=== PATIENT | male | born 1970 | race Caucasian/White ===

== ENCOUNTER → 2018-05-24 10:05 | Outpatient (CLI) | payer MEDICARE, MEDICAID, SELFPAY ==
[2018-05-24 12:18] LABS: Absolute Lymphocyte Count 1.18 X10^3/ul (0.83-4.51); Absolute Neutrophil Count 3.2 X10^3/uL (2.0-7.7); Basophil# 0.02 X10^3/uL; Basophil% 0.4 % (0-1); Eosinophil# 0.56 X10^3/uL; Eosinophils% 10.3 % (0-5); Hematocrit 49.5 % (40-54); Lymphocyte # 1.18 X10^3/ul (4.0); Lymphocyte % 21.6 % (19-41); Mean Corp Hgb Conc 32.3 g/gl (32-36); Mean Corpuscular Hgb 29.6 pg (27.0-32.0); Mean Corpuscular Volume 91.5 fL (80-94); Mean Platelet Vol. 11.4 fl (6.2-12.0); Monocyte# 0.46 X10^3/uL; Monocyte% 8.4 % (0-10); Neutrophil # 3.23 X10^3/uL (2.7-7.7); Neutrophil % 59.1 % (47-70); Platelet Count 163 K/mm3 (150-450); RBC Distribution Width CV 13.3 % (11.6-14.6); RBC Distribution Width SD 44.1 fl (35.1-43.9); Red Blood Count 5.41 M/mm3 (4.6-6.2); White Blood Count 5.5 K/mm3 (4.4-11.0)
[2018-05-24 12:20] LABS: POSITIVE COUNT NO; POSITIVE DIFFERENTIAL NO; POSITIVE MORPHOLOGY NO
[2018-05-24 12:28] LABS: ALB/GLOB Ratio 1.3 RATIO (0.9-2.4); AST(SGOT) 19 U/L (15-37); Alanine Aminotransfer ALT/SGPT 25 U/L (16-61); Albumin, Serum 4.3 g/dL (3.2-5.0); Alkaline Phosphatase 127 U/L (45-117); Anion Gap 8 (5-15); BUN 15 mg/dL (7-18); BUN/Creat Ratio 12.9 RATIO (10-20); Calcium,Total 8.5 mg/dL (8.5-10.1); Chloride 108 mmol/L (98-107); Cholesterol 130 mg/dL (200); Creatinine, Serum 1.16 mg/dL (0.70-1.30); EST Glomerular Filtration Rate 72 mL/min (>60); Est Glom Filt Rate - Afr Amer 87 mL/min (>60); Globulin 3.3 g/dL (2.2-4.2); Glucose 97 mg/dL (74-106); High Density Lipoprotein 42 mg/dL; Potassium 4.2 mmol/L (3.5-5.1); Protein, Total 7.6 g/dL (6.4-8.2); Sodium Level 143 mmol/L (136-145); Triglycerides 46 mg/dL; Very Low Density Lipoprotein 9 mg/dL (5-40)
[2018-05-24 12:33] LABS: Microalbumin,Random Urine 14.4 mg/L (NO RANGE EST.); Microalbumin:Creatinine Ratio 9.8 mg/g CRE (<30 mg/g CRE)
== END ==
PROVIDERS: Visit Provider Family Medicine
DX: Z00.00 Encounter for general adult medical examination without abnormal findings (principal); E78.5 Hyperlipidemia, unspecified; E11.40 Type 2 diabetes mellitus with diabetic neuropathy, unspecified; R80.9 Proteinuria, unspecified
CPT/HCPCS: 36415; 80053; 80061; 82043; 82570; 85025

== ENCOUNTER → 2019-05-31 09:54 | Outpatient (CLI) | payer MEDICARE, MEDICAID, SELFPAY ==
[2019-05-31 12:22] LABS: Hemoglobin A1c 5.7 % (4.2-6.3)
[2019-05-31 12:25] LABS: ALB/GLOB Ratio 1.2 RATIO (0.9-2.4); AST(SGOT) 18 U/L (15-37); Alanine Aminotransfer ALT/SGPT 26 U/L (16-61); Albumin, Serum 4.6 g/dL (3.2-5.0); Alkaline Phosphatase 192 U/L (45-117); Anion Gap 11 (5-15); BUN 14 mg/dL (7-18); BUN/Creat Ratio 9.9 RATIO (10-20); Calcium,Total 9.4 mg/dL (8.5-10.1); Chloride 106 mmol/L (98-107); Cholesterol 150 mg/dL (200); Creatinine, Serum 1.42 mg/dL (0.70-1.30); EST Glomerular Filtration Rate 57 mL/min (>60); Est Glom Filt Rate - Afr Amer 69 mL/min (>60); Globulin 3.7 g/dL (2.2-4.2); Glucose 97 mg/dL (74-106); High Density Lipoprotein 39 mg/dL; Potassium 4.2 mmol/L (3.5-5.1); Protein, Total 8.3 g/dL (6.4-8.2); Sodium Level 143 mmol/L (136-145); Thyroid Stim Hormone (TSH) 2.35 uIU/mL (0.358-3.74); Triglycerides 110 mg/dL; Very Low Density Lipoprotein 22 mg/dL (5-40)
[2019-05-31 12:50] LABS: Absolute Neutrophil Count 3.8 X10^3/uL (2.0-7.7); Basophil# 0.01 X10^3/uL; Basophil% 0.2 % (0-1); Eosinophil# 0.42 X10^3/uL; Hematocrit 49.8 % (40-54); Hemoglobin 16.7 g/dl (13.0-16.5); Lymphocyte % 21.8 % (19-41); Mean Corp Hgb Conc 33.5 g/gl (32-36); Mean Corpuscular Hgb 30.1 pg (27.0-32.0); Mean Corpuscular Volume 89.7 fL (80-94); Mean Platelet Vol. 10.9 fl (6.2-12.0); Monocyte# 0.46 X10^3/uL; Monocyte% 7.7 % (0-10); Neutrophil # 3.76 X10^3/uL (2.7-7.7); Neutrophil % 63.1 % (47-70); Platelet Count 188 K/mm3 (150-450); RBC Distribution Width SD 42.5 fl (35.1-43.9); Red Blood Count 5.55 M/mm3 (4.6-6.2)
[2019-05-31 12:51] LABS: POSITIVE COUNT NO; POSITIVE DIFFERENTIAL NO; POSITIVE MORPHOLOGY NO
== END ==
LOC: LAB.FUTURE 11-29 13:54 → BFHLAB 12-12 14:34
PROVIDERS: Family Provider Family Medicine; PCP Family Medicine; Visit Provider Family Medicine
DX: E11.40 Type 2 diabetes mellitus with diabetic neuropathy, unspecified (principal); E01.0 Iodine-deficiency related diffuse (endemic) goiter; E78.5 Hyperlipidemia, unspecified; Z51.81 Encounter for therapeutic drug level monitoring
CPT/HCPCS: 36415; 80053; 80061; 83036; 84443; 85025

== ENCOUNTER → 2019-09-06 08:07 | Outpatient (CLI) | payer MEDICARE, MEDICAID, SELFPAY ==
[2019-09-06 12:27] LABS: ALB/GLOB Ratio 1.3 RATIO (0.9-2.4); AST(SGOT) 19 U/L (15-37); Alanine Aminotransfer ALT/SGPT 26 U/L (16-61); Albumin, Serum 4.6 g/dL (3.2-5.0); Alkaline Phosphatase 142 U/L (45-117); Anion Gap 7 (5-15); BUN 21 mg/dL (7-18); BUN/Creat Ratio 17.8 RATIO (10-20); Calcium,Total 9.1 mg/dL (8.5-10.1); Carbamazepine (Tegretol) 9.3 ug/mL (4.0-12.0); Chloride 106 mmol/L (98-107); Creatinine, Serum 1.18 mg/dL (0.70-1.30); EST Glomerular Filtration Rate 70 mL/min (>60); Est Glom Filt Rate - Afr Amer 85 mL/min (>60); GGTP 48 U/L (15-85); Globulin 3.5 g/dL (2.2-4.2); Glucose 87 mg/dL (74-106); Microalbumin,Random Urine 12.8 mg/L (NO RANGE EST.); Microalbumin:Creatinine Ratio 10.1 mg/g CRE (<30 mg/g CRE); Protein, Total 8.1 g/dL (6.4-8.2); Sodium Level 144 mmol/L (136-145)
[2019-09-07 14:08] LABS: Alkaline Phosphatase, Serum 137 IU/L (39-117); Bone Fraction 33 % (12-68); Liver Fraction 67 % (13-88)
[2019-09-08 14:35] LABS: Intestinal Fraction 0 % (0-18)
== END ==
PROVIDERS: Family Provider Family Medicine; PCP Family Medicine
DX: Z79.899 Other long term (current) drug therapy (principal); R80.9 Proteinuria, unspecified; R74.8 Abnormal levels of other serum enzymes; R79.89 Other specified abnormal findings of blood chemistry
CPT/HCPCS: 36415; 80053; 80156; 82043; 82570; 82977; 84075; 84080

== ENCOUNTER → 2020-06-07 08:45 | Outpatient (CLI) | payer MEDICARE, MEDICAID, SELFPAY ==
[2020-06-07 12:52] LABS: Absolute Lymphocyte Count 1.22 X10^3/uL (0.83-4.51); Absolute Neutrophil Count 2.5 X10^3/uL (2.0-7.7); Basophil# 0.03 X10^3/uL; Basophil% 0.6 % (0-1); Eosinophil# 0.48 X10^3/uL; Eosinophils% 10.3 % (0-5); Hematocrit 50.8 % (40-54); Hemoglobin 16.4 g/dL (13.0-16.5); Lymphocyte # 1.22 X10^3/ul (4.0); Lymphocyte % 26.3 % (19-41); Mean Corp Hgb Conc 32.3 g/dL (32-36); Mean Corpuscular Hgb 29.8 pg (27.0-32.0); Mean Corpuscular Volume 92.2 fL (80-94); Mean Platelet Vol. 10.6 fl (6.2-12.0); Monocyte# 0.36 X10^3/uL; Monocyte% 7.8 % (0-10); NRBC Flagged by Analyzer 0 % (0-5); Neutrophil # 2.54 X10^3/uL (2.7-7.7); Neutrophil % 54.8 % (47-70); Platelet Count 164 K/mm3 (150-450); RBC Distribution Width CV 12.7 % (11.6-14.6); RBC Distribution Width SD 43.4 fl (35.1-43.9); Red Blood Count 5.51 M/mm3 (4.6-6.2); White Blood Count 4.6 K/mm3 (4.4-11.0)
[2020-06-07 13:11] LABS: Hemoglobin A1c 5.6 % (3.8-5.6)
[2020-06-07 13:21] LABS: ALB/GLOB Ratio 1.3 RATIO (0.9-2.4); AST(SGOT) 17 U/L (15-37); Alanine Aminotransfer ALT/SGPT 31 U/L (16-61); Albumin, Serum 4.3 g/dL (3.2-5.0); Alkaline Phosphatase 143 U/L (45-117); Anion Gap 7 (5-15); BUN 20 mg/dL (7-18); BUN/Creat Ratio 16.8 RATIO (10-20); Calcium,Total 8.7 mg/dL (8.5-10.1); Chloride 105 mmol/L (98-107); Cholesterol 147 mg/dL (200); Creatinine, Serum 1.19 mg/dL (0.70-1.30); EST Glomerular Filtration Rate 69 mL/min (>60); Est Glom Filt Rate - Afr Amer 84 mL/min (>60); Globulin 3.4 g/dL (2.2-4.2); Glucose 105 mg/dL (74-106); High Density Lipoprotein 42 mg/dL; Protein, Total 7.7 g/dL (6.4-8.2); Sodium Level 141 mmol/L (136-145); Triglycerides 62 mg/dL; Very Low Density Lipoprotein 12 mg/dL (5-40)
== END ==
PROVIDERS: Family Provider Family Medicine; PCP Family Medicine; Visit Provider Family Medicine
DX: E78.5 Hyperlipidemia, unspecified (principal); R79.89 Other specified abnormal findings of blood chemistry; Z86.39 Personal history of other endocrine, nutritional and metabolic disease; Z51.81 Encounter for therapeutic drug level monitoring
CPT/HCPCS: 36415; 80053; 80061; 83036; 85025

== ENCOUNTER → 2021-01-01 10:34 | Outpatient (CLI) | payer MEDICARE, MEDICAID, SELFPAY ==
[2021-01-01 11:56] LABS: Anion Gap 6 (5-15); BUN 17 mg/dL (7-18); BUN/Creat Ratio 12.4 RATIO (10-20); Calcium,Total 9.3 mg/dL (8.5-10.1); Chloride 107 mmol/L (98-107); Creatinine, Serum 1.37 mg/dL (0.70-1.30); EST Glomerular Filtration Rate 59 mL/min (>60); Est Glom Filt Rate - Afr Amer 71 mL/min (>60); Glucose 79 mg/dL (74-106); PSA,Total - Annual Screen 0.44 ng/mL (0.00-4.00); Potassium 4.3 mmol/L (3.5-5.1); Sodium Level 143 mmol/L (136-145)
== END ==
PROVIDERS: PCP Family Medicine; Referring Provider Urology; Visit Provider Urology
DX: Z12.5 Encounter for screening for malignant neoplasm of prostate (principal)
CPT/HCPCS: 36415; 80048; 84153; G0103

== ENCOUNTER → 2021-02-25 11:20 | Outpatient (CLI) | payer MEDICARE, MEDICAID, SELFPAY ==
--- NOTE | 2021-02-25 11:24 | US_ITS ---
STUDY: RENAL ULTRASOUND - COMPLETE REASON FOR EXAM: Male, 50 years old. CKD STAGE 2 TECHNIQUE: Ultrasound evaluation of the kidneys was performed with real-time and static desir-scale imaging. COMPARISON: None. FINDINGS: RIGHT KIDNEY: Normal location of the right kidney, which is normal in size. The right kidney measures 10.7 cm x 6.4 cm x 5.7 cm. There is a normal cortex of the right kidney. The renal cortex measures 1.6 cm. 2 renal cysts are seen. The larger measures 2.3 cm x 2 cm x 2.1 cm. There are no right renal calculi. There is no right hydronephrosis. DISTAL RIGHT URETER: There is non-visualization of the distal right ureter. There is no demonstrated right ureterovesical junction calculus. There is a visualized right ureteral jet. LEFT KIDNEY: Normal location of the left kidney, which is normal in size. The left kidney measures 12.4 cm x 5.5 cm x 5.6 cm. There is a normal cortex of the left kidney. The renal cortex measures 1.4 cm. 2 renal cysts are seen. The larger measures 1.3 cm x 1.8 cm x 1.3 cm. I suspect nonobstructive intrarenal calculus in the upper pole calyx of the left kidney. There is no left hydronephrosis. DISTAL LEFT URETER: There is non-visualization of the distal left ureter. There is no demonstrated left ureterovesical junction calculus. There is a visualized left ureteral jet. BLADDER: The distended urinary bladder has a volume of 457 ml. There is a normal wall thickness of the distended urinary bladder. There is no demonstrated mass within the urinary bladder. There are no demonstrated bladder calculi. US/Kidney and Bladder IMPRESSION: Bilateral renal cysts. Nonobstructive calculus in the upper pole calyx of the left kidney. Electronically Signed: Josh Huerta MD at 12:24 EDT , Service support ,
== END ==
PROVIDERS: PCP Family Medicine; Referring Provider Internal Medicine Nephrology; Visit Provider Internal Medicine Nephrology
DX: E11.22 Type 2 diabetes mellitus with diabetic chronic kidney disease (principal); N18.2 Chronic kidney disease, stage 2 (mild)
CPT/HCPCS: 76770

== ENCOUNTER → 2021-03-18 08:03 | Outpatient (CLI) | payer MEDICARE, MEDICAID, SELFPAY ==
[2021-03-18 08:59] LABS: Albumin, Serum 4.2 g/dL (3.2-5.0); BUN 19 mg/dL (7-18); BUN/Creat Ratio 14.6 RATIO (10-20); Chloride 105 mmol/L (98-107); EST Glomerular Filtration Rate 62 mL/min (>60); Est Glom Filt Rate - Afr Amer 75 mL/min (>60); Glucose 158 mg/dL (74-106); Phosphorus 2.9 mg/dL (2.5-4.9); Sodium Level 138 mmol/L (136-145)
[2021-03-18 09:04] LABS: Vitamin D,25 Hydroxy 30.1 ng/mL
[2021-03-18 09:37] LABS: Carbamazepine (Tegretol) 11.5 ug/mL (4.0-12.0)
== END ==
PROVIDERS: PCP Family Medicine; Referring Provider Internal Medicine Nephrology; Visit Provider Internal Medicine Nephrology
DX: F31.70 Bipolar disorder, currently in remission, most recent episode unspecified (principal); N18.30 Chronic kidney disease, stage 3 unspecified; F19.10 Other psychoactive substance abuse, uncomplicated; Z79.899 Other long term (current) drug therapy
CPT/HCPCS: 36415; 80069; 80156; 82306

== ENCOUNTER → 2021-08-09 07:59 | Outpatient (CLI) | payer MEDICARE, SELFPAY ==
[2021-08-09 09:00] LABS: Albumin, Serum 4.2 g/dL (3.2-5.0); BUN 15 mg/dL (7-18); BUN/Creat Ratio 12.6 RATIO (10-20); Calcium,Total 8.9 mg/dL (8.5-10.1); Chloride 106 mmol/L (98-107); Creatinine, Serum 1.19 mg/dL (0.70-1.30); EST Glomerular Filtration Rate 69 mL/min (>60); Est Glom Filt Rate - Afr Amer 83 mL/min (>60); Glucose 120 mg/dL (74-106); Phosphorus 2.9 mg/dL (2.5-4.9); Potassium 4.2 mmol/L (3.5-5.1); Sodium Level 142 mmol/L (136-145)
== END ==
PROVIDERS: PCP Family Medicine; Visit Provider Internal Medicine Nephrology
DX: N18.2 Chronic kidney disease, stage 2 (mild) (principal)
CPT/HCPCS: 36415; 80069

== ENCOUNTER 2022-01-29 08:19 | Outpatient (CLI) | payer MEDICARE, MEDICAID, SELFPAY ==
[2022-01-29 09:54] LABS: PSA,Total - Annual Screen 0.41 ng/mL (0.00-4.00)
== END 2022-01-29 23:59 | disposition home or self-care (01) ==
LOC: LAB 08:24
PROVIDERS: PCP Internal Medicine; Visit Provider Registered Nurse
DX: Z12.5 Encounter for screening for malignant neoplasm of prostate (principal)
CPT/HCPCS: 84153; 36415; G0103

== ENCOUNTER 2022-03-12 06:34 | Outpatient (CLI) | payer MEDICARE, MEDICAID, SELFPAY ==
[2022-03-12 07:55] LABS: Hematocrit 49.9 % (40-54); Hemoglobin 16.4 g/dL (13.0-16.5); Mean Corp Hgb Conc 32.9 g/dL (32-36); Mean Corpuscular Hgb 29.6 pg (27.0-32.0); Mean Corpuscular Volume 90.1 fL (80-94); Mean Platelet Vol. 10.1 fl (6.2-12.0); Platelet Count 183 K/mm3 (150-450); RBC Distribution Width CV 12.7 % (11.6-14.6); Red Blood Count 5.54 M/mm3 (4.6-6.2); White Blood Count 5.9 K/mm3 (4.4-11.0)
[2022-03-12 08:10] LABS: Albumin, Serum 4.3 g/dL (3.2-5.0); BUN 19 mg/dL (7-18); Calcium,Total 9.1 mg/dL (8.5-10.1); Chloride 105 mmol/L (98-107); Creatinine, Serum 1.19 mg/dL (0.70-1.30); EST Glomerular Filtration Rate 69 mL/min (>60); Est Glom Filt Rate - Afr Amer 83 mL/min (>60); Glucose 129 mg/dL (74-106); Phosphorus 2.9 mg/dL (2.5-4.9); Potassium 4.1 mmol/L (3.5-5.1); Sodium Level 139 mmol/L (136-145)
== END 2022-03-12 23:59 | disposition home or self-care (01) ==
LOC: LAB 06:37
PROVIDERS: PCP Family Medicine; Referring Provider Internal Medicine Nephrology; Visit Provider Internal Medicine Nephrology
DX: N18.2 Chronic kidney disease, stage 2 (mild) (principal)
CPT/HCPCS: 36415; 80069; 85027

== ENCOUNTER → 2022-12-16 | Outpatient (CLI) | payer MEDICARE, MEDICAID, SELFPAY ==
[2022-12-16 11:23] LABS: Hematocrit 46.5 % (40-54); Hemoglobin 15.3 g/dL (13.0-16.5); Mean Corp Hgb Conc 32.9 g/dL (32-36); Mean Corpuscular Volume 91.2 fL (80-94); Mean Platelet Vol. 10.1 fl (6.2-12.0); Platelet Count 175 K/mm3 (150-450); RBC Distribution Width CV 12.6 % (11.6-14.6); RBC Distribution Width SD 41.9 fl (35.1-43.9); White Blood Count 5.2 K/mm3 (4.4-11.0)
[2022-12-16 12:03] LABS: Vitamin D,25 Hydroxy 40.1 ng/mL
[2022-12-16 12:04] LABS: Free T3 2.6 pg/mL (2.18-3.98); Sodium Level 142 mmol/L (136-145); T4 Free Direct 0.74 ng/dL (0.76-1.46); Thyroid Stim Hormone (TSH) 1.05 uIU/mL (0.358-3.74)
== END | disposition home or self-care (01) ==
PROVIDERS: PCP Internal Medicine; Visit Provider Registered Nurse
DX: F31.70 Bipolar disorder, currently in remission, most recent episode unspecified (principal); F19.10 Other psychoactive substance abuse, uncomplicated; E55.9 Vitamin D deficiency, unspecified; R53.83 Other fatigue; Z79.899 Other long term (current) drug therapy
CPT/HCPCS: 36415; 82306; 84295; 84439; 84443; 84481; 85027

== ENCOUNTER → 2023-02-03 | Outpatient (CLI) | payer MEDICARE, MEDICAID, SELFPAY ==
[2023-02-03 10:46] LABS: PSA,Total - Annual Screen 0.41 ng/mL (0.00-4.00)
== END | disposition home or self-care (01) ==
LOC: LAB 09:37
PROVIDERS: PCP Internal Medicine; Referring Provider Registered Nurse; Visit Provider Registered Nurse
DX: Z12.5 Encounter for screening for malignant neoplasm of prostate (principal)
CPT/HCPCS: 36415; 84153; G0103

== ENCOUNTER → 2023-03-23 | Outpatient (CLI) | payer MEDICARE, MEDICAID, SELFPAY ==
[2023-03-23 08:13] LABS: Protein, Urine (Random) 13.9 mg/dL (<11.9); Protein:Creat Ratio 129 mg/g CRE (0-200)
[2023-03-23 08:20] LABS: Albumin, Serum 4.3 g/dL (3.2-5.0); BUN 16 mg/dL (7-18); BUN/Creat Ratio 12.1 RATIO (10-20); Calcium,Total 9.1 mg/dL (8.5-10.1); Chloride 105 mmol/L (98-107); Creatinine, Serum 1.32 mg/dL (0.70-1.30); EST Glomerular Filtration Rate 61 mL/min (>60); Est Glom Filt Rate - Afr Amer 73 mL/min (>60); Glucose 153 mg/dL (74-106); Phosphorus 2.8 mg/dL (2.5-4.9); Potassium 4.1 mmol/L (3.5-5.1); Sodium Level 138 mmol/L (136-145)
== END | disposition home or self-care (01) ==
LOC: LAB 07:18
PROVIDERS: PCP Internal Medicine; Referring Provider Internal Medicine Nephrology; Visit Provider Internal Medicine Nephrology
DX: N18.2 Chronic kidney disease, stage 2 (mild) (principal)
CPT/HCPCS: 36415; 80069; 82570; 84156

== ENCOUNTER → 2024-02-16 | Outpatient (CLI) | payer MEDICARE, MEDICAID, SELFPAY ==
[2024-02-16 10:41] LABS: PSA,Total - Annual Screen 1.14 ng/mL (0.00-4.00)
== END | disposition home or self-care (01) ==
LOC: LAB 09:39
PROVIDERS: PCP Internal Medicine; Referring Provider Urology; Visit Provider Urology
DX: Z12.5 Encounter for screening for malignant neoplasm of prostate (principal)
CPT/HCPCS: 36415; 84153; G0103

== ENCOUNTER → 2024-03-28 | Outpatient (CLI) | payer MEDICARE, MEDICAID, SELFPAY ==
[2024-03-28 08:11] LABS: Protein:Creat Ratio 111 mg/g CRE (0-200)
[2024-03-28 08:19] LABS: Albumin, Serum 4.5 g/dL (3.2-5.0); BUN 18 mg/dL (7-18); BUN/Creat Ratio 13.2 RATIO (10-20); Calcium,Total 9.1 mg/dL (8.5-10.1); Chloride 106 mmol/L (98-107); Creatinine, Serum 1.36 mg/dL (0.70-1.30); EST Glomerular Filtration Rate 58 mL/min (>60); Est Glom Filt Rate - Afr Amer 71 mL/min (>60); Glucose 129 mg/dL (74-106); Phosphorus 2.9 mg/dL (2.5-4.9); Potassium 4.3 mmol/L (3.5-5.1); Sodium Level 137 mmol/L (136-145)
== END | disposition home or self-care (01) ==
LOC: LAB.FUTURE 07:05 → LAB 07:05
PROVIDERS: PCP Internal Medicine; Referring Provider Internal Medicine Nephrology; Visit Provider Internal Medicine Nephrology
DX: E11.22 Type 2 diabetes mellitus with diabetic chronic kidney disease (principal); N18.2 Chronic kidney disease, stage 2 (mild)
CPT/HCPCS: 36415; 80069; 82570; 84156

== ENCOUNTER 2024-04-05 11:19 | Emergency (ER) | payer MEDICARE, MEDICAID, SELFPAY ==
[2024-04-05 11:21] VITALS: BP 135/85; PULSE 100; RESP 16; TEMP 36.6; O2SAT 96; BMI 34.2
[2024-04-05] MEDS: Ondansetron 4 MG/2 ML Vial IV (12:13)
[2024-04-05] MEDS: 0.9% Normal Saline (1000mL) 1,000 ML 1000 ML IV (12:13)
--- NOTE | 2024-04-05 12:16 | ED.VIS.GI ---
HPI HPI - GI History of Present Illness Chief Complaint: Nausea/Vomiting/Diarrhea Narrative Narrative: 53-year-old male presenting with nausea, vomiting, diarrhea. He states it started last evening and he did not feel well. He woke up in the middle night and has had several episodes of diarrhea. No recent exotic travel or exotic food. No exposure to anybody that is ill. No recent antibiotics. Denies abdominal pain. He has not had a fever at home. He states has not been able to hold anything down since 3 this morning. Initially tried water and orange juice but these did not stay down. He states that his stool is brown and liquidy. No black or bloody stools. [facility] Medical History Depression Hyperlipidemia Home Medications amitriptyline 100 mg tablet 100 mg PO QHS 03/06/16 [History Last Taken Unknown] aripiprazole 30 mg tablet (Abilify) 30 mg PO QHS 03/06/16 [History Last Taken Unknown] atorvastatin 20 mg tablet 20 mg PO QHS 03/06/16 [History Last Taken Unknown] bupropion HCl 300 mg 24 hr tablet, extended release 300 mg PO DAILY 03/06/16 [History Last Taken Unknown] buspirone 30 mg tablet 30 mg PO QHS 03/06/16 [History Last Taken 03/12/16 04:45 30 MG] digestive enzymes combo no.7 (Superior Digestive Enzyme capsule) 1 ea PO QHS 03/06/16 [History Last Taken Unknown] finasteride 5 mg tablet 5 mg PO QHS 03/06/16 [History Last Taken Unknown] pregabalin 75 mg capsule 75 mg PO BID 03/06/16 [History Last Taken 03/12/16 04:45 75 MG] tamsulosin 0.4 mg capsule 0.5 mg PO QHS 03/06/16 [History Last Taken Unknown] ciprofloxacin HCl 500 mg tablet 500 mg PO BID ##10 03/13/16 [Rx Last Taken Unknown] hydrocodone 5 mg-acetaminophen 300 mg tablet (Vicodin) 1 tab PO Q4H PRN PRN Pain #10 tabs 03/13/16 [Rx Last Taken Unknown] ondansetron 4 mg disintegrating tablet 4 mg PO Q8H PRN PRN Nausea #20 tabs 04/05/24 [Rx Last Taken Unknown] Allergy/AdvReac Type Severity Reaction Status Date / Time No Known Allergies Allergy Verified 04/05/24 11:20 Social History Smoking Status: Never smoker ROS ROS ED Constitutional Constitutional ED: Denies chills, fever(s) or sweats Eyes Eyes: Denies blurry vision or change in vision ENT ENT ED: Denies ear pain or sore throat Cardiovascular Cardiovascular: Denies chest pain, palpitations or racing heartbeat Respiratory/Chest Respiratory/Chest: Denies cough, dyspnea or sputum Gastrointestinal Gastrointestinal: Reports diarrhea, nausea and vomiting; Denies abdominal pain or constipation Genitourinary Genitourinary ED: Denies dysuria, hematuria or urinary frequency Musculoskeletal Musculoskeletal: Denies arthralgias, myalgias or neck pain Integumentary Denies abscess, Abrasions or rash Neurologic Neurologic: Denies headache(s), paresthesias or weakness Psychiatric Psychiatric: Denies anxiety, depression, suicidal ideation or suicidal thoughts Endocrine Endocrinology: Denies polydipsia or polyuria EXAM Physical Exam Const Vital Signs: 04/05/24 11:21 04/05/24 13:16 04/05/24 14:39 Temperature 98 F 99.2 F H 98 F Temperature Source Temporal Temporal Pulse Rate 100 78 90 Respiratory Rate 16 18 16 Blood Pressure 135/85 H 138/74 H Blood Pressure Mean 101 95 Pulse Ox 96 95 100 Oxygen Delivery Method Room Air Room Air Positive well nourished General Appearance ED: NAD HEENT normocephalic and atraumatic Eyes PERRL and EOMs intact bilaterally Resp normal respiratory effort and clear to auscultation bilaterally Auscultation: Negative for rales, rhonchi or wheezes Cardio regular rate and regular rhythm GI non-tender, non-distended and no masses Neuro CN's II-XII intact bilaterally Sensorium / Orientation: alert Motor Exam: strength 5/5 throughout Psych mental status grossly normal Skin no wounds MDM MDM MDM Narrative Medical decision making narrative: 53-year-old male presenting with nausea, vomiting, diarrhea. Denies cough or shortness of breath. Denies fever. Differential includes viral etiology, gastritis, dehydration, anemia, electrolyte abnormalities. IV line was established patient was given Zofran 4 mg IV and a liter normal saline. CBC, CMP, lipase will be obtained. CBC, CMP, lipase all within normal limits. Reevaluation patient feeling better after IV fluids and Zofran. He passed a p.o. challenge and felt he could go home. I do not believe he needs any further workup or imaging. Patient given prescription for Zofran. Impression: 1. Nausea/vomiting 2. Diarrhea Lab Data Attestation: I reviewed the patient's lab results. Labs: Laboratory Results - last 24 hr 04/05/24 12:05 WBC 9.1 RBC 5.22 Hgb 15.7 Hct 46.5 MCV 89.1 MCH 30.1 MCHC 33.8 RDW Std Deviation 40.8 RDW Coeff of Essie 12.6 Plt Count 165 MPV 10.7 Immature Gran % (Auto) 0.400 Neut % (Auto) 93.4 H Lymph % (Auto) 1.9 L Butts % (Auto) 4.0 Eos % (Auto) 0.2 Baso % (Auto) 0.1 Absolute Neuts (auto) 8.5 H Absolute Lymphs (auto) 0.17 L Nucleated RBC % 0 Sodium 140 Potassium 4.1 Chloride 111 H Carbon Dioxide 24.0 Anion Gap 5 BUN 27 H Creatinine 1.18 Estim Creat Clear Calc 92.91 Est GFR (MDRD) Af Amer 83 Est GFR (MDRD) Non-Af 69 BUN/Creatinine Ratio 22.9 H Glucose 149 H Calcium 8.7 Total Bilirubin 0.70 AST 15 ALT 22 Alkaline Phosphatase 121 H Total Protein 7.4 Albumin 4.0 Globulin 3.4 Albumin/Globulin Ratio 1.2 Lipase 20 Discharge Plan Triage Chief Complaint: Nausea/Vomiting/Diarrhea ED Provider: Jude Pennington Dx/Rx/DC Orders Instructions: ED Gastroenteritis, Viral (Adult) Prescriptions: New ondansetron 4 mg tablet,disintegrating 4 mg PO Q8H PRN PRN (Reason: Nausea) Qty: 20 0RF No Action atorvastatin 20 MG tablet 20 mg PO QHS Patient Comments: high cholesterol tamsulosin 0.4 MG capsule 0.5 mg PO QHS Patient Comments: prostate buspirone 30 MG tablet 30 mg PO QHS Patient Comments: mood amitriptyline 100 MG tablet 100 mg PO QHS Patient Comments: depression finasteride 5 MG tablet 5 mg PO QHS Patient Comments: prostate aripiprazole [Abilify] 30 MG tablet 30 mg PO QHS Patient Comments: schizophrenia bupropion HCl 300 MG tablet extended release 24 hr 300 mg PO DAILY Patient Comments: depression pregabalin 75 MG capsule 75 mg PO BID Patient Comments: pain digestive enzymes combo no.7 [Superior Digestive Enzyme] 1 EACH capsule 1 ea PO QHS Patient Comments: supplement ciprofloxacin HCl 500 MG tablet 500 mg PO BID Qty: 10 0RF Patient Comments: antibiotic hydrocodone-acetaminophen [Vicodin] 1 EACH tablet 1 tab PO Q4H PRN PRN (Reason: Pain) Qty: 10 0RF Patient Comments: pain control Primary Care Provider: Thony Raza Referrals: Thony Raza MD [Primary Care Provider] - Disposition Disposition: Home, Self Care Discharge Date/Time: 04/05/24 14:44
[2024-04-05 12:38] LABS: Absolute Lymphocyte Count 0.17 X10^3/uL (0.83-4.51); Absolute Neutrophil Count 8.5 X10^3/uL (2.0-7.7); Basophil# 0.01 X10^3/uL; Basophil% 0.1 % (0-1); Eosinophil# 0.02 X10^3/uL; Eosinophils% 0.2 % (0-5); Hematocrit 46.5 % (40-54); Hemoglobin 15.7 g/dL (13.0-16.5); Lymphocyte # 0.17 X10^3/ul (0.83-4.51); Lymphocyte % 1.9 % (19-41); Mean Corp Hgb Conc 33.8 g/dL (32-36); Mean Corpuscular Hgb 30.1 pg (27.0-32.0); Mean Corpuscular Volume 89.1 fL (80-94); Mean Platelet Vol. 10.7 fl (6.2-12.0); Monocyte# 0.36 X10^3/uL; NRBC Flagged by Analyzer 0 % (0-5); Neutrophil # 8.47 X10^3/uL (2.7-7.7); Neutrophil % 93.4 % (47-70); POSITIVE DIFFERENTIAL YES; Platelet Count 165 K/mm3 (150-450); RBC Distribution Width CV 12.6 % (11.6-14.6); RBC Distribution Width SD 40.8 fl (35.1-43.9); Red Blood Count 5.22 M/mm3 (4.6-6.2); White Blood Count 9.1 K/mm3 (4.4-11.0)
[2024-04-05 12:49] LABS: ALB/GLOB Ratio 1.2 RATIO (0.9-2.4); AST(SGOT) 15 U/L (15-37); Alanine Aminotransfer ALT/SGPT 22 U/L (16-61); Alkaline Phosphatase 121 U/L (45-117); Anion Gap 5 (5-15); BUN 27 mg/dL (7-18); BUN/Creat Ratio 22.9 RATIO (10-20); Calcium,Total 8.7 mg/dL (8.5-10.1); Chloride 111 mmol/L (98-107); Creatinine, Serum 1.18 mg/dL (0.70-1.30); EST Glomerular Filtration Rate 69 mL/min (>60); Est Glom Filt Rate - Afr Amer 83 mL/min (>60); Estimated Creatinine Clearance 92.91 ml/min; Globulin 3.4 g/dL (2.2-4.2); Glucose 149 mg/dL (74-106); Lipase 20 U/L (13-75); Potassium 4.1 mmol/L (3.5-5.1); Protein, Total 7.4 g/dL (6.4-8.2); Sodium Level 140 mmol/L (136-145)
[2024-04-05 13:16] VITALS: PULSE 78; RESP 18; TEMP 37.3; O2SAT 95
[2024-04-05 14:39] VITALS: BP 138/74; PULSE 90; RESP 16; TEMP 36.6; O2SAT 100
== END 2024-04-05 14:44 | disposition home or self-care (01) ==
PROVIDERS: Emergency Provider Student in an Organized Health Care Education/Training Program; PCP Internal Medicine; Visit Provider Student in an Organized Health Care Education/Training Program
DX: R11.2 Nausea with vomiting, unspecified (principal); R19.7 Diarrhea, unspecified; E78.5 Hyperlipidemia, unspecified
CPT/HCPCS: 80053; 83690; 85025; 96361; 96374; 99283; J7030; A4216; J2405

== ENCOUNTER → 2024-07-06 | Outpatient (CLI) | payer MEDICARE, MEDICAID, SELFPAY ==
--- NOTE | 2024-07-06 12:30 | NEURO ---
NCS and/or EMG Patient Report Ordering Doctor: Soniya Lake DATE OF SERVICE: 07/06/24 Giancarlo presents for electrodiagnostic testing of the lower limbs. He has weakness, pain and numbness in the lower limbs. Electrodiagnostic Findings: Peroneal motor nerve demonstration of this latency, amplitude and conduction velocity. Left peroneal motor nerve demonstrates normal distal latency, amplitude and conduction velocity. Normal tibial motor response bilaterally. Sensory responses are within normal limits. Borderline prolonged H-reflex bilaterally. Peroneal and tibial F-waves are within normal limits. Needle EMG testing was performed the lower limbs. All muscles tested showed no evidence of denervation with normal or reaction potentials. Electrodiagnostic impression: This a normal electrodiagnostic study in the lower limbs. There is no electrodiagnostic evidence for peripheral polyneuropathy or lumbosacral radiculopathy. Due to persistent symptoms, would consider possible nerve biopsy to evaluate for small fiber neuropathy. Multi Select Codes Neurology Neurology Interp Codes: 84749-16 Musc test done w/n test comp (interp) (2) and 16680-32 Nrv cndj test 9-10 studies (interp)
== END | disposition home or self-care (01) ==
LOC: PSN 09:04
PROVIDERS: PCP Internal Medicine; Referring Provider Nurse Practitioner; Visit Provider Nurse Practitioner
DX: R20.0 Anesthesia of skin (principal); R20.2 Paresthesia of skin; M79.604 Pain in right leg; M79.605 Pain in left leg
CPT/HCPCS: 95886; 95911

== ENCOUNTER 2025-01-04 08:10 | Emergency (ER) | payer MEDICARE, MEDICAID, SELFPAY ==
[2025-01-04 08:10] VITALS: BP 159/99; PULSE 100; RESP 18; TEMP 37.1; O2SAT 98; BMI 33.7
--- NOTE | 2025-01-04 08:24 | EX.ED.DYSGE1 ---
HPI History of Present Illness Chief Complaint: General Illness Informant: patient Narrative Narrative: History fever chills cough. This morning burning in his abdomen with weakness in the knees. No urinary symptoms. No ear pain no throat pain. Denies sick contacts. Prediabetic history. No asthma or COPD. Denies wheezing. Unclear if he got the flu vaccination this year. [facility] Medical History Hyperlipidemia Depression Home Medications ?Medication ?Instructions ?Recorded ?Last Taken ?Type amitriptyline 100 mg tablet 100 mg PO QHS 03/06/16 Unknown History aripiprazole 30 mg tablet (Abilify) 30 mg PO QHS 03/06/16 Unknown History atorvastatin 20 mg tablet 20 mg PO QHS 03/06/16 Unknown History bupropion HCl 300 mg 24 hr tablet, 300 mg PO DAILY 03/06/16 Unknown History extended release buspirone 30 mg tablet 30 mg PO QHS 03/06/16 03/12/16 04:45 History 30 MG digestive enzymes combo no.7 1 ea PO QHS 03/06/16 Unknown History (Superior Digestive Enzyme capsule) finasteride 5 mg tablet 5 mg PO QHS 03/06/16 Unknown History pregabalin 75 mg capsule 75 mg PO BID 03/06/16 03/12/16 04:45 History 75 MG tamsulosin 0.4 mg capsule 0.5 mg PO QHS 03/06/16 Unknown History ciprofloxacin HCl 500 mg tablet 500 mg PO BID ##10 03/13/16 Unknown Rx hydrocodone 5 mg-acetaminophen 300 1 tab PO Q4H PRN PRN Pain #10 tabs 03/13/16 Unknown Rx mg tablet (Vicodin) ondansetron 4 mg disintegrating 4 mg PO Q8H PRN PRN Nausea #20 tabs 04/05/24 Unknown Rx tablet famotidine 20 mg tablet 20 mg PO BID #28 TABLETS 01/04/25 Unknown Rx ondansetron 4 mg disintegrating 4 mg PO Q8H PRN PRN Nausea #10 tabs 01/04/25 Unknown Rx tablet oseltamivir 75 mg capsule (Tamiflu) 75 mg PO BID 5 days #10 caps 01/04/25 Unknown Rx Allergy/AdvReac Type Severity Reaction Status Date / Time No Known Allergies Allergy Verified 01/04/25 08:12 Family History no significant family his Social History Smoking Status: Never smoker ROS ROS ED Constitutional Constitutional ED: Reports chills and fever(s); Denies sweats ENT ENT ED: Denies sore throat Cardiovascular Cardiovascular: Denies chest pain, leg edema, palpitations or racing heartbeat Respiratory/Chest Respiratory/Chest: Reports cough; Denies dyspnea or dyspnea on exertion Gastrointestinal Gastrointestinal: Denies abdominal pain, diarrhea, nausea or vomiting Genitourinary Genitourinary ED: Denies dysuria, hematuria or urinary frequency Musculoskeletal Musculoskeletal: Denies back pain, extremity pain or neck pain Integumentary Denies rash or wounds Neurologic Neurologic: Denies headache(s), paresthesias or weakness EXAM Physical Exam Const Vital Signs: 01/04/25 08:10 01/04/25 10:21 Temperature 98.7 F 98.8 F Temperature Source Oral Pulse Rate 100 80 Respiratory Rate 18 18 Blood Pressure 159/99 H 144/89 H Blood Pressure Mean 119 107 Pulse Ox 98 98 Oxygen Delivery Method Room Air Positive well nourished and well developed General Appearance ED: well developed and NAD HEENT Reports moist mucous membranes normocephalic and atraumatic Eyes General Eye ED: Yes normal appearance of both eyes Neck full ROM Chest Wall Chest: Negative for tenderness Resp normal respiratory effort and normal air movement Effort and Inspection: symmetric chest movement; Negative for respiratory distress Cardio regular rate, regular rhythm and no murmurs Peripheral Pulses: pulses 2+ throughout GI normal to inspection, nondistended, normoactive bowel sounds and non-tender Palpation: Negative for guarding or rebound tenderness present Extremity normal to inspection General Extremety ED: Negative for edema or tenderness General Extremity: Negative for edema Neuro oriented x3 and no sensory deficits noted Sensorium / Orientation: awake and alert Skin no rashes or lesions noted and no wounds MDM MDM MDM Narrative Medical decision making narrative: Interventions / MDM: Differential diagnosis: Influenza, viral syndrome Diagnosis considered but do not suspect: Pneumonia however chest x-ray negative. My EKG interpretation: N/A Imaging independently reviewed and interpreted by myself: 2 view chest x-ray: No acute process also read by radiology. External documents reviewed: N/A Test considered but not ordered:N/A ED course: Vital stable afebrile in ED. Nontoxic. Increasing cough fever chills with no urinary symptoms. Chest x-ray ordered, COVID flu and RSV. With abdominal burning will treat with Pepcid and Zofran. Nonsurgical abdomen on exam. Findings positive for flu. Symptoms within 48 hours. Discussed Tamiflu for which she would like started. Patient prescription for Zofran and Pepcid as symptoms improved on reevaluation. Continue oral fluids for hydration. Outpatient follow-up. All questions were answered. Re-evaluation: stable Disposition discussed with patient/family/significant other: Patient Case discussed with consulting clinician: N/A This note was generated with [employer] dictation software. It may contain incorrect words, spelling, and punctuation that were not noted in checking the note before signing. Radiography Diagnostic Testing: Clinical Impression(s) from Imaging Studies Chest X-Ray 01/04/25 08:35 IMPRESSION: NO ACUTE FINDINGS. Reading Location: [place] [address] Discharge Plan Triage Chief Complaint: General Illness ED Provider: Evin Hall Dx/Rx/DC Orders Clinical Impression: Influenza A, Acute viral syndrome Instructions: ED Influenza (Adult) Prescriptions: New famotidine 20 mg tablet 20 mg PO BID Qty: 28 0RF ondansetron 4 mg tablet,disintegrating 4 mg PO Q8H PRN PRN (Reason: Nausea) Qty: 10 0RF oseltamivir [Tamiflu] 75 mg capsule 75 mg PO BID 5 Days Qty: 10 0RF No Action atorvastatin 20 MG tablet 20 mg PO QHS Patient Comments: high cholesterol tamsulosin 0.4 MG capsule 0.5 mg PO QHS Patient Comments: prostate buspirone 30 MG tablet 30 mg PO QHS Patient Comments: mood amitriptyline 100 MG tablet 100 mg PO QHS Patient Comments: depression finasteride 5 MG tablet 5 mg PO QHS Patient Comments: prostate aripiprazole [Abilify] 30 MG tablet 30 mg PO QHS Patient Comments: schizophrenia bupropion HCl 300 MG tablet extended release 24 hr 300 mg PO DAILY Patient Comments: depression pregabalin 75 MG capsule 75 mg PO BID Patient Comments: pain digestive enzymes combo no.7 [Superior Digestive Enzyme] 1 EACH capsule 1 ea PO QHS Patient Comments: supplement ciprofloxacin HCl 500 MG tablet 500 mg PO BID Qty: 10 0RF Patient Comments: antibiotic hydrocodone-acetaminophen [Vicodin] 1 EACH tablet 1 tab PO Q4H PRN PRN (Reason: Pain) Qty: 10 0RF Patient Comments: pain control ondansetron 4 mg tablet,disintegrating 4 mg PO Q8H PRN PRN (Reason: Nausea) Qty: 20 0RF Primary Care Provider: Thony Raza Referrals: Thony Raza MD [Primary Care Provider] - 1 Week Activity Restrictions/Additional Instructions: Flu a positive. Neck for COVID RSV. Chest x-ray negative. Take and finish Tamiflu as prescribed. Use Zofran as needed for nausea. Pepcid for your abdominal burning sensations. Follow-up with your doctor. Print Language: Afghan Disposition Disposition: Home, Self Care Discharge Date/Time: 01/04/25 10:22
[2025-01-04] MEDS: Famotidine 20 MG Tablet PO (08:30)
[2025-01-04] MEDS: Ondansetron ODT 4 MG Tablet PO (08:30)
--- NOTE | 2025-01-04 08:35 | RAD_ITS ---
PROCEDURE: CHEST PA AND LATERAL REASON FOR EXAM: Cough, weakness and nausea. TECHNIQUE: Frontal and lateral views of the chest. COMPARISON: None. FINDINGS: The heart size is normal. The mediastinal contour is unremarkable. Elevation of the right hemidiaphragm. Degenerative changes are identified within the thoracic spine. RAD/Chest PA and Lateral IMPRESSION: NO ACUTE FINDINGS. Reading Location: [place] [address]
[2025-01-04] MEDS: Oseltamivir Phosphate 75 MG Capsule PO (10:19)
[2025-01-04 10:21] VITALS: BP 144/89; PULSE 80; RESP 18; TEMP 37.1; O2SAT 98
== END 2025-01-04 10:22 | disposition home or self-care (01) ==
PROVIDERS: Emergency Provider Emergency Medicine; PCP Internal Medicine; Visit Provider Emergency Medicine
DX: J10.1 Influenza due to other identified influenza virus with other respiratory manifestations (principal); B34.9 Viral infection, unspecified; E78.5 Hyperlipidemia, unspecified; F32.A Depression, unspecified; Z79.899 Other long term (current) drug therapy
CPT/HCPCS: 71046; 87631; 99283

== ENCOUNTER → 2025-02-16 | Outpatient (CLI) | payer MEDICARE, MEDICAID, SELFPAY ==
[2025-02-16 12:06] LABS: PSA,Total - Annual Screen 0.86 ng/mL (0.02-4.00)
== END | disposition home or self-care (01) ==
LOC: LAB 11:03
PROVIDERS: PCP Internal Medicine; Referring Provider Nurse Practitioner; Visit Provider Nurse Practitioner
DX: Z12.5 Encounter for screening for malignant neoplasm of prostate (principal)
CPT/HCPCS: 36415; 84153; G0103

== ENCOUNTER → 2025-03-23 | Outpatient (CLI) | payer MEDICARE, MEDICAID, SELFPAY ==
[2025-03-23 09:17] LABS: Microalbumin,Random Urine < 12.0 mg/L (NO RANGE EST.); Microalbumin:Creatinine Ratio UNABLE TO CALCULATE mg/g CRE
[2025-03-23 09:22] LABS: Albumin, Serum 4.4 g/dL (3.5-5.0); Anion Gap 11 (5-15); BUN 19 mg/dL (4-19); BUN/Creat Ratio 16.7 RATIO (10-20); Carbon Dioxide 25.5 mmol/L (21.0-32.0); Chloride 106 mmol/L (98-108); Creatinine, Serum 1.11 mg/dL (0.70-1.20); EST Glomerular Filtration Rate 79 (>60); Glucose 104 mg/dL (70-99); Potassium 4.2 mmol/L (3.3-5.1); Sodium Level 142 mmol/L (133-145)
== END | disposition home or self-care (01) ==
PROVIDERS: PCP Internal Medicine; Referring Provider Internal Medicine Nephrology; Visit Provider Internal Medicine Nephrology
DX: E11.22 Type 2 diabetes mellitus with diabetic chronic kidney disease (principal); N18.2 Chronic kidney disease, stage 2 (mild)
CPT/HCPCS: 36415; 80069; 82043; 82570

== ENCOUNTER → 2025-10-20 | Outpatient (CLI) | payer MEDICARE, MEDICAID, SELFPAY ==
[2025-10-20 09:35] LABS: Hematocrit 47.5 % (40-54); Hemoglobin 15.6 g/dL (13.0-16.5); Immature Granulocytes Count 0.020 X10^3/uL (0.0-0.0); Mean Corp Hgb Conc 32.8 g/dL (32-36); Mean Corpuscular Volume 87.5 fL (80-94); Mean Platelet Vol. 10.6 fl (6.2-12.0); NRBC Flagged by Analyzer 0 % (0-5); Platelet Count 201 K/mm3 (150-450); RBC Distribution Width CV 12.7 % (11.6-14.6); RBC Distribution Width SD 40.6 fl (35.1-43.9); Red Blood Count 5.43 M/mm3 (4.6-6.2); White Blood Count 6.9 K/mm3 (4.4-11.0)
[2025-10-20 10:51] LABS: AST(SGOT) 26 U/L (<=37); Alanine Aminotransfer ALT/SGPT 21 U/L (<=46); Albumin, Serum 4.5 g/dL (3.5-5.0); Alkaline Phosphatase 124 U/L (40-129); Anion Gap 12 (5-15); BUN 17 mg/dL (4-19); BUN/Creat Ratio 16.3 RATIO (10-20); Calcium,Total 9.5 mg/dL (7.6-11.0); Carbon Dioxide 25.1 mmol/L (21.0-32.0); Chloride 104 mmol/L (98-108); Cholesterol 255 mg/dL (<=200); Globulin 2.7 g/dL (2.2-4.2); Glucose 113 mg/dL (70-99); Low Density Lipoprotein Calc. 205 mg/dL; PSA,Total- Diagnostic 0.66 ng/mL (0.00-4.00); Potassium 4.0 mmol/L (3.3-5.1); Triglycerides 97 mg/dL; Very Low Density Lipoprotein 19 mg/dL (5-40); cholesterol:hdl ratio screen 7.77
[2025-10-20 12:35] LABS: Ferritin 197 ng/mL (37-417); Free T3 3.2 pg/mL (2.18-3.98); Vitamin B12 407 pg/mL (180-914); Vitamin D,25 Hydroxy 39.5 ng/mL (30-100)
[2025-10-20 12:52] LABS: Iron 133 ug/dL (65-175); Iron Binding Capacity,Total 314 ug/dL (250-450); Iron Binding Capacity,Unsat 181 ug/dL (228-428)
== END | disposition home or self-care (01) ==
LOC: LAB 08:13
PROVIDERS: PCP Physician Assistant; Referring Provider Physician Assistant; Visit Provider Physician Assistant
DX: E55.9 Vitamin D deficiency, unspecified (principal); R53.83 Other fatigue; Z79.899 Other long term (current) drug therapy; N40.1 Benign prostatic hyperplasia with lower urinary tract symptoms; K21.9 Gastro-esophageal reflux disease without esophagitis; E78.2 Mixed hyperlipidemia
CPT/HCPCS: 36415; 80053; 80061; 82306; 82607; 82728; 83036; 83540; 83550; 84153; 84439; 84443; 84481; 85025

== ENCOUNTER 2025-10-22 12:21 | Emergency (ER) | payer MEDICARE, MEDICAID, SELFPAY ==
[2025-10-22 12:24] VITALS: BP 169/108; PULSE 89; RESP 18; TEMP 36.1; O2SAT 100; BMI 32.5
--- NOTE | 2025-10-22 12:40 | EX.ED.DYSGE1 ---
HPI History of Present Illness Chief Complaint: Med Refill Narrative Narrative: 53-year-old male past medical history of hypertension and bipolar disorder presents for medication refill of his antihypertensive medications. He relates history that he was seeing some of the counseling center, and in July, had run out of his medications. He found out that particular provider had left the practice. He tried to get back in to get medications for his bipolar disorder, but was unable to. He states that he was on 10 different medications for his bipolar disorder. He states he was able to see Dr. Song with psychiatry in [place], [place]. This was Thursday of last week, approximately 5 days ago. He was placed on his bipolar medications, but she suggested that he see his primary care provider regarding antihypertensive medications. He states he usually sees Dr. Raza with the [facility], but has not seen him since July. He had run out of his antihypertensive medications at that time. He presents to the emergency department wanting medications that his psychiatrist told him that he needs for his blood pressure on a more urgent basis. [facility] Medical History Hyperlipidemia Depression Home Medications Medication Instructions Recorded Last Taken Type amitriptyline 100 mg tablet 100 mg PO QHS 03/06/16 Unknown History aripiprazole 30 mg tablet (Abilify) 30 mg PO QHS 03/06/16 Unknown History atorvastatin 20 mg tablet 20 mg PO QHS 03/06/16 Unknown History bupropion HCl 300 mg 24 hr tablet, 300 mg PO DAILY 03/06/16 Unknown History extended release buspirone 30 mg tablet 30 mg PO QHS 03/06/16 03/12/16 04:45 History 30 MG digestive enzymes combo no.7 1 ea PO QHS 03/06/16 Unknown History (Superior Digestive Enzyme capsule) finasteride 5 mg tablet 5 mg PO QHS 03/06/16 Unknown History pregabalin 75 mg capsule 75 mg PO BID 03/06/16 03/12/16 04:45 History 75 MG tamsulosin 0.4 mg capsule 0.5 mg PO QHS 03/06/16 Unknown History ciprofloxacin HCl 500 mg tablet 500 mg PO BID ##10 03/13/16 Unknown Rx hydrocodone 5 mg-acetaminophen 300 1 tab PO Q4H PRN PRN Pain #10 tabs 03/13/16 Unknown Rx mg tablet (Vicodin) ondansetron 4 mg disintegrating 4 mg PO Q8H PRN PRN Nausea #20 tabs 04/05/24 Unknown Rx tablet famotidine 20 mg tablet 20 mg PO BID #28 TABLETS 01/04/25 Unknown Rx ondansetron 4 mg disintegrating 4 mg PO Q8H PRN PRN Nausea #10 tabs 01/04/25 Unknown Rx tablet oseltamivir 75 mg capsule (Tamiflu) 75 mg PO BID 5 days #10 caps 01/04/25 Unknown Rx atorvastatin 20 mg tablet (Lipitor) 20 mg PO QHS #30 tabs 10/22/25 Unknown Rx lisinopril 10 mg tablet 10 mg PO DAILY #30 tabs 10/22/25 Unknown Rx Allergy/AdvReac Type Severity Reaction Status Date / Time No Known Allergies Allergy Verified 10/22/25 12:24 Social History housing: house Smoking Status: Never smoker ROS ROS ED ROS Narrative Review of systems is negative for chest pain, shortness of breath, headache, leg swelling, or any other symptoms. Patient states he is here for medication refills of his antihypertensive medications. He has not been taking his blood pressure on a regular basis. Has recently started his bipolar medications, as he is seeing a new psychiatrist. EXAM Physical Exam Narrative Exam Narrative: Afebrile. Vital signs noted. Nontoxic-appearing. Awake, alert, answering questions appropriately. Blood pressure is elevated at 169/108 but he is asymptomatic with this. Cardiovascular examination regular rate and rhythm. Lungs are clear to auscultation bilaterally. Abdomen is soft and nontender with positive bowel sounds. No guarding or rebound. Neurological examination is nonfocal, nonlateralizing. Psychiatric examination shows no evidence of suicidal ideation, homicidal ideation, or active hallucinations. No internal stimulation. Const Vital Signs: 10/22/25 12:24 10/22/25 13:12 10/22/25 13:12 Temperature 96.9 F L 96.9 F L Temperature Source Temporal Pulse Rate 89 89 Respiratory Rate 18 18 Respiratory Effort Normal Non-Labored Respiratory Pattern Normal Blood Pressure 169/108 H 167/99 H Blood Pressure Mean 128 121 Pulse Ox 100 100 Oxygen Delivery Method Room Air MDM MDM MDM Narrative Medical decision making narrative: I do not feel that differential diagnosis is applicable in this case. He is having asymptomatic hypertension and is here for medication refill. He states that he has a list that his psychiatrist thought he needed more urgently for his antihypertensives. This was obtained from the patient. I told him I would write him prescription refills for the next month of certain medications on the list but that it was important for him to see his primary care provider for further refills, and additionally to take his blood pressure. He will return if he becomes symptomatic with elevated blood pressure including chest pain, shortness of breath, headache, vision changes, or any new or worsening symptoms. The list that he produced did state that he took lisinopril 10 mg daily. He used to be on atorvastatin 20 mg daily as well. Disposition is discharged home in stable condition. History & Record Review Discussion w/independent historian: Patient Additional record(s) reviewed:: Prior outpatient record Discharge Plan Triage Chief Complaint: Med Refill ED Provider: Baljit Zelaya Dx/Rx/DC Orders Clinical Impression: Encounter for medication refill, Asymptomatic hypertension Instructions: Medication Refill, ED High Blood Pressure Hypertension Prescriptions: New lisinopril 10 mg tablet 10 mg PO DAILY Qty: 30 0RF atorvastatin [Lipitor] 20 mg tablet 20 mg PO QHS Qty: 30 0RF No Action atorvastatin 20 MG tablet 20 mg PO QHS Patient Comments: high cholesterol tamsulosin 0.4 MG capsule 0.5 mg PO QHS Patient Comments: prostate buspirone 30 MG tablet 30 mg PO QHS Patient Comments: mood amitriptyline 100 MG tablet 100 mg PO QHS Patient Comments: depression finasteride 5 MG tablet 5 mg PO QHS Patient Comments: prostate aripiprazole [Abilify] 30 MG tablet 30 mg PO QHS Patient Comments: schizophrenia bupropion HCl 300 MG tablet extended release 24 hr 300 mg PO DAILY Patient Comments: depression pregabalin 75 MG capsule 75 mg PO BID Patient Comments: pain digestive enzymes combo no.7 [Superior Digestive Enzyme] 1 EACH capsule 1 ea PO QHS Patient Comments: supplement ciprofloxacin HCl 500 MG tablet 500 mg PO BID Qty: 10 0RF Patient Comments: antibiotic hydrocodone-acetaminophen [Vicodin] 1 EACH tablet 1 tab PO Q4H PRN PRN (Reason: Pain) Qty: 10 0RF Patient Comments: pain control ondansetron 4 mg tablet,disintegrating 4 mg PO Q8H PRN PRN (Reason: Nausea) Qty: 20 0RF famotidine 20 mg tablet 20 mg PO BID Qty: 28 0RF ondansetron 4 mg tablet,disintegrating 4 mg PO Q8H PRN PRN (Reason: Nausea) Qty: 10 0RF oseltamivir [Tamiflu] 75 mg capsule 75 mg PO BID 5 Days Qty: 10 0RF Primary Care Provider: Gerard Sue Referrals: Thony Raza MD [[facility] - [facility]] - 1-2 Weeks Gerard Sue PA [Primary Care Provider, Medical] Activity Restrictions/Additional Instructions: Follow-up with your primary care provider regarding further medication refills for your high blood pressure and high cholesterol. Return to the emergency department with chest pain, shortness of breath, headache, new or worsening symptoms. Continue your bipolar medications as prescribed by your psychiatrist. Print Language: Ukrainian Disposition Disposition: Home, Self Care Discharge Date/Time: 10/22/25 13:13
--- OUTSIDE RECORDS SUMMARY | 2025-10-22 12:52 | XMS RPT_ITS | CCD ---
Author Organization [facility]ly [facility] Care Team Providers Care [place] Name Role Phone Jesus Del Real Primary Care Provider Unavailisabell Raza MD, Thony Hernandez Primary Care Provider [phone] Ry VITALE, Thony Hernandez Primary Care Provider Ry VITALE, Thony Hernandez Primary Care Provider Ry VITALE, Thony Hernandez Primary Care Provider [phone] Aleksandra CORPORATE SAFETY MANAGER.Soniya LAMBERT Unavailable Dr. Thony Raza MD Primary Care Provider Dr. Evin Hall DO Attending Provider [phone] Evin Hall DO Emergency Provider Antionette Benavides Attending Provider Antionette Benavides Referring Provider [phone] THONY RAZA Primary Care Unavailable THONY RAZA Attending Unavailable THONY RAZA Primary Care Unavailable EMA COOPER Attending Unavailable THONY RAZA Primary Care Unavailable EMA COOPER Attending Unavailable THONY RAZA Primary Care Unavailable EMA COOPER Attending Unavailable THONY RAZA Primary Care Unavailable SONIYA ORTA Referring Unavailable CHRIS CHOW Attending Unavailable SONIYA ORTA Attending Unavailable THONY RAZA Primary Care Unavailable SONIYA ORTA Attending Unavailable RY, THONY Hernandez Primary Care Unavailable LEANA LEAL Attending Unavailable THONY RAZA Primary Care Unavailable SONIYA ORTA Attending Unavailable THONY RAZA H Primary Care Unavailable RY, MELISA Primary Care Unavailable RITU HOLM Attending Unavailable SONIYA ORTA Referring Unavailable RY, MELISA Primary Care Unavailable RY, MELISA Primary Care Unavailable BRANDON GILL Attending Unavailable Raza, Thony Primary Care Unavailable Ider, Antionette Attending Unavailable Ider, Antionette Referring Unavailable Kerry Campbell Attending Unavailable Kerry Campbell Referring Unavailable Raza, Thony Primary Care Unavailable Evin Hall Attending Unavailable Raza, Thony Primary Care Unavailable Christina White Attending Unavailable Raza, Thony Primary Care Unavailable Medications Current Medications Medication Drug Class(es) Dates Sig (Normalized) Sig (Original) acetaminophen 300 mg / HYDROcodone bitartrate 5 mg oral tablet (8 sources) Opioid Agonist Start: 03-13-2016 Hydrocodone-Acetam inophen (Vicodin 5-300 Mg Tablet) 1 EACH tablet Active 1 {tbl} PO EVERY 4 HOURS NEEDED as needed for Pain March 13, 2016 12:00am amantadine hydrochloride 100 mg oral capsule (20 sources) Influenza A M2 Protein Inhibitor Start: 11-05-2021 amantadine HCl (SYMMETREL) 100 mg capsule 200 mg twice daily. 11/05/2021 Active Comment on above: 200 mg twice daily. amitriptyline hydrochloride 50 mg oral tablet (20 sources) Tricyclic Antidepressant Start: 11-05-2021 End: 08-04-2025 take 1 tablet by mouth once daily at bedtime amitriptyline (ELAVIL) 50 mg tablet Take 1 tablet by mouth daily at bedtime. 08/04/2025 Active Start: 03-06-2016 take 1 tablet by christopher th at bedtime Amitriptyline 100 MG tablet Active 100 mg PO AT BEDTIME March 06, 2016 12:00am Comment on above: 50 mg once daily. ARIPiprazole 10 mg oral tablet (20 sources) Atypical Antipsychotic Start: 08-04-20 take 1 tablet by mouth once daily at bedtime ARIPiprazole (ABILIFY) 10 mg tablet Take 1 tablet by mouth daily at bedtime. 08/04/2025 Active Start: 04-12-2024 End: 08-04-2025 take 1 tablet by mouth once ARIPiprazole (ABILIFY) 15 mg tablet Take 1 tablet by mouth once daily. [facility] 04/12/2024 08/04/2025 Discontinued (Dosage adjustment) Start: 11-05-2021 End: 04-12-2024 ARIPiprazole (ABILIFY) 20 mg tablet 20 mg once daily. 0 11/05/2021 04/12/2024 Discontinued Start: 03-06-2016 take 1 tablet by christopher th at bedtime Aripiprazole (Abilify) 30 MG tablet Active 30 mg PO AT BEDTIME March 06, 2016 12:00am Start: 07-23-2013 take 1 tablet by christopher th once daily ARIPiprazole (ABILIFY) 10 mg tablet Take 1 tablet by mouth once daily. 0 07/23/2013 Active Comment on above: Take 1 tablet by christopher th once daily. 20 mg once daily. atorvastatin 20 mg oral tablet (20 sources) HMG-CoA Reductase Inhibitor Start: 6 End: 3 take 1 tablet by mouth at bedtime Atorvastatin 20 MG tablet Active 20 mg PO AT BEDTIME March 06, 2016 12:00am Start: 06-15-2013 take 1 tablet by christopher th once daily atorvastatin (LIPITOR) 10 mg tablet Take 10 mg by mouth once daily. 0 06/15/2013 Active Comment on above: Take 10 mg by mouth once daily. Take 1 tablet by christopher th daily at bedtime. bethanechol chloride 25 mg oral tablet (20 sources) Cholinergic Muscarinic Agonist Start: 2 take 1 tablet by mouth three times daily bethanechol (URECHOLINE) 25 mg tablet Take 1 tablet by mouth three times daily. 01/16/2022 Active Comment on above: Take 1 tablet by christopher th three times daily. 24 hr buPROPion hydrochloride 300 mg extended release oral tablet (9 sources) Aminoketone Start: 6 take 1 tablet by mouth once daily Bupropion Hcl 300 MG tablet extended release 24 hr Active 300 mg PO DAILY March 06, 2016 12:00am Start: 07-23-2013 take 1 tablet by christopher th twice daily buPROPion SR (WELLBUTRIN SR) 150 mg 12 hr tablet Take 1 tablet by mouth twice daily. 0 07/23/2013 Active Comment on above: Take 1 tablet by christopher th twice daily. carBAMazepine 200 mg oral tablet (20 sources) Mood Stabilizer Start: 08-04-2025 carBAMazepine (TEGRETOL) 200 mg tablet 1 tablet every morning AND 2 tablets daily at bedtime. 08/04/2025 Active Start: 11-05-2021 End: 08-04-2025 carBAMazepine (TEGRETOL) 200 mg tablet 200 mg twice daily. 11/05/2021 08/04/2025 Discontinued Comment on above: 200 mg twice daily. cholecalciferol 0.05 mg oral capsule (20 sources) Vitamin D Cholecalciferol, Vitamin D3, 50 mcg (2,000 unit) cap Take by mouth once daily. Active Comment on above: Take by mouth once d aily. ciprofloxacin 500 mg oral tablet (8 sources) Quinolone Antimicrobial Start: take 1 tablet by mouth twice daily Ciprofloxacin Hcl 500 MG tablet Active 500 mg PO TWICE A DAY March 13, 2016 12:00am Digestive Enzymes Combo No.7 (Superior Digestive Enzyme) 1 EACH capsule (8 sources) Start: take 1 capsule by mouth at bedtime Digestive Enzymes Combo No.7 (Superior Digestive Enzyme) 1 EACH capsule Active 1 EACH PO AT BEDTIME March 06, 2016 9:07am Start: 03-06-2016 take 1 capsule by mo uth at bedtime Digestive Enzymes Combo No.7 (Superior Digestive Enzyme) 1 EACH capsule Active 1 NMA PO AT BEDTIME March 06, 2016 12:00am Start: 03-06-2016 take 1 capsule by mo uth at bedtime Digestive Enzymes Combo No.7 (Superior Digestive Enzyme) 1 EACH capsule Active 1 EACH PO AT BEDTIME March 06, 2016 12:00am Start: 03-06-2016 take 1 capsule by mo uth at bedtime Digestive Enzymes Combo No.7 (Superior Digestive Enzyme) 1 EACH capsule Active 1 EACH PO AT BEDTIME March 05, 2016 11:00pm famotidine 20 mg oral tablet (20 sources) Histamine-2 Receptor Antagonist Start: 01-04-2025 take 1 tablet by mouth twice daily Famotidine 20 mg tablet Active 20 mg PO TWICE A DAY January 04, 2025 1:00am Start: 11-02-2023 End: 07-27-2024 take 1 tablet by mouth once daily famotidine (PEPCID) 40 mg tablet Indications: Gastroesophageal reflux disease without esophagitis Take 1 tablet by mouth once daily. 90 tablet 1 04/11/2024 07/27/2024 Discontinued Start: 10-16-2022 End: 08-04-2025 take 1 tablet by mouth once daily famotidine (PEPCID) 40 mg tablet Indications: Gastroesophageal reflux disease without esophagitis Take 1 tablet by mouth once daily. 90 tablet 1 06/06/2023 10/31/2023 Discontinued Comment on above: Take 1 tablet by christopher th once daily. finasteride 5 mg oral tablet (9 sources) 5-alpha Reductase Inhibitor Start: 3 take 1 tablet by mouth at bedtime Finasteride 5 MG tablet Active 5 mg PO AT BEDTIME March 06, 2016 12:00am Comment on above: Take 1 tablet by christopher th once daily. lisinopril 10 mg oral tablet (20 sources) Angiotensin Converting Enzyme Inhibitor Start: 3 End: 5 take 1 tablet by mouth once daily lisinopril (ZESTRIL) 10 mg tablet Indications: Primary hypertension Take 1 tablet by mouth once daily. 90 tablet 3 02/01/2025 Active Start: 06-16-2023 End: 10-31-2023 take 1 tablet by mouth once daily lisinopril (ZESTRIL) 10 mg tablet Indications: Primary hypertension Take 1 tablet by mouth once daily. 90 tablet 1 06/16/2023 10/31/2023 Discontinued Start: 02-13-2022 End: 06-14-2023 take 1 tablet by mouth once daily lisinopril (ZESTRIL, PRINIVIL) 10 mg tablet Indications: Primary hypertension Take 1 tablet by mouth once daily. 90 tablet 1 11/19/2022 06/14/2023 Discontinued Comment on above: Take 1 tablet by christopher th once daily. mupirocin 0.02 mg/mg topical ointment (2 sources) RNA Synthetase Inhibitor Antibacterial Start: 5 End: mupirocin (BACTROBAN) 2 % ointment Apply to affected area three times a day for 5 days. 30 g 08/02/2025 08/07/2025 Active omeprazole 40 mg delayed release oral capsule (20 sources) Proton Pump Inhibitor Start: 4 End: take 1 capsule by mouth once daily omeprazole (PRILOSEC) 40 mg capsule Take 1 capsule by mouth once daily. 90 capsule 3 02/01/2025 Active Start: 08-16-2013 take 1 capsule by mo uth once daily Omeprazole (PRILOSEC) 40 mg capsule Take 1 capsule by mouth once daily. 30 capsule 0 08/16/2013 Active Comment on above: Take 1 capsule by mo uth once daily. ondansetron 4 mg disintegrating oral tablet (3 sources) Serotonin-3 Receptor Antagonist Start: 04-05-20 24 take 1 tablet by mouth every eight hours as needed for nausea Ondansetron 4 mg tablet,disintegrati ng Active 4 mg PO EVERY 8 HOURS NEEDED as needed for Nausea January 04, 2025 1:00am oseltamivir 75 mg oral capsule (1 source) Neuraminidase Inhibitor Start: 01-04-20 take 1 capsule by mouth twice daily Oseltamivir (Tamiflu) 75 mg capsule Active 75 mg PO TWICE A DAY 09 03January 04, 2025 1:00am pregabalin 75 mg oral capsule (20 sources) Start: 11-02-20 End: 09-11-20 25 take 1 capsule by mouth three times daily pregabalin (LYRICA) 75 mg capsule Indications: Neuropathy Take 1 capsule by mouth three times a day for 180 days. 90 capsule 5 03/15/2025 09/11/2025 Active Start: 03-06-2016 End: 04-08-2025 take 1 capsule by mouth twice daily Pregabalin 75 MG capsule Active 75 mg PO TWICE A DAY March 06, 2016 12:00am Start: 07-23-2013 take 1 capsule by mo ut twice daily pregabalin 150 mg capsule Take 1 capsule by mouth twice daily. 0 07/23/2013 Active Comment on above: Take 1 capsule by mo uth twice daily. Take 1 capsule by mo uth twice daily for 180 days. Take 1 capsule by mo uth two times a day for 180 days. QUEtiapine 50 mg oral tablet (2 sources) Atypical Antipsychotic Start: 08-04-20 take 0.5-3 tablets by mouth at bedtime as needed QUEtiapine (SEROQUEL) 50 mg tablet Indications: Bipolar 1 disorder (HCC) Take 0.5-3 tablets by mouth at bedtime as needed. 08/04/2025 Active rosuvastatin calcium 10 mg oral tablet (20 sources) HMG-CoA Reductase Inhibitor Start: 06-08-20 End: 08-04-20 take 1 tablet by mouth once daily at bedtime rosuvastatin (CRESTOR) 10 mg tablet Indications: Hyperlipidemia, unspecified hyperlipidemia type Take 1 tablet by mouth daily at bedtime. 90 tablet 3 08/04/2025 Active Start: 12-30-2023 End: 04-11-2024 take 1 tablet by mouth once daily rosuvastatin (CRESTOR) 10 mg tablet Indications: Hyperlipidemia, unspecified hyperlipidemia type Take 1 tablet by mouth once daily. 30 tablet 2 12/30/2023 04/11/2024 Discontinued Comment on above: Take 1 tablet by christopher once daily. tamsulosin hydrochloride 0.4 mg oral capsule (9 sources) alpha-Adrenergic Lillian Start: 03-06-2016 take 0.5 mg by mouth at bedtime Tamsulosin 0.4 MG capsule Active 0.5 mg PO AT BEDTIME March 06, 2016 12:00am Start: 03-06-2016 take 0.5 mg by mouth at bedtim e Tamsulosin Active 0.5 MG PO AT BEDTIME March 06, 2016 12:00am Start: 07-23-2013 take 1 capsule by mo ut once daily at bedtime tamsulosin (FLOMAX) 0.4 mg Cp24 Take 1 capsule by mouth daily at bedtime. 0 07/23/2013 Active Comment on above: Take 1 capsule by mo uth daily at bedtime. thioctic acid 600 mg oral tablet (20 sources) Start: 08-02-2024 End: 02-26-2025 take 1 tablet by mouth once daily alpha lipoic acid 600 mg tab Indications: Neuropathy Take 600 mg by mouth once daily. 90 tablet 2 11/28/2024 02/26/2025 Active Completed/Discontinued Medications Medication Drug Class(es) Dates Sig (Normalized) Sig (Original) benzonatate 200 mg oral capsule (3 sources) Non-narcotic Antitussive Start: 01-02-2025 End: 02-01-2025 take 1 capsule by mouth every eight hours as needed Benzonatate 200 mg capsule Take 1 capsule by mouth three times a day as needed. 21 capsule 01/02/2025 02/01/2025 Discontinued (Course of therapy completed) busPIRone hydrochloride 30 mg oral tablet (20 sources) Start: 03-06-2016 End: 08-04-2025 busPIRone HCl 30 mg tablet Take 1 tablet in am. Take 1/2 tablet at bedtime. [facility] 04/12/2024 08/04/2025 Discontinued (Discontinued by another Health Care Provider) Comment on above: 30 mg once daily. 30 mg once daily. Ta ke 1 tablet in am, 1 1/2 tablet at bedtime. fluvoxaMINE maleate 100 mg oral tablet (20 sources) Serotonin Reuptake Inhibitor Start: 04-12-2024 End: 08-04-2025 take 2 tablets by mouth once daily at bedtime fluvoxaMINE (LUVOX) 100 mg tablet Take 2 tablets by mouth daily at bedtime. [facility]. 04/12/2024 08/04/2025 Discontinued (Discontinued by another Health Care Provider) Start: 11-05-2021 End: 04-12-2024 fluvoxaMINE (LUVOX) 100 mg t ablet 100 mg daily at bedtime. 0 11/05/2021 04/12/2024 Discontinued Comment on above: 100 mg daily at bedt trevor. mirtazapine 7.5 mg oral tablet (4 sources) Start: End: take 1 tablet by mouth at bedtime as needed for sleep Mirtazapine (REMERON) 7.5 mg tablet Indications: Bipolar affective disorder, currently manic, moderate (HCC) Take 1 tablet by mouth at bedtime as needed (sleep). 30 tablet 2 06/19/2025 08/04/2025 Discontinued (Lack of Efficacy) valbenazine 80 mg oral capsule (3 sources) Start: End: take 1 capsule by mouth once daily valbenazine (INGREZZA) 80 mg capsule Take 1 capsule by mouth once daily. 01/02/2025 02/01/2025 Discontinued (Discontinued by another Health Care Provider) zolpidem tartrate 10 mg oral tablet (2 sources) gamma-Aminobutyric Acid-ergic Agonist Start: End: take 10 mg by mouth every twenty-four hours as needed zolpidem (AMBIEN) 10 mg Take 10 mg by mouth at bedtime as needed. 07/26/2025 08/04/2025 Discontinued (Discontinued by another Health Care Provider) Problems Active Problems Problem Classification Problem Date Documented Date Episodic/Chronic Chronic kidney disease (20 sources) Chronic kidney disease stage 2; Translations: [Chronic kidney disease, stage 2 (mild)] Onset: 01-16-2022 01-17-2022 Chronic Coma; stupor; and brain damage (1 source) Daytime somnolence; Translations: [Somnolence] Episodic Diabetes mellitus with complications (1 source) Type 2 diabetes mellitus with diabetic chronic kidney disease; Translations: [Type 2 diabetes mellitus with diabetic chronic kidney disease] Onset: 07-27-2025 Chronic Disorders of lipid metabolism (20 sources) Hyperlipidemia; Translations: [Hyperlipidemia, unspecified] Onset: 01-16-2022 01-16-2022 Chronic Esophageal disorders (20 sources) Gastroesophageal reflux disease without esophagitis; Translations: [Gastro-esophageal reflux disease without esophagitis] Onset: 10-16-2022 10-16-2022 Chronic Essential hypertension (20 sources) Essential hypertension; Translations: [Essential (primary) hypertension] Onset: 02-13-2022 Chronic Immunizations and screening for infectious disease (6 sources) Vaccination needed; Translations: [Encounter for immunization] Onset: 02-01-2025 Episodic Influenza (1 source) Influenza due to Influenza A virus; Translations: [Influenza due to other identified influenza virus with other respiratory manifestations] 01-12-2025 Episodic Mood disorders (20 sources) Bipolar I disorder; Translations: [Bipolar disorder, unspecified] Onset: 01-16-2022 01-16-2022 Chronic Noninfectious gastroenteritis (1 source) Gastroenteritis; Translations: [Noninfective gastroenteritis and colitis, unspecified] 04-11-2024 Episodic Nutritional deficiencies (4 sources) Vitamin D deficiency; Translations: [Vitamin D deficiency, unspecified] Onset: 08-04-2025 08-04-2025 Chronic Other congenital anomalies (1 source) Congenital malformation of musculoskeletal system, unspecified; Translations: [Bony abnormality] Onset: 03-22-2025 Chronic Other connective tissue disease (2 sources) Pain in bilateral legs; Translations: [Pain in right leg] 06-06-2024 Episodic Other connective tissue disease (1 source) Other symptoms and signs involving the musculoskeletal system; Translations: [Other musculoskeletal symptoms referable to limbs] 02-08-2025 Episodic Other hereditary and degenerative nervous system conditions (20 sources) Medication-induced postural tremor; Translations: [Drug-induced tremor] Onset: 01-16-2022 01-17-2022 Chronic Other hereditary and degenerative nervous system conditions (1 source) Drug-induced tremor; Translations: [Drug-induced tremor] Onset: 01-17-2022 Chronic Other nervous system disorders (20 sources) Idiopathic peripheral neuropathy; Translations: [Hereditary and idiopathic neuropathy, unspecified] Onset: 01-16-2022 01-16-2022 Chronic Other nervous system disorders (7 sources) Neuropathy; Translations: [Polyneuropathy, unspecified] 08-02-2024 Chronic Other nervous system disorders (1 source) Polyneuropathy, unspecified; Translations: [Neuropathy] Onset: 08-15-2025 Chronic Other nervous system disorders (5 sources) Paresthesia of lower extremity; Translations: [Anesthesia of skin] 06-06-2024 Episodic Other nervous system disorders (1 source) Anesthesia of skin; Translations: [Numbness and tingling of both lower extremities] Onset: 08-15-2025 Episodic Other nervous system disorders (1 source) Paresthesia of skin; Translations: [Numbness and tingling of both lower extremities] Onset: 08-15-2025 Episodic Other nutritional; endocrine; and metabolic disorders (20 sources) Obese class II; Translations: [Obesity, unspecified] Onset: 01-16-2022 01-16-2022 Chronic Other nutritional; endocrine; and metabolic disorders (20 sources) Obese class I; Translations: [Obesity, unspecified] Onset: 07-20-2023 07-20-2023 Chronic Other skin disorders (1 source) Lesion of skin of nose; Translations: [Disorder of the skin and subcutaneous tissue, unspecified] Episodic Residual codes; unclassified (20 sources) Obstructive sleep apnea syndrome; Translations: [Obstructive sleep apnea (adult) (pediatric)] Onset: 07-02-2022 Chronic Residual codes; unclassified (1 source) Daytime somnolence; Translations: [Other hypersomnia] 11-03-2024 Chronic Residual codes; unclassified (2 sources) Obstructive sleep apnea (adult) (pediatric); Translations: [AMAYA on CPAP] Onset: 11-03-2024 Chronic Residual codes; unclassified (1 source) Other hypersomnia; Translations: [Excessive daytime sleepiness] Onset: 11-03-2024 Chronic Residual codes; unclassified (1 source) Viral syndrome; Translations: [Other general symptoms and signs] 01-02-2025 Episodic Skin and subcutaneous tissue infections (2 sources) Paronychia of finger of left hand; Translations: [Cellulitis of left finger] Onset: 08-02-2025 08-02-2025 Episodic Spondylosis; intervertebral disc disorders; other back problems (20 sources) Chronic low back pain; Translations: [Chronic bilateral low back pain without sciatica] Onset: 01-20-2023 Episodic Unclassified (3 sources) Parkinsonism; Translations: [Parkinsonism, unspecified Parkinsonism type (HCC)] 11-02-2024 Chronic Unclassified (1 source) Weakness of left lower extremity 02-08-2025 Unclassified (1 source) Parkinsonism, unspecified Parkinsonism type (HCC); Translations: [Parkinsonism, unspecified Parkinsonism type (HCC)] Onset: 08-15-2025 Unclassified (1 source) Cough, unspecified; Translations: [Cough, unspecified] Onset: 07-27-2025 Viral infection (1 source) Acute viral disease; Translations: [Viral infection, unspecified] 01-12-2025 Episodic Past or Other Problems Problem Classification Problem Date Documented Date Episodic/Chronic Abdominal pain (20 sources) Abdominal pain; Translations: [Unspecified abdominal pain] Onset: 07-23-2013 Resolved: 01-16-2022 07-23-2013 Episodic Biliary tract disease (20 sources) Gallstone; Translations: [Calculus of gallbladder without cholecystitis without obstruction] Onset: 07-23-2013 Resolved: 01-16-2022 07-23-2013 Episodic Diabetes mellitus without complication (20 sources) Prediabetes; Translations: [Prediabetes] Onset: 02-13-2022 02-13-2022 Episodic Other screening for suspected conditions (not mental disorders or infectious disease) (8 sources) Patient encounter status; Translations: [Encounter for screening for malignant neoplasm of colon] Onset: 02-23-2025 Episodic Residual codes; unclassified (2 sources) Other specified health status; Translations: [Other specified conditions influencing health status] Onset: 11-03-2024 11-03-2024 Episodic Residual codes; unclassified (1 source) Other general symptoms and signs; Translations: [Flu-like symptoms] Onset: 01-02-2025 Episodic Results Test Name Value Interpretation Reference Range Facility [facility] 08-15-2025 [facility] Office Visit ([facility] ) ELIZABETH BAUMANN ([id number]) 1970 M Date Time Provider Department 08/15/25 11:30 AM EMA COOPER During your visit today, we recorded the following information about you: Pulse Respiration Blood pressure Weight 75/minute 16/minute 134/84 107.8 kg Ema Cooper PA-C 08/15/2025 12:31 PM Signed [facility] Name: Elizabeth Baumann Age: [age] year old Gender: male Primary Care Provider: Thony Raza MD Assessment/Plan: 08/15/2025 - Sleep Medicine, Ema Cooper PA-C ASSESSMENT ASSESSMENT/PLAN: 1. Spinal stenosis of lumbar region without neurogenic claudication - ICD9: 724.02, ICD10: M48.061 (primary diagnosis) 2. Neuropathy - ICD9: 355.9, ICD10: G62.9 Patient with continued pain, more so on the right lower extremity today. Mild in nature but notices it more because he is having difficulty sleeping at night due to his mood. Discussed the physical therapy, prescribed at last appointment due to some weakness in the left upper extremity which is still appreciated today. Patient would like to try this, will try physical therapy and if symptoms persist may increase Lyrica. Currently on 75 mg 3 times daily, may increase to 100 mg 3 times daily if symptoms persist. 3. 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 Parkinsonism, unspecified Parkinsonism type (HCC) - ICD9: 332.0, ICD10: G20.C Did see movement, felt to be medication induced and encouraged stopping Abilify however patient is having some difficulty following with his psychiatric provider. Is still on Abilify and currently having significant mood elevation and difficulty sleeping at night. Follow with primary care until he can see a new psychiatric provider in September. Does have appointment scheduled movement for follow-up in August but as patient is still on the Abilify will encourage him to push this until he has stopped the medication. Having some significant issues with insomnia, encouraged following with PCP until he can be seen. NO delusions or hallucinations. 5. Numbness and tingling of both lower extremities - ICD9: 782.0, ICD10: R20.0, R20.2 See above. PT agreeable to tx plan of care, will follow up in 3 months. Ema Cooper PA-C Encounter Diagnosis ICD-10-CM 1. Spinal stenosis of lumbar region without neurogenic claudication M48.061 2. Neuropathy G62.9 3. Drug-induced tremor G25.1 4. Parkinsonism, unspecified Parkinsonism type (HCC) G20.C 5. Numbness and tingling of both lower extremities R20.0 R20.2 No follow-ups on file. Chart, labs,and relevant images reviewed. Chief Complaint:Patient presents with: Follow Up: Drug-induced parkinsonism-patient continues Abilify despite Dr Leal's recommendations as patient reports he has not seen his mental health provider d/t and he reports she is leaving [facility]. He reported despite the recommendations sent to [facility] he never heard from them. Insomnia- patient given prn Seroquel 50 mg 0.5-3 tabs po QHS as needed for sleep on 08/04/25- already taking 3 tabs and reporting 2.5-3 hrs of sleep on a daily basis. Chart Review: Last Filed Values Date of Most Recent Assessment and Plan 02/08/25 Specialty General Neurology Assessment ASSESSMENT/PLAN: 1. Neuropathy - ICD9: 355.9, ICD10: G62.9 (primary diagnosis) Patient originally presenting with stocking glove distribution of sensory changes concerning for neuropathy. History of prediabetes, EMG obtained at [facility] last year did not show any obvious evidence of polyneuropathy. However, due to symptoms did continue to treat with Lyrica. Increase Lyrica 75mg to 3 times a day at last appointment and notes significant improvement. Notes he is almost pain-free throughout the whole day and like to continue this regimen. No significant side effects or fatigue throughout the day. Will continue with current dosage at this time. 2. 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 Parkinsonism, unspecified Parkinsonism type (HCC) - ICD9: 332.0, ICD10: G20.C Patient with some rigidity and fine tremor on exam. On multiple antipsychotics including Abilify. Discussed possibility of drug-induced tremor, would like to see a specialist and is scheduled with Dr. Leal on 13 March. 4. Spinal stenosis of lumbar region without neurogenic claudication - ICD9: 724.02, ICD10: M48.061 5. Weakness of left lower extremity - ICD9: 729.89, ICD10: R29.898 Patient with some new appreciable weakness of the left lower extremity on exam. Reporting chronic history of lumbar issues, recent x-ray of the lumbar spine obtained last year did show diffuse degenerative changes. Primarily seeing chiropractor for treatment but has not seen them for some time. No falls or signs or symptoms of cor (more content not included)... 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 He had been dealing with insomnia. His mental health provider at the [facility] was resigning, and he was referred to [facility] with an initial appointment mid September. He was tried on zolpidem, mirtazapine, and continued on other medications listed. He was just started on quetiapine in escalating doses. He was on vitamin D and requesting I take over the prescription. His hypertension was controlled. Prediabetes was stable. Review of Systems Constitutional: Negative for activity change, fatigue and unexpected weight change. HENT: Negative for congestion. Eyes: Negative for visual disturbance. Respiratory: Negative for cough, shortness of breath and wheezing. Cardiovascular: Negative for chest pain and leg swelling. Gastrointestinal: Negative for abdominal pain, constipation and diarrhea. Genitourinary: Negative for difficulty urinating. Neurological: Negative for dizziness and headaches. ACTIVE PROBLEM LIST Obesity, Class II, Bmi 35-39.9 Bipolar 1 Disorder (Hcc) Hyperlipidemia Idiopathic Peripheral Neuropathy Ckd (Chronic Kidney Disease) Stage 2, Gfr 60-89 Ml/Min Drug-Induced Tremor Prediabetes Primary Hypertension AMAYA did not tolerate CPAP Gastroesophageal Reflux Disease Without Esophagitis Chronic Bilateral Low Back Pain Without Sciatica Obesity, Class I, Bmi 30-34.9 Vitamin D Deficiency Social History Tobacco Use Smoking status: Never Smokeless tobacco: Never Substance Use Topics Alcohol use: No Drug use: Never Current Outpatient Medications Medication Sig mupirocin (BACTROBAN) 2 % ointment Apply to affected area three times a day for 5 days. pregabalin (LYRICA) 75 mg capsule Take 1 capsule by mouth three times a day for 180 days. alpha lipoic acid 600 mg tab Take by mouth. omeprazole (PRILOSEC) 40 mg capsule Take 1 capsule by mouth once daily. lisinopril (ZESTRIL) 10 mg tablet Take 1 tablet by mouth once daily. amantadine HCl (SYMMETREL) 100 mg capsule 200 mg twice daily. Cholecalciferol, Vitamin D3, 50 mcg (2,000 unit) cap Take by mouth once daily. bethanechol (URECHOLINE) 25 mg tablet Take 1 tablet by mouth three times daily. carBAMazepine (TEGRETOL) 200 mg tablet 1 tablet every morning AND 2 tablets daily at bedtime. amitriptyline (ELAVIL) 50 mg tablet Take 1 tablet by mouth daily at bedtime. ARIPiprazole (ABILIFY) 10 mg tablet Take 1 tablet by mouth daily at bedtime. QUEtiapine (SEROQUEL) 50 mg tablet Take 0.5-3 tablets by mouth at bedtime as needed. rosuvastatin (CRESTOR) 10 mg tablet Take 1 tablet by mouth daily at bedtime. No current facility-administered medications for this visit. Objective BP 120/69 Pulse 73 Resp 16 Wt 106.9 kg (235 lb 10.8 oz) BMI 32.87 kg/m? Physical Exam Constitutional: General: He is not in acute distress. Appearance: He is not ill-appearing. HENT: Head: Normocephalic. Nose: No congestion. Eyes: General: No scleral icterus. Extraocular Movements: Extraocular movements intact. Conjunctiva/sclera: Conjunctivae normal. Cardiovascular: Rate and Rhythm: Normal rate. Heart sounds: No murmur heard. No gallop. Pulmonary: Breath sounds: Normal breath sounds. Abdominal: Tenderness: There is no abdominal tenderness. Musculoskeletal: Right lower leg: No edema. Left lower leg: No edema. Neurological: General: No focal deficit present. Mental Status: He is alert. Gait: Gait normal. Psychiatric: Mood and Affect: Mood normal. Behavior: Behavior normal. Latest Ref [facility] 07/28/2025 Protein, Total 6.3 - 8.0 g/dL 7.2 Albumin 3.9 - 4.9 g/dL 4.7 Calcium 8.5 - 10.2 mg/dL 9.1 Bilirubin, Total 0.2 - 1.3 mg/dL 0.3 Alkaline Phosphatase 38 - 113 U/L 128 (H) AST 14 - 40 U/L 20 ALT 10 - 54 U/L 16 Glucose 74 - 99 mg/dL 100 (H) BUN 9 - 24 mg/dL 19 Creatinine 0.73 - 1.22 mg/dL 1.07 Sodium 136 - 144 mmol/L 141 Potassium 3.7 - 5.1 mmol/L 4.4 Chloride 98 - 107 mmol/L 104 CO2 22 - 30 mmol/L 24 Anion Gap 8 - 15 mmol/L 13 eGFR >=60 mL/min/1.73m? 83 WBC 3.70 - 11.00 k/uL 6.05 RBC 4.20 - 6.00 m/uL 5.32 Hemoglobin 13.0 - 17.0 g/dL 15.7 Hematocrit 39.0 - 51.0 % 48.0 MCV 80.0 - 100.0 fL 90.2 MCH 26.0 - 34.0 pg 29.5 MCHC 30.5 - 36.0 g/dL 32.7 RDW-CV 11.5 - 15.0 % 13.0 Platelet Count 150 - 400 k/uL 192 MPV 9.0 - 12.7 fL 10.7 Absolute nRBC <0.01 k/uL <0.01 Cholesterol, Total <200 mg/dL 250 (H) Triglyceride <150 mg/dL 57 HDL Cholesterol >39 mg/dL 43 LDL Cholesterol, Calculated <100 (more content not included)... Normal [facility] CNOVon 08-02-2025 CNOV Office Visit (WOUCA) ELIZABETH BAUMANN Reuben ([id number]) 1970 M Date Time Provider Department 08/02/25 10:15 AM BRANDON GILL During your visit today, we recorded the following information about you: Temperature Pulse Respiration Blood pressure 99 degrees 92/minute 16/minute 122/80 Weight 106.4 kg Brandon Gill APRN.COMPLIANCE SPECIALIST 08/02/2025 10:50 AM Signed [facility] Alexis Pastor is a 54 year old male. Patient presents with: Derm Problem: left hand middle finger, redness and swelling x 1 week HPI Nontoxic-appearing 54-year-old male presents urgent care chief complaint left long finger pain and swelling. Patient states he pulled a hangnail a few days prior to this finger becoming painful and swollen. Presents today for evaluation. OTC medications none. No trauma. No numbness or tingling. No fevers. No joint pain. Past medical history prescription medications allergies reviewed. Review of Systems Constitutional: Negative for activity change, diaphoresis, fatigue and fever. Musculoskeletal: Negative for arthralgias, back pain, gait problem, joint swelling, myalgias, neck pain and neck stiffness. Skin: Negative for pallor, rash and wound. Neurological: Negative for dizziness, seizures, syncope, weakness, light-headedness, numbness and headaches. Psychiatric/Behaviora l: Negative for confusion. Objective BP 122/80 Pulse 92 Temp 37.2 ?C (99 ?F) Resp 16 Wt 106.4 kg (234 lb 9.1 oz) SpO2 98% BMI 32.72 kg/m? Physical Exam Constitutional: Appearance: Normal appearance. He is normal weight. HENT: Head: Normocephalic. Eyes: Conjunctiva/sclera: Conjunctivae normal. Cardiovascular: Rate and Rhythm: Normal rate. Pulmonary: Effort: Pulmonary effort is normal. Musculoskeletal: Hands: Cervical back: Normal range of motion. Comments: Edema erythema with fluctuant pustule cuticle fold noted. No joint pain with palpation Area cleansed with alcohol prep. 18-gauge needle used to evacuate pustulant fluid dressing applied. Tolerated well Skin: Findings: No rash. Neurological: General: No focal deficit present. Mental Status: He is alert and oriented to person, place, and time. Mental status is at baseline. {ASSESSMENT/PLAN: 1. Paronychia of finger of left hand - ICD9: 681.02, ICD10: L03.012 Diagnosed with paronychia. Fluid easily evacuated. Dressing applied. Warm soaks and mupirocin as instructed. Patient was educated on supportive therapies. Patient will follow up with primary care provider as needed. Patient was instructed to immediately proceed to emergency room for any new, worsening, or symptoms lasting longer than anticipated. The patient's clinical presentation is otherwise unremarkable at this time. Based on exam and clinical finding, the patient is stable for discharge. Plan of care was discussed with patient. Patient verbalizes understanding and agrees to plan of care. This note was generated using [employer] software. It may contain errors in wording, punctuation, or spelling. Brandon Gill APRN.COMPLIANCE SPECIALIST History and Record Review Clinical information obtained from an independent historian. History obtained from or confirmed by: parent. External record(s) reviewed: prior outpatient record. Disposition The patient was discharged. OTC Medications were advised: Procedures Allergies As of Date: 08/02/2025 (No Known Allergies) Date Reviewed: 08/02/2025 Reviewed by: Brandon Gill APRN.COMPLIANCE SPECIALIST - Fully Assessed Reason for Visit: Derm Problem [33] Cmt: left hand middle finger, redness and swelling x 1 week Primary Visit Diagnosis:Paronychia of finger of left hand [L03.012] Order(s):mupirocin (BACTROBAN) 2 % ointmentApply to affected area three times a day for 5 days.Disp: 30 gRfl: 0 Prescriptions as of 08/02/2025 - zolpidem (AMBIEN) 10 mg Take 10 mg by mouth at bedtime as needed. - mupirocin (BACTROBAN) 2 % ointment Apply to affected area three times a day for 5 days. - Mirtazapine (REMERON) 7.5 mg tablet Take 1 tablet by mouth at bedtime as needed (sleep). - pregabalin (LYRICA) 75 mg capsule Take 1 capsule by mouth three times a day for 180 days. - alpha lipoic acid 600 mg tab Take by mouth. - omeprazole (PRILOSEC) 40 mg capsule Take 1 capsule by mouth once daily. - lisinopril (ZESTRIL) 10 mg tablet Take 1 tablet by mouth once daily. - famotidine (PEPCID) 40 mg tablet Take 40 mg by mouth once daily. - rosuvastatin (CRESTOR) 10 mg tablet Take 1 tablet by mouth daily at bedtime. - fluvoxaMINE (LUVOX) 100 mg tablet Take 2 tablets by mouth daily at bedtime. [facility] - busPIRone HCl 30 mg tablet Take 1 tablet in am. Take 1/2 tablet at bedtime. [facility]. - ARIPiprazole (ABILIFY) 15 mg tablet Take 1 tablet by mouth once daily. [facility]. - amantadine HCl (SYMMETREL (more content not included)... Normal [facility] CBC panel Auto (Bld)on 07-28 Erythrocyte distribution width (RBC) [Ratio] 13.0 % Normal 11.5-15.0 [facility] Comment on above: Order Comment: Speci men Type: BLOOD SPECIMENOrdering Facility: [facility] Address: [address] [place] [address] Performed By: #### 5 8410-2 ####[facility] LABCLIA [id number] [place] [address] [place] Hematocrit (Bld) [Volume fraction] 48.0 % Normal 39.0-51.0 [facility] Comment on above: Order Comment: Speci men Type: BLOOD SPECIMENOrdering Facility: [facility] Address: [address] [place] [address] Performed By: #### 5 8410-2 ####[facility] LABIA [id number] [place] [address] [place] Hemoglobin (Bld) [Mass/Vol] 15.7 g/dL Normal 13.0-17.0 [facility] Comment on above: Order Comment: Speci men Type: BLOOD SPECIMENOrdering Facility: [facility] Address: [address] [place] [address] Performed By: #### 5 8410-2 ####[facility] LABIA [id number] [place] [address] [place] MCH (RBC) [Entitic mass] 29.5 pg Normal 26.0-34.0 [facility] Comment on above: Order Comment: Speci men Type: BLOOD SPECIMENOrdering Facility: [facility] Address: [address] [place] [address] Performed By: #### 5 8410-2 ####[facility] LABIA [id number] [place] [address] [place] MCHC (RBC) [Mass/Vol] 32.7 g/dL Normal 30.5-36.0 [facility] Comment on above: Order Comment: Speci men Type: BLOOD SPECIMENOrdering Facility: [facility] Address: [address] [place] [address] Performed By: #### 5 8410-2 ####[facility] LABIA [id number] [place] [address] [place] MCV (RBC) [Entitic vol] 90.2 fL Normal 80.0-100.0 [facility] Comment on above: Order Comment: Speci men Type: BLOOD SPECIMENOrdering Facility: [facility] Address: [address] [place] [address] Performed By: #### 5 8410-2 ####[facility] LABCLIA [id number] [place] [address] [place] Nucleated RBC (Bld) [#/Vol] 10*3/uL Normal <0.01 [facility] Comment on above: Order Comment: Speci men Type: BLOOD SPECIMENOrdering Facility: [facility] Address: [address] [place] [address] Performed By: #### 5 8410-2 ####[facility] LABIA [id number] [place] [address] [place] Platelet mean volume (Bld) [Entitic vol] 10.7 fL Normal 9.0-12.7 [facility] Comment on above: Order Comment: Speci men Type: BLOOD SPECIMENOrdering Facility: [facility] Address: [address] [place] [address] Performed By: #### 5 8410-2 ####[facility] LABIA [id number] [place] [address] [place] Platelets (Bld) [#/Vol] 192 10*3/uL Normal 150-400 [facility] Comment on above: Order Comment: Speci men Type: BLOOD SPECIMENOrdering Facility: [facility] Address: [address] [place] [address] Performed By: #### 5 8410-2 ####[facility] LABIA [id number] [place] [address] [place] RBC (Bld) [#/Vol] 5.32 10*6/uL Normal 4.20-6.00 [facility] Comment on above: Order Comment: Speci men Type: BLOOD SPECIMENOrdering Facility: [facility] Address: [address] [place] [address] Performed By: #### 5 8410-2 ####[facility] LABCLIA [id number] [place] [address] [place] WBC (Bld) [#/Vol] 6.05 10*3/uL Normal 3.70-11.00 [facility] Comment on above: Order Comment: Speci men Type: BLOOD SPECIMENOrdering Facility: [facility] Address: [address] [place] [address] Performed By: #### 5 8410-2 ####[facility] LABCLIA [id number] [place] [id number] [place] [facility] Comprehensive metabolic 2000 panelon 07-28-2025 Albumin [Mass/Vol] 4.7 g/dL Normal 3.9-4.9 [facility] Comment on above: Order Comment: Speci men Type: BLOOD SPECIMENOrdering Facility: [facility] Address: [address] [place] [address] Performed By: #### 2 4323-8, 31614-8 ####[facility] LABCLIA [id number] [place] [address] [place] ALP [Catalytic activity/Vol] 128 U/L High 38-113 [facility] Comment on above: Order Comment: Speci men Type: BLOOD SPECIMENOrdering Facility: [facility] Address: [address] [place] [address] Performed By: #### 2 4323-8, 72354-3 ####[facility] LABCLIA [id number] [facility] [address], [facility] [place] ALT [Catalytic activity/Vol] 16 U/L Normal 10-54 [facility] Comment on above: Order Comment: Speci men Type: BLOOD SPECIMENOrdering Facility: [facility] Address: [address] [place] [address] Performed By: #### 2 4323-8, 85863-0 ####[facility] LABCLIA [id number] [place] [id number] [place] Anion gap [Moles/Vol] 13 mmol/L Normal 8-15 [facility] Comment on above: Order Comment: Speci men Type: BLOOD SPECIMENOrdering Facility: [facility] Address: [address] [place] [address] Performed By: #### 2 4323-8, 63322-6 ####[facility] LABCLIA [id number] [place] [address] [place] AST [Catalytic activity/Vol] 20 U/L Normal 14-40 [facility] Comment on above: Order Comment: Speci men Type: BLOOD SPECIMENOrdering Facility: [facility] Address: [address] [place] [address] Performed By: #### 2 4323-8, 03258-9 ####[facility] LABCLIA [id number] [place] [address] [place] Bilirubin [Mass/Vol] 0.3 mg/dL Normal 0.2-1.3 [facility] Comment on above: Order Comment: Speci men Type: BLOOD SPECIMENOrdering Facility: [facility] Address: [address] [place] [address] Performed By: #### 2 4323-8, 99434-2 ####[facility] LABCLIA [id number] [place] [id number] [place] Calcium [Mass/Vol] 9.1 mg/dL Normal 8.5-10.2 [facility] Comment on above: Order Comment: Speci men Type: BLOOD SPECIMENOrdering Facility: [facility] Address: [address] [place] [address] Performed By: #### 2 4323-8, 55028-7 ####[facility] LABCLIA [id number] [place] [id number] [place] Chloride [Moles/Vol] 104 mmol/L Normal 98-107 [facility] Comment on above: Order Comment: Speci men Type: BLOOD SPECIMENOrdering Facility: [facility] Address: [address] [place] [address] Performed By: #### 2 4323-8, 10074-8 ####[facility] LABCLIA [id number] [address] [address] [place] CO2 [Moles/Vol] 24 mmol/L Normal 22-30 [facility] Comment on above: Order Comment: Speci men Type: BLOOD SPECIMENOrdering Facility: [facility] Address: [address] [place] [address] Performed By: #### 2 4323-8, ####[facility] LABIA [id number] [place] [address] [place] Creatinine [Mass/Vol] 1.07 mg/dL Normal 0.73-1.22 [facility] Comment on above: Order Comment: Speci men Type: BLOOD SPECIMENOrdering Facility: [facility] Address: [address] [place] [address] Performed By: #### 2 4323-8, 61149-7 ####[facility] LABIA [id number] [place] [address] [place] eGFRcr SerPlBld CKD-EPI 2020 83 mL/min/1.73m??? Normal >=60 [facility] Comment on above: Order Comment: Speci men Type: BLOOD SPECIMENOrdering Facility: [facility] Address: [address] [place] [address] Result Comment: Jessie mated Glomerular Filtration Rate (eGFR) is calculated using the 2020 CKD-EPI creatinine equation. This equation utilizes serum creatinine, sex, and age as parameters. The creatinine assay has traceable calibration to isotope dilution-mass spectrometry. Refer to KDIGO guidelines for clinical interpretation. In patients with unstable renal function, e.g. those with acute kidney injury, the eGFR may not accurately reflect actual GFR. Performed By: #### 2 4323-8, 14272-5 ####[facility] LABCLIA [id number] [address] [address] [place] Glucose [Mass/Vol] 100 mg/dL High 74-99 [facility] Comment on above: Order Comment: Speci men Type: BLOOD SPECIMENOrdering Facility: [facility] Address: [address] [place] [address] Result Comment: The [place] Diabetes Association (ADA) provides guidance for cutoff values for fasting glucose and random glucose. The ADA defines fasting as no caloric intake for at least 8 hours. Fasting plasma glucose results between 100 to 125 mg/dL indicate increased risk for diabetes (prediabetes). Fasting plasma glucose results greater than or equal to 126 mg/dL meet the criteria for diagnosis of diabetes. In the absence of unequivocal hyperglycemia, results should be confirmed by repeat testing. In a patient with classic symptoms of hyperglycemia or hyperglycemic crisis, random plasma glucose results greater than or equal to 200 mg/dL meet the criteria for diagnosis of diabetes. Reference: Standards of Medical Care in Diabetes 2016, [place] Diabetes Association. Diabetes Care. 2016.39(Suppl 1). Performed By: #### 2 4323-8, 10652-5 ####[facility] LABIA [id number] [place] [id number] [place] Potassium [Moles/Vol] 4.4 mmol/L Normal 3.7-5.1 [facility] Comment on above: Order Comment: Speci men Type: BLOOD SPECIMENOrdering Facility: [facility] Address: [address] [place] [address] Performed By: #### 2 4323-8, 41476-9 ####[facility] LABIA [id number] [address] [address] [place] Protein [Mass/Vol] 7.2 g/dL Normal 6.3-8.0 [facility] Comment on above: Order Comment: Speci men Type: BLOOD SPECIMENOrdering Facility: [facility] Address: [address] [place], [place] [address] Performed By: #### 2 4323-8, 39963-2 ####[facility] LABCLIA [id number] [facility] [address] [place] [address] [place] Sodium [Moles/Vol] 141 mmol/L Normal 136-144 [facility] Comment on above: Order Comment: Speci men Type: BLOOD SPECIMENOrdering Facility: [facility] Address: [address] [place] [address] Performed By: #### 2 4323-8, 06429-2 ####[facility] LABIA [id number] [address] [place] [address] [place] Urea nitrogen [Mass/Vol] 19 mg/dL Normal 9-24 [facility] Comment on above: Order Comment: Speci men Type: BLOOD SPECIMENOrdering Facility: [facility] Address: [address] [place] [address] Performed By: #### 2 4323-8, 52360-9 ####[facility] LABIA [id number] [place] [address] [place] HbA1c (Bld)on 07-28-2025 Average glucose Estimated from glycated hemoglobin (Bld) [Mass/Vol] 105 mg/dL Normal [facility] Comment on above: Order Comment: Speci men Type: BLOOD SPECIMENOrdering Facility: [facility] Address: [address] [place] [address] Result Comment: eAG: (Estimated average glucose) is a calculated value from HgbA1c and is hobbies and crafts sales representative of the average blood glucose level in the last 2-3 month period. Performed By: #### 5 5454-3 ####[facility] [id number] [address] [place] [address] [place] HbA1c (Bld) [Mass fraction] 5.3 % Normal 4.3-5.6 [facility] Comment on above: Order Comment: Speci men Type: BLOOD SPECIMENOrdering Facility: [facility] Address: [address] [place] [address] Result Comment: [place] Diabetes Association guidelines indicate that patients with HgbA1c in the range 5.7-6.4% are at increased risk for development of diabetes, and intervention by lifestyle modification may be beneficial. HgbA1c greater or equal to 6.5% is considered diagnostic of diabetes. Performed By: #### 5 5454-3 ####[facility] LABCLIA [id number] [facility] [address] [place] [address] [place] Lipid 1996 panelon 5 Cholesterol [Mass/Vol] 250 mg/dL High <200 [facility] Comment on above: Order Comment: Speci men Type: BLOOD SPECIMENOrdering Facility: [facility] Address: [address] [place] [address] Result Comment: <200 mg/dL, Desirable 200-239 mg/dL, Borderline high >239 mg/dL, High Performed By: #### 2 4323-8, 42370-7 ####[facility] LABIA [id number] [place] [id number] [place] Cholesterol in HDL [Mass/Vol] 43 mg/dL Normal >39 [facility] Comment on above: Order Comment: Risa ramirez Type: BLOOD SPECIMENOrdering Facility: [facility] Address: [address] [place] [address] Result Comment: 40-5 9 mg/dL, Acceptable >59 mg/dL, High: Negative risk factor for coronary heart disease <40 mg/dL, Low: Positive risk factor for coronary heart disease Performed By: #### 2 4323-8, 83329-9 ####[facility] LABCLIA [id number] [address] [place] [address] [facility] [place] Cholesterol in LDL [Mass/Vol] 198 mg/dL High <100 [facility] Comment on above: Order Comment: Rsia ramirez Type: BLOOD SPECIMENOrdering Facility: [facility] Address: [address] [place] [address] Result Comment: <100 mg/dL, Optimal 100-129 mg/dL, Near optimal/above optimal 130-159 mg/dL, Borderline high 160-189 mg/dL, High >189 mg/dL, Very high Secondary prevention optimal LDL Cholesterol levels are recommended to be <70 mg/dL LDL cholesterol is calculated using the Huffman-NIH equation. Performed By: #### 2 4323-8, 99655-0 ####[facility] LABIA [id number] [place] [address] [place] Cholesterol in LDL/Cholesterol in HDL [Mass ratio] 4.60 {ratio} High <2.54 [facility] Comment on above: Order Comment: Speci men Type: BLOOD SPECIMENOrdering Facility: [facility] Address: [address] [place] [address] Result Comment: Refe rence: 1. National Cholesterol Education Program ATP III Guideline At-A-Glance Quick Desk Reference: National Heart, Lung, and Blood [place]. National Institutes of Health. 2001: NIH Publication No. 01-3305. 2. An International Atherosclerosis Society position paper: global recommendations for the management of dyslipidemia: executive summary, Atherosclerosis. 2014: 232(2):410-413. Performed By: #### 2 4323-8, 07601-8 ####[facility] [id number] [place] [address] [place] Cholesterol in VLDL [Mass/Vol] 12 mg/dL Normal <30 [facility] Comment on above: Order Comment: Risa ramirez Type: BLOOD SPECIMENOrdering Facility: [facility] Address: [address] [place] [address] Performed By: #### 2 4323-8, 18389-7 ####[facility] LABIA [id number] [address] [address] [place] Cholesterol non HDL [Mass/Vol] 207 mg/dL High <130 [facility] Comment on above: Order Comment: Risa men Type: BLOOD SPECIMENOrdering Facility: [facility] Address: [address] [place] [address] Result Comment: <130 mg/dL, Optimal 130-159 mg/dL, Near optimal/above optimal 160-189 mg/dL, Borderline high 190-219 mg/dL, High >219 mg/dL, Very high Secondary prevention optimal non HDL Cholesterol levels are recommended to be <100 mg/dL Performed By: #### 2 4323-8, 84423-2 ####[facility] LABCLIA [id number] [address] [place] Cholesterol.total/Roxanne sterol in HDL [Mass ratio] 5.81 {ratio} High <5.10 [facility] Comment on above: Order Comment: Speci men Type: BLOOD SPECIMENOrdering Facility: [facility] Address: [address] [place] [address] Performed By: #### 2 4323-8, 21499-4 ####[facility] LABIA [id number] [address] FASTING TIME 12 hrs Normal [facility] Comment on above: Order Comment: Speci men Type: BLOOD SPECIMENOrdering Facility: [facility] Address: [address] [place] [address] Performed By: #### 2 4323-8, 38114-2 ####[facility] LABIA [id number] [address] [place] Triglyceride [Mass/Vol] 57 mg/dL Normal <150 [facility] Comment on above: Order Comment: Speci men Type: BLOOD SPECIMENOrdering Facility: [facility] Address: [address] [place] [address] Result Comment: <150 mg/dL, Normal 150-199 mg/dL, Borderline high 200-499 mg/dL, High >499 mg/dL, Very high Performed By: #### 2 4323-8, 42477-7 ####[facility] LABIA [id number] [place] [id number] [place] CNOVon 06-19-2025 CNOV Office Visit ([facility] ) ELIZABETH BAUMANN ([id number]) 1970 M Date Time Provider Department 06/19/25 10:40 AM RITU HOLM During your visit today, we recorded the following information about you: Pulse Blood pressure Weight 76/minute 132/72 106.6 kg Ritu Holm APRN.CNP 06/19/2025 11:07 AM Signed This is a 54 year old male who presents today with: Patient presents with: Insomnia HISTORY OF PRESENT ILLNESS: Elizabeth Baumann is a 54 year old male. Patient presents with: Insomnia Sea Baumann is a 54-year-old male with a history of bipolar disorder, presenting with insomnia. Insomnia: - Difficulty sleeping x1 month. - Unable to sleep after 0200; remains awake until 2200. - Tried melatonin and Tylenol PM without relief. - Mother suggested contacting family doctor for assistance. - Denies headaches, blurred or double vision, chest pain, palpitations, nausea, emesis, dyspnea, cough, or wheezing. Bipolar Disorder: - Managed by Senia at the counseling center; last seen almost 1 year ago. - Next appointment scheduled for July. - Has called and left messages with Senia's nurse without response. - Feels neglected by current mental health provider. - Taking Abilify; neurologist recommended tapering due to tremors. - Follow-up with neurologist in [place] scheduled for late June. - Previously prescribed Xanax by a different doctor, now transferred. - Denies use of lithium or valproic acid. PAST MEDICAL HISTORY: PAST MEDICAL HISTORY Diagnosis Date Bipolar 1 disorder (HCC) 1996 [facility] C[facility] BPH with obstruction/lower urinary tract symptoms 2010 Calculus of gallbladder without mention of cholecystitis or obstruction 07/23/2013 CKD (chronic kidney disease) stage 2, GFR 60-89 ml/min 01/16/2022 Constipation, chronic 10/13/2021 Depression 1996 Diabetes (HCC) 1996 Drug-induced tremor 01/16/2022 Gastritis and duodenitis 08/16/2013 HTN (hypertension) 2011 Hyperlipidemia 01/16/2022 Nephrolithiasis 02/25/2021 Peripheral neuropathy 2018 Renal cysts, acquired, bilateral 02/25/2021 PAST SURGICAL HISTORY Procedure Laterality Date CONTACT LASER VAPORIZATION PROSTATE ??? EGD 08/16/2013 TRURL ELECTROSURG RESCJ PROSTATE BLEED COMPLETE 08/30/2012 for structure ALLERGIES Patient has no known allergies. MEDICATIONS Current Outpatient Medications Medication Sig pregabalin (LYRICA) 75 mg capsule Take 1 capsule by mouth three times a day for 180 days. alpha lipoic acid 600 mg tab Take by mouth. omeprazole (PRILOSEC) 40 mg capsule Take 1 capsule by mouth once daily. lisinopril (ZESTRIL) 10 mg tablet Take 1 tablet by mouth once daily. famotidine (PEPCID) 40 mg tablet Take 40 mg by mouth once daily. rosuvastatin (CRESTOR) 10 mg tablet Take 1 tablet by mouth daily at bedtime. fluvoxaMINE (LUVOX) 100 mg tablet Take 2 tablets by mouth daily at bedtime. [facility]. busPIRone HCl 30 mg tablet Take 1 tablet in am. Take 1/2 tablet at bedtime. [facility]. ARIPiprazole (ABILIFY) 15 mg tablet Take 1 tablet by mouth once daily. [facility]. amantadine HCl (SYMMETREL) 100 mg capsule 200 mg twice daily. amitriptyline (ELAVIL) 50 mg tablet 50 mg once daily. carBAMazepine (TEGRETOL) 200 mg tablet 200 mg twice daily. Cholecalciferol, Vitamin D3, 50 mcg (2,000 unit) cap Take by mouth once daily. bethanechol (URECHOLINE) 25 mg tablet Take 1 tablet by mouth three times daily. No current facility-administered medications for this visit. FAMILY HISTORY Problem Relation Age of Onset Psychiatry Mother Arrhythmia Mother Hypothyroidism Mother Heart Attack Father age 82 Genitourinary () Father urine retention COPD Sister other (covid 19) Sister No Known Problems Brother Heart Maternal Grandmother Heart Maternal Aunt Diabetes Paternal Aunt Social History Tobacco Use Smoking status: Never Smokeless tobacco: Never Substance Use Topics Alcohol use: No Drug use: Never REVIEW OF SYSTEMS Head: (-) headache Eyes: (-) blurred vision, (-) diplopia Cardiovascular: (-) chest pain, (-) palpitations Respiratory: (-) dyspnea, (-) cough, (-) wheezing Gastrointestinal: (-) nausea, (-) vomiting Musculoskeletal: (-) joint pain, (-) joint swelling Psychiatric: (+) insomnia EXAM: BP 132/72 Pulse 76 Wt 106.6 kg (235 lb) SpO2 98% BMI 32.78 kg/m? PHYSICAL EXAM: GENERAL: NAD, alert and oriented SKIN: unremarkable, no rash or skin lesions. HEAD: normocephalic NECK: Supple, no lymphadenopathy, normal thyroid, no carotid bruits. LUNGS: Clear to auscultation bilaterally, no wheezes/rhonchi/rales . HEART: Regular rate and rhythm, no murmurs. No ectopy. EXTREMITIES: Normal, No deformities, No skin discoloration, No edema. NEURO: Awake, alert and oriented x3, cranial nerves II-XII gross (more content not included)... Normal [facility] 06-16-2025 [facility] Telephone (INTMWS) ELIZABETH BAUMANN ([id number]) 1970 M Date Time Provider Department 06/16/25 THONY RAZA INTWS During your visit today, we recorded the following information about you: Gerard Patel RN 06/16/2025 12:03 PM Signed Pt reports he is having trouble sleeping for 1 month now. Reports last night he slept from 10 p to 2:30 am, and has been awake since. Is unable to sleep during the day and does not sleep during the day. Reports he has not slept for a month and has bipolar, and the lack of sleep is making his bipolar worse. States he's tried melatonin and tylenol pm and neither of these worked. Reports he has called the counseling center several times and left messages but they will not call him back. Scheduled appt with Soniya on Thursday. Allergies As of Date: 06/16/2025 (No Known Allergies) Date Reviewed: 03/22/2025 Reviewed by: Soniya Orta, CORPORATE SAFETY MANAGER.COMPLIANCE SPECIALIST - Fully Assessed Reason for Visit: Sleep Problem [100] Prescriptions as of 06/16/2025 - pregabalin (LYRICA) 75 mg capsule Take 1 capsule by mouth three times a day for 180 days. - alpha lipoic acid 600 mg tab Take by mouth. - omeprazole (PRILOSEC) 40 mg capsule Take 1 capsule by mouth once daily. - lisinopril (ZESTRIL) 10 mg tablet Take 1 tablet by mouth once daily. - famotidine (PEPCID) 40 mg tablet Take 40 mg by mouth once daily. - rosuvastatin (CRESTOR) 10 mg tablet Take 1 tablet by mouth daily at bedtime. - fluvoxaMINE (LUVOX) 100 mg tablet Take 2 tablets by mouth daily at bedtime. [facility]. - busPIRone HCl 30 mg tablet Take 1 tablet in am. Take 1/2 tablet at bedtime. [facility]. - ARIPiprazole (ABILIFY) 15 mg tablet Take 1 tablet by mouth once daily. [facility]. - amantadine HCl (SYMMETREL) 100 mg capsule 200 mg twice daily. - amitriptyline (ELAVIL) 50 mg tablet 50 mg once daily. - carBAMazepine (TEGRETOL) 200 mg tablet 200 mg twice daily. - Cholecalciferol, Vitamin D3, 50 mcg (2,000 unit) cap Take by mouth once daily. - bethanechol (URECHOLINE) 25 mg tablet Take 1 tablet by mouth three times daily. Problem List As Of Date 06/16/2025 Noted Resolved Calculus of gallbladder without mention of chol*07/23/2013 01/16/2022 Abdominal pain, unspecified site [R10.9] 07/23/2013 01/16/2022 Obesity, Class II, BMI 35-39.9 [E66.812] 01/16/2022 Bipolar 1 disorder (HCC) [F31.9] 01/16/2022 Hyperlipidemia [E78.5] 01/16/2022 Idiopathic peripheral neuropathy [G60.9] 01/16/2022 CKD (chronic kidney disease) stage 2, GFR 60-89*01/16/2022 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] 01/16/2022 Prediabetes [R73.03] 02/13/2022 Primary hypertension [I10] 02/13/2022 AMAYA on CPAP [G47.33] 07/02/2022 Gastroesophageal reflux disease without esophag*10/16/2022 Chronic bilateral low back pain without sciatic*01/20/2023 Obesity, Class I, BMI 30-34.9 [E66.811] 07/20/2023 Encounter Status:Closed by Gerard PATEL on 06/16/25 Normal [facility] Microalb:Creat Ratio,Random URon 03-23-2025 Creatinine [Mass/Vol] 197.00 mg/dL Normal 39.00-259.00 [facility] Comment on above: Performed By: #### L 500.3600, L502.0250 #### [facility] [address] [place], [address] MALB:CREAT UNABLE TO CALCULATE Normal [facility] Comment on above: Performed By: #### L 500.3600, L502.0250 #### [facility] [address] [place], [address] MICROALBUMIN,UR < 12.0 Normal NO RANGE EST. [facility] Comment on above: Performed By: #### L 500.3600, L502.0250 #### [facility] [address] [place], [address] Renal Profileon 03-23-2025 Albumin [Mass/Vol] 4.4 g/dL Normal 3.5-5.0 [facility] Comment on above: Performed By: #### L 500.3600, L502.0250 #### [facility] [address] [place], [address] BUN/CRE 16.7 RATIO Normal 10-20 [facility] Comment on above: Performed By: #### L 500.3600, L502.0250 #### [facility] [address] [place], [address] Calcium [Mass/Vol] 9.0 mg/dL Normal 7.6-11.0 [facility] Comment on above: Performed By: #### L 500.3600, L502.0250 #### [facility] [address] [place], [address] Chloride [Moles/Vol] 106 mmol/L Normal 98-108 [facility] Comment on above: Performed By: #### L 500.3600, L502.0250 #### [facility] [address] [place], [address] CO2 [Moles/Vol] 25.5 mmol/L Normal 21.0-32.0 [facility] Comment on above: Performed By: #### L 500.3600, L502.0250 #### [facility] [address] [place], [address] Creatinine [Mass/Vol] 1.11 mg/dL Normal 0.70-1.20 [facility] Comment on above: Performed By: #### L 500.3600, L502.0250 #### [facility] [address] [place], [address] GAP 11 Normal 5-15 [facility] Comment on above: Performed By: #### L 500.3600, L502.0250 #### [facility] [address] [place], [address] GFR/1.73 sq M.predicted among non-blacks MDRD (S/P/Bld) [Vol rate/Area] 79 mL/min/{1.73_m2} Normal >60 [facility] Comment on above: Result Comment: mL/m in/1.73m2 CKD-EPI Creatinine Equation (2020) Performed By: #### L 500.3600, L502.0250 #### [facility] [address] [place], [address] Glucose [Mass/Vol] 104 mg/dL High 70-99 [facility] Comment on above: Performed By: #### L 500.3600, L502.0250 #### [facility] [address] [place], [address] Phosphate [Mass/Vol] 3.0 mg/dL Normal 2.7-4.5 [facility] Comment on above: Performed By: #### L 500.3600, L502.0250 #### [facility] [address] [place], [address] Potassium [Moles/Vol] 4.2 mmol/L Normal 3.3-5.1 [facility] Comment on above: Performed By: #### L 500.3600, L502.0250 #### [facility] [address] [place], [address] Sodium [Moles/Vol] 142 mmol/L Normal 133-145 [facility] Comment on above: Performed By: #### L 500.3600, L502.0250 #### [facility] [address] [place], [address] Urea nitrogen [Mass/Vol] 19 mg/dL Normal 4-19 [facility] Comment on above: Performed By: #### L 500.3600, L502.0250 #### [facility] [address] [place], [address] CNOVon 03-22-2025 CNOV Office Visit (INTMWS ) ELIZABETH BAUMANN ([id number]) 1970 M Date Time Provider Department 03/22/25 3:00 PM SONIYA ORTA INTMWS During your visit today, we recorded the following information about you: Pulse Respiration Blood pressure Weight 82/minute 14/minute 132/86 107.1 kg Soniya Orta APRN.COMPLIANCE SPECIALIST 03/22/2025 3:06 PM Signed - Monitor the lump behind your right ear for any changes. If you notice it becoming larger, painful, tender, or warm, please contact our office for evaluation. - No further treatment is needed at this time unless symptoms change. Soniya Orta APRN.CNP 03/22/2025 3:16 PM Addendum CC: Patient presents with: Mass: Behind RT ear HPI Recording using ambient Sway software for draft documentation of the visit was discussed with the patient/authorized hobbies and crafts sales representative; all questions welcomed and answered. Patient/authorized hobbies and crafts sales representative agreed to proceed Right Ear Lump: - Noticed by his bedspread cutter hand a few weeks ago during an eyeglass adjustment. - Described as a hard, bony knot. - No change in size since first noticed. - No associated pain, tenderness, or warmth. - Denies known trauma or injury to the area. - No hearing difficulties, ear pain/pressure - No recent illnesses/URI Review of Systems Constitutional: Negative for chills, diaphoresis, fatigue, fever and unexpected weight change. HENT: Negative for ear discharge, ear pain, facial swelling and hearing loss. PAST MEDICAL HISTORY Diagnosis Date Bipolar 1 disorder (HCC) 1996 Marc Britt, [place]. BPH with obstruction/lower urinary tract symptoms 2010 Calculus of gallbladder without mention of cholecystitis or obstruction 07/23/2013 CKD (chronic kidney disease) stage 2, GFR 60-89 ml/min 01/16/2022 Constipation, chronic 10/13/2021 Depression 1996 Diabetes (HCC) 1996 Drug-induced tremor 01/16/2022 Gastritis and duodenitis 08/16/2013 HTN (hypertension) 2011 Hyperlipidemia 01/16/2022 Nephrolithiasis 02/25/2021 Peripheral neuropathy 2018 Renal cysts, acquired, bilateral 02/25/2021 PAST SURGICAL HISTORY Procedure Laterality Date CONTACT LASER VAPORIZATION PROSTATE ??? EGD 08/16/2013 TRURL ELECTROSURG RESCJ PROSTATE BLEED COMPLETE 08/30/2012 for structure ALLERGIES Patient has no known allergies. MEDICATIONS pregabalin (LYRICA) 75 mg capsule Take 1 capsule by mouth three times a day for 180 days. alpha lipoic acid 600 mg tab Take by mouth. omeprazole (PRILOSEC) 40 mg capsule Take 1 capsule by mouth once daily. lisinopril (ZESTRIL) 10 mg tablet Take 1 tablet by mouth once daily. famotidine (PEPCID) 40 mg tablet Take 40 mg by mouth once daily. rosuvastatin (CRESTOR) 10 mg tablet Take 1 tablet by mouth daily at bedtime. fluvoxaMINE (LUVOX) 100 mg tablet Take 2 tablets by mouth daily at bedtime. [facility]. busPIRone HCl 30 mg tablet Take 1 tablet in am. Take 1/2 tablet at bedtime. [facility]. ARIPiprazole (ABILIFY) 15 mg tablet Take 1 tablet by mouth once daily. [facility]. amantadine HCl (SYMMETREL) 100 mg capsule 200 mg twice daily. amitriptyline (ELAVIL) 50 mg tablet 50 mg once daily. carBAMazepine (TEGRETOL) 200 mg tablet 200 mg twice daily. Cholecalciferol, Vitamin D3, 50 mcg (2,000 unit) cap Take by mouth once daily. bethanechol (URECHOLINE) 25 mg tablet Take 1 tablet by mouth three times daily. FAMILY HISTORY Problem Relation Age of Onset Psychiatry Mother Arrhythmia Mother Hypothyroidism Mother Heart Attack Father age 82 Genitourinary () Father urine retention COPD Sister other (covid 19) Sister No Known Problems Brother Heart Maternal Grandmother Heart Maternal Aunt Diabetes Paternal Aunt Social History Tobacco Use Smoking status: Never Smokeless tobacco: Never Substance Use Topics Alcohol use: No Drug use: Never BP 132/86 Pulse 82 Resp 14 Wt 107.1 kg (236 lb 1.8 oz) SpO2 98% BMI 32.93 kg/m? Physical Exam Vitals reviewed. Constitutional: Appearance: Normal appearance. HENT: Head: Normocephalic and atraumatic. Comments: Palpable bony prominence behind the right ear, non-tender, slightly larger than the left side. Negative for induration, fluctuance, erythema or increased warmth. Right Ear: Tympanic membrane, ear canal and external ear normal. No mastoid tenderness. Left Ear: Tympanic membrane, ear canal and external ear normal. No mastoid tenderness. Lymphadenopathy: Head: Right side of head: No preauricular, posterior auricular or occipital adenopathy. Left side of head: No preauricular, posterior auricular or occipital adenopathy. Cervical: No cervical adenopathy. Neurological: Mental Status: He is alert. Assessment/Plan 1. Bony abnormality (Q79.9) - Noted a non-tender, firm prominence behind the right ear, larger than the left side bu (more content not included)... Normal [facility] CNOVon 03-13-2025 CNOV Office Visit ([facility] ) ELIZABETH BAUMANN ([id number]) 1970 M Date Time Provider Department 03/13/25 2:00 PM LEANA LEAL [facility] During your visit today, we recorded the following information about you: Pulse Blood pressure Weight Height 81/minute 138/89 106.9 kg 1.803 m Leana Leal MD 03/23/2025 7:28 PM Signed NEW PATIENT EVALUATION Subjective HPI Elizabeth Baumann is a 54 year old right-handed male who presents for evaluation of tremor / parkinsonism. Ema FARIAS is the referring provider. Dr. Thony Raza MD is the PCP. Here with his niece. Tremor present in both hands for 2-3 years. Seems to notice it most when nervous, while driving, or typing on his cell phone. Manual dexterity seems to be fine. Handwriting is messy. Was tried on Ingrezza 40 then 80 mg a month each for the tremor without benefit. On disability for bipolar depression. Has been on Abilify for maybe 10 years. Maybe has been on olanzapine and quetiapine before that. Psychiatrist is Whit Britt CNP. Sense of smell has never been good his whole life. Mild constipation he attributed to amitriptyline. Can have nightmares without amitriptyline, not sure about enactment, lives alone, never fallen out of bed while asleep. - Abilify 10 or 15 mg daily - Amitriptyline 50 mg QHS - Buspirone 30 mg AM 15 mg PM - Carbamazepine 200 mg BID - Luvox 200 mg QHS - Amantadine 200 mg BID (10 years) - Lyrica 75 mg BID for burning pain in legs / feet Medications: Current Outpatient Medications Medication Sig Dispense Refill alpha lipoic acid 600 mg tab Take by mouth. omeprazole (PRILOSEC) 40 mg capsule Take 1 capsule by mouth once daily. 90 capsule 3 lisinopril (ZESTRIL) 10 mg tablet Take 1 tablet by mouth once daily. 90 tablet 3 pregabalin (LYRICA) 75 mg capsule Take 1 capsule by mouth three times a day for 90 days. 90 capsule 2 famotidine (PEPCID) 40 mg tablet Take 40 mg by mouth once daily. rosuvastatin (CRESTOR) 10 mg tablet Take 1 tablet by mouth daily at bedtime. 90 tablet 3 fluvoxaMINE (LUVOX) 100 mg tablet Take 2 tablets by mouth daily at bedtime. [facility]. busPIRone HCl 30 mg tablet Take 1 tablet in am. Take 1/2 tablet at bedtime. [facility]. ARIPiprazole (ABILIFY) 15 mg tablet Take 1 tablet by mouth once daily. [facility]. (Patient taking differently: Take 10 mg by mouth once daily. [facility].) amantadine HCl (SYMMETREL) 100 mg capsule 200 mg twice daily. amitriptyline (ELAVIL) 50 mg tablet 50 mg once daily. carBAMazepine (TEGRETOL) 200 mg tablet 200 mg twice daily. Cholecalciferol, Vitamin D3, 50 mcg (2,000 unit) cap Take by mouth once daily. bethanechol (URECHOLINE) 25 mg tablet Take 1 tablet by mouth three times daily. No current facility-administered medications for this visit. ROS ROS: His ROS was positive for that mentioned in the HPI. Otherwise a 10-point ROS was completed and was negative. ALLERGIES No Known Allergies Past Medical History: PAST MEDICAL HISTORY Diagnosis Date Bipolar 1 disorder (HCC) 1996 Marc [facility] C[facility]. BPH with obstruction/lower urinary tract symptoms 2010 Calculus of gallbladder without mention of cholecystitis or obstruction 07/23/2013 CKD (chronic kidney disease) stage 2, GFR 60-89 ml/min 01/16/2022 Constipation, chronic 10/13/2021 Depression 1996 Diabetes (HCC) 1996 Drug-induced tremor 01/16/2022 Gastritis and duodenitis 08/16/2013 HTN (hypertension) 2011 Hyperlipidemia 01/16/2022 Nephrolithiasis 02/25/2021 Peripheral neuropathy 2018 Renal cysts, acquired, bilateral 02/25/2021 Family History: FAMILY HISTORY Problem Relation Age of Onset Psychiatry Mother Arrhythmia Mother Hypothyroidism Mother Heart Attack Father age 82 Genitourinary () Father urine retention COPD Sister other (covid 19) Sister No Known Problems Brother Heart Maternal Grandmother Heart Maternal Aunt Diabetes Paternal Aunt MGF with dementia Mom noticing some memory difficulty Social History: Social History Tobacco Use Smoking status: Never Smokeless tobacco: Never Substance Use Topics Alcohol use: No Drug use: Never On disability due to bipolar depression Objective 03/13/25 1347 BP: 138/89 BP Site: Right Arm BP Position: Sitting BP Cuff Size: Large Adult Pulse: 81 SpO2: 98% Weight: 106.9 kg (235 lb 10.8 oz) Height: 180.3 cm (5' 11") Physical Examination General Appearance: Well appearing, alert, in no acute distress, well-hydrated, well nourished. Head: Normocephalic Neck: Supple Heart: RRR Peripheral Pulses: Normal Neurologic Examination Mental Status: He is alert. He is fully oriented. Attention is intact. Recent and remote memory is intact. Language shows normal comprehension and fluency. Praxis is normal. Affect is appropria (more content not included)... Normal [facility] PSA, total screeningOrdered By: Antionette Benavdies on 02-16-2025 Prostate Specific Antigen Screen 0.86 ng/mL 0.02-4.00 [facility] Comment on above: This test was perfor med using the [employer] tPSA method. Measured values of a patient sample can vary depending on the testing procedure used. PSA values determined on patient samples by different testing procedures cannot be used interchangeably. If there is a change in PSA assays while monitoring therapy, sequential testing should be performed to confirm baseline values. PSA,Total - Annual Screenon 02-16-2025 PSA,TOT SCREEN 0.86 ng/mL Normal 0.02-4.00 [facility] Comment on above: Result Comment: This test was performed using the [employer] tPSA method. Measured values of a patient??sample can vary depending on the testing procedure used. PSA values determined on patient samples by different testing procedures cannot be used interchangeably. If there is a change in PSA assays while monitoring therapy, sequential testing should be performed to confirm baseline values. Performed By: #### L [id number] #### [facility] [address] [place], [address] CNOVon 02-08-2025 CNOV Office Visit (SLIME ) PASTORELIZABETH Reuben ([id number]) 1970 M Date Time Provider Department 02/08/25 11:30 AM EMA COOPER During your visit today, we recorded the following information about you: Pulse Blood pressure Weight 75/minute 108/74 105.3 kg Ema Cooper PA-C 02/08/2025 12:02 PM Signed [facility] Name: Elizabeth Baumann Age: [age] year old Gender: male Primary Care Provider: Thony Raza MD Assessment/Plan: 02/08/2025 - General Neurology, Ema Cooper PA-C ASSESSMENT ASSESSMENT/PLAN: 1. Neuropathy - ICD9: 355.9, ICD10: G62.9 (primary diagnosis) Patient originally presenting with stocking glove distribution of sensory changes concerning for neuropathy. History of prediabetes, EMG obtained at [facility] last year did not show any obvious evidence of polyneuropathy. However, due to symptoms did continue to treat with Lyrica. Increase Lyrica 75mg to 3 times a day at last appointment and notes significant improvement. Notes he is almost pain-free throughout the whole day and like to continue this regimen. No significant side effects or fatigue throughout the day. Will continue with current dosage at this time. 2. 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 Parkinsonism, unspecified Parkinsonism type (HCC) - ICD9: 332.0, ICD10: G20.C Patient with some rigidity and fine tremor on exam. On multiple antipsychotics including Abilify. Discussed possibility of drug-induced tremor, would like to see a specialist and is scheduled with Dr. eLal on 13 March. 4. Spinal stenosis of lumbar region without neurogenic claudication - ICD9: 724.02, ICD10: M48.061 5. Weakness of left lower extremity - ICD9: 729.89, ICD10: R29.898 Patient with some new appreciable weakness of the left lower extremity on exam. Reporting chronic history of lumbar issues, recent x-ray of the lumbar spine obtained last year did show diffuse degenerative changes. Primarily seeing chiropractor for treatment but has not seen them for some time. No falls or signs or symptoms of cord compression. However, reflexes are decreased and again does have some weakness on exam. No facial weakness or weakness of the left upper extremity. Discussed trying physical therapy for further improvement of the weakness and gait, patient agreeable to this. Discussed should this not improve his weakness may consider imaging of the lumbar spine with an MRI and patient is amenable. Discussed red flag signs symptoms that would warrant going to the emergency department. Patient is agreeable to treatment plan of care at this time, all questions were answered. Patient to follow-up in 6 months. Ema Cooper PA-C Encounter Diagnosis ICD-10-CM 1. Neuropathy G62.9 2. Drug-induced tremor G25.1 3. Parkinsonism, unspecified Parkinsonism type (HCC) G20.C 4. Spinal stenosis of lumbar region without neurogenic claudication M48.061 CONSULT TO PHYSICAL THERAPY 5. Weakness of left lower extremity R29.898 CONSULT TO PHYSICAL THERAPY Return in about 6 months (around 08/11/2025). Chart, labs,and relevant images reviewed. Chief Complaint:Patient presents with: Established Patient: Parkinson's, Neuropathy Chart Review: Last Filed Values Date of Most Recent Assessment and Plan 08/02/24 Specialty General Neurology Assessment ASSESSMENT/PLAN: 1. Neuropathy - ICD9: 355.9, ICD10: G62.9 (primary diagnosis) 2. Numbness and tingling of both lower extremities - ICD9: 782.0, ICD10: R20.0, R20.2 Patient with chronic neuropathy, switching providers today. Has been on Lyrica 75 mg twice daily for quite some time and feels that its never been fully effective for him. Notes that he has constant numbness and tingling below the knee bilaterally, started at the great toe many years ago slowly ascended. Denies any significant weakness or falls, does get occasional lightheadedness. Recent EMG is actually negative for neuropathy but patient does have significant findings of both small and large fiber involvement on exam. Patient does have a history of diabetes in the past but is only prediabetic now. Still working factors but denies any heavy metal exposure, no other neuropathy risk factors. At this time, will continue with Lyrica 75 mg, is also on Elavil 50 mg for mood. Did discuss adding alpha lipoic acid 600 mg and patient is amenable to this. She does not be beneficial, may discuss altering medications in the future versus starting any medication. No need for further workup at this time. Patient agreeable to treatment plan of care at this time, questions were answered. Patient to follow-up in 3 months or sooner should any symptoms change or worsen. Ema Cooper PA-C HPI: Last seen on 11/02/24 for neuropathy and tremor. Lyrica wearing off in the middle of the day, (more content not included)... Normal [facility] CNOVon 02-01-2025 CNOV Office Visit (INTMWS ) ELIZABETH BAUMANN ([id number]) 1970 M Date Time Provider Department 02/01/25 4:00 PM SONIYA ORTA INTMWS During your visit today, we recorded the following information about you: Pulse Respiration Blood pressure Weight 54/minute 14/minute 124/84 107.4 kg Soniya Orta, CORPORATE SAFETY MANAGER.COMPLIANCE SPECIALIST 02/14/2025 10:59 AM Addendum CC: Patient presents with: Follow Up: 6 months HPI Elizabeth Baumann is a 54 year old male who presents today for above HTN-Medication changes:No Taking all medications as prescribed: yes Side effects: No Home BP's: No Denies: headache, chest pain, palpitations, dyspnea, and peripheral edema. Last 3 Encounter BP Readings: Date: BP: 02/01/2025 124/84 01/02/2025 118/60 11/03/2024 143/84 AMAYA: Is compliant with CPAP. No changes in settings. Denies issues with mask. Denies snoring, un-refreshed sleep, insomnia, excessive daytime drowsiness. Bipolar disorder: medications managed by psychiatry Whit Britt APRN. Patient is currently taking Abilify, Luvox, Buspar, Symmetrel, Elavil and Tegretol Feels medication is working well: yes Persistent/bothersome symptoms: no Side effects: None Review of Systems See HPI PAST MEDICAL HISTORY Diagnosis Date Bipolar 1 disorder (HCC) 1996 Marc [facility] CNP[facility]. BPH with obstruction/lower urinary tract symptoms 2010 Calculus of gallbladder without mention of cholecystitis or obstruction 07/23/2013 CKD (chronic kidney disease) stage 2, GFR 60-89 ml/min 01/16/2022 Constipation, chronic 10/13/2021 Depression 1996 Diabetes (HCC) 1996 Drug-induced tremor 01/16/2022 Gastritis and duodenitis 08/16/2013 HTN (hypertension) 2011 Hyperlipidemia 01/16/2022 Nephrolithiasis 02/25/2021 Peripheral neuropathy 2018 Renal cysts, acquired, bilateral 02/25/2021 PAST SURGICAL HISTORY Procedure Laterality Date CONTACT LASER VAPORIZATION PROSTATE ??? EGD 08/16/2013 TRURL ELECTROSURG RESCJ PROSTATE BLEED COMPLETE 08/30/2012 for structure ALLERGIES Patient has no known allergies. MEDICATIONS omeprazole (PRILOSEC) 40 mg capsule Take 1 capsule by mouth once daily. alpha lipoic acid 600 mg tab Take 600 mg by mouth once daily. famotidine (PEPCID) 40 mg tablet Take 40 mg by mouth once daily. rosuvastatin (CRESTOR) 10 mg tablet Take 1 tablet by mouth daily at bedtime. fluvoxaMINE (LUVOX) 100 mg tablet Take 2 tablets by mouth daily at bedtime. [facility] busPIRone HCl 30 mg tablet Take 1 tablet in am. Take 1/2 tablet at bedtime. [facility]. ARIPiprazole (ABILIFY) 15 mg tablet Take 1 tablet by mouth once daily. [facility]. lisinopril (ZESTRIL) 10 mg tablet Take 1 tablet by mouth once daily. amantadine HCl (SYMMETREL) 100 mg capsule 200 mg twice daily. amitriptyline (ELAVIL) 50 mg tablet 50 mg once daily. carBAMazepine (TEGRETOL) 200 mg tablet 200 mg twice daily. Cholecalciferol, Vitamin D3, 50 mcg (2,000 unit) cap Take by mouth once daily. bethanechol (URECHOLINE) 25 mg tablet Take 1 tablet by mouth three times daily. Benzonatate 200 mg capsule Take 1 capsule by mouth three times a day as needed. pregabalin (LYRICA) 75 mg capsule Take 1 capsule by mouth three times a day for 90 days. FAMILY HISTORY Problem Relation Age of Onset Psychiatry Mother Arrhythmia Mother Hypothyroidism Mother Heart Attack Father age 82 Genitourinary () Father urine retention COPD Sister other (covid 19) Sister No Known Problems Brother Heart Maternal Grandmother Heart Maternal Aunt Diabetes Paternal Aunt Social History Tobacco Use Smoking status: Never Smokeless tobacco: Never Substance Use Topics Alcohol use: No Drug use: Never BP 124/84 Pulse (!) 54 Resp 14 Wt 107.4 kg (236 lb 12.4 oz) SpO2 97% BMI 33.02 kg/m? Physical Exam Vitals reviewed. Constitutional: Appearance: Normal appearance. Cardiovascular: Rate and Rhythm: Normal rate and regular rhythm. Heart sounds: Normal heart sounds. No murmur heard. Pulmonary: Effort: Pulmonary effort is normal. Breath sounds: Normal breath sounds. No wheezing, rhonchi or rales. Neurological: Mental Status: He is alert. Psychiatric: Mood and Affect: Mood normal. Health maintenance reviewed with patient: BP Controlled (<130/80) Never done Influenza Vaccine(1) due on 05/29/2025 Serum Creatinine due on 06/07/2025 Depression Screening due on 07/27/2025 Anxiety Screening due on 07/27/2025 Colorectal Cancer Screening due on 10/17/2025 Annual PCP Team Chronic Disease Visit due on 02/01/2026 Diabetes Screening due on 06/07/2027 Lipid Screening due on 09/08/2029 DTaP,Tdap,Td Vaccine(2 - Td or Tdap) due on 11/09/2033 Hepatitis B Vaccine Completed Hepatitis C Screening Completed HIV Screening Completed Shingrix Vaccine Completed Covid-19 Vaccine Completed Pneumococcal Vac (more content not included)... Normal [facility] Chest PA and Lateralon 01-04 Chest PA and Lateral [facility] Imaging Services [address] [place] [address] Chest PA and Lateral MR#: [id number] Acct: [id number] Name: ELIZABETH BAUMANN Rep #: [id number] : 1970 M 54 From: Josh ray MD PCP: Dr. Thony Raza MD Status: [facility] ER Study: Chest PA and Lateral Date of Exam: 01/04/25 Exam# [id number] Ordering Dr: Evin Hall DO PROCEDURE: CHEST PA AND LATERAL REASON FOR EXAM: Cough, weakness and nausea. TECHNIQUE: Frontal and lateral views of the chest. COMPARISON: None. FINDINGS: The heart size is normal. The mediastinal contour is unremarkable. Elevation of the right hemidiaphragm. Degenerative changes are identified within the thoracic spine. RAD/Chest PA and Lateral IMPRESSION: NO ACUTE FINDINGS. Reading Location: [place] [address] CC: Dr. Evin Hall DO; Dr. Thony Raza MD Director Process Engineering: Signed Normal [facility] Emergency Department Summary on 01-04-2025 Emergency Department Summary [facility] Medical Records Department [address] [place] [address] Emergency Department Summary 01/04/25 MR#: [id number] Acct: [id number] Name: ELIZABETH BAUMANN Rep #: [id number] : 1970 54 From: Evin Conley PCP: Dr. Thony Raza MD Status:DEP ER Location: ED HPI History of Present Illness Chief Complaint: General Illness Informant: patient Narrative Narrative: History fever chills cough. This morning burning in his abdomen with weakness in the knees. No urinary symptoms. No ear pain no throat pain. Denies sick contacts. Prediabetic history. No asthma or COPD. Denies wheezing. Unclear if he got the flu vaccination this year. [facility] Medical History Hyperlipidemia Depression Home Medications ???Medication ???Instructions ???Recorded ???Last Taken ???Type amitriptyline 100 mg tablet 100 mg PO QHS 03/06/16 Unknown His tory aripiprazole 30 mg tablet (Abilify) 30 mg PO QHS 03/06/16 Unknown H istory atorvastatin 20 mg tablet 20 mg PO QHS 03/06/16 Unknown Hist ory bupropion HCl 300 mg 24 hr tablet, 300 mg PO DAILY 03/06/16 Unknown History extended release buspirone 30 mg tablet 30 mg PO QHS 03/06/16 03/12/16 04: 45 History 30 MG digestive enzymes combo no.7 1 ea PO QHS 03/06/16 Unknown Histo ry ([employer] capsule) finasteride 5 mg tablet 5 mg PO QHS 03/06/16 Unknown Histo ry pregabalin 75 mg capsule 75 mg PO BID 03/06/16 03/12/16 04: 45 History 75 MG tamsulosin 0.4 mg capsule 0.5 mg PO QHS 03/06/16 Unknown His tory ciprofloxacin HCl 500 mg tablet 500 mg PO BID ##10 03/13/16 Unknow n Rx hydrocodone 5 mg-acetaminophen 300 1 tab PO Q4H PRN PRN Pain #10 ta bs 03/13/16 Unknown Rx mg tablet (Vicodin) ondansetron 4 mg disintegrating 4 mg PO Q8H PRN PRN Nausea #20 tab s 04/05/24 Unknown Rx tablet famotidine 20 mg tablet 20 mg PO BID #28 TABLETS 01/04/25 Unknown Rx ondansetron 4 mg disintegrating 4 mg PO Q8H PRN PRN Nausea #10 tab s 01/04/25 Unknown Rx tablet oseltamivir 75 mg capsule (Tamiflu) 75 mg PO BID 5 days #10 caps Unknown Rx Allergy/AdvReac Type Severity Reaction Status Date / Time No Known Allergies Allergy Verified 01/04/25 08:12 Family History no significant family his Social History Smoking Status: Never smoker ROS ROS ED Constitutional Constitutional ED: Reports chills and fever(s); Denies sweats ENT ENT ED: Denies sore throat Cardiovascular Cardiovascular: Denies chest pain, leg edema, palpitations or racing heartbeat Respiratory/Chest Respiratory/Chest: Reports cough; Denies dyspnea or dyspnea on exertion Gastrointestinal Gastrointestinal: Denies abdominal pain, diarrhea, nausea or vomiting Genitourinary Genitourinary ED: Denies dysuria, hematuria or urinary frequency Musculoskeletal Musculoskeletal: Denies back pain, extremity pain or neck pain Integumentary Denies rash or wounds Neurologic Neurologic: Denies headache(s), paresthesias or weakness EXAM Physical Exam Const Vital Signs: 01/04/25 08:10 01/04/25 10:21 Temperature 98.7 F 98.8 F Temperature Source Oral Pulse Rate 100 80 Respiratory Rate 18 18 Blood Pressure 159/99 H 144/89 H Blood Pressure Mean 119 107 Pulse Ox 98 98 Oxygen Delivery Method Room Air Positive well nourished and well developed General Appearance ED: well developed and NAD HEENT Reports moist mucous membranes normocephalic and atraumatic Eyes General Eye ED: Yes normal appearance of both eyes Neck full ROM Chest Wall Chest: Negative for tenderness Resp normal respiratory effort and normal air movement Effort and Inspection: symmetric chest movement; Negative for respiratory distress Cardio regular rate, regular rhythm and no murmurs Peripheral Pulses: pulses 2+ throughout GI normal to inspection, nondistended, normoactive bowel sounds and non-tender Palpation: Negative for guarding or rebound tenderness present Extremity normal to inspection General Extremety ED: Negative for edema or tenderness General Extremity: Negative for edema Neuro oriented x3 and no sensory deficits noted Sensorium / Orientation: awake and alert Skin no rashes or lesions noted and no wounds MDM MDM MDM Narrative Medical decision making narrative: Interventions / MDM: Differential diagnosis: Influenza, viral syndrome Diagnosis considered but do not suspect: Pneumonia however chest x-ray negative. My EKG interpretation: N/A Imaging independently reviewed and interpreted by myself: 2 view chest x-ray: No acute process also read by radiology. External documents reviewed: N/A Test considered but not ordered:N/A ED (more content not included)... Normal [facility] Influenza virus A and B and SARS-CoV-2 (COVID-19) and Respiratory syncytial virus RNAOrdered By: Evin Hall on 01-04-2025 SARS-CoV-2 (COVID-19) RNA HUSEYIN+probe Ql (Unsp spec) Influenzae A Abnormal [facility] [id number] 01-04-2025 SARS-CoV-2 (COVID-19) Ab IA Ql Normal Reference Range = Negative FLUABV+SARS-CoV-2+RSV Pnl Resp HUSEYIN+probe GeneXpert Instrument, PCR method FLUABV+SARS-CoV-2+RSV Pnl Resp HUSEYIN+probe FLUABV+SARS-CoV-2+RSV Pnl Resp HUSEYIN+probe CRITICAL VALUE CALLED TO HORR 01/04/25 0930 Pam Leos. RESULTS READ BACK BY SAME. SARS-CoV-2 (COVID 19) Negative INFLUENZA A A Positive A INFLUENZA B Negative RSV PCR Negative INFLUENZAE A Normal [facility] Comment on above: Performed By: #### M 100.678 #### [facility] [address] [place], [place] [address]m[place], [address] CNOVon 01-02-2025 CNOV Office Visit (INTMWS ) ELIZABETH BAUMANN ([id number]) 1970 M Date Time Provider Department 01/02/25 2:00 PM SONIYA ORTA INTMWS During your visit today, we recorded the following information about you: Temperature Pulse Respiration Blood pressure 100.9 degrees 85/minute 14/minute 118/60 Weight 109.1 kg Soniya Orta, CORPORATE SAFETY MANAGER.COMPLIANCE SPECIALIST 01/02/2025 2:14 PM Signed CC: Patient presents with: Cough: Nasal congestion, body aches/chills x 1 day HPI: Elizaebth Baumann is a 54 year old male who presents to the office with above complaint Symptoms began yesterday morning and include: Temperature elevation: Yes Chills: Yes Cough: Yes non-productive Shortness of breath: No Fatigue: Yes Muscle aches: Yes Headache: Yes New loss of smell or taste: No Sore throat: No Nasal congestion: Yes Rhinorrhea: No Nausea and/or vomiting: No Diarrhea: No Other Associated symptoms: decreased appetite. PMH: Non-contributory OTC meds/remedies that patient has tried: none. Exposures: Sick contacts? Yes, brother in law had influenza A Family or close contacts with confirmed/probable COVID-19 in last 14 days? No Home COVID test: no Review of Systems See HPI PAST MEDICAL HISTORY Diagnosis Date Bipolar 1 disorder (HCC) 1996 [facility] C[facility]. BPH with obstruction/lower urinary tract symptoms 2010 Calculus of gallbladder without mention of cholecystitis or obstruction 07/23/2013 CKD (chronic kidney disease) stage 2, GFR 60-89 ml/min 01/16/2022 Constipation, chronic 10/13/2021 Depression 1996 Diabetes (HCC) 1996 Drug-induced tremor 01/16/2022 Gastritis and duodenitis 08/16/2013 HTN (hypertension) 2011 Hyperlipidemia 01/16/2022 Nephrolithiasis 02/25/2021 Peripheral neuropathy 2018 Renal cysts, acquired, bilateral 02/25/2021 PAST SURGICAL HISTORY Procedure Laterality Date CONTACT LASER VAPORIZATION PROSTATE ??? EGD 08/16/2013 TRURL ELECTROSURG RESCJ PROSTATE BLEED COMPLETE 08/30/2012 for structure ALLERGIES Patient has no known allergies. MEDICATIONS omeprazole (PRILOSEC) 40 mg capsule Take 1 capsule by mouth once daily. alpha lipoic acid 600 mg tab Take 600 mg by mouth once daily. pregabalin (LYRICA) 75 mg capsule Take 1 capsule by mouth three times a day for 90 days. famotidine (PEPCID) 40 mg tablet Take 40 mg by mouth once daily. rosuvastatin (CRESTOR) 10 mg tablet Take 1 tablet by mouth daily at bedtime. fluvoxaMINE (LUVOX) 100 mg tablet Take 2 tablets by mouth daily at bedtime. [facility]. busPIRone HCl 30 mg tablet Take 1 tablet in am. Take 1/2 tablet at bedtime. [facility]. ARIPiprazole (ABILIFY) 15 mg tablet Take 1 tablet by mouth once daily. [facility]. lisinopril (ZESTRIL) 10 mg tablet Take 1 tablet by mouth once daily. amantadine HCl (SYMMETREL) 100 mg capsule 200 mg twice daily. amitriptyline (ELAVIL) 50 mg tablet 50 mg once daily. carBAMazepine (TEGRETOL) 200 mg tablet 200 mg twice daily. Cholecalciferol, Vitamin D3, 50 mcg (2,000 unit) cap Take by mouth once daily. bethanechol (URECHOLINE) 25 mg tablet Take 1 tablet by mouth three times daily. valbenazine (INGREZZA) 80 mg capsule Take 1 capsule by mouth once daily. FAMILY HISTORY Problem Relation Age of Onset Psychiatry Mother Arrhythmia Mother Hypothyroidism Mother Heart Attack Father age 82 Genitourinary () Father urine retention COPD Sister other (covid 19) Sister No Known Problems Brother Heart Maternal Grandmother Heart Maternal Aunt Diabetes Paternal Aunt Social History Tobacco Use Smoking status: Never Smokeless tobacco: Never Substance Use Topics Alcohol use: No Drug use: Never BP 118/60 Pulse 85 Temp (!) 38.3 ?C (100.9 ?F) (Temporal) Resp 14 Wt 109.1 kg (240 lb 8.4 oz) SpO2 95% BMI 33.55 kg/m? Physical Exam Vitals reviewed. Constitutional: General: He is not in acute distress. Appearance: He is ill-appearing. He is not toxic-appearing. HENT: Head: Normocephalic and atraumatic. Right Ear: Tympanic membrane normal. Left Ear: Tympanic membrane normal. Mouth/Throat: Lips: [place]. Mouth: Mucous membranes are moist. Pharynx: Oropharynx is clear. Eyes: Conjunctiva/sclera: Conjunctivae normal. Cardiovascular: Rate and Rhythm: Normal rate and regular rhythm. Heart sounds: Normal heart sounds. No murmur heard. Pulmonary: Effort: Pulmonary effort is normal. Breath sounds: Normal breath sounds. No wheezing, rhonchi or rales. Lymphadenopathy: Cervical: No cervical adenopathy. Skin: General: Skin is warm and dry. Neurological: Mental Status: He is alert. Psychiatric: Mood and Affect: Mood normal. ASSESSMENT/PLAN: 1. Flu-like symptoms - ICD9: 780.99, ICD10: R68.89 Known exposure to influenza A - Discussed viral etiology and rationale for treatment. - Symptomatic treatm (more content not included)... [facility] EL[facility] ([id number]) 1970 M Date Time Provider Department 01/02/25 SONIYA ORTA During your visit today, we recorded the following information about you: Delores Bradshaw, RN 01/02/2025 12:47 PM Signed Pt called in and reports he has had a nps cough, runny nose, and chills since yesterday. Pt reports he has no appetite. Pt scheduled with Soniya Orta HEALTH SERVICES INFORMATION SPECIALIST today at 200 pm. Pt was asked to wear a mask to appointment. Allergies As of Date: 01/02/2025 (No Known Allergies) Date Reviewed: 11/03/2024 Reviewed by: Chris Chow APRN.COMPLIANCE SPECIALIST - Fully Assessed Reason for Visit: Patient Update [[id number]] Appointment [[id number]] Prescriptions as of 01/02/2025 - omeprazole (PRILOSEC) 40 mg capsule Take 1 capsule by mouth once daily. - alpha lipoic acid 600 mg tab Take 600 mg by mouth once daily. - pregabalin (LYRICA) 75 mg capsule Take 1 capsule by mouth three times a day for 90 days. - famotidine (PEPCID) 40 mg tablet Take 40 mg by mouth once daily. - rosuvastatin (CRESTOR) 10 mg tablet Take 1 tablet by mouth daily at bedtime. - fluvoxaMINE (LUVOX) 100 mg tablet Take 2 tablets by mouth daily at bedtime. [facility] - busPIRone HCl 30 mg tablet Take 1 tablet in am. Take 1/2 tablet at bedtime. [facility]. - ARIPiprazole (ABILIFY) 15 mg tablet Take 1 tablet by mouth once daily. [facility]. - lisinopril (ZESTRIL) 10 mg tablet Take 1 tablet by mouth once daily. - amantadine HCl (SYMMETREL) 100 mg capsule 200 mg twice daily. - amitriptyline (ELAVIL) 50 mg tablet 50 mg once daily. - carBAMazepine (TEGRETOL) 200 mg tablet 200 mg twice daily. - Cholecalciferol, Vitamin D3, 50 mcg (2,000 unit) cap Take by mouth once daily. - bethanechol (URECHOLINE) 25 mg tablet Take 1 tablet by mouth three times daily. Problem List As Of Date 01/02/2025 Noted Resolved Calculus of gallbladder without mention of chol*07/23/2013 01/16/2022 Abdominal pain, unspecified site [R10.9] 07/23/2013 01/16/2022 Obesity, Class II, BMI 35-39.9 [E66.812] 01/16/2022 Bipolar 1 disorder (HCC) [F31.9] 01/16/2022 Hyperlipidemia [E78.5] 01/16/2022 Idiopathic peripheral neuropathy [G60.9] 01/16/2022 CKD (chronic kidney disease) stage 2, GFR 60-89*01/16/2022 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] 01/16/2022 Prediabetes [R73.03] 02/13/2022 Primary hypertension [I10] 02/13/2022 AMAYA on CPAP [G47.33] 07/02/2022 Gastroesophageal reflux disease without esophag*10/16/2022 Chronic bilateral low back pain without sciatic*01/20/2023 Obesity, Class I, BMI 30-34.9 [E66.811] 07/20/2023 Encounter Status:Closed by DELORES BRADSHAW on 01/02/25 Normal [facility] COVID AND INFLUENZA A/B AND RSV PCR, ROUTINEon 01-02-2025 SARS-CoV-2 (COVID-19) RNA HUSEYIN+probe Ql (Unsp spec) SARS-COV-2 (AGENT OF COVID-19) RNA: Not detected INFLUENZA A RNA: Detected INFLUENZA B RNA: Not detected RESPIRATORY SYNCYTIAL VIRUS (RSV) RNA: Not detected Abnormal [facility] Comment on above: Performed By: #### C VFLRS ####[facility] LABCLIA [id number] [address] [place] CNPJaney 12-12-2024 CNPN Telephone (INTMWS) ELIZABETH BAUMANN ([id number]) 1970 M Date Time Provider Department 12/12/24 THONY RAZA INTMWS During your visit today, we recorded the following information about you: Delores Bradshaw RN 12/12/2024 8:54 AM Signed Pt and william Molina called in and report the has called [facility] several times about getting his medications refill. Pt sees Anay Hammonds, and they are telling him they will not refill them but not letting him know why. He states he was just there and has an appointment coming up with her in January. He was asking if they can cut him off cold turkey, because he only has enough medication to get him to 12/16/23. Pt states he gets the following medications from them: Carbamazepine 200 mg BID Amantadine 100 mg capsules, take 200 mg BID Fluvoxamine 100 mg, take 200 mg @ HS Abilify 15 mg daily Elavil 50 mg daily Buspirone 30 mg, take 1 tab in the am and 1/2 tab @ HS Cholecalciferol 2000 international unit(s) daily They reports he was started on these medication while he was at a hospital, but she continued him on them. I told them they should still try to get a hold of [facility] to see why they are not refilling them for him, or even go down there in person. The niece states she lives out of town. They were asking if providers office would be able to call and get anywhere with them. The were asking if they won't refill them if provider would take them over until he can find someone to fill them. Please call and advise. Thony Raza MD 12/12/2024 3:16 PM Signed Please clarify with the [facility] provide what the issue(s) are about refills. Delores Bradshaw, ADRIAN 12/12/2024 4:44 PM Signed Talked with Ibeth at [facility] and she states they only have one nurse for the whole upstairs, so we could try to call at 8 am and get her on the phone first thing in the morning. She was also going to send an e-mail to Anay Hammonds for us to have her get back to providers office. She said Pt was last seen in August, but he does have the appointment coming up in January. She said they don't like to leave patients without their medications, and she didn't see any notes in the computer about the Pt requesting the medications or why they wouldn't refill them. She said that notes aren't always put in the computer. Will try to call back tomorrow. She did say that she could see that Milena had been in the Pts chart. Thony Raza MD 12/12/2024 4:55 PM Signed Please inform the patient. Sounds like miscommunication. Delores Bradshaw RN 12/12/2024 5:41 PM Signed Pts niece called and is notified of message we had gotten from the [facility]. She voices understanding and thanks us for getting back to her. She said she isn't sure if her uncle was correct in when he thought he heard that they weren't going to refill the medications, or if something else was said. She said she would let us know if they got a hold of them, and I told her we would call them back if we heard anything. ADRIAN Drake Krystle, RN 12/13/2024 9:40 AM Signed [facility]ena with the [facility] calls to update provider. Medication needs a PA because of the new year and was declined twice. They have now filed an appeal. Milena attempted to reach patient several times and the number is out of service. The number Milena has is different than the number we have. Current phone number given to Milena. Spoke to patient and notified to expect a call from [facility] with the [facility]. Patient verbalizes understanding. Alka Day RN Allergies As of Date: 12/12/2024 (No Known Allergies) Date Reviewed: 11/03/2024 Reviewed by: Chris Chow APRN.COMPLIANCE SPECIALIST - Fully Assessed Reason for Visit: Medication Problem [65] Patient Update [1234] Patient Question [4937] Prescriptions as of 12/13/2024 - alpha lipoic acid 600 mg tab Take 600 mg by mouth once daily. - pregabalin (LYRICA) 75 mg capsule Take 1 capsule by mouth three times a day for 90 days. - omeprazole (PRILOSEC) 40 mg capsule Take 1 capsule by mouth once daily. - famotidine (PEPCID) 40 mg tablet Take 40 mg by mouth once daily. - rosuvastatin (CRESTOR) 10 mg tablet Take 1 tablet by mouth daily at bedtime. - fluvoxaMINE (LUVOX) 100 mg tablet Take 2 tablets by mouth daily at bedtime. [facility]. - busPIRone HCl 30 mg tablet Take 1 tablet in am. Take 1/2 tablet at bedtime. [facility]. - ARIPiprazole (ABILIFY) 15 mg tablet Take 1 tablet by mouth once daily. [facility]. - lisinopril (ZESTRIL) 10 mg tablet Take 1 tablet by mouth once daily. - amantadine HCl (SYMMETREL) 100 mg capsule 200 mg twice daily. - amitriptyline (ELAVIL) 50 mg tablet 50 mg once daily. - carBAMazepine (TEGRETOL) 200 mg tablet 200 mg twice daily. - Choleca (more content not included)... Normal [facility] CNOVon 11-03-2024 CNOV Office Visit (SLEWST ) ELIZABETH BAUMANN ([id number]) 1970 M Date Time Provider Department 11/03/24 3:00 PM CHRIS CHOW During your visit today, we recorded the following information about you: Pulse Blood pressure Weight 75/minute 143/84 110 kg Chris Chow APRN.CNP 11/03/2024 5:01 PM Signed [facility] New Patient Evaluation PATIENT NAME: Elizabeth Baumann DATE OF SERVICE: November 03, 2024 CONSULTING PROVIDER: Soniya Orta [address] [facility] [address] REASON FOR CONSULT: Soniya Orta sends the patient for an opinion about AMAYA. My findings and recommendations will be transmitted electronically via shared medical record to the consulting provider. HPI: Elizabeth Baumann is a 53 year old male. Sleep-related history: AMAYA diagnosed in 2021, he didn't tolerate CPAP. SLEEP-WAKE SCHEDULE Bedtime: 830-9 PM. He has a hard time falling asleep. Time to fall asleep: takes 45 min as long as he takes amitriptyline 50 mg Wake time: 5 AM, without an alarm. After falling asleep: he wakes up 2-3 time(s) per night, because of dog. Can be hard to fall back asleep, can be up for one hour. On weekends, he maintains the same sleep schedule. Average total sleep time (in a 24 hour period): 6 hours. SLEEP-RELATED DETAILS Preferred sleep position: back Breathing disturbances and other behaviors during sleep: snoring. Bruxism: Yes he had a mouth guard, getting a new one made. No dental issues but has some gum disease being treated at [facility]. No TMJ pain, gets some popping. GERD or aspiration: Yes Waking up with heart pounding or racing: No Anxiety or rumination: No (only when out with his dog in the night) He does not report having an urge to move the legs in the evening (when resting) that is accompanied or caused by uncomfortable and/or unpleasant sensations in the legs. He does sometimes kick in his sleep. He denies any history of parasomnias. Nightmares if he doesn't take amitriptyline. Excessive daytime sleepiness / fatigue is a problem. Excessive Daytime sleepiness/fatigue has been a problem for many years, worse since 2013. There is no history of a viral illness or significant head injury prior to the start of daytime sleepiness. He does not report sleep paralysis but has had sleep-related hallucinations (spider) WAKE-RELATED DETAILS He does not work. He does not have difficulty with memory or concentration. He denies falling asleep or dozing off when driving. He does take naps. Unintentionally in the recliner. Might be for an hour. He does drink max 1 caffeinated beverages per day. He has lost 20 pounds since 2 yrs. Patient Questionnaires Sleep Scores 11/01/2024 Sleep Questions Reason for visit: Sleep apnea On average, hours of sleep in 24 hours: 6 11/01/2024 [place] Sleepiness Scale Score 6 (No clinically significant daytime sleepiness) 11/01/2024 PROMIS CAT Sleep Disturbance PROMIS Sleep Disturbance T-Score 53 (within normal limits) PROMIS Sleep Disturbance Percentile 38 11/01/2024 PHQ-9 Score 6 6 Multiple values from one day are sorted in reverse-chronological order 11/01/2024 PROMIS Global Health - (T-Scores - the mean of general population = 50. Five points is a clinically meaningful difference.) Physical T-Score 37.4 37.4 Mental T-Score 36.3 36.3 Multiple values from one day are sorted in reverse-chronological order PAST TREATMENTS: CPAP--he didn't tolerate it, felt claustrophobic with FFM, also couldn't tolerate nasal pillows although they were better than the FFM PRIOR SLEEP STUDIES: A Home Sleep Test (HST) performed on 06/24/22 revealed an AHI of 17.6; supine index of 23.5; and a minimum oxygen saturation of 83%. PAST MEDICAL HISTORY Diagnosis Date Bipolar 1 disorder (HCC) 1996 Marc Britt, [facility]. BPH with obstruction/lower urinary tract symptoms 2010 Calculus of gallbladder without mention of cholecystitis or obstruction 07/23/2013 CKD (chronic kidney disease) stage 2, GFR 60-89 ml/min 01/16/2022 Constipation, chronic 10/13/2021 Depression 1996 Diabetes (HCC) 1996 Drug-induced tremor 01/16/2022 Gastritis and duodenitis 08/16/2013 HTN (hypertension) 2011 Hyperlipidemia 01/16/2022 Nephrolithiasis 02/25/2021 Peripheral neuropathy 2018 Renal cysts, acquired, bilateral 02/25/2021 PAST SURGICAL HISTORY Procedure Laterality Date CONTACT LASER VAPORIZATION PROSTATE ??? EGD 08/16/2013 TRURL ELECTROSURG RESCJ PROSTATE BLEED COMPLETE 08/30/2012 for structure ACTIVE PROBLEM LIST Obesity, Class II, Bmi 35-39.9 Bipolar 1 Disorder (Hcc) Hyperlipidemia Idiopathic Peripheral Neuropathy Ckd (Chronic Kidney Disease) Stage 2, Gfr 60-89 Ml/Min Drug-Induced Tremor Prediabetes Primary Hypertension Amaya On Cpap Gastroesophageal Reflux Disease Without Eso (more content not included)... Normal [facility] CNOVon 11-02-2024 CNOV Office Visit (NEMOWS ) ELIZABETH BAUMANN ([id number]) 1970 M Date Time Provider Department 11/02/24 4:30 PM EMA COOPER During your visit today, we recorded the following information about you: Pulse Blood pressure Weight 67/minute 136/84 111.6 kg Ema Cooper PA-C 11/02/2024 5:13 PM Signed ESTABLISHED PATIENT VISIT Last visit: 08/02/24 ASSESSMENT/PLAN: 1. Neuropathy - ICD9: 355.9, ICD10: G62.9 (primary diagnosis) 2. Numbness and tingling of both lower extremities - ICD9: 782.0, ICD10: R20.0, R20.2 Patient with chronic neuropathy, switching providers today. Has been on Lyrica 75 mg twice daily for quite some time and feels that its never been fully effective for him. Notes that he has constant numbness and tingling below the knee bilaterally, started at the great toe many years ago slowly ascended. Denies any significant weakness or falls, does get occasional lightheadedness. Recent EMG is actually negative for neuropathy but patient does have significant findings of both small and large fiber involvement on exam. Patient does have a history of diabetes in the past but is only prediabetic now. Still working factors but denies any heavy metal exposure, no other neuropathy risk factors. At this time, will continue with Lyrica 75 mg, is also on Elavil 50 mg for mood. Did discuss adding alpha lipoic acid 600 mg and patient is amenable to this. She does not be beneficial, may discuss altering medications in the future versus starting any medication. No need for further workup at this time. Patient agreeable to treatment plan of care at this time, questions were answered. Patient to follow-up in 3 months or sooner should any symptoms change or worsen. Ema Cooper PA-C CHIEF COMPLAINT: follow up HISTORY OF PRESENT ILLNESS: Elizabteh Baumann is a 53 year old male, There were no vitals taken for this visit. with a PMH significant for Neuropathy, tremor, hyperlipidemia, hypertension, AMAYA on CPAP, GERD, CKD stage II, bipolar 1, obesity, prediabetes. Sxs below the knee bilaterally, toes will be ice cold. Last seen on 08/02/24, switching providers. On lyrica 75mg bid, hx DM. Started alpha lipoic acid as well. Patient presents today for follow-up appointment for neuropathy. Notes that he is feeling the Lyrica wear off in the middle of the day, only taking it twice a day. Otherwise symptoms are unchanged, no tripping, no falling. Occasionally will feel some weakness in his calfs and lower legs specifically when he stands up, but no falls. No lightheadedness, reports minimal exercise. Did start alpha lipoic acid and feels it is helpful. Does note that his tremor to his hands is slightly worse, notes that Ingrezza is no longer covered by his insurance. Notes that this was minimally helpful. Of note, was on Abilify for many years. Does report some anosmia, intermittent constipation, micrographia. Denies any change in voice but does have a quiet voice. Denies any REM sleep disturbance but does note that he has severe nightmares if he does not take his amitriptyline. REVIEW OF SYSTEMS GENERAL:No weight loss, malaise or fevers. HEENT:Negative for frequent or significant headaches, No changes in hearing or vision, no nose bleeds or other nasal problems NECK:Negative for lumps, goiter, pain and significant neck swelling RESPIRATORY: Negative for cough, wheezing or shortness of breath. CARDIOVASCULAR: Negative for chest pain, leg swelling or palpitations. GASTROINTESTINAL: Negative for abdominal discomfort, blood in stools or black stools or change in bowel habits GENITOURINARY: No history of dysuria, frequency or incontinence MUSCULOSKELETAL: Negative for joint pain or swelling, back pain or muscle pain. NEUROLOGIC:Negative for focal numbness or weakness, headaches and dizziness or syncope, vision changes, speech/languag changes - EXCEPT that as per HPI above. SKIN:Negative for lesions, rash, and itching. PSYCHIATRIC: Negative for sleep disturbance, mood disorder and recent psychosocial stressors. HEMATOLOGIC/LYMPHATIC /IMMUNOLOGIC:Negative for prolonged bleeding, bruising easily or swollen nodes. ENDOCRINE: Negative for cold or heat intolerance, polyuria, polydipsia and goiter. The remainder of the ROS was reviewed and is negative. LAB/IMAGING: Those performed since patient's last visit have been reviewed. MEDICATIONS: omeprazole (PRILOSEC) 40 mg capsule Take 1 capsule by mouth once daily. alpha lipoic acid 600 mg tab Take 600 mg by mouth once daily. famotidine (PEPCID) 40 mg tablet Take 40 mg by mouth once daily. rosuvastatin (CRESTOR) 10 mg tablet Take 1 tablet by mouth daily at bedtime. fluvoxaMINE (LUVOX) 100 mg tablet Take 2 tablets by mouth daily at bedtime. [facility]. busPIRone HCl 30 mg tablet Take 1 tablet in am. Take 1/2 tablet at bedtime. Per Counsel[facility] (more content not included)... Normal [facility] XR Lumbar spine 3 Viewson IMPRESSION: Lumbar spine degenerative changes as described above. Director Process Engineering: PRISCILLA Transcribe Date/Time: Jun 08 2024 11:26A Dictated by : TIFFANIE DODGE MD This examination was interpreted and the report reviewed and electronically signed by: TIFFANIE DODGE MD on Jun 08 2024 11:27AM [facility] DIVISION OF RADIOLOGY * * *Final Report* * * DATE OF EXAM: Jun 06 2024 12:04PM [id number] - XR LUMBAR 3V AP/LAT/L5-S1 / PROCEDURE REASON: multiple diagnoses * * * * Physician Interpretation * * * * EXAM TITLE: XR LUMBAR 3V AP/LAT/L5-S1 EXAM DATE/TIME: 06/06/2024 12:04 PM COMPARISON: None. CLINICAL INDICATION/HISTORY: Low back pain. TECHNIQUE: AP, lateral and cone down lateral views of the lumbar spine are presented. FINDINGS: There are five [id number]-[id number] lumbar vertebrae. No fracture or subluxations are noted. Questionable mild L5-S1 disc space narrowing. There is mild to moderate osteophyte formation. There is no significant osteophyte formation. DIVISION OF RADIOLOGY Provider, [facility] - 06/08/2024 * * *Final Report* * * DATE OF EXAM: Jun 06 2024 12:04PM [id number] - XR LUMBAR 3V AP/LAT/L5-S1 / PROCEDURE REASON: multiple diagnoses * * * * Physician Interpretation * * * * EXAM TITLE: XR LUMBAR 3V AP/LAT/L5-S1 EXAM DATE/TIME: 06/06/2024 12:04 PM COMPARISON: None. CLINICAL INDICATION/HISTORY: Low back pain. TECHNIQUE: AP, lateral and cone down lateral views of the lumbar spine are presented. FINDINGS: There are five fxj-evs-exrmbud lumbar vertebrae. No fracture or subluxations are noted. Questionable mild L5-S1 disc space narrowing. There is mild to moderate osteophyte formation. There is no significant osteophyte formation. IMPRESSION IMPRESSION: Lumbar spine degenerative changes as described above. Director Process Engineering: PRISCILLA Transcribe Date/Time: Jun 08 2024 11:26A Dictated by : TIFFANIE DODGE MD This examination was interpreted and the report reviewed and electronically signed by: TIFFANIE DODGE MD on Jun 08 2024 11:27AM EST [facility] XR Lumbar spine 3 ViewsOrder ed By: Ccf Provider on 06-08-2024 [facility] XR Lumbar spine 3 Viewson Radiology Study observation (narrative) [facility] Absolute lymphocyte countOrd ered By: Jude Pennington on 04-05-2024 Lymphocytes Auto (Unsp spec) [#/Vol] 0.17 10*3/uL 0.83-4.51 [facility] Automated lymphocyte count a s percentage of total leukocytesOrdered By: Jude Pennington on 04-05-2024 Lymphocytes/100 WBC Auto (Unsp spec) 1.9 % 19-41 [facility] Basophil percentageOrdered B y: Jude Pennington on 04-05-2024 Basophils/100 WBC (Bld) 0.1 % 0-1 [facility] Bilirubin [Mass/Vol] 0.70 mg/dL 0.20-1.00 [facility] Comment on above: For patients on eltr ombopag therapy, use of Dimension [place] TBIL is not recommended. Chloride [Moles/Vol] 111 mmol/L 98-107 [facility] Eosinophils/100 WBC (Bld) 0.2 % 0-5 [facility] Glucose [Mass/Vol] 149 mg/dL 74-106 [facility] Comment on above: Fasting Glucose resu lt greater than or equal to 126 mg/dL suggests DIABETES MELLITUS per A.D.A. criteria. Hemoglobin (Bld) [Mass/Vol] 15.7 g/dL 13.0-16.5 [facility] Monocytes/100 WBC (Bld) 4.0 % 0-10 [facility] Neutrophils (Bld) [#/Vol] 8.5 10*3/uL 2.0-7.7 [facility] Neutrophils/100 WBC (Bld) 93.4 % 47-70 [facility] Potassium [Moles/Vol] 4.1 mmol/L 3.5-5.1 [facility] Protein [Mass/Vol] 7.4 g/dL 6.4-8.2 [facility] Sodium [Moles/Vol] 140 mmol/L 136-145 [facility] WBC (Bld) [#/Vol] 9.1 10*3/uL 4.4-11.0 [facility] Determination of erythrocyte mean corpuscular volume (MCV)Ordered By: Jude Pennington on 04-05-2024 MCV (RBC) [Entitic vol] 89.1 fL 80-94 [facility] Erythrocyte distribution wid th ratioOrdered By: Jude Pennington on 04-05-2024 Erythrocyte distribution width (RBC) [Ratio] 12.6 % 11.6-14.6 [facility] Erythrocyte distribution wid th standard deviationOrdered By: Jude Pennington on 04-05-2024 Erythrocyte distribution width (RBC) [Entitic vol] 40.8 fL 35.1-43.9 [facility] Hematocrit Auto (Bld) [Volum e fraction]Ordered By: Jude Pennington on 04-05-2024 Hematocrit (Bld) [Volume fraction] 46.5 % 40-54 [facility] Immature granulocytes/100 WB C Auto (Bld)Ordered By: Jude Pennington on 04-05-2024 Immature granulocytes/100 WBC (Bld) 0.400 % 0.0-0.9 [facility] Comment on above: IG% - Immature Granu locytes (promyelocytes, myelocytes and metamyelocytes) > 1% indicates that a LEFT SHIFT is Present. Laboratory - Chemistry and C hemistry - challengeOrdered By: Jude Pennington on 04-05-2024 Albumin/Globulin [Mass ratio] 1.2 {ratio} 0.9-2.4 [facility] ALP [Catalytic activity/Vol] 121 U/L 45-117 [facility] ALT [Catalytic activity/Vol] 22 U/L 16-61 [facility] CO2 [Moles/Vol] 24.0 mmol/L 21.0-32.0 [facility] Globulin (S) [Mass/Vol] 3.4 g/dL 2.2-4.2 [facility] Lipase [Catalytic activity/Vol] 20 U/L 13-75 [facility] Comment on above: Please note:LIPASE r evised reference range effective 23. New Lipase methodology. Expected to produce lower values than the previous assay method. NEW Reference Range: 13 - 75 U/L Urea nitrogen/Creatinine [Mass ratio] 22.9 mg/mg 10-20 [facility] Laboratory - Hematology and Cell countsOrdered By: Jude Pennington on 04-05-2024 MCH (RBC) [Entitic mass] 30.1 pg 27.0-32.0 [facility] MCHC (RBC) [Mass/Vol] 33.8 g/dL 32-36 [facility] Nucleated RBC/100 WBC (Bld) [Ratio] 0 % 0-5 [facility] Platelet mean volume (Bld) [Entitic vol] 10.7 fL 6.2-12.0 [facility] Platelets (Bld) [#/Vol] 165 10*3/uL 150-450 [facility] No Panel InformationOrdered By: Jude Pennington on 04-05-2024 Estimated Creatinine Clearance Calc 92.91 ml/min [facility] Estimated GFR (MDRD) Amer 83 mL/min >60 [facility] Comment on above: GFR Calc Estimated GFR (MDRD) Non-Af Amer 69 mL/min >60 [facility] Comment on above: Non- GFR Calc RBC Auto (Bld) [#/Vol]Ordere d By: Jude Pennington on 04-05-2024 RBC (Bld) [#/Vol] 5.22 10*6/uL 4.6-6.2 [facility] Serum or plasma calcium lindsey urement (mass/volume)Ordered By: Jude Pennington on 04-05-2024 Calcium [Mass/Vol] 8.7 mg/dL 8.5-10.1 [facility] Serum or plasma creatinine m easurement (mass/volume)Ordered By: Jude Pennington on 04-05-2024 Creatinine [Mass/Vol] 1.18 mg/dL 0.70-1.30 [facility] Comment on above: The validity of the calculated GFR & GFRAA in patients over 70 years has not been determined. Clinical correlation is essential. Serum or plasma urea nitroge n measurement (mass/volume)Ordered By: Jude Pennington on 04-05-2024 Urea nitrogen [Mass/Vol] 27 mg/dL 7-18 [facility] Thin prep Papanicolaou smear with manual screeningOrdered By: Jude Pennington on 04-05-2024 Thin prep Papanicolaou smear with manual screening 4.0 g/dL 3.2-5.0 [facility] Thin prep Papanicolaou smear with manual screening 15 U/L 15-37 [facility] Thin prep Papanicolaou smear with manual screening 5 5-15 [facility] Basophil percentageOrdered B y: Kerry Campbell on 03-28-2024 Basophil percentage 2.9 mg/dL 2.5-4.9 [facility] Chloride [Moles/Vol] 106 mmol/L 98-107 [facility] Glucose [Mass/Vol] 129 mg/dL 74-106 [facility] Comment on above: Fasting Glucose resu lt greater than or equal to 126 mg/dL suggests DIABETES MELLITUS per A.D.A. criteria. Potassium [Moles/Vol] 4.3 mmol/L 3.5-5.1 [facility] Comment on above: Moderate Hemolysis, Result may be falsely increased. Sodium [Moles/Vol] 137 mmol/L 136-145 [facility] Laboratory - Chemistry and C hemistry - challengeOrdered By: Kerry Campbell on 03-28-2024 CO2 [Moles/Vol] 25.0 mmol/L 21.0-32.0 [facility] Urea nitrogen/Creatinine [Mass ratio] 13.2 mg/mg 10-20 [facility] No Panel InformationOrdered By: Kerry Campbell on 03-28-2024 Estimated GFR (MDRD) Amer 71 mL/min >60 [facility] Comment on above: GFR Calc Estimated GFR (MDRD) Non-Af Amer 58 mL/min >60 [facility] Comment on above: Non- GFR Calc Serum or plasma calcium lindsey urement (mass/volume)Ordered By: Kerry Campbell on 03-28-2024 Calcium [Mass/Vol] 9.1 mg/dL 8.5-10.1 [facility] Serum or plasma creatinine m easurement (mass/volume)Ordered By: Kerry Campbell on 03-28-2024 Creatinine [Mass/Vol] 1.36 mg/dL 0.70-1.30 [facility] Comment on above: The validity of the calculated GFR & GFRAA in patients over 70 years has not been determined. Clinical correlation is essential. Serum or plasma urea nitroge n measurement (mass/volume)Ordered By: Kerry Campbell on 03-28-2024 Urea nitrogen [Mass/Vol] 18 mg/dL 7-18 [facility] Thin prep Papanicolaou smear with manual screeningOrdered By: Kerry Campbell on 03-28-2024 Protein (U) [Mass/Vol] 27.0 mg/dL 0.0-11.8 [facility] Thin prep Papanicolaou smear with manual screening 4.5 g/dL 3.2-5.0 [facility] Urine creatinine measurement (mass/volume)Ordered By: Kerry Campbell on 03-28-2024 Creatinine (U) [Mass/Vol] 243.00 mg/dL NO RANGE EST. [facility] Urine protein/creatinine mas s ratioOrdered By: Kerry Campbell on 03-28-2024 Protein/Creatinine (U) [Mass ratio] 111 mg/g CRE 0-200 [facility] No Panel InformationOrdered By: Sigifredo Chowdhury on 02-16-2024 Prostate Specific Antigen Screen 1.14 ng/mL 0.00-4.00 [facility] Comment on above: This test was perfor med using the TPSA assay method for the[facility] chemistry system. Values obtained with differentassay methods cannot be used interchangably.When changing PSA assays in the course of monitoring apatient, additional sequential testing should be carriedout to confirm baseline values. Basophil percentageOrdered B y: Dr. Campbell on 03-23-2023 Basophil percentage 2.8 mg/dL 2.5-4.9 [facility] Chloride [Moles/Vol] 105 mmol/L 98-107 [facility] Glucose [Mass/Vol] 153 mg/dL 74-106 [facility] Comment on above: Fasting Glucose resu lt greater than or equal to 126 mg/dL suggests DIABETES MELLITUS per A.D.A. criteria. Potassium [Moles/Vol] 4.1 mmol/L 3.5-5.1 [facility] Sodium [Moles/Vol] 138 mmol/L 136-145 [facility] Laboratory - Chemistry and C hemistry - challengeOrdered By: Dr. Campbell on 03-23-2023 CO2 [Moles/Vol] 28.0 mmol/L 21.0-32.0 [facility] Urea nitrogen/Creatinine [Mass ratio] 12.1 mg/mg 10-20 [facility] No Panel InformationOrdered By: Dr. Campbell on 03-23-2023 Estimated GFR (MDRD) Amer 73 mL/min >60 [facility] Comment on above: GFR Calc Estimated GFR (MDRD) Non-Af Amer 61 mL/min >60 [facility] Comment on above: Non- GFR Calc Serum or plasma albumin lindsey urement (mass/volume)Ordered By: Dr. Campbell on 03-23-2023 Albumin [Mass/Vol] 4.3 g/dL 3.2-5.0 [facility] Serum or plasma calcium lindsey urement (mass/volume)Ordered By: Dr. Campbell on 03-23-2023 Calcium [Mass/Vol] 9.1 mg/dL 8.5-10.1 [facility] Serum or plasma creatinine m easurement (mass/volume)Ordered By: Dr. Campbell on 03-23-2023 Creatinine [Mass/Vol] 1.32 mg/dL 0.70-1.30 [facility] Comment on above: The validity of the calculated GFR & GFRAA in patients over 70 years has not been determined. Clinical correlation is essential. Serum or plasma urea nitroge n measurement (mass/volume)Ordered By: Dr. Campbell on 03-23-2023 Urea nitrogen [Mass/Vol] 16 mg/dL 7-18 [facility] Urine creatinine measurement (mass/volume)Ordered By: Dr. Campbell on 03-23-2023 Creatinine (U) [Mass/Vol] 108.00 mg/dL NO RANGE EST. [facility] Urine protein measurement (m ass/volume)Ordered By: Dr. Campbell on 03-23-2023 Protein (U) [Mass/Vol] 13.9 mg/dL 0.0-11.8 [facility] Urine protein/creatinine mas s ratioOrdered By: Dr. Campbell on 03-23-2023 Protein/Creatinine (U) [Mass ratio] 129 mg/g CRE 0-200 [facility] No Panel InformationOrdered By: KELLY Alcala on 02-03-2023 Prostate Specific Antigen Screen 0.41 ng/mL 0.00-4.00 [facility] Comment on above: This test was perfor med using the TPSA assay method for the[employer] chemistry system. Values obtained with differentassay methods cannot be used interchangably.When changing PSA assays in the course of monitoring apatient, additional sequential testing should be carriedout to confirm baseline values. Basophil percentageOrdered B y: Whit Britt on 12-16-2022 Sodium [Moles/Vol] 142 mmol/L 136-145 [facility] WBC (Bld) [#/Vol] 5.2 10*3/uL 4.4-11.0 [facility] Blood erythrocytes count (nu mber/volume)Ordered By: Whit Britt on 12-16-2022 RBC (Bld) [#/Vol] 5.10 10*6/uL 4.6-6.2 [facility] Blood hemoglobin measurement (mass/volume)Ordered By: Whit Britt on 12-16-2022 Hemoglobin (Bld) [Mass/Vol] 15.3 g/dL 13.0-16.5 [facility] Blood platelet mean volumeOr dered By: Whit Britt on 12-16-2022 Platelet mean volume (Bld) [Entitic vol] 10.1 fL 6.2-12.0 [facility] Determination of erythrocyte mean corpuscular volume (MCV)Ordered By: Whit Britt on 12-16-2022 MCV (RBC) [Entitic vol] 91.2 fL 80-94 [facility] Hematocrit Auto (Bld) [Volum e fraction]Ordered By: Whit Britt on 12-16-2022 Hematocrit (Bld) [Volume fraction] 46.5 % 40-54 [facility] Laboratory - Chemistry and C hemistry - challengeOrdered By: Whit Britt on 12-16-2022 Free T4 [Mass/Vol] 0.74 ng/dL 0.76-1.46 [facility] Laboratory - Hematology and Cell countsOrdered By: Whit Britt on 12-16-2022 Erythrocyte distribution width (RBC) [Entitic vol] 41.9 fL 35.1-43.9 [facility] Erythrocyte distribution width (RBC) [Ratio] 12.6 % 11.6-14.6 [facility] MCH (RBC) [Entitic mass] 30.0 pg 27.0-32.0 [facility] MCHC Auto (RBC) [Mass/Vol]Or dered By: Whit Britt on 12-16-2022 MCHC (RBC) [Mass/Vol] 32.9 g/dL 32-36 [facility] No Panel InformationOrdered By: Whit Britt on 12-16-2022 Miscellaneous Test See comment [facility] Comment on above: TEST RESULT LIMITSCa rbamazepine(Tegretol), S 11.0 ug/mL 4.0-12.0 In conjunction with other antiepileptic drugs Therapeutic 4.0 - 8.0 Toxicity 9.0 - 12.0 Carbamazepine alone Therapeutic 8.0 - 12.0 Detection Limit = 2.0 <2.0 indicated None Detected ___ TESTING PERFORMED AT [facility]. ORIGINAL REPORT ON FILE IN LAB CONTAINS ADDITIONAL TEST SITE INFORMATION. Free Triiodothyronine (T3) pg/dL 2.6 pg/mL 2.18-3.98 [facility] Thyroid Stimulating Hormone (TSH) 1.05 uIU/mL 0.358-3.74 [facility] Vitamin D 25-Hydroxy 40.1 ng/mL [facility] Comment on above: Vitamin D 25(OH) Sta tus Range Deficiency <20 ng/mL (50nmol/L) Insufficiency 20 - 30 ng/mL (50 - 75 nmol/L) Sufficiency 30 - 100 ng/mL (75 - 250 nmol/L) Toxicity >100 ng/mL (>250 nmol/L) Platelets bldOrdered By: Chrissy Britt on 12-16-2022 Platelets (Bld) [#/Vol] 175 10*3/uL 150-450 [facility] Basophil percentageon 2021 Basophil percentage 2.9 mg/dL 2.5-4.9 [facility] Work Phone: Chloride [Moles/Vol] 105 mmol/L 98-107 [facility] Work Phone: Glucose [Mass/Vol] 129 mg/dL 74-106 [facility] Work Phone: Comment on above: Fasting Glucose resu lt greater than or equal to 126 mg/dL suggests DIABETES MELLITUS per A.D.A. criteria. Potassium [Moles/Vol] 4.1 mmol/L 3.5-5.1 [facility] Work Phone: Sodium [Moles/Vol] 139 mmol/L 136-145 [facility] Work Phone: WBC (Bld) [#/Vol] 5.9 10*3/uL 4.4-11.0 [facility] Work Phone: Blood erythrocytes count (nu mber/volume)on 03-12-2022 RBC (Bld) [#/Vol] 5.54 10*6/uL 4.6-6.2 [facility] Work Phone: Blood hemoglobin measurement (mass/volume)on 03-12-2022 Hemoglobin (Bld) [Mass/Vol] 16.4 g/dL 13.0-16.5 [facility] Work Phone: Blood platelet mean volumeon 03-12-2022 Platelet mean volume (Bld) [Entitic vol] 10.1 fL 6.2-12.0 [facility] Work Phone: Determination of erythrocyte mean corpuscular volume (MCV)on 03-12-2022 MCV (RBC) [Entitic vol] 90.1 fL 80-94 [facility] Work Phone: Hematocrit Auto (Bld) [Volum e fraction]on 03-12-2022 Hematocrit (Bld) [Volume fraction] 49.9 % 40-54 [facility] Work Phone: Laboratory - Chemistry and C hemistry - challengeon 03-12-2022 CO2 [Moles/Vol] 31.0 mmol/L 21.0-32.0 [facility] Work Phone: Urea nitrogen/Creatinine [Mass ratio] 16.0 mg/mg 10-20 [facility] Work Phone: Laboratory - Hematology and Cell countson 03-12-2022 Erythrocyte distribution width (RBC) [Entitic vol] 42.0 fL 35.1-43.9 [facility] Work Phone: Erythrocyte distribution width (RBC) [Ratio] 12.7 % 11.6-14.6 [facility] Work Phone: MCH (RBC) [Entitic mass] 29.6 pg 27.0-32.0 [facility] Work Phone: MCHC Auto (RBC) [Mass/Vol]on 03-12-2022 MCHC (RBC) [Mass/Vol] 32.9 g/dL 32-36 [facility] Work Phone: No Panel Informationon 03-12 Estimated GFR (MDRD) Amer 83 mL/min >60 [facility] Work Phone: Comment on above: GFR Calc Estimated GFR (MDRD) Non-Af Amer 69 mL/min >60 [facility] Work Phone: Comment on above: Non- GFR Calc Platelets bldon 03-12-2022 Platelets (Bld) [#/Vol] 183 10*3/uL 150-450 [facility] Work Phone: Serum or plasma albumin lindsey urement (mass/volume)on 03-12-2022 Albumin [Mass/Vol] 4.3 g/dL 3.2-5.0 [facility] Work Phone: Serum or plasma calcium lindsey urement (mass/volume)on 03-12-2022 Calcium [Mass/Vol] 9.1 mg/dL 8.5-10.1 [facility] Work Phone: Serum or plasma creatinine m easurement (mass/volume)on 03-12-2022 Creatinine [Mass/Vol] 1.19 mg/dL 0.70-1.30 [facility] Work Phone: Comment on above: The validity of the calculated GFR & GFRAA in patients over 70 years has not been determined. Clinical correlation is essential. Serum or plasma urea nitroge n measurement (mass/volume)on 03-12-2022 Urea nitrogen [Mass/Vol] 19 mg/dL 7-18 [facility] Work Phone: No Panel Informationon 01-29 Prostate Specific Antigen Screen 0.41 ng/mL 0.00-4.00 [facility] Work Phone: Comment on above: This test was perfor med using the TPSA assay method for the[facility] chemistry system. Values obtained with differentassay methods cannot be used interchangably.When changing PSA assays in the course of monitoring apatient, additional sequential testing should be carriedout to confirm baseline values. Vital Signs Date Time Vital Sign Value Performing Clinician [facility] 08-15-2025 11:24-0400 Body mass index (BMI) [Ratio] 33.14 kg/m2 Ema Rinconer PA-C Work Phone: [facility] 08-15-2025 11:24-0400 Body weight 107.78 kg Ema Rinconer PA-C Work Phone: [facility] 08-15-2025 11:24-0400 Diastolic blood pressure 84 mm[Hg] Ema Rinconer PA-C Work Phone: [facility] 08-15-2025 11:24-0400 Heart rate 75 /min Ema Rinconer PA-C Work Phone: [facility] 08-15-2025 11:24-0400 Respiratory rate 16 /min Ema Rinconer PA-C Work Phone: [facility] 08-15-2025 11:24-0400 SaO2% (BldA) [Mass fraction] 100 % Ema Rinconer PA-C Work Phone: [facility] 08-15-2025 11:24-0400 Systolic blood pressure 134 mm[Hg] Ema Rinconer PA-C Work Phone: [facility] 08-04-2025 14:27-0400 Body mass index (BMI) [Ratio] 32.87 kg/m2 Thony Raza MD Work Phone: [facility] 08-04-2025 14:27-0400 Body weight 106.9 kg Thony Raza MD Work Phone: [facility] 08-04-2025 14:27-0400 Diastolic blood pressure 69 mm[Hg] Thony Raza MD Work Phone: [facility] 08-04-2025 14:27-0400 Heart rate 73 /min Thony Raza MD Work Phone: [facility] 08-04-2025 14:27-0400 Respiratory rate 16 /min Thony Raza MD Work Phone: [facility] 08-04-2025 14:27-0400 Systolic blood pressure 120 mm[Hg] Thony Raza MD Work Phone: [facility] 08-02-2025 10:23-0400 Body mass index (BMI) [Ratio] 32.72 kg/m2 Brandon Gill CORPORATE SAFETY MANAGER.COMPLIANCE SPECIALIST Work Phone: [facility] 08-02-2025 10:23-0400 Body temperature 99 [degF] Brandon Gill CORPORATE SAFETY MANAGER.COMPLIANCE SPECIALIST Work Phone: [facility] 08-02-2025 10:23-0400 Body weight 106.4 kg Brandon Gill CORPORATE SAFETY MANAGER.COMPLIANCE SPECIALIST Work Phone: [facility] 08-02-2025 10:23-0400 Diastolic blood pressure 80 mm[Hg] Brandon Gill CORPORATE SAFETY MANAGER.COMPLIANCE SPECIALIST Work Phone: [facility] 08-02-2025 10:23-0400 Heart rate 92 /min Brandon Gill CORPORATE SAFETY MANAGER.COMPLIANCE SPECIALIST Work Phone: [facility] 08-02-2025 10:23-0400 Respiratory rate 16 /min Brandon Gill CORPORATE SAFETY MANAGER.COMPLIANCE SPECIALIST Work Phone: [facility] 08-02-2025 10:23-0400 SaO2% (BldA) [Mass fraction] 98 % Brandon Gill CORPORATE SAFETY MANAGER.COMPLIANCE SPECIALIST Work Phone: [facility] 08-02-2025 10:23-0400 Systolic blood pressure 122 mm[Hg] Brandon Gill CORPORATE SAFETY MANAGER.COMPLIANCE SPECIALIST Work Phone: [facility] 06-19-2025 10:39-0400 Body mass index (BMI) [Ratio] 32.78 kg/m2 Ritu Holm CORPORATE SAFETY MANAGER.COMPLIANCE SPECIALIST Work Phone: [facility] 06-19-2025 10:39-0400 Body weight 106.59 kg Ritu Holm CORPORATE SAFETY MANAGER.COMPLIANCE SPECIALIST Work Phone: [facility] 06-19-2025 10:39-0400 Diastolic blood pressure 72 mm[Hg] Ritu Holm CORPORATE SAFETY MANAGER.COMPLIANCE SPECIALIST Work Phone: [facility] 06-19-2025 10:39-0400 Heart rate 76 /min Ritu Holm CORPORATE SAFETY MANAGER.COMPLIANCE SPECIALIST Work Phone: [facility] 06-19-2025 10:39-0400 SaO2% (BldA) [Mass fraction] 98 % Ritu Suppan CORPORATE SAFETY MANAGER.COMPLIANCE SPECIALIST Work Phone: [facility] 06-19-2025 10:39-0400 Systolic blood pressure 132 mm[Hg] Ritu Suppjyotsna CORPORATE SAFETY MANAGER.COMPLIANCE SPECIALIST Work Phone: [facility] 02-08-2025 11:23-0400 Body mass index (BMI) [Ratio] 32.39 kg/m2 Ema er PA-C Work Phone: [facility] 02-08-2025 11:23-0400 Body weight 105.33 kg Ema er PA-C Work Phone: [facility] 02-08-2025 11:23-0400 Diastolic blood pressure 74 mm[Hg] Ema Rinconer PA-C Work Phone: [facility] 02-08-2025 11:23-0400 Heart rate 75 /min Emalanny Rinconer PA-C Work Phone: [facility] 02-08-2025 11:23-0400 SaO2% (BldA) [Mass fraction] 100 % Ema Queener PA-C Work Phone: [facility] 02-08-2025 11:23-0400 Systolic blood pressure 108 mm[Hg] Ema Rinconer PA-C Work Phone: [facility] 02-01-2025 15:45-0500 Body mass index (BMI) [Ratio] 33.02 kg/m2 Soniya Orta CORPORATE SAFETY MANAGER.COMPLIANCE SPECIALIST Work Phone: [facility] 02-01-2025 15:45-0500 Body weight 107.4 kg Soniya Orta CORPORATE SAFETY MANAGER.COMPLIANCE SPECIALIST Work Phone: [facility] 02-01-2025 15:45-0500 Diastolic blood pressure 84 mm[Hg] Soniya Orta CORPORATE SAFETY MANAGER.COMPLIANCE SPECIALIST Work Phone: [facility] 02-01-2025 15:45-0500 Heart rate 54 /min Soniya Aleksandra CORPORATE SAFETY MANAGER.COMPLIANCE SPECIALIST Work Phone: [facility] 02-01-2025 15:45-0500 Respiratory rate 14 /min Soniya Aleksandra CORPORATE SAFETY MANAGER.COMPLIANCE SPECIALIST Work Phone: [facility] 02-01-2025 15:45-0500 SaO2% (BldA) [Mass fraction] 97 % Soniya Aleksandra CORPORATE SAFETY MANAGER.COMPLIANCE SPECIALIST Work Phone: [facility] 02-01-2025 15:45-0500 Systolic blood pressure 124 mm[Hg] Soniya Aleksandra CORPORATE SAFETY MANAGER.COMPLIANCE SPECIALIST Work Phone: [facility] 01-04-2025 10:21-0500 Body temperature 98.8 [degF] Dr. Thony Raza MD Work Phone: [facility] 01-04-2025 10:21-0500 Diastolic blood pressure 89 mm[Hg] Dr. Thony Raza MD Work Phone: 6(459)[phone] [place] [address] 01-04-2025 10:21-0500 Heart rate 80 /min Dr. Thony Raza MD Work Phone: 9(273)245-984197 [place] [address] 01-04-2025 10:21-0500 Respiratory rate 18 /min Dr. Thony Raza MD Work Phone: [facility] 01-04-2025 10:21-0500 SaO2% (BldA) [Mass fraction] 98 % Dr. Thony Raza MD Work Phone: [facility] 01-04-2025 10:21-0500 Systolic blood pressure 144 mm[Hg] Dr. Thony Raza MD Work Phone: 9(266)[phone] [place] [address] 01-04-2025 08:10-0500 Body height 177.[address] Thony Raza MD Work Phone: 6(573)[phone] [place] [address] 01-04-2025 08:10-0500 Body mass index (BMI) [Ratio] 33.7 kg/m2 Dr. Thony Raza MD Work Phone: [facility] 01-04-2025 08:10-0500 Body weight 106.[address] Thony Raza MD Work Phone: [facility] 01-02-2025 13:53-0500 Body mass index (BMI) [Ratio] 33.55 kg/m2 Soniya Aleksandra CORPORATE SAFETY MANAGER.COMPLIANCE SPECIALIST Work Phone: [facility] 01-02-2025 13:53-0500 Body temperature 100.9 [degF] Soniya SebastianAleksandra CORPORATE SAFETY MANAGER.COMPLIANCE SPECIALIST Work Phone: [facility] 01-02-2025 13:53-0500 Body weight 109.1 kg Soniya Orta CORPORATE SAFETY MANAGER.COMPLIANCE SPECIALIST Work Phone: [facility] 01-02-2025 13:53-0500 Diastolic blood pressure 60 mm[Hg] Soniya SmithAleksandra CORPORATE SAFETY MANAGER.COMPLIANCE SPECIALIST Work Phone: [facility] 01-02-2025 13:53-0500 Heart rate 85 /min Soniya SebastianAleksandra CORPORATE SAFETY MANAGER.COMPLIANCE SPECIALIST Work Phone: [facility] 01-02-2025 13:53-0500 Respiratory rate 14 /min Soniya Orta CORPORATE SAFETY MANAGER.COMPLIANCE SPECIALIST Work Phone: [facility] 01-02-2025 13:53-0500 SaO2% (BldA) [Mass fraction] 95 % Soniya SebastianAleksandra CORPORATE SAFETY MANAGER.COMPLIANCE SPECIALIST Work Phone: [facility] 01-02-2025 13:53-0500 Systolic blood pressure 118 mm[Hg] Soniya Aleksandra CORPORATE SAFETY MANAGER.COMPLIANCE SPECIALIST Work Phone: [facility] 11-03-2024 14:55-0500 Body mass index (BMI) [Ratio] 33.81 kg/m2 Chris Chow CORPORATE SAFETY MANAGER.COMPLIANCE SPECIALIST Work Phone: [facility] 11-03-2024 14:55-0500 Body weight 109.95 kg Chris Geraldo CORPORATE SAFETY MANAGER.COMPLIANCE SPECIALIST Work Phone: [facility] 11-03-2024 14:55-0500 Diastolic blood pressure 84 mm[Hg] Chris Geraldo CORPORATE SAFETY MANAGER.COMPLIANCE SPECIALIST Work Phone: [facility] 11-03-2024 14:55-0500 Heart rate 75 /min Chris Geraldo CORPORATE SAFETY MANAGER.COMPLIANCE SPECIALIST Work Phone: [facility] 11-03-2024 14:55-0500 SaO2% (BldA) [Mass fraction] 100 % Chris Geraldo CORPORATE SAFETY MANAGER.COMPLIANCE SPECIALIST Work Phone: [facility] 11-03-2024 14:55-0500 Systolic blood pressure 143 mm[Hg] Chris Geraldo CORPORATE SAFETY MANAGER.COMPLIANCE SPECIALIST Work Phone: [facility] 11-02-2024 16:31-0500 Body mass index (BMI) [Ratio] 34.31 kg/m2 Ema Queener PA-C Work Phone: [facility] 11-02-2024 16:31-0500 Body weight 111.58 kg Ema Queener PA-C Work Phone: [facility] 11-02-2024 16:31-0500 Diastolic blood pressure 84 mm[Hg] Ema Queener PA-C Work Phone: [facility] 11-02-2024 16:31-0500 Heart rate 67 /min Ema Queener PA-C Work Phone: [facility] 11-02-2024 16:31-0500 SaO2% (BldA) [Mass fraction] 99 % Ema Queener PA-C Work Phone: [facility] 11-02-2024 16:31-0500 Systolic blood pressure 136 mm[Hg] Ema Queener PA-C Work Phone: [facility] 08-02-2024 13:43-0400 Body mass index (BMI) [Ratio] 35.17 kg/m2 Ema Queener PA-C Work Phone: [facility] 08-02-2024 13:43-0400 Body weight 114.4 kg Ema Rinconer PA-C Work Phone: [facility] 08-02-2024 13:43-0400 Diastolic blood pressure 84 mm[Hg] Ema Rinconer PA-C Work Phone: [facility] 08-02-2024 13:43-0400 Heart rate 76 /min Ema Rinconer PA-C Work Phone: [facility] 08-02-2024 13:43-0400 SaO2% (BldA) [Mass fraction] 97 % Ema Rinconer PA-C Work Phone: [facility] 08-02-2024 13:43-0400 Systolic blood pressure 125 mm[Hg] Ema Rinconer PA-C Work Phone: [facility] 07-27-2024 16:30-0400 Body height 180.3 cm Soinya SmithAleksandra CORPORATE SAFETY MANAGER.COMPLIANCE SPECIALIST Work Phone: [facility] 07-27-2024 16:30-0400 Body mass index (BMI) [Ratio] 34.59 kg/m2 Soniya Aleksandra CORPORATE SAFETY MANAGER.COMPLIANCE SPECIALIST Work Phone: [facility] 07-27-2024 16:30-0400 Body weight 112.5 kg Soniya SmithAleksandra CORPORATE SAFETY MANAGER.COMPLIANCE SPECIALIST Work Phone: [facility] 07-27-2024 16:30-0400 Diastolic blood pressure 72 mm[Hg] Soniya Aleksandra CORPORATE SAFETY MANAGER.COMPLIANCE SPECIALIST Work Phone: [facility] 07-27-2024 16:30-0400 Heart rate 78 /min Soniya Aleksandra CORPORATE SAFETY MANAGER.COMPLIANCE SPECIALIST Work Phone: [facility] 07-27-2024 16:30-0400 Respiratory rate 14 /min Soniya Aleksandra CORPORATE SAFETY MANAGER.COMPLIANCE SPECIALIST Work Phone: [facility] 07-27-2024 16:30-0400 SaO2% (BldA) [Mass fraction] 100 % Soniya Aleksandra CORPORATE SAFETY MANAGER.COMPLIANCE SPECIALIST Work Phone: [facility] 07-27-2024 16:30-0400 Systolic blood pressure 116 mm[Hg] Soniya Aleksandra CORPORATE SAFETY MANAGER.COMPLIANCE SPECIALIST Work Phone: [facility] 06-06-2024 11:45-0400 Diastolic blood pressure 86 mm[Hg] Soniya Aleksandra CORPORATE SAFETY MANAGER.COMPLIANCE SPECIALIST Work Phone: [facility] 06-06-2024 11:45-0400 Systolic blood pressure 138 mm[Hg] Soniya Aleksandra CORPORATE SAFETY MANAGER.COMPLIANCE SPECIALIST Work Phone: [facility] 06-06-2024 11:29-0400 Body mass index (BMI) [Ratio] 34.42 kg/m2 Soniya Aleksandra CORPORATE SAFETY MANAGER.COMPLIANCE SPECIALIST Work Phone: [facility] 06-06-2024 11:29-0400 Body weight 113.85 kg Soniya Aleksandra CORPORATE SAFETY MANAGER.COMPLIANCE SPECIALIST Work Phone: [facility] 06-06-2024 11:29-0400 Heart rate 86 /min Soniya Aleksandra CORPORATE SAFETY MANAGER.COMPLIANCE SPECIALIST Work Phone: [facility] 06-06-2024 11:29-0400 Respiratory rate 16 /min Soniya Aleksandra CORPORATE SAFETY MANAGER.COMPLIANCE SPECIALIST Work Phone: [facility] 04-11-2024 19:17-0400 Diastolic blood pressure 83 mm[Hg] Thony Raza MD Work Phone: [facility] 04-11-2024 19:17-0400 Heart rate 70 /min Thony Raza MD Work Phone: [facility] [facility] 04-11-2024 19:17-0400 Systolic blood pressure 128 mm[Hg] Thony Raza MD Work Phone: [facility] 04-11-2024 19:05-0400 Body mass index (BMI) [Ratio] 33.6 kg/m2 Thony Raza MD Work Phone: [facility] 04-11-2024 19:05-0400 Body temperature 98.2 [degF] Thony Raza MD Work Phone: [facility] 04-11-2024 19:05-0400 Body weight 111.13 kg Thony Raza MD Work Phone: [facility] 04-05-2024 14:39-0400 Body temperature 98 [degF] [facility] 04-05-2024 14:39-0400 Diastolic blood pressure 74 mm[Hg] [facility] 04-05-2024 14:39-0400 Heart rate 90 /min [facility] 04-05-2024 14:39-0400 Respiratory rate 16 /min [facility] 04-05-2024 14:39-0400 SaO2% (BldA) [Mass fraction] 100 % [facility] 04-05-2024 14:39-0400 Systolic blood pressure 138 mm[Hg] [facility] 04-05-2024 11:21-0400 Body height 180.34 cm [facility] 04-05-2024 11:21-0400 Body mass index (BMI) [Ratio] 34.2 kg/m2 [facility] 04-05-2024 11:21-0400 Body weight 111.3 kg [facility] 07-20-2023 13:13-0400 Body weight 115.67 kg Thony Raza MD Work Phone: [facility] 07-20-2023 13:13-0400 Diastolic blood pressure 80 mm[Hg] Thony Raza MD Work Phone: [facility] 07-20-2023 13:13-0400 Heart rate 76 /min Thony Raza MD Work Phone: [facility] 07-20-2023 13:13-0400 Respiratory rate 16 /min Thony Raza MD Work Phone: [facility] 07-20-2023 13:13-0400 Systolic blood pressure 126 mm[Hg] Thony Raza MD Work Phone: [facility] 01-20-2023 11:07-0500 Body height 181.9 cm Thony Raza MD Work Phone: [facility] 01-20-2023 11:07-0500 Body temperature 97.11 [degF] Thony Raza MD Work Phone: [facility] 01-20-2023 11:07-0500 Body weight 118.84 kg Thony Raza MD Work Phone: [facility] 01-20-2023 11:07-0500 Diastolic blood pressure 76 mm[Hg] Thony Raza MD Work Phone: [facility] 01-20-2023 11:07-0500 Heart rate 72 /min Thony Raza MD Work Phone: [facility] 01-20-2023 11:07-0500 Systolic blood pressure 126 mm[Hg] Thony Raza MD Work Phone: [facility] 06-18-2022 18:13-0400 Body weight 117.03 kg Soniya Older CORPORATE SAFETY MANAGER.COMPLIANCE SPECIALIST Work Phone: [facility] 06-18-2022 18:13-0400 Diastolic blood pressure 74 mm[Hg] Soniya Older CORPORATE SAFETY MANAGER.COMPLIANCE SPECIALIST Work Phone: [facility] 06-18-2022 18:13-0400 Heart rate 76 /min Soniya Older CORPORATE SAFETY MANAGER.COMPLIANCE SPECIALIST Work Phone: [facility] 06-18-2022 18:13-0400 Respiratory rate 14 /min Soniya Older CORPORATE SAFETY MANAGER.COMPLIANCE SPECIALIST Work Phone: [facility] 06-18-2022 18:13-0400 Systolic blood pressure 106 mm[Hg] Soniya Older CORPORATE SAFETY MANAGER.COMPLIANCE SPECIALIST Work Phone: [facility] 03-06-2022 15:45-0400 Diastolic blood pressure 78 mm[Hg] Mi Nurse Work Phone: [facility] 03-06-2022 15:45-0400 Heart rate 72 /min Mi Nurse Work Phone: [facility] 03-06-2022 15:45-0400 Systolic blood pressure 112 mm[Hg] Mi Nurse Work Phone: [facility] Encounters Encounter Date Encounter Type Care Provider Facility Start: 10-03-2025 [place]ulatory [place] [facility] [place] Start: 08-15-2025 End: 08-15-2025 Patient encounter procedure Ema Cooper PA-C Work Phone: Neurology Comment on above: Neuropathy (Primary Dx); Drug-induced tremor; Parkinsonism, unspecified Parkinsonism type (HCC); Spinal stenosis of lumbar region without neurogenic claudication; Numbness and tingling of both lower extremities Start: 08-15-2025 End: 08-15-2025 ambulatory THONY RAZA Facility:[facility] Start: 08-04-2025 End: 08-04-2025 ambulatory THONY RAZA Facility:[facility] Start: 08-04-2025 End: 08-04-2025 Patient encounter procedure Thony Raza MD Work Phone: [facility] [place] Comment on above: Medicare annual well ness visit, subsequent (Primary Dx); Vitamin D deficiency; Bipolar 1 disorder (HCC); Drug-induced tremor; Primary hypertension; AMAYA did not tolerate CPAP; Prediabetes; Hyperlipidemia, unspecified hyperlipidemia type; Need for influenza vaccination; Screening for colon cancer Start: 08-02-2025 End: 08-02-2025 Office outpatient visit 25 minutes Brandon Gill APRN.COMPLIANCE SPECIALIST Work Phone: [facility] [place] Comment on above: Paronychia of finger of left hand (Primary Dx) Start: 08-02-2025 End: 08-03-2025 ambulatory THONY RAZA Facility:[facility] Start: 07-28-2025 End: 07-28-2025 ambulatory SONIYA ORTA Facility:[facility] Start: 06-19-2025 End: 06-19-2025 Office outpatient visit 15 minutes Ritu Holm APRN.COMPLIANCE SPECIALIST Work Phone: [facility] [place] Comment on above: Bipolar affective di sorder, currently manic, moderate (HCC) (Primary Dx) Start: 06-19-2025 End: 06-19-2025 ambulatory THONY RAZA Facility:[facility] Start: 06-16-2025 End: 06-16-2025 Telephone encounter Thony Raza MD Work Phone: [facility] [place] Comment on above: Sleep Problem Start: 04-07-2025 End: 04-07-2025 ambulatory Thony Raza MD Work Phone: [facility] [place] Start: 04-07-2025 End: 04-07-2025 Patient encounter procedure Thony Raza MD Work Phone: [facility] Comment on above: Population Health [facility] Start: 03-22-2025 End: 03-23-2025 ambulatory SONIYA ORTA Facility:[facility] Start: 03-14-2025 End: 03-15-2025 Refill Ema Cooper PA-C Work Phone: Neurology Comment on above: Refill Request Start: 03-13-2025 End: 03-13-2025 ambulatory LEANA LEAL Facility:[facility] Start: 02-16-2025 End: 02-16-[address] Thony Raza MD Work Phone: [facility] Work Phone: Start: 02-16-2025 End: 02-16-2025 Patient encounter procedure Antionette Benavides -Laboratory Work Phone: Start: 02-16-2025 End: 02-16-2025 ambulatory Thony Raza Facility:[facility] Start: 02-08-2025 End: 02-08-2025 ambulatory THONY RAZA Facility:[facility] Start: 02-08-2025 End: 02-08-2025 Patient encounter procedure Ema Cooper PA-C Work Phone: Neurology Comment on above: Neuropathy (Primary Dx); Drug-induced tremor; Parkinsonism, unspecified Parkinsonism type (HCC); Spinal stenosis of lumbar region without neurogenic claudication; Weakness of left lower extremity Start: 02-01-2025 End: 02-01-2025 Patient encounter procedure Soniya Keenan Aleksandra CORPORATE SAFETY MANAGER.COMPLIANCE SPECIALIST Work Phone: [facility] [place] Comment on above: Primary hypertension (Primary Dx); AMAYA on CPAP; Hyperlipidemia, unspecified hyperlipidemia type; Prediabetes; Encounter for immunization Start: 02-01-2025 End: 02-01-2025 ambulatory SONIYA ORTA Facility:[facility] Start: 01-26-2025 End: 01-26-2025 ambulatory Thony Raza MD Work Phone: [employer] Comment on above: Allied Health Visit (Medication Adherence Outreach ) Start: 01-04-2025 End: 01-04-2025 Emergency department patient visit Dr. Evin Conley -Emergency Department Work Phone: Start: 01-02-2025 End: 01-02-2025 Patient encounter procedure Soniya Keenan Aleksandra CORPORATE SAFETY MANAGER.COMPLIANCE SPECIALIST Work Phone: [facility] [place] Comment on above: Flu-like symptoms (P rimary Dx) Start: 01-02-2025 End: 01-02-2025 Telephone encounter Soniya Keenan Aleksandra DUTTA.COMPLIANCE SPECIALIST Work Phone: [facility] [place] Comment on above: Patient Update; Appo intment Start: 01-02-2025 End: 01-02-2025 ambulatory SONIYA ORTA Facility:[facility] Start: 12-30-2024 End: 12-30-2024 ambulatory Thony Raza MD Work Phone: [facility] Comment on above: Allied Health Visit (Medication Adherence Outreach ) Refill Request Start: 12-12-2024 End: 12-13-2024 Telephone encounter Thony Raza MD Work Phone: [facility] [place] Comment on above: Medication Problem; Patient Update; Patient Question Start: 11-26-2024 End: 11-28-2024 Refill Ema Cooper PA-C Work Phone: Neurology Comment on above: Refill Request Start: 11-03-2024 End: 11-03-2024 Patient encounter procedure Chris Chow CORPORATE SAFETY MANAGER.COMPLIANCE SPECIALIST Work Phone: Neurology Comment on above: Obstructive sleep ap rashawn (Primary Dx); Intolerance of continuous positive airway pressure (CPAP) ventilation; Excessive daytime sleepiness Start: 11-03-2024 End: 11-03-2024 ambulatory THONY RAZA Facility:[facility] Start: 11-02-2024 End: 11-02-2024 Patient encounter procedure Ema Cooper PA-C Work Phone: Neurology Comment on above: Neuropathy (Primary Dx); Parkinsonism, unspecified Parkinsonism type (HCC); Drug-induced tremor Start: 11-02-2024 End: 11-02-2024 ambulatory THONY RAZA Facility:[facility] Start: 10-10-2024 End: 10-10-2024 Refill Soniya Orta APRN.CNP Work Phone: [facility] [place] Comment on above: Refill Request Start: 09-25-2024 End: 09-26-2024 Refill Soniya Orta APRN.COMPLIANCE SPECIALIST Work Phone: [facility] [place] Comment on above: Refill Request Start: 09-14-2024 End: 09-19-2024 Refill Thony Raza MD Work Phone: [facility] [place] Comment on above: Refill Request Resent medication Start: 08-02-2024 End: 08-02-2024 Patient encounter procedure Ema Cooper PA-C Work Phone: Neurology Comment on above: Neuropathy (Primary Dx); Numbness and tingling of both lower extremities Start: 07-27-2024 End: 07-27-2024 Patient encounter procedure Soniya Orta APRN.COMPLIANCE SPECIALIST Work Phone: [facility] [place] Comment on above: Medicare annual well ness visit, subsequent (Primary Dx); Gastroesophageal reflux disease without esophagitis; Obstructive sleep apnea; Idiopathic peripheral neuropathy; Primary hypertension; Bipolar 1 disorder (HCC); Screening for depression; Encounter for screening examination for other mental health and behavioral disorders Start: 07-06-2024 Telephone encounter Soniya yoder APRN.COMPLIANCE SPECIALIST Work Phone: [facility] [place] Comment on above: Results Start: 06-14-2024 Orders Only Soniya Keenan Williams george APRN.COMPLIANCE SPECIALIST Work Phone: [facility] [place] Comment on above: Numbness and tinglin g of both lower extremities (Primary Dx); Pain in both lower extremities Start: 06-08-2024 ambulatory Soniya Gerard Williams george APRN.COMPLIANCE SPECIALIST Work Phone: [facility] [place] Comment on above: lab results Start: 06-08-2024 E-mail encounter fro m caregiver Soniya Keenan Aleksandra DUTTA.COMPLIANCE SPECIALIST Work Phone: [facility] [place] Start: 06-06-2024 End: 06-06-2024 Subsequent hospital visit by physician [facility] Work Phone: Radiology Comment on above: Chronic bilateral lo w back pain without sciatica [M54.50, G89.29] Start: 06-06-2024 End: 06-06-2024 Patient encounter procedure Soniya Gerard Aleksandra DUTTA.COMPLIANCE SPECIALIST Work Phone: [facility] [place] Comment on above: Numbness and tinglin g of both lower extremities (Primary Dx); Chronic bilateral low back pain without sciatica; Pain in both lower extremities; Prediabetes; Hyperlipidemia, unspecified hyperlipidemia type Start: 06-06-2024 End: 06-06-2024 Nursing evaluation of patient and report Mi Nurse Work Phone: Family [facility] [place] Comment on above: Need for vaccination (Primary Dx) Start: 04-20-2024 Refill Thony sung MD Work Phone: [facility] [place] Comment on above: Refill Request Start: 04-11-2024 End: 04-11-2024 Patient encounter procedure Thony aRza MD Work Phone: [facility] [place] Comment on above: Gastroenteritis (Lissette karen Dx); Gastroesophageal reflux disease without esophagitis; Primary hypertension; Idiopathic peripheral neuropathy; Need for COVID-19 vaccine Start: 04-05-2024 ambulatory Thony sung MD Work Phone: [facility] [place] Comment on above: Diarrhea Start: 04-05-2024 End: 04-05-2024 Emergency department patient visit [facility] Work Phone: Start: 03-28-2024 End: 03-28-2024 ambulatory [facility] Work Phone: Start: 03-28-2024 End: 03-28-2024 Patient encounter procedure [facility] Work Phone: Start: 02-16-2024 End: 02-16-2024 ambulatory [facility] Work Phone: Start: 02-16-2024 End: 02-16-2024 Patient encounter procedure [facility] Work Phone: Start: 01-31-2024 Refill Soniya george CORPORATE SAFETY MANAGER.COMPLIANCE SPECIALIST Work Phone: [facility] Comment on above: Refill Request Start: 01-06-2024 End: 01-06-2024 Nursing evaluation of patient and report Mi Nurse Work Phone: [facility] Comment on above: Encounter for immuni zation (Primary Dx) Start: 11-10-2023 Telephone encounter Thony shetty MD Work Phone: [facility] Comment on above: Forms (Medical Servi ce-med necessity for oxygen) Start: 10-31-2023 Refill Soniya whitehead CORPORATE SAFETY MANAGER.COMPLIANCE SPECIALIST Work Phone: Internal [facility] Comment on above: Refill Request Start: 08-17-2023 Refill Soniya Woodruff CORPORATE SAFETY MANAGER .COMPLIANCE SPECIALIST Work Phone: [facility] Comment on above: Refill Request Start: 07-20-2023 End: 07-20-2023 Patient encounter procedure Thony Raza MD Work Phone: [facility] Comment on above: Obesity, Class I, BM I 30-34.9 (Primary Dx); Primary hypertension; Hyperlipidemia, unspecified hyperlipidemia type; CKD (chronic kidney disease) stage 2, GFR 60-89 ml/min Start: 06-14-2023 Refill Soniya Older CORPORATE SAFETY MANAGER .COMPLIANCE SPECIALIST Work Phone: [facility] Comment on above: Refill Request Start: 06-05-2023 Refill Thony sung MD Work Phone: [facility] Comment on above: Refill Request Start: 03-23-2023 End: 03-23-2023 ambulatory [facility] Work Phone: Start: 03-23-2023 End: 03-23-2023 Patient encounter procedure [facility] Start: 02-03-2023 End: 02-03-2023 ambulatory [facility] Work Phone: Start: 02-03-2023 End: 02-03-2023 [facility] Start: 01-20-2023 End: 01-20-2023 Patient encounter procedure Thony Raza MD Work Phone: [facility] Comment on above: Routine medical exam (Primary Dx); Hyperlipidemia, unspecified hyperlipidemia type; Idiopathic peripheral neuropathy; Bipolar 1 disorder (HCC); Chronic bilateral low back pain without sciatica; Obesity, Class II, BMI 35-39.9; CKD (chronic kidney disease) stage 2, GFR 60-89 ml/min; Primary hypertension; AMAYA on CPAP; Prediabetes; Need for COVID-19 vaccine; Lesion of skin of nose Start: 01-20-2023 End: 01-20-2023 Patient encounter status Thony Raza MD Work Phone: [facility] Start: 12-16-2022 End: 12-16-2022 [facility] Work Phone: Start: 12-16-2022 End: 12-16-2022 Patient encounter procedure [facility] Start: 11-18-2022 Refill Soniya Older CORPORATE SAFETY MANAGER .COMPLIANCE SPECIALIST Work Phone: [facility] Comment on above: Refill Request Start: 07-24-2022 ambulatory Olive Baxter MA [facility] [place] Comment on above: Population Health Na vigation Outreach ([employer] ) Start: 07-02-2022 ambulatory Soniya Older CORPORATE SAFETY MANAGER .COMPLIANCE SPECIALIST Work Phone: [facility] [place] Comment on above: sleep study results Start: 07-02-2022 E-mail encounter nery keenan caregiver Soniya Older CORPORATE SAFETY MANAGER.COMPLIANCE SPECIALIST Work Phone: [facility] Start: 06-23-2022 [facility] Work Phone: Neurology Comment on above: HSAT Check In (Adult ) Start: 06-20-2022 ambulatory Soniya Older CORPORATE SAFETY MANAGER .COMPLIANCE SPECIALIST Work Phone: [facility] [place] Comment on above: Home sleep study Start: 06-18-2022 End: 06-18-2022 Patient encounter procedure Soniya Older CORPORATE SAFETY MANAGER.COMPLIANCE SPECIALIST Work Phone: [facility] [place] Comment on above: Primary hypertension (Primary Dx); Daytime sleepiness; Obesity, Class II, BMI 35-39.9; Hyperlipidemia, unspecified hyperlipidemia type; Idiopathic peripheral neuropathy Start: 03-12-2022 End: 03-12-2022 [facility] Start: 03-06-2022 End: 03-06-2022 Nursing evaluation of patient and report Mi Nurse Work Phone: [facility] [place] Comment on above: Primary hypertension (Primary Dx) Start: 03-06-2022 Telephone encounter Thony shetty MD Work Phone: [facility] [place] Comment on above: Blood Pressure Check Start: 01-29-2022 End: 01-29-2022 [facility] Start: 09-09-2013 End: 09-09-2013 REFILL - MYCHART Miguelito Raya Work Phone: General Surgery Comment on above: Medication Renewal R equest Procedures Date Procedure Procedure Detail Performing Clinician Start: 07-28-2025 Lipid 1996 panel - S juanita or Plasma Brandon Gill CORPORATE SAFETY MANAGER.COMPLIANCE SPECIALIST Work Phone: Start: 02-01-2025 PFIZER-BIONTECH COVI D-19 VACCINE AGE 12+ YR (COMIRNATY) Soniya Orta CORPORATE SAFETY MANAGER.COMPLIANCE SPECIALIST Work Phone: Start: 01-04-2025 SARS-CoV-2, Influenz a & RSV (PCR) Dr. Thony Raza MD Work Phone: Start: 01-04-2025 X-ray of chest, PA a nd lateral views Dr. Thony Raza MD Work Phone: Start: 09-08-2024 Lipid 1996 panel - S juanita or Plasma Thony Raza MD Work Phone: Start: 07-27-2024 Adult depression screening assessment Soniya Orta CORPORATE SAFETY MANAGER.COMPLIANCE SPECIALIST Work Phone: Start: 06-07-2024 Lipid 1996 panel - S juanita or Plasma Soniya Orta CORPORATE SAFETY MANAGER.COMPLIANCE SPECIALIST Work Phone: Start: 06-06-2024 Radex spine lumbosac ral 2/3 views Soniya Orta CORPORATE SAFETY MANAGER.COMPLIANCE SPECIALIST Work Phone: Start: 04-11-2024 PFIZER-BIONTECH COVI D-19 VACCINE (2022- SEASON) AGE 12+ YR Thony Raza MD Work Phone: Start: 07-22-2023 Lipid 1996 panel - S juanita or Plasma Soniya Woodruff CORPORATE SAFETY MANAGER.COMPLIANCE SPECIALIST Work Phone: Start: 01-20-2023 PFIZER-BIONTECH COVI D-19 BIVALENT BOOSTER VACCINE, AGE 12+ YR Thony Raza MD Work Phone: Start: 01-16-2022 Adult depression screening assessment Id Nurse Work Phone: Plan of Treatment Date Care Activity Detail Author Start: 11-09-2033 Urine microalbumin profile DTaP,Tdap,Td Vaccine (2 - Td or Tdap) [facility] Start: 07-28-2030 Lipid panel Lipid Screening [facility] Start: 09-08-2029 Lipid panel Lipid Screening [facility] Start: 06-07-2029 Lipid panel Lipid Screening [facility] Start: 07-28-2028 Diabetes Screening Diabetes Screenin g [facility] Start: 07-22-2028 Lipid 1996 panel - Serum or Plasma Lipid Screening [facility] Start: 07-22-2028 Lipid panel Lipid Screening [facility] Start: 01-13-2028 LIPID SCREEN LIPID SCREEN [facility] Start: 06-07-2027 Diabetes Screening Diabetes Screenin g [facility] Start: 01-20-2027 LIPID SCREEN LIPID SCREEN [facility] Start: 08-04-2026 Annual PCP Team [employer]i Designer tacos Disease Visit Annual PCP Team Chronic Disease Visit [facility] Start: 07-28-2026 Creatinine measurement Serum Creatin ine [facility] Start: 07-22-2026 Diabetes Screening Diabetes Screenin g [facility] Start: 06-19-2026 Annual PCP Team Ui Designer tacos Disease Visit Annual PCP Team Chronic Disease Visit [facility] Start: 03-22-2026 Annual PCP Team Ui Designer tacos Disease Visit Annual PCP Team Chronic Disease Visit [facility] Start: 02-28-2026 End: 02-28-2026 Patient encounter procedure 02/28/2026 10:30 AM EDT Office Visit Neurology [address] [place] [address] [place] [id number] Leana Leal MD [address] [place] [address] Return in about 6 months (around 09/12/2025). Neurology Comment on above: Return in about 6 mo nths (around 09/12/2025). Start: 02-13-2026 End: 02-13-2026 Patient encounter procedure 02/13/2026 11:00 AM EDT Office Visit Neurology [address] [place], [place] [id number] Ema Cooper PA-C [address] [place], [place] [address] 6 month follow up Neurology Comment on above: 6 month follow up Start: 02-08-2026 BP Controlled (<130/80) BP Controlle d (<130/80) [facility] Start: 02-02-2026 End: 02-02-2026 Patient encounter procedure 02/02/2026 10:00 AM EST Office Visit [facility] [place] [address] [place], [place] [id number] Thony Raza MD [address] [place] [address] 6 Month F/U [facility] [place] Comment on above: 6 Month F/U Start: 02-01-2026 Annual PCP Team Ui Designer tacos Disease Visit Annual PCP Team Chronic Disease Visit [facility] Start: 01-22-2026 End: 04-23-2026 25-hydroxyvitamin D3 [Mass/volume] in Serum or Plasma VITAMIN D 25 HYDROXY Lab Routine Vitamin D deficiency Expected: 01/22/2026, Expires: 04/23/2026 [facility] Comment on above: Expected: 01/22/2026 , Expires: 04/23/2026 Start: 01-22-2026 End: 04-23-2026 Basic metabolic 2000 panel - Serum or Plasma BASIC METABOLIC PANEL Lab Routine Prediabetes Expected: 01/22/2026, Expires: 04/23/2026 [facility] Comment on above: Expected: 01/22/2026 , Expires: 04/23/2026 Start: 01-22-2026 End: 04-23-2026 Lipid 1996 panel - Serum or Plasma LIPID PANEL, FASTING Lab Routine Hyperlipidemia, unspecified hyperlipidemia type Expected: 01/22/2026, Expires: 04/23/2026 [facility] Work Phone: Comment on above: Expected: 01/22/2026 , Expires: 04/23/2026 Start: 01-22-2026 End: 01-22-2026 ambulatory 01/22/2026 9:00 AM EST Results Only [place] [address] [place] [address] [place] [facility] Start: 01-13-2026 DIABETES SCREEN DIABETES SCREEN [facility] Start: 01-02-2026 Annual PCP Team Ui Designer tacos Disease Visit Annual PCP Team Chronic Disease Visit [facility] Start: 01-02-2026 BP Controlled (<130/80) BP Controlle d (<130/80) [facility] Start: 10-17-2025 COLOGUARD (FIT-DNA) COLOGUARD (FIT-D NA) [facility] Start: 10-17-2025 COLORECTAL CANCER SCREENING COLORECTAL CANCER SCREENING [facility] Start: 10-17-2025 Screening for malign ant neoplasm of colon [facility] Start: 09-29-2025 End: 09-29-2025 Patient encounter procedure Neurology Comment on above: Return in about 6 mo nths (around 09/12/2025). Start: 08-31-2025 End: 08-31-2025 ambulatory 08/31/2025 11:30 AM EDT OT/PT/Speech Visit [facility] [address] [place], [place] [id number] Mauricio Bruce PT Helping me with pain in my lower legs. [facility] Comment on above: Helping me with pain in my lower legs. Start: 08-15-2025 End: 08-15-2025 Patient encounter procedure 08/15/2025 11:30 AM EDT Office Visit Neurology [address] [place], [place] [phone] Ema Cooper PA-C [address] [place], [place] [address] 6 MO OV Neurology Comment on above: 6 MO OV Start: 08-04-2025 End: 08-04-2025 Patient encounter procedure 08/04/2025 2:20 PM EDT Office Visit [facility] [place] [address] [place] [address] Thony Raza MD [address] [place] [address] medicare 6 months [facility] [place] Comment on above: medicare 6 months Start: 07-31-2025 Influenza vaccination [facility] Start: 07-28-2025 End: 11-03-2025 CBC panel - Blood by Automated count COMPLETE BLOOD COUNT Lab Routine Primary hypertension Expected: 07/28/2025, Expires: 11/03/2025 [facility] Comment on above: Expected: 07/28/2025 , Expires: 11/03/2025 Start: 07-28-2025 End: 11-03-2025 Comprehensive metabolic 2000 panel - Serum or Plasma COMPREHENSIVE METABOLIC PANEL Lab Routine Primary hypertension Expected: 07/28/2025, Expires: 11/03/2025 [facility] Comment on above: Expected: 07/28/2025 , Expires: 11/03/2025 Start: 07-28-2025 End: 11-03-2025 Hemoglobin A1c in Blood HEMOGLOBIN A1C Lab Routine Prediabetes Expected: 07/28/2025, Expires: 11/03/2025 [facility] Comment on above: Expected: 07/28/2025 , Expires: 11/03/2025 Start: 07-28-2025 End: 11-03-2025 Lipid 1996 panel - Serum or Plasma LIPID PANEL BASIC Lab Routine Hyperlipidemia, unspecified hyperlipidemia type Expected: 07/28/2025, Expires: 11/03/2025 [facility] Work Phone: Comment on above: Expected: 07/28/2025 , Expires: 11/03/2025 Start: 07-28-2025 End: 07-28-2025 ambulatory 07/28/2025 7:00 AM EDT Results Only [facility] [address] [place] [address] [facility] Start: 07-27-2025 Annual PCP Team Ui Designer tacos Disease Visit Annual PCP Team Chronic Disease Visit [facility] Start: 07-27-2025 Anxiety Screening Anxiety Screening [facility] Start: 07-27-2025 BP Controlled (<130/80) BP Controlle d (<130/80) [facility] Start: 07-27-2025 Depression Screening Depression Scre ening [facility] Start: 06-19-2025 End: 06-19-2025 Patient encounter procedure 06/19/2025 10:40 AM EDT Office Visit Internal Medicine [place] [address] [place] [address] Soniya Orta, CORPORATE SAFETY MANAGER.COMPLIANCE SPECIALIST [address] [facility] [place] [address] Insomnia 1 mth. See phone note. [facility] [place] Comment on above: Insomnia 1 mth. See phone note. Start: 06-07-2025 Creatinine measurement Serum Creatin ine [facility] Start: 06-06-2025 Annual PCP Team Ui Designer tacos Disease Visit Annual PCP Team Chronic Disease Visit [facility] Start: 05-29-2025 Influenza vaccination Influenza Vacc ine (#1) [facility] Comment on above: Postponed from 07/31 (Declined at this time) Start: 04-12-2025 End: 04-12-2025 Patient encounter procedure 04/12/2025 3:30 PM EDT Office Visit Neurology [address] [facility] [place] [id number] Ema Cooper PA-C [address] [facility] [place] [id number] 3 month follow up Neurology Comment on above: 3 month follow up Start: 04-11-2025 Annual PCP Team Ui Designer tacos Disease Visit Annual PCP Team Chronic Disease Visit [facility] Start: 03-13-2025 End: 03-13-2025 Patient encounter procedure 03/13/2025 2:00 PM EDT Office Visit Neurology [address] [place] [address] Leana Leal MD [address] [place] [address] Parkinsonism, unspecified Parkinsonism type (HCC) [G20.C]; 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] Neurology Comment on above: Parkinsonism, unspec ified Parkinsonism type (HCC) [G20.C]; 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] Start: 03-06-2025 DIABETES SCREEN DIABETES SCREEN [facility] Start: 02-22-2025 End: 02-22-2025 ambulatory 02/22/2025 11:15 AM EDT OT/PT/Speech Visit [facility] [address] [place], [place] [id number] Mauricio Bruce PT Spinal stenosis of lumbar region without neurogenic claudication [M48.061] [facility] Comment on above: Spinal stenosis of l umbar region without neurogenic claudication [M48.061] Start: 02-08-2025 End: 02-08-2025 Patient encounter procedure 02/08/2025 11:30 AM EDT Office Visit [facility] [address] [facility] [place] [phone] Ema Cooper PA-C [address] [place], [place] [phone] 3 month follow up Neurology Comment on above: 3 month follow up Start: 02-01-2025 End: 02-01-2025 Patient encounter procedure 02/01/2025 4:00 PM EST Office Visit Internal Medicine [place] [address] [place], [place] [address] Soniya Orta, CORPORATE SAFETY MANAGER.COMPLIANCE SPECIALIST [address] [place], [place] [address] 6 month followu p [facility] [place] Comment on above: 6 month followu p Start: 01-27-2025 End: 01-27-2025 Patient encounter procedure 01/27/2025 12:40 PM EST Office Visit Internal Medicine [place] [address] [place], [place] [phone] Soniya Orta, CORPORATE SAFETY MANAGER.COMPLIANCE SPECIALIST [address] [place] [address] 6 month followu p Internal Medicine [place] Comment on above: 6 month followu p Start: 01-20-2025 DIABETES SCREEN DIABETES SCREEN [facility] Start: 01-11-2025 End: 01-11-2025 Patient encounter procedure 01/11/2025 4:00 PM EST Office Visit Neurology [address] [place] [address] Leana Leal MD [address] [place] [address] [place] [address] Parkinsonism, unspecified Parkinsonism type (HCC) [G20.C]; 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] Neurology Comment on above: Parkinsonism, unspec ified Parkinsonism type (HCC) [G20.C]; 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] Start: 01-06-2025 End: 01-06-2025 Patient encounter procedure 01/06/2025 9:30 AM EST Office Visit Neurology [address] [place] [address] Leana Leal MD [address] [place] [address] [place] [address] Parkinsonism, unspecified Parkinsonism type (HCC) [G20.C]; 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] Neurology Comment on above: Parkinsonism, unspec ified Parkinsonism type (HCC) [G20.C]; 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] Start: 01-04-2025 [facility] Start: 11-30-2024 Medicare Advantage Annual Wellness Visit Medicare Advantage Annual Wellness Visit [facility] Start: 11-03-2024 End: 11-03-2024 Patient encounter procedure 11/03/2024 3:00 PM EST Office Visit Neurology [address] [place], [place] [phone] Chris Chow APRN.COMPLIANCE SPECIALIST [address] [place] [address] Obstructive sleep apnea [G47.33] Neurology Comment on above: Obstructive sleep ap rashawn [G47.33] Start: 11-02-2024 End: 11-02-2024 Patient encounter procedure 11/02/2024 4:30 PM EST Office Visit Neurology [address] [place], [place] [phone] Ema Cooper PA-C [address] [place], [place] [phone] 3 month follow up Neurology Comment on above: 3 month follow up Start: 09-08-2024 End: 12-08-2024 Lipid 1996 panel - Serum or Plasma LIPID PANEL BASIC Lab Routine Hyperlipidemia, unspecified hyperlipidemia type Expected: 09/08/2024 (Approximate), Expires: 12/08/2024 [facility] Work Phone: Comment on above: Expected: 09/08/2024 (Approximate), Expires: 12/08/2024 Start: 09-08-2024 End: 09-08-2024 ambulatory 09/08/2024 8:45 AM EDT Results Only [facility] [address] [place] [address] [facility] Start: 08-02-2024 End: 08-02-2024 Patient encounter procedure 08/02/2024 1:45 PM EDT Office Visit Neurology [address] [place], [place] [address] Ema Cooper PA-C [address] [place], [place] [phone] Numbness and tingling of both lower extremities [R20.0, R20.2] Neurology Comment on above: Numbness and tinglin g of both lower extremities [R20.0, R20.2] Start: 07-31-2024 Covid-19 Vaccine ( season) Covid-19 Vaccine () [facility] Start: 07-31-2024 Influenza vaccination Influenza Vacc ine (#1) [facility] Start: 07-27-2024 End: 07-27-2024 Patient encounter procedure 07/27/2024 5:00 PM EDT Office Visit Internal Medicine [place] [address] [place], [place] [address] Soniya Orta, CORPORATE SAFETY MANAGER.COMPLIANCE SPECIALIST [address] [place], [place] [phone] yearly Internal Medicine [place] Comment on above: yearly Start: 07-22-2024 Creatinine measurement Serum Creatin ine [facility] Start: 07-22-2024 Serum Creatinine Serum Creatinine [facility] Start: 07-22-2024 End: 07-22-2024 ambulatory 07/22/2024 1:40 PM EDT Procedure Neurology 1 [place] [address] Numbness and tingling of both lower extremities [R20.0, R20.2] Neurology Comment on above: Numbness and tinglin g of both lower extremities [R20.0, R20.2] Start: 07-22-2024 End: 07-22-2024 Patient encounter procedure 07/22/2024 11:00 AM EDT Office Visit Internal Medicine [place] [address] [facility] [place] [address] Soniya Orta, CORPORATE SAFETY MANAGER.COMPLIANCE SPECIALIST [address] [place] [address] Yearly/ influenza notes added Internal Medicine [place] Comment on above: Yearly/ influenza no brett added Start: 07-20-2024 ANNUAL PCP TEAM HEAD SCREEN WORKER TACOS DISEASE VISIT ANNUAL PCP TEAM CHRONIC DISEASE VISIT [facility] Start: 06-07-2024 End: 06-07-2024 ambulatory 06/07/2024 9:45 AM EDT Results Only [place] [facility] [address] [place] [address] [place] [facility] Start: 06-06-2024 End: 09-05-2024 CBC panel - Blood by Automated count COMPLETE BLOOD COUNT Lab Routine Numbness and tingling of both lower extremities Expected: 06/06/2024, Expires: 09/05/2024 [facility] Comment on above: Expected: 06/06/2024 , Expires: 09/05/2024 Start: 06-06-2024 End: 09-05-2024 Comprehensive metabolic 2000 panel - Serum or Plasma COMPREHENSIVE METABOLIC PANEL Lab Routine Numbness and tingling of both lower extremities Expected: 06/06/2024, Expires: 09/05/2024 [facility] Comment on above: Expected: 06/06/2024 , Expires: 09/05/2024 Start: 06-06-2024 End: 09-05-2024 Hemoglobin A1c in Blood HEMOGLOBIN A1C Lab Routine Numbness and tingling of both lower extremities Prediabetes Expected: 06/06/2024, Expires: 09/05/2024 [facility] Comment on above: Expected: 06/06/2024 , Expires: 09/05/2024 Start: 06-06-2024 End: 09-05-2024 Lipid 1996 panel - Serum or Plasma LIPID PANEL BASIC Lab Routine Hyperlipidemia, unspecified hyperlipidemia type Expected: 06/06/2024, Expires: 09/05/2024 [facility] Comment on above: Expected: 06/06/2024 , Expires: 09/05/2024 Start: 06-06-2024 End: 06-06-2024 Nursing evaluation of patient and report 06/06/2024 10:00 AM EDT Nurse Visit Family Medicine [place] [address] [place] [address] Nurse, Id [address] [place] [address] Hep B #3 [facility] [place] Comment on above: Hep B #3 Start: 06-02-2024 Hepatitis B Vaccine (3 of 3 - 19+ 3-dose series) Hepatitis B Vaccine (3 of 3 - 19+ 3-dose series) [facility] Start: 04-05-2024 [facility] Start: 01-20-2024 ANNUAL PCP TEAM HEAD SCREEN WORKER TACOS DISEASE VISIT ANNUAL PCP TEAM CHRONIC DISEASE VISIT [facility] Start: 01-20-2024 BP CONTROLLED (<130/80) BP CONTROLLE D (<130/80) [facility] Start: 01-13-2024 SERUM CREATININE SERUM CREATININE Cl [facility] Start: 01-04-2024 Shingrix Vaccine (2 of 2) Shingrix Vaccine (2 of 2) [facility] Start: 11-30-2023 Behavioral Health Screening Behavioral Health Screening [facility] Start: 11-30-2023 Depression Assessment Depression Ass essment [facility] Start: 10-16-2023 ANNUAL PCP TEAM HEAD SCREEN WORKER TACOS DISEASE VISIT ANNUAL PCP TEAM CHRONIC DISEASE VISIT [facility] Start: 07-31-2023 Covid-19 Vaccine ( season) Covid-19 Vaccine ( season) [facility] Start: 07-31-2023 Influenza vaccination C [facility] Start: 07-20-2023 End: 09-19-2023 Basic metabolic 2000 panel - Serum or Plasma BASIC METABOLIC PNL Lab Routine Prediabetes Expected: 07/20/2023, Expires: 09/19/2023 [facility] Work Phone: Comment on above: Expected: 07/20/2023 , Expires: 09/19/2023 Start: 07-20-2023 End: 09-19-2023 Hemoglobin A1c in Blood HGB A1C Lab Routine Prediabetes Expected: 07/20/2023, Expires: 09/19/2023 [facility] Work Phone: Comment on above: Expected: 07/20/2023 , Expires: 09/19/2023 Start: 07-20-2023 End: 09-19-2023 Lipid 1996 panel - Serum or Plasma LIPID PANEL BASIC Lab Routine Hyperlipidemia, unspecified hyperlipidemia type Expected: 07/20/2023, Expires: 09/19/2023 [facility] Work Phone: Comment on above: Expected: 07/20/2023 , Expires: 09/19/2023 Start: 06-18-2023 ANNUAL PCP TEAM HEAD SCREEN WORKER TACOS DISEASE VISIT ANNUAL PCP TEAM CHRONIC DISEASE VISIT [facility] Start: 06-18-2023 BP CONTROLLED (<130/80) BP CONTROLLE D (<130/80) [facility] Start: 03-06-2023 BP CONTROLLED (<130/80) BP CONTROLLE D (<130/80) [facility] Start: 03-06-2023 SERUM CREATININE SERUM CREATININE [facility] Start: 02-13-2023 ANNUAL PCP TEAM HEAD SCREEN WORKER TACOS DISEASE VISIT ANNUAL PCP TEAM CHRONIC DISEASE VISIT [facility] Start: 01-20-2023 SERUM CREATININE SERUM CREATININE Cl [facility] Start: 01-16-2023 Adult depression screening assessment DEPRESSION SCREENING [facility] Start: 12-16-2022 Procedure [facility] Start: 07-31-2022 Influenza vaccination INFLUENZA (#1) [facility] Start: 04-04-2022 COVID-19 VACCINE (4 - Booster for Moderna series) COVID-19 VACCINE (4 - Booster for Moderna series) [facility] Start: 01-30-2022 COVID-19 VACCINE (4 - Booster for Moderna series) COVID-19 VACCINE (4 - Booster for Moderna series) [facility] Start: 01-29-2022 Assay of prostate specific antigen total ASSAY OF PSA TOTAL [facility] Work Phone: Start: 2021 Pneumococcal Vaccine : 50+ (1 of 1 - PCV) Pneumococcal Vaccine: 50+ (1 of 1 - PCV) [facility] Start: 2021 SHINGRIX VACCINE (1 of 2) SHINGRIX VACCINE (1 of 2) [facility] Start: 07-31-2021 Influenza vaccination INFLUENZA (Sea son Ended) [facility] Start: 2016 COLOGUARD (FIT-DNA) COLOGUARD (FIT-D NA) [facility] Start: 2016 Colonoscopy COLONOSCOPY [facility] Start: 2016 COLORECTAL CANCER SCREENING COLORECTAL CANCER SCREENING [facility] Start: [address] COLONOGRAPHY [facility] Start: 2016 DIABETES SCREEN DIABETES SCREEN [facility] Start: 2016 FECAL OCCULT BLOOD FECAL OCCULT BLOO D [facility] Start: 2016 Screening for malign ant neoplasm of colon [facility] Start: 2016 SIGMOIDOSCOPY SIGMOIDOSCOPY [facility] Start: 2006 LIPID SCREEN LIPID SCREEN [facility] Start: 1990 Urine microalbumin profile [facility] Start: 1989 Anxiety Screening Anxiety Screening [facility] Start: 1989 BP CONTROLLED (<130/80) BP CONTROLLE D (<130/80) [facility] Start: 1989 Depression Screening Depression Scre ening [facility] Start: 1989 HEPATITIS C SCREENING HEPATITIS C SC REENING [facility] Start: 1989 HIV SCREENING HIV SCREENING [facility] Start: 1983 Adult depression screening assessment DEPRESSION SCREENING [facility] Start: 1971 HEPATITIS B (1 of 3 - 3-dose series) HEPATITIS B (1 of 3 - 3-dose series) [facility] Start: 1971 Hepatitis B Vaccine (1 of 3 - 3-dose series) Hepatitis B Vaccine (1 of 3 - 3-dose series) [facility] COLOGUARD COLOGUARD Lab Ro utine Screening for colon cancer Ordered: 08/04/2025 [facility] Comment on above: Ordered: 08/04/2025 COVID & INFLUENZA A/ B & RSV PCR, ROUTINE COVID & INFLUENZA A/B & RSV PCR, ROUTINE Microbiology Routine Flu-like symptoms Ordered: 01/02/2025 [facility] Work Phone: Comment on above: Ordered: 01/02/2025 End: 06-06-2025 EMG(NEURO/NI) EMG(NEURO/NI) EMG Routine Numbness and tingling of both lower extremities Pain in both lower extremities 1 Occurrences starting 06/06/2024 until 06/06/2025 [facility] Work Phone: Comment on above: 1 Occurrences starti ng 06/06/2024 until 06/06/2025 End: 06-18-2023 HOME SLEEP APNEA TEST (HSAT) HOME SLEEP APNEA TEST (HSAT) Procedures Routine Primary hypertension Daytime sleepiness Obesity, Class II, BMI 35-39.9 1 Occurrences starting 06/18/2022 until 06/18/2023 [facility] Work Phone: Comment on above: 1 Occurrences starti ng 06/18/2022 until 06/18/2023 Patient Education [facility] Work Phone: Patient referral [facility] Work Phone: End: 07-06-2025 XR Lumbar spine 3 Views XR LUMBAR GENERAL 3V AP/LAT/L5-S1 Radiology Routine Chronic bilateral low back pain without sciatica 1 Occurrences starting 06/06/2024 until 07/06/2025 [facility] Comment on above: 1 Occurrences starti ng 06/06/2024 until 07/06/2025 XR Lumbar spine 3 Views XR LUMBA R GENERAL 3V AP/LAT/L5-S1 Radiology Routine Chronic bilateral low back pain without sciatica 06/06/2024 12:04 PM EDT [facility] Immunizations Immunization Date Immunization Notes Care Provider [facility] 08-04-2025 influenza, seasonal, injectable, preservative free Thony Raza MD Work Phone: [facility] 02-01-2025 pneumococcal Conjugate, unspecified formulation Soniya Orta APRN.COMPLIANCE SPECIALIST Work Phone: [facility] 02-01-2025 COVID-19 vaccine, ag e 12+ yr ([employer] [facility]) Soniya Orta APRN.COMPLIANCE SPECIALIST Work Phone: [facility] 02-01-2025 pneumococcal conjuga te (PCV20) vaccine, 20 valent (PREVNAR 20) Soniya Orta APRN.COMPLIANCE SPECIALIST Work Phone: [facility] 06-06-2024 hepatitis B vaccine, adult dosage Id Nurse Work Phone: [facility] 04-11-2024 COVID-19 vaccine, ag e 12+ yr, 2022- season ([employer]) Thony Raza MD Work Phone: [facility] 01-06-2024 hepatitis B vaccine, adult dosage Mi Nurse Work Phone: [facility] 12-03-2023 hepatitis B vaccine, adult dosage Id Nurse Work Phone: [facility] 11-09-2023 tetanus toxoid, reduced diphtheria toxoid, and acellular pertussis vaccine, adsorbed Thony Raza MD Work Phone: [facility] Work Phone: 11-09-2023 zoster vaccine recombinant Thony Raza MD Work Phone: [facility] Work Phone: 07-22-2023 influenza virus vaccine, unspecified formulation Id Nurse Work Phone: [facility] 01-20-2023 COVID-19 booster vaccine, age 12+ yr, bivalent ([employer]) Thony Raza MD Work Phone: [facility] Work Phone: 10-16-2022 influenza, injectabl e, quadrivalent, contains preservative Soniya Older CORPORATE SAFETY MANAGER.COMPLIANCE SPECIALIST Work Phone: [facility] Work Phone: 10-16-2022 influenza virus vaccine, unspecified formulation Soniya Older CORPORATE SAFETY MANAGER.COMPLIANCE SPECIALIST Work Phone: [facility] 07-24-2021 influenza, injectabl e, quadrivalent, preservative free Mi Nurse Work Phone: [facility] Work Phone: Payers Date Payer Category Payer Self-pay [id number] 2021 Medicare HUMANA MEDICARE HUMANA GOLD PLUS [id number] 2021-Present [phone] [address] [place] [id number] [facility] [id number] 2021 Medicare HUMANA MEDICARE HUMANA GOLD PLUS [id number] 2021-Present [phone] [place] [address] O [id number] 2021 Medicare (Managed Care) HUMANA G OLD PLUS [id number] 2021 Private Health Insurance [id number] 2013 Medicaid [id number] 2013 Medicaid [id number] 2013 Medicaid [id number] 2002 Self-pay SELF PAY HSP/MED ICAL SELF PAY [id number] 2002-2016 SELF PAY Indemnity [id number] 1997 Medicare MEDICARE MEDICAR E B [id number] 1997-Present [place] Medicare [id number] 1997 Medicare [id number] Unknown [id number] Unknown [id number] Unknown [id number] Unknown [id number] Social History Date Type Detail Facility Start: 07-23-2013 End: 10-16-2022 Tobacco smoking status NHIS Never smoker [facility] Start: 07-23-2013 End: 08-15-2025 Alcohol intake Current non-drinker of alcohol (finding) [facility] Start: 1970 Sex Assigned At Not on file [facility] Start: 07-23-2013 End: 10-16-2022 Tobacco use and exposure Smokeless tobacco non-user [facility] Start: 01-16-2022 End: 01-13-2023 History SDOH Alcohol Frequency 1 [facility] Start: 01-16-2022 End: 01-13-2023 History SDOH Social Connections Phone 5 [facility] Start: 01-16-2022 End: 01-13-2023 History SDOH Social Connections Membership 2 [facility] Start: 01-16-2022 End: 01-13-2023 History SDOH Social Connections Living 7 [facility] Start: 01-16-2022 End: 01-13-2023 History SDOH Physical Activity MPS 3 [facility] Start: 1970 Sex Assigned At Male C [facility] Start: 02-03-2022 End: 02-13-2022 Exposure to SARS-CoV-2 (event) Not sure [facility] Work Phone: Start: 03-06-2016 End: 04-05-2024 Tobacco smoking status NHIS Unknown if ever smoked [facility] Start: 01-13-2023 History SDOH Alcohol Std Drinks 0 [facility] Start: 01-13-2023 History SDOH Financial 4 [facility] Start: 01-13-2023 End: 07-20-2023 History of Social function [facility] Start: 01-13-2023 End: 07-20-2023 Social connection and isolation panel [facility] Do you belong to any clubs or organizations such as restoration groups, unions, fraternal or athletic groups, or school groups? No [facility] Are you now , , , , never or living with a partner? Never [facility] How often to you hav e a drink containing alcohol? Never [facility] Start: 10-31-[address] inks containing alcohol do you have on a typical day? Patient does not drink [facility] How hard is it for y ou to pay for the very basics like food, housing, medical care, and heating Not very hard [facility] Do you feel stress - tense, restless, nervous, or anxious, or unable to sleep at night because your mind is troubled all the time - these days [OSQ] To some extent [facility] (I/We) worried wheniharika er (my/our) food would run out before (I/we) got money to buy more. Never true [facility] Start: 12-20-2021 Gender identity Identifies as male gender (finding) [facility] Do you feel stress - tense, restless, nervous, or anxious, or unable to sleep at night because your mind is troubled all the time - these days [OSQ] Not at all [facility] Start: 02-23-2025 Sex Male (finding) [facility] How hard is it for y ou to pay for the very basics like food, housing, medical care, and heating Somewhat hard [facility] Do you feel stress - tense, restless, nervous, or anxious, or unable to sleep at night because your mind is troubled all the time - these days [OSQ] Very much [facility] Mental Status Date Assessment Result Facility 01-04-2025 Cognitive function Level Of Cons ciousness Awake;Alert;Appropriate [facility] Work Phone: Clinical Notes 07-23-2013 to 09-25-2025 Patient Ema Cool PA-C - 08/15/2025 11:37 AM EDTPatient InstructionsThony Raza MD - 08/04/2025 2:58 PM EDTThony Raza MD - 08/04/2025 2:57 PM EDT Note Date & Type Note Facility 09-25-2025 Note HNO ID: [id number] Author: DIANE REYNA CPhT Service: ? Author Type: Boilerhouse Mechanic Type: Progress Notes Filed: 09/25/2025 12:05 Note Text: Patient is identified through a medication adherence outreach initiative based on pharmacy claims data from: [employer] Medication Adherence Category: Hypertension Second Attempt Medication(s) Lisinopril 10 mg 1 tab daily Last Filled 05/09/25 for 90 DS, Next fill due 08/06/25 Medication Status per portal/[employer] "Reconcile Dispense": Not filled Medication Status per Profile Review: No issues per profile review Patient identified by name and Outreach to patient: Left Voicemail/message for return call What was primary intervention? Remind patient to pick out hand or fill Diane Reyna CPhT [facility] Team [facility] 09-25-2025 Note Patient Outreach ( POTRAV) ELIZABETH BAUMANN ([id number]) 1970 M Date Time Provider Department 09/25/25 THONY RAZA PHPOHMohsen During your visit today, we recorded the following information about you: Diane Reyna CPhT 09/25/2025 12:05 PM Signed Patient is identified through a medication adherence outreach initiative based on pharmacy claims data from: [employer] Medication Adherence Category: Hypertension Second Attempt Medication(s) Lisinopril 10 mg 1 tab daily Last Filled 05/09/25 for 90 DS, Next fill due 08/06/25 Medication Status per portal/Epic "Reconcile Dispense": Not filled Medication Status per Profile Review: No issues per profile review Patient identified by name and Outreach to patient: Left Voicemail/message for return call What was primary intervention? Remind patient to pick out hand or fill Diane Reyna CPhT [facility] Pharm[facility] Team Allergies As of Date: 09/25/2025 (No Known Allergies) Date Reviewed: 08/15/2025 Reviewed by: Ema Cooper PA-C - Fully Assessed Reason for Visit: Allied Health Visit [5] Cmt: Medication Adherence Outreach Prescriptions as of 09/25/2025 - pregabalin (LYRICA) 75 mg capsule Take 1 capsule by mouth three times a day for 180 days. - alpha lipoic acid 600 mg tab Take 600 mg by mouth once daily. - carBAMazepine (TEGRETOL) 200 mg tablet 1 tablet every morning AND 2 tablets daily at bedtime. - amitriptyline (ELAVIL) 50 mg tablet Take 1 tablet by mouth daily at bedtime. - ARIPiprazole (ABILIFY) 10 mg tablet Take 1 tablet by mouth daily at bedtime. - QUEtiapine (SEROQUEL) 50 mg tablet Take 0.5-3 tablets by mouth at bedtime as needed. - rosuvastatin (CRESTOR) 10 mg tablet Take 1 tablet by mouth daily at bedtime. - omeprazole (PRILOSEC) 40 mg capsule Take 1 capsule by mouth once daily. - lisinopril (ZESTRIL) 10 mg tablet Take 1 tablet by mouth once daily. - amantadine HCl (SYMMETREL) 100 mg capsule 200 mg twice daily. - Cholecalciferol, Vitamin D3, 50 mcg (2,000 unit) cap Take by mouth once daily. - bethanechol (URECHOLINE) 25 mg tablet Take 1 tablet by mouth three times daily. Problem List As Of Date 09/25/2025 Noted Resolved Calculus of gallbladder without mention of chol*07/23/2013 01/16/2022 Abdominal pain, unspecified site [R10.9] 07/23/2013 01/16/2022 Obesity, Class II, BMI 35-39.9 [E66.812] 01/16/2022 Bipolar 1 disorder (HCC) [F31.9] 01/16/2022 Hyperlipidemia [E78.5] 01/16/2022 Idiopathic peripheral neuropathy [G60.9] 01/16/2022 CKD (chronic kidney disease) stage 2, GFR 60-89*01/16/2022 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] 01/16/2022 Prediabetes [R73.03] 02/13/2022 Primary hypertension [I10] 02/13/2022 AMAYA did not tolerate CPAP [G47.33] 07/02/2022 Gastroesophageal reflux disease without esophag*10/16/2022 Chronic bilateral low back pain without sciatic*01/20/2023 Obesity, Class I, BMI 30-34.9 [E66.811] 07/20/2023 Vitamin D deficiency [E55.9] 08/04/2025 Encounter Status:Closed by DIANE REYNA on 09/25/25 [facility] 09-05-2025 Note HNO ID: [id number] Author: TAMMY JEFFERSON CPhT Service: ? Author Type: Boilerhouse Mechanic Type: Progress Notes Filed: 09/05/2025 09:42 Note Text: Patient is identified through a medication adherence outreach initiative based on pharmacy claims data from: [employer] Medication Adherence Category: Hypertension First Review Attribution Status: Correct attribution Medication(s) Lisinopril 10 mg Last Filled 05/09/25 for 90 DS, Next fill due 08/06/25 Medication Status per portal/Epic "Reconcile Dispense": Not filled Medication Status per Profile Review: No issues per profile review Patient/provider appropriate for outreach? Yes Patient identified by name and Outreach to patient: Left Voicemail/message for return call and Sent M87 message What was primary intervention? Remind patient to pick out hand or fill Tammy Jefferson CPhT [facility] 09-05-2025 Note Patient Outreach (PH POHE) ELIZABETH BAUMANN ([id number]) 1970 M Date Time Provider Department 09/05/25 THONY RAZA During your visit today, we recorded the following information about you: Tammy Jefferson CPhT 09/05/2025 9:42 AM Signed Patient is identified through a medication adherence outreach initiative based on pharmacy claims data from: [employer] Medication Adherence Category: Hypertension First Review Attribution Status: Correct attribution Medication(s) Lisinopril 10 mg Last Filled 05/09/25 for 90 DS, Next fill due 08/06/25 Medication Status per portal/Epic "Reconcile Dispense": Not filled Medication Status per Profile Review: No issues per profile review Patient/provider appropriate for outreach? Yes Patient identified by name and Outreach to patient: Left Voicemail/message for return call and Sent M87 message What was primary intervention? Remind patient to pick out hand or fill Tammy Jefferson CPhT [facility] Team Allergies As of Date: 09/05/2025 (No Known Allergies) Date Reviewed: 08/15/2025 Reviewed by: Ema Cooper PA-C - Fully Assessed Reason for Visit: Allied Health Visit [5] Cmt: Medication Adherence Outreach Prescriptions as of 09/05/2025 - alpha lipoic acid 600 mg tab Take 600 mg by mouth once daily. - carBAMazepine (TEGRETOL) 200 mg tablet 1 tablet every morning AND 2 tablets daily at bedtime. - amitriptyline (ELAVIL) 50 mg tablet Take 1 tablet by mouth daily at bedtime. - ARIPiprazole (ABILIFY) 10 mg tablet Take 1 tablet by mouth daily at bedtime. - QUEtiapine (SEROQUEL) 50 mg tablet Take 0.5-3 tablets by mouth at bedtime as needed. - rosuvastatin (CRESTOR) 10 mg tablet Take 1 tablet by mouth daily at bedtime. - pregabalin (LYRICA) 75 mg capsule Take 1 capsule by mouth three times a day for 180 days. - omeprazole (PRILOSEC) 40 mg capsule Take 1 capsule by mouth once daily. - lisinopril (ZESTRIL) 10 mg tablet Take 1 tablet by mouth once daily. - amantadine HCl (SYMMETREL) 100 mg capsule 200 mg twice daily. - Cholecalciferol, Vitamin D3, 50 mcg (2,000 unit) cap Take by mouth once daily. - bethanechol (URECHOLINE) 25 mg tablet Take 1 tablet by mouth three times daily. Problem List As Of Date 09/05/2025 Noted Resolved Calculus of gallbladder without mention of chol*07/23/2013 01/16/2022 Abdominal pain, unspecified site [R10.9] 07/23/2013 01/16/2022 Obesity, Class II, BMI 35-39.9 [E66.812] 01/16/2022 Bipolar 1 disorder (HCC) [F31.9] 01/16/2022 Hyperlipidemia [E78.5] 01/16/2022 Idiopathic peripheral neuropathy [G60.9] 01/16/2022 CKD (chronic kidney disease) stage 2, GFR 60-89*01/16/2022 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] 01/16/2022 Prediabetes [R73.03] 02/13/2022 Primary hypertension [I10] 02/13/2022 AMAYA did not tolerate CPAP [G47.33] 07/02/2022 Gastroesophageal reflux disease without esophag*10/16/2022 Chronic bilateral low back pain without sciatic*01/20/2023 Obesity, Class I, BMI 30-34.9 [E66.811] 07/20/2023 Vitamin D deficiency [E55.9] 08/04/2025 Encounter Status:Closed by TAMMY JEFFERSON on 09/05/25 [facility] 08-15-2025 Instructions Ema Cooper PA-C - 08/15/2025 11:50 AM EDT Would recommend doing physical therapy for your lumbar spine Continue with lyrica 75mg three times a day (let me know if symptoms persist we can increase this to 100mg three times a day) Increase water intake Would push back follow up with Dr. Leal until 6 months after stopping abilify Follow up in 6 months documented in this encounter [facility] 08-15-2025 Note HNO ID: [id number] Author: EMA COOPER PA-C Service: ? Author Type: Physician Peeler Operator Type: Progress Notes Filed: 08/15/2025 12:31 Note Text: [facility] Name: Elizabeth Baumann Age: [age] year old Gender: male Primary Care Provider: Thony Raza MD Assessment/Plan: 08/15/2025 - Sleep Medicine, Ema Cooper PA-C ASSESSMENT ASSESSMENT/PLAN: 1. Spinal stenosis of lumbar region without neurogenic claudication - ICD9: 724.02, ICD10: M48.061 (primary diagnosis) 2. Neuropathy - ICD9: 355.9, ICD10: G62.9 Patient with continued pain, more so on the right lower extremity today. Mild in nature but notices it more because he is having difficulty sleeping at night due to his mood. Discussed the physical therapy, prescribed at last appointment due to some weakness in the left upper extremity which is still appreciated today. Patient would like to try this, will try physical therapy and if symptoms persist may increase Lyrica. Currently on 75 mg 3 times daily, may increase to 100 mg 3 times daily if symptoms persist. 3. 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 Parkinsonism, unspecified Parkinsonism type (HCC) - ICD9: 332.0, ICD10: G20.C Did see movement, felt to be medication induced and encouraged stopping Abilify however patient is having some difficulty following with his psychiatric provider. Is still on Abilify and currently having significant mood elevation and difficulty sleeping at night. Follow with primary care until he can see a new psychiatric provider in September. Does have appointment scheduled movement for follow-up in August but as patient is still on the Abilify will encourage him to push this until he has stopped the medication. Having some significant issues with insomnia, encouraged following with PCP until he can be seen. NO delusions or hallucinations. 5. Numbness and tingling of both lower extremities - ICD9: 782.0, ICD10: R20.0, R20.2 See above. PT agreeable to tx plan of care, will follow up in 3 months. Ema Cooper PA-C Encounter Diagnosis ICD-10-CM 1. Spinal stenosis of lumbar region without neurogenic claudication M48.061 2. Neuropathy G62.9 3. Drug-induced tremor G25.1 4. Parkinsonism, unspecified Parkinsonism type (HCC) G20.C 5. Numbness and tingling of both lower extremities R20.0 R20.2 No follow-ups on file. Chart, labs,and relevant images reviewed. Chief Complaint:Patient presents with: Follow Up: Drug-induced parkinsonism-patient continues Abilify despite Dr Leal's recommendations as patient reports he has not seen his mental health provider d/t and he reports she is leaving [facility]. He reported despite the recommendations sent to [facility] he never heard from them. Insomnia- patient given prn Seroquel 50 mg 0.5-3 tabs po QHS as needed for sleep on 08/04/25- already taking 3 tabs and reporting 2.5-3 hrs of sleep on a daily basis. Chart Review: Last Filed Values Date of Most Recent Assessment and Plan 02/08/25 Specialty General Neurology Assessment ASSESSMENT/PLAN: 1. Neuropathy - ICD9: 355.9, ICD10: G62.9 (primary diagnosis) Patient originally presenting with stocking glove distribution of sensory changes concerning for neuropathy. History of prediabetes, EMG obtained at [facility] last year did not show any obvious evidence of polyneuropathy. However, due to symptoms did continue to treat with Lyrica. Increase Lyrica 75mg to 3 times a day at last appointment and notes significant improvement. Notes he is almost pain-free throughout the whole day and like to continue this regimen. No significant side effects or fatigue throughout the day. Will continue with current dosage at this time. 2. 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 Parkinsonism, unspecified Parkinsonism type (HCC) - ICD9: 332.0, ICD10: G20.C Patient with some rigidity and fine tremor on exam. On multiple antipsychotics including Abilify. Discussed possibility of drug-induced tremor, would like to see a specialist and is scheduled with Dr. Leal on 13 March. 4. Spinal stenosis of lumbar region without neurogenic claudication - ICD9: 724.02, ICD10: M48.061 5. Weakness of left lower extremity - ICD9: 729.89, ICD10: R29.898 Patient with some new appreciable weakness of the left lower extremity on exam. Reporting chronic history of lumbar issues, recent x-ray of the lumbar spine obtained last year did show diffuse degenerative changes. Primarily seeing chiropractor for treatment but has not seen them for some time. No falls or signs or symptoms of cord compression. However, reflexes are decreased and again does have some weakness on exam. No facial weakness or weakness of the left upper extremity. Discussed trying physical therapy for further improvement of the weakness and gait, patient agreeable to this (more content not included)... [facility] 08-15-2025 History of Present illness Narrative Images from the original note were not included. [facility] Name: Elizabeth Baumann Age: [age] year old Gender: male Primary Care Provider: Thony Raza MD Assessment/Plan: 08/15/2025 - Sleep Medicine, Ema Cooper PA-C ASSESSMENT ASSESSMENT/PLAN: 1. Spinal stenosis of lumbar region without neurogenic claudication - ICD9: 724.02, ICD10: M48.061 (primary diagnosis) 2. Neuropathy - ICD9: 355.9, ICD10: G62.9 Patient with continued pain, more so on the right lower extremity today. Mild in nature but notices it more because he is having difficulty sleeping at night due to his mood. Discussed the physical therapy, prescribed at last appointment due to some weakness in the left upper extremity which is still appreciated today. Patient would like to try this, will try physical therapy and if symptoms persist may increase Lyrica. Currently on 75 mg 3 times daily, may increase to 100 mg 3 times daily if symptoms persist. 3. 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 Parkinsonism, unspecified Parkinsonism type (HCC) - ICD9: 332.0, ICD10: G20.C Did see movement, felt to be medication induced and encouraged stopping Abilify however patient is having some difficulty following with his psychiatric provider. Is still on Abilify and currently having significant mood elevation and difficulty sleeping at night. Follow with primary care until he can see a new psychiatric provider in September. Does have appointment scheduled movement for follow-up in August but as patient is still on the Abilify will encourage him to push this until he has stopped the medication. Having some significant issues with insomnia, encouraged following with PCP until he can be seen. NO delusions or hallucinations. 5. Numbness and tingling of both lower extremities - ICD9: 782.0, ICD10: R20.0, R20.2 See above. PT agreeable to tx plan of care, will follow up in 3 months. Ema Cooper PA-C Encounter Diagnosis ICD-10-CM 1. Spinal stenosis of lumbar region without neurogenic claudication M48.061 2. Neuropathy G62.9 3. Drug-induced tremor G25.1 4. Parkinsonism, unspecified Parkinsonism type (HCC) G20.C 5. Numbness and tingling of both lower extremities R20.0 R20.2 No follow-ups on file. Chart, labs,and relevant images reviewed. Chief Complaint:Patient presents with: Follow Up: Drug-induced parkinsonism-patient continues Abilify despite Dr Leal's recommendations as patient reports he has not seen his mental health provider d/t and he reports she is leaving [facility]. He reported despite the recommendations sent to [facility] he never heard from them. Insomnia- patient given prn Seroquel 50 mg 0.5-3 tabs po QHS as needed for sleep on 08/04/25- already taking 3 tabs and reporting 2.5-3 hrs of sleep on a daily basis. Chart Review: Last Filed Values Date of Most Recent Assessment and Plan 02/08/25 Specialty General Neurology Assessment ASSESSMENT/PLAN: 1. Neuropathy - ICD9: 355.9, ICD10: G62.9 (primary diagnosis) Patient originally presenting with stocking glove distribution of sensory changes concerning for neuropathy. History of prediabetes, EMG obtained at [facility] last year did not show any obvious evidence of polyneuropathy. However, due to symptoms did continue to treat with Lyrica. Increase Lyrica 75mg to 3 times a day at last appointment and notes significant improvement. Notes he is almost pain-free throughout the whole day and like to continue this regimen. No significant side effects or fatigue throughout the day. Will continue with current dosage at this time. 2. 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 Parkinsonism, unspecified Parkinsonism type (HCC) - ICD9: 332.0, ICD10: G20.C Patient with some rigidity and fine tremor on exam. On multiple antipsychotics including Abilify. Discussed possibility of drug-induced tremor, would like to see a specialist and is scheduled with Dr. Leal on 13 March. 4. Spinal stenosis of lumbar region without neurogenic claudication - ICD9: 724.02, ICD10: M48.061 5. Weakness of left lower extremity - ICD9: 729.89, ICD10: R29.898 Patient with some new appreciable weakness of the left lower extremity on exam. Reporting chronic history of lumbar issues, recent x-ray of the lumbar spine obtained last year did show diffuse degenerative changes. Primarily seeing chiropractor for treatment but has not seen them for some time. No falls or signs or symptoms of cord compression. However, reflexes are decreased and again does have some weakness on exam. No facial weakness or weakness of the left upper extremity. Discussed trying physical therapy for further improvement of the weakness and gait, patient agreeable to this. Discussed should this not improve his weakness may consider imaging of the lumbar spine with an MRI and patient is amenable. Discussed red flag signs symptoms that would warrant going to the emergency department. Patient is agreeable to treatment plan of care at this time, all questions were answered. Patient to follow-up in 6 months. Ema Cooper PA-C HPI: Last seen for tremor, neuropahty. Saw movement on 03/13/25, likely secondary to abilify. Also had some weakness of LLE and started PT. Patient presents for follow-up appointment. Noting some worsening pain in the right leg. Was unable to do the physical therapy for lumbar stenosis and weakness in the left leg. Is unsure if it is his back or radiculopathy from his spine, reports it is at a 2.5/10. Notes that due to his current hypomania/adolph he has been staying up a lot and notices it more at nighttime. No falls, no signs or symptoms of cord compression. Notes some occasional lightheadedness and off-balance when he stands up but does not drink much water throughout the day. Notes that his mood has been elevated since May, is having difficulty following with his psychiatric provider, switched to another provider and scheduled in September. Review of Systems ACTIVE PROBLEM LIST Obesity, Class II, Bmi 35-39.9 Bipolar 1 Disorder (Hcc) Hyperlipidemia Idiopathic Peripheral Neuropathy Ckd (Chronic Kidney Disease) Stage 2, Gfr 60-89 Ml/Min Drug-Induced Tremor Prediabetes Primary Hypertension AMAYA did not tolerate CPAP Gastroesophageal Reflux Disease Without Esophagitis Chronic Bilateral Low Back Pain Without Sciatica Obesity, Class I, Bmi 30-34.9 Vitamin D Deficiency PAST MEDICAL HISTORY Diagnosis Date Bipolar 1 disorder (HCC) 1996 Marc Britt, [facility]. BPH with obstruction/lower urinary tract symptoms 2010 Calculus of gallbladder without mention of cholecystitis or obstruction 07/23/2013 CKD (chronic kidney disease) stage 2, GFR 60-89 ml/min 01/16/2022 Constipation, chronic 10/13/2021 Depression 1996 Diabetes (HCC) 1996 Drug-induced tremor 01/16/2022 Gastritis and duodenitis 08/16/2013 HTN (hypertension) 2012 Hyperlipidemia 01/16/2022 Nephrolithiasis 02/25/2021 Peripheral neuropathy 2018 Renal cysts, acquired, bilateral 02/25/2021 Medications: Reviewed carBAMazepine (TEGRETOL) 200 mg tablet 1 tablet every morning AND 2 tablets daily at bedtime. amitriptyline (ELAVIL) 50 mg tablet Take 1 tablet by mouth daily at bedtime. ARIPiprazole (ABILIFY) 10 mg tablet Take 1 tablet by mouth daily at bedtime. QUEtiapine (SEROQUEL) 50 mg tablet Take 0.5-3 tablets by mouth at bedtime as needed. rosuvastatin (CRESTOR) 10 mg tablet Take 1 tablet by mouth daily at bedtime. pregabalin (LYRICA) 75 mg capsule Take 1 capsule by mouth three times a day for 180 days. alpha lipoic acid 600 mg tab Take by mouth. omeprazole (PRILOSEC) 40 mg capsule Take 1 capsule by mouth once daily. lisinopril (ZESTRIL) 10 mg tablet Take 1 tablet by mouth once daily. amantadine HCl (SYMMETREL) 100 mg capsule 200 mg twice daily. Cholecalciferol, Vitamin D3, 50 mcg (2,000 unit) cap Take by mouth once daily. bethanechol (URECHOLINE) 25 mg tablet Take 1 tablet by mouth three times daily. ALLERGIES No Known Allergies FAMILY HISTORY Problem Relation Age of Onset Psychiatry Mother Arrhythmia Mother Hypothyroidism Mother Heart Attack Father age 82 Genitourinary () Father urine retention COPD Sister other (covid 19) Sister No Known Problems Brother Heart Maternal Grandmother Heart Maternal Aunt Diabetes Paternal Aunt PAST SURGICAL HISTORY Procedure Laterality Date CONTACT LASER VAPORIZATION PROSTATE ??? EGD 08/16/2013 [facility]URL ELECTROSURG RESCJ PROSTATE BLEED COMPLETE 08/30/2012 for structure Social Hx: @Alcohol Use: Not At Risk (07/29/2025) AUDIT-C Frequency of Alcohol Consumption: Never Average Number of Drinks: Patient does not drink Frequency of Binge Drinking: Never Tobacco Use: Low Risk (08/04/2025) Patient History Smoking Tobacco Use: Never Smokeless Tobacco Use: Never Passive Exposure: Not on file 08/15/25 1124 BP: 134/84 Pulse: 75 Neurologic Exam Cognitive and Language: Alert and answered questions appropriately. Language was fluent. Cranial Nerves: Extraocular movements were full with no diplopia or nystagmus. Facial strength was symmetric. Motor: Some mild weakness with hip flexion at the left side. Sensory: No evidence of neglect Coordination: Normal finger to nose and heel to diehl testing bilaterally. Normal gait. Labs: Lab Results Component Value Date WBC 6.05 07/28/2025 HCT 48.0 07/28/2025 MCV 90.2 07/28/2025 PLT 192 07/28/2025 Lab Results Component Value Date HBA1C 5.3 07/28/2025 HBA1C 5.5 06/07/2024 HBA1C 5.6 07/22/2023 HBA1C 5.9 01/20/2022 Cholesterol, Total Date Value Ref Range Status 07/28/2025 250 (H) <200 mg/dL Final Comment: <200 mg/dL, Desirable 200-239 mg/dL, Borderline high >239 mg/dL, High HDL Cholesterol Date Value Ref Range Status 07/28/2025 43 >39 mg/dL Final Comment: 40-59 mg/dL, Acceptable >59 mg/dL, High: Negative risk factor for coronary heart disease <40 mg/dL, Low: Positive risk factor for coronary heart disease LDL Cholesterol, Calculated Date Value Ref Range Status 07/28/2025 198 (H) <100 mg/dL Final Comment: <100 mg/dL, Optimal 100-129 mg/dL, Near optimal/above optimal 130-159 mg/dL, Borderline high 160-189 mg/dL, High >189 mg/dL, Very high Secondary prevention optimal LDL Cholesterol levels are recommended to be <70 mg/dL LDL cholesterol is calculated using the Huffman-NIH equation. Triglyceride Date Value Ref Range Status 07/28/2025 57 <150 mg/dL Final Comment: <150 mg/dL, Normal 150-199 mg/dL, Borderline high 200-499 mg/dL, High >499 mg/dL, Very high Results for orders placed or performed in visit on 07/28/25 LIPID PANEL BASIC Result Value Ref Range Cholesterol, Total 250 (H) <200 mg/dL Triglyceride 57 <150 mg/dL HDL Cholesterol 43 >39 mg/dL LDL Cholesterol, Calculated 198 (H) <100 mg/dL Non HDL Cholesterol 207 (H) <130 mg/dL VLDL Cholesterol 12 <30 mg/dL TC:HDL Ratio 5.81 (H) <5.10 LDL:HDL Ratio 4.60 (H) <2.54 Fasting Time 12 hrs COMPLETE BLOOD COUNT Result Value Ref Range WBC 6.05 3.70 - 11.00 k/uL RBC 5.32 4.20 - 6.00 m/uL Hemoglobin 15.7 13.0 - 17.0 g/dL Hematocrit 48.0 39.0 - 51.0 % MCV 90.2 80.0 - 100.0 fL MCH 29.5 26.0 - 34.0 pg MCHC 32.7 30.5 - 36.0 g/dL RDW-CV 13.0 11.5 - 15.0 % Platelet Count 192 150 - 400 k/uL MPV 10.7 9.0 - 12.7 fL Absolute nRBC <0.01 <0.01 k/uL COMPREHENSIVE METABOLIC PANEL Result Value Ref Range Protein, Total 7.2 6.3 - 8.0 g/dL Albumin 4.7 3.9 - 4.9 g/dL Calcium, Total 9.1 8.5 - 10.2 mg/dL Bilirubin, Total 0.3 0.2 - 1.3 mg/dL Alkaline Phosphatase 128 (H) 38 - 113 U/L AST 20 14 - 40 U/L ALT 16 10 - 54 U/L Glucose 100 (H) 74 - 99 mg/dL BUN 19 9 - 24 mg/dL Creatinine 1.07 0.73 - 1.22 mg/dL Sodium 141 136 - 144 mmol/L Potassium 4.4 3.7 - 5.1 mmol/L Chloride 104 98 - 107 mmol/L CO2 24 22 - 30 mmol/L Anion Gap 13 8 - 15 mmol/L Estimated Glomerular Filtration Rate 83 >=60 mL/min/1.73m HEMOGLOBIN A1C Result Value Ref Range Hemoglobin A1C 5.3 4.3 - 5.6 % Estimated Average Glucose 105 mg/dL Radiology: MRI Head/Brain - Last 2 Impressions No resulted procedures found. and MRI Spine - Last 2 Impressions No resulted procedures found. This note was dictated using [employer] speech recognition software and may contain some errors that were a result of the program not accurately transcribing what was dictated, despite efforts to make corrections. Note that unless urgent, test and MRI results will be discussed at next follow-up visit. PROMIS (Patient-Reported Outcomes Measurement Information System) is a set of person-centered measures that evaluates and monitors physical, social, and emotional health. It can be used with the general population and with individuals living with chronic conditions. PROMIS 10: PHYSICAL AND MENTAL HEALTH: 11/01/2024 PHQ-9 PHQ-2 Score 2 2 PHQ-9 Score 6 6 I spent a total of 30 minutes on the date of the service which included preparing to see the patient, [id number] patient care, completing clinical documentation, obtaining and/or reviewing separately obtained history, performing a medically appropriate examination, counseling and educating the patient/family/caregiver, and ordering medications, tests, or procedures. Recording using [employer] software for draft documentation of the visit was discussed with the patient/authorized hobbies and crafts sales representative; all questions welcomed and answered. Patient/authorized hobbies and crafts sales representative agreed to proceed documented in this encounter [facility] 08-04-2025 Instructions Thony Raza MD - 08/04/2025 3:24 PM EDT Screening schedule The following prevention plan is recommended: Medicare Advantage Annual Wellness Visit due on 11/30/2024 Influenza Vaccine(1) due on 07/31/2025 Colorectal Cancer Screening due on 10/17/2025 WHAT YOU CAN DO TO PREVENT FALLS Many falls can be prevented. By making some changes, you can lower your chances of falling. Four things YOU can do to prevent falls for you* and your caregiver 1. Begin a regular exercise program Exercise is one of the most important ways to lower your chances of falling. It makes you stronger and helps you feel better. Exercises that improve balance and coordination (like Chi Chi) are the most helpful. Lack of exercise leads to weakness and increases your chances of falling. Ask your doctor or health care provider about the best type of exercise program for you. 2. Have your health care provider review your medicines Have your doctor or pharmacist review all the medicines you take, even [id number] medicines. As you get older, the way medicines work in your body can change. Some medicines, or combinations of medicines, can make you sleepy or dizzy and can cause you to fall. 3. Have your vision checked Have your eyes checked by an eye doctor at least once a year. You may be wearing the wrong glasses or have a condition like glaucoma or cataracts that limits your vision. Poor vision can increase your chances of falling. 4. Make your home safer About half of all falls happen at home. To make your home safer: Remove things you can trip over (like papers, books, clothes, and shoes) from stairs and places where you walk. Remove small throw rugs or use double-sided tape to keep the rugs from slipping. Keep items you use often in cabinets you can reach easily without using a step stool. Have grab bars put in next to your toilet and in the tub or shower. Use non-slip mats in the bathtub and on shower floors. Improve the lighting in your home. As you get older, you need brighter lights to see well. Hang light-weight curtains or shades to reduce glare. Have handrails and lights put in on all staircases. Wear shoes both inside and outside the house. Avoid going barefoot or wearing slippers. For more information, contact: Centers for Disease Control and Prevention www.cdc.gov/injury * This information may not apply if you have certain medical conditions. documented in this encounter [facility] 08-04-2025 Note HNO ID: [id number] Author: THONY RAZA MD Service: ? Author Type: Physician Type: Progress Notes Filed: 08/06/2025 13:07 Note Text: Elizabeth Baumann is a 54 year old male here for a Medicare wellness visit. Medicare Health Risk Assessment General Health Good Exercise: Minutes/Day 10 min Exercise: Days/Week 2 days Alcohol: Daily Use Never Alcohol: Drinks/Day Patient does not drink Alcohol: 6 or more drinks Never Feel off balance No Concerns: Teeth/Dentures No Concerns: Sexual function No Troubled by feelings Anxious; Stressed; Irritable; Lonely Frequency: Eating healthy diet More than half the days ADLs requiring help None of the above Safety precautions in home/vehicle Yes Smoke, vape, chews tobacco No Difficulty hearing No Difficulty seeing No Current Providers Specialists: I have reviewed specialist-related care of the patient in the medical record. Current care team: Patient Care Team: Thony Raza MD as PCP - General (Internal Medicine) Soniya Orta, CORPORATE SAFETY MANAGER.COMPLIANCE SPECIALIST as Academic Advisor (Internal Medicine) Leana Leal MD (Neurology) Ema Cooper PA-C (Neurology) Outside specialists seen: [facility] Kerry Campbell MD (Nephrology) Patrick Guzmán MD (Ophthalmology) Medical/Family history review Reviewed and updated problem list, medical/surgical/family/social history, medications, and allergies. Opioid use review Opioid Medications (last 90 days) No data to display Anxiety/Depression screening CLAIRE-7 Score: 10 (Moderate Anxiety) Recommendation: continuing current treatment plan Cognitive screening Mini Cog Score: 3 Cognitive screening reviewed and No further action needed (score 3-5). Functional Observation Was the patient's Timed Up AND Go test unsteady or >= 12 seconds? No Advance Care Planning Patient did not wish or was not able to name a surrogate decision maker or provide an advance care plan Measurements BP 120/69 Pulse 73 Resp 16 Wt 106.9 kg (235 lb 10.8 oz) BMI 32.87 kg/m? Vision Screening: Follows with optometry/ophthalmology Assessment/Plan Medicare annual wellness visit, subsequent (Z00.00) - Counseled on healthy diet and regular exercise - Fall avoidance information provided - Personalized prevention plan provided - Discussed need for and benefit of weight loss. BMI 32.87 kg/(m2) - Vaccines reviewed. Thony Raza MD [facility] 08-04-2025 History of Present illness Narrative Images from the original note were not included. Elizabeth Baumann is a 54 year old male here for a Medicare wellness visit. Medicare Health Risk Assessment General Health Good Exercise: Minutes/Day 10 min Exercise: Days/Week 2 days Alcohol: Daily Use Never Alcohol: Drinks/Day Patient does not drink Alcohol: 6 or more drinks Never Feel off balance No Concerns: Teeth/Dentures No Concerns: Sexual function No Troubled by feelings Anxious; Stressed; Irritable; Lonely Frequency: Eating healthy diet More than half the days ADLs requiring help None of the above Safety precautions in home/vehicle Yes Smoke, vape, chews tobacco No Difficulty hearing No Difficulty seeing No Current Providers Specialists: I have reviewed specialist-related care of the patient in the medical record. Current care team: Patient Care Team: Thony Raza MD as PCP - General (Internal Medicine) Soniya Orta, CORPORATE SAFETY MANAGER.COMPLIANCE SPECIALIST as Academic Advisor (Internal Medicine) Leana Leal MD (Neurology) Ema Cooper PA-C (Neurology) Outside specialists seen: [facility] Kerry Campbell MD (Nephrology) Patrick Guzmán MD (Ophthalmology) Medical/Family history review Reviewed and updated problem list, medical/surgical/family/social history, medications, and allergies. Opioid use review Opioid Medications (last 90 days) No data to display Anxiety/Depression screening CLAIRE-7 Score: 10 (Moderate Anxiety) Recommendation: continuing current treatment plan Cognitive screening Mini Cog Score: 3 Cognitive screening reviewed and No further action needed (score 3-5). Functional Observation Was the patient's Timed Up & Go test unsteady or >= 12 seconds? No Advance Care Planning Patient did not wish or was not able to name a surrogate decision maker or provide an advance care plan Measurements BP 120/69 Pulse 73 Resp 16 Wt 106.9 kg (235 lb 10.8 oz) BMI 32.87 kg/m Vision Screening: Follows with optometry/ophthalmology Assessment/Plan Medicare annual wellness visit, subsequent (Z00.00) - Counseled on healthy diet and regular exercise - Fall avoidance information provided - Personalized prevention plan provided - Discussed need for and benefit of weight loss. BMI 32.87 kg/(m^2) - Vaccines reviewed. Thony Raza MD Subjective Elizabeth Baumann is a 54 year old male. He had been dealing with insomnia. His mental health provider at the [facility] was resigning, and he was referred to [facility] with an initial appointment mid September. He was tried on zolpidem, mirtazapine, and continued on other medications listed. He was just started on quetiapine in escalating doses. He was on vitamin D and requesting I take over the prescription. His hypertension was controlled. Prediabetes was stable. Review of Systems Constitutional: Negative for activity change, fatigue and unexpected weight change. HENT: Negative for congestion. Eyes: Negative for visual disturbance. Respiratory: Negative for cough, shortness of breath and wheezing. Cardiovascular: Negative for chest pain and leg swelling. Gastrointestinal: Negative for abdominal pain, constipation and diarrhea. Genitourinary: Negative for difficulty urinating. Neurological: Negative for dizziness and headaches. ACTIVE PROBLEM LIST Obesity, Class II, Bmi 35-39.9 Bipolar 1 Disorder (Hcc) Hyperlipidemia Idiopathic Peripheral Neuropathy Ckd (Chronic Kidney Disease) Stage 2, Gfr 60-89 Ml/Min Drug-Induced Tremor Prediabetes Primary Hypertension AMAYA did not tolerate CPAP Gastroesophageal Reflux Disease Without Esophagitis Chronic Bilateral Low Back Pain Without Sciatica Obesity, Class I, Bmi 30-34.9 Vitamin D Deficiency Social History Tobacco Use Smoking status: Never Smokeless tobacco: Never Substance Use Topics Alcohol use: No Drug use: Never Current Outpatient Medications Medication Sig mupirocin (BACTROBAN) 2 % ointment Apply to affected area three times a day for 5 days. pregabalin (LYRICA) 75 mg capsule Take 1 capsule by mouth three times a day for 180 days. alpha lipoic acid 600 mg tab Take by mouth. omeprazole (PRILOSEC) 40 mg capsule Take 1 capsule by mouth once daily. lisinopril (ZESTRIL) 10 mg tablet Take 1 tablet by mouth once daily. amantadine HCl (SYMMETREL) 100 mg capsule 200 mg twice daily. Cholecalciferol, Vitamin D3, 50 mcg (2,000 unit) cap Take by mouth once daily. bethanechol (URECHOLINE) 25 mg tablet Take 1 tablet by mouth three times daily. carBAMazepine (TEGRETOL) 200 mg tablet 1 tablet every morning AND 2 tablets daily at bedtime. amitriptyline (ELAVIL) 50 mg tablet Take 1 tablet by mouth daily at bedtime. ARIPiprazole (ABILIFY) 10 mg tablet Take 1 tablet by mouth daily at bedtime. QUEtiapine (SEROQUEL) 50 mg tablet Take 0.5-3 tablets by mouth at bedtime as needed. rosuvastatin (CRESTOR) 10 mg tablet Take 1 tablet by mouth daily at bedtime. No current facility-administered medications for this visit. Objective BP 120/69 Pulse 73 Resp 16 Wt 106.9 kg (235 lb 10.8 oz) BMI 32.87 kg/m Physical Exam Constitutional: General: He is not in acute distress. Appearance: He is not ill-appearing. HENT: Head: Normocephalic. Nose: No congestion. Eyes: General: No scleral icterus. Extraocular Movements: Extraocular movements intact. Conjunctiva/sclera: Conjunctivae normal. Cardiovascular: Rate and Rhythm: Normal rate. Heart sounds: No murmur heard. No gallop. Pulmonary: Breath sounds: Normal breath sounds. Abdominal: Tenderness: There is no abdominal tenderness. Musculoskeletal: Right lower leg: No edema. Left lower leg: No edema. Neurological: General: No focal deficit present. Mental Status: He is alert. Gait: Gait normal. Psychiatric: Mood and Affect: Mood normal. Behavior: Behavior normal. Latest Ref Rn 07/28/2025 Protein, Total 6.3 - 8.0 g/dL 7.2 Albumin 3.9 - 4.9 g/dL 4.7 Calcium 8.5 - 10.2 mg/dL 9.1 Bilirubin, Total 0.2 - 1.3 mg/dL 0.3 Alkaline Phosphatase 38 - 113 U/L 128 (H) AST 14 - 40 U/L 20 ALT 10 - 54 U/L 16 Glucose 74 - 99 mg/dL 100 (H) BUN 9 - 24 mg/dL 19 Creatinine 0.73 - 1.22 mg/dL 1.07 Sodium 136 - 144 mmol/L 141 Potassium 3.7 - 5.1 mmol/L 4.4 Chloride 98 - 107 mmol/L 104 CO2 22 - 30 mmol/L 24 Anion Gap 8 - 15 mmol/L 13 eGFR >=60 mL/min/1.73m 83 WBC 3.70 - 11.00 k/uL 6.05 RBC 4.20 - 6.00 m/uL 5.32 Hemoglobin 13.0 - 17.0 g/dL 15.7 Hematocrit 39.0 - 51.0 % 48.0 MCV 80.0 - 100.0 fL 90.2 MCH 26.0 - 34.0 pg 29.5 MCHC 30.5 - 36.0 g/dL 32.7 RDW-CV 11.5 - 15.0 % 13.0 Platelet Count 150 - 400 k/uL 192 MPV 9.0 - 12.7 fL 10.7 Absolute nRBC <0.01 k/uL <0.01 Cholesterol, Total <200 mg/dL 250 (H) Triglyceride <150 mg/dL 57 HDL Cholesterol >39 mg/dL 43 LDL Cholesterol, Calculated <100 mg/dL 198 (H) Non HDL Cholesterol <130 mg/dL 207 (H) VLDL Cholesterol <30 mg/dL 12 TC:HDL Ratio <5.10 5.81 (H) LDL:HDL Ratio <2.54 4.60 (H) Fasting Time hrs 12 Hemoglobin A1C 4.3 - 5.6 % 5.3 Estimated Average Glucose mg/dL 105 Legend: (H) High ASSESSMENT/PLAN: 1. Medicare annual wellness visit, subsequent - ICD9: V70.0, ICD10: Z00.00 (primary diagnosis) - See wellness visit. 2. Vitamin D deficiency - ICD9: 268.9, ICD10: E55.9 - I can take over the refill. He will call for refill when running low. - VITAMIN D 25 HYDROXY 3. Bipolar 1 disorder (HCC) - ICD9: 296.7, ICD10: F31.9 - He is transferring to [facility] for care. 4. Drug-induced tremor - ICD9: 781.0, E980.5, ICD10: G25.1 - Controlled. Follow with neurology. 5. Primary hypertension - ICD9: 401.9, ICD10: I10 - Controlled - Continue current medications - Recommend regular aerobic exercise - Discussed need for and benefit of weight loss. BMI 32.87 kg/(m^2) 6. AMAYA did not tolerate CPAP - ICD9: 327.23, ICD10: G47.33 - Shared medical decision making was done. We agreed to revisit this. He returned his CPAP years ago. - CONSULT TO SLEEP MEDICINE - ADULT 7. Prediabetes - ICD9: 790.29, ICD10: R73.03 - Low carb diet to reduce risk for diabetes mellitus. - BASIC METABOLIC PANEL 8. Hyperlipidemia, unspecified hyperlipidemia type - ICD9: 272.4, ICD10: E78.5 - Worsening control - Barriers to control: diet adherence and medication adherence. - He will resume CRESTOR, which he stopped taking. - LIPID PANEL, FASTING 9. Need for influenza vaccination - ICD9: V04.81, ICD10: Z23 - INFLUENZA VACCINE, PRSV FREE, AGE 6MO-64YR, TRIVALENT (AFLURIA, FLUARIX, FLULAVAL, FLUVIRIN, FLUZONE) 10. Screening for colon cancer - ICD9: V76.51, ICD10: Z12.11 Options for screening reviewed. - COLOGUARD Thony Raza MD documented in this encounter [facility] 08-04-2025 Note HNO ID: [id number] Author: THONY RAZA MD Service: ? Author Type: Physician Type: Progress Notes Filed: 08/06/2025 13:07 Note Text: Subjective Elizabeth Baumann is a 54 year old male. He had been dealing with insomnia. His mental health provider at the [facility] was resigning, and he was referred to [facility] with an initial appointment mid September. He was tried on zolpidem, mirtazapine, and continued on other medications listed. He was just started on quetiapine in escalating doses. He was on vitamin D and requesting I take over the prescription. His hypertension was controlled. Prediabetes was stable. Review of Systems Constitutional: Negative for activity change, fatigue and unexpected weight change. HENT: Negative for congestion. Eyes: Negative for visual disturbance. Respiratory: Negative for cough, shortness of breath and wheezing. Cardiovascular: Negative for chest pain and leg swelling. Gastrointestinal: Negative for abdominal pain, constipation and diarrhea. Genitourinary: Negative for difficulty urinating. Neurological: Negative for dizziness and headaches. ACTIVE PROBLEM LIST Obesity, Class II, Bmi 35-39.9 Bipolar 1 Disorder (Hcc) Hyperlipidemia Idiopathic Peripheral Neuropathy Ckd (Chronic Kidney Disease) Stage 2, Gfr 60-89 Ml/Min Drug-Induced Tremor Prediabetes Primary Hypertension AMAYA did not tolerate CPAP Gastroesophageal Reflux Disease Without Esophagitis Chronic Bilateral Low Back Pain Without Sciatica Obesity, Class I, Bmi 30-34.9 Vitamin D Deficiency Social History Tobacco Use Smoking status: Never Smokeless tobacco: Never Substance Use Topics Alcohol use: No Drug use: Never Current Outpatient Medications Medication Sig mupirocin (BACTROBAN) 2 % ointment Apply to affected area three times a day for 5 days. pregabalin (LYRICA) 75 mg capsule Take 1 capsule by mouth three times a day for 180 days. alpha lipoic acid 600 mg tab Take by mouth. omeprazole (PRILOSEC) 40 mg capsule Take 1 capsule by mouth once daily. lisinopril (ZESTRIL) 10 mg tablet Take 1 tablet by mouth once daily. amantadine HCl (SYMMETREL) 100 mg capsule 200 mg twice daily. Cholecalciferol, Vitamin D3, 50 mcg (2,000 unit) cap Take by mouth once daily. bethanechol (URECHOLINE) 25 mg tablet Take 1 tablet by mouth three times daily. carBAMazepine (TEGRETOL) 200 mg tablet 1 tablet every morning AND 2 tablets daily at bedtime. amitriptyline (ELAVIL) 50 mg tablet Take 1 tablet by mouth daily at bedtime. ARIPiprazole (ABILIFY) 10 mg tablet Take 1 tablet by mouth daily at bedtime. QUEtiapine (SEROQUEL) 50 mg tablet Take 0.5-3 tablets by mouth at bedtime as needed. rosuvastatin (CRESTOR) 10 mg tablet Take 1 tablet by mouth daily at bedtime. No current facility-administered medications for this visit. Objective BP 120/69 Pulse 73 Resp 16 Wt 106.9 kg (235 lb 10.8 oz) BMI 32.87 kg/m? Physical Exam Constitutional: General: He is not in acute distress. Appearance: He is not ill-appearing. HENT: Head: Normocephalic. Nose: No congestion. Eyes: General: No scleral icterus. Extraocular Movements: Extraocular movements intact. Conjunctiva/sclera: Conjunctivae normal. Cardiovascular: Rate and Rhythm: Normal rate. Heart sounds: No murmur heard. No gallop. Pulmonary: Breath sounds: Normal breath sounds. Abdominal: Tenderness: There is no abdominal tenderness. Musculoskeletal: Right lower leg: No edema. Left lower leg: No edema. Neurological: General: No focal deficit present. Mental Status: He is alert. Gait: Gait normal. Psychiatric: Mood and Affect: Mood normal. Behavior: Behavior normal. Latest Ref Rng 07/28/2025 Protein, Total 6.3 - 8.0 g/dL 7.2 Albumin 3.9 - 4.9 g/dL 4.7 Calcium 8.5 - 10.2 mg/dL 9.1 Bilirubin, Total 0.2 - 1.3 mg/dL 0.3 Alkaline Phosphatase 38 - 113 U/L 128 (H) AST 14 - 40 U/L 20 ALT 10 - 54 U/L 16 Glucose 74 - 99 mg/dL 100 (H) BUN 9 - 24 mg/dL 19 Creatinine 0.73 - 1.22 mg/dL 1.07 Sodium 136 - 144 mmol/L 141 Potassium 3.7 - 5.1 mmol/L 4.4 Chloride 98 - 107 mmol/L 104 CO2 22 - 30 mmol/L 24 Anion Gap 8 - 15 mmol/L 13 eGFR >=60 mL/min/1.73m? 83 WBC 3.70 - 11.00 k/uL 6.05 RBC 4.20 - 6.00 m/uL 5.32 Hemoglobin 13.0 - 17.0 g/dL 15.7 Hematocrit 39.0 - 51.0 % 48.0 MCV 80.0 - 100.0 fL 90.2 MCH 26.0 - 34.0 pg 29.5 MCHC 30.5 - 36.0 g/dL 32.7 RDW-CV 11.5 - 15.0 % 13.0 Platelet Count 150 - 400 k/uL 192 MPV 9.0 - 12.7 fL 10.7 Absolute nRBC <0.01 k/uL <0.01 Cholesterol, Total <200 mg/dL 250 (H) Triglyceride <150 mg/dL 57 HDL Cholesterol >39 mg/dL 43 LDL Cholesterol, Calculated <100 mg/dL 198 (H) Non HDL Cholesterol <130 mg/dL 207 (H) VLDL Cholesterol <30 mg/dL 12 TC:HDL Ratio <5.10 5.81 (H) LDL:HDL Ratio <2.54 4.60 (H) Fasting Time hrs 12 Hemoglobin A1C 4.3 - 5.6 % 5.3 Estimated Average Glucose mg/dL 105 Legend: (H) High ASSESSMENT/PL (more content not included)... [facility] 08-02-2025 Note HNO ID: [id number] Author: BRANDON GILL APRN.COMPLIANCE SPECIALIST Service: ? Author Type: Nurse Practitioner Type: Progress Notes Filed: 08/02/2025 10:50 Note Text: URGENT CARE TANJA Baumann is a 54 year old male. Patient presents with: Derm Problem: left hand middle finger, redness and swelling x 1 week HPI Nontoxic-appearing 54-year-old male presents urgent care chief complaint left long finger pain and swelling. Patient states he pulled a hangnail a few days prior to this finger becoming painful and swollen. Presents today for evaluation. OTC medications none. No trauma. No numbness or tingling. No fevers. No joint pain. Past medical history prescription medications allergies reviewed. Review of Systems Constitutional: Negative for activity change, diaphoresis, fatigue and fever. Musculoskeletal: Negative for arthralgias, back pain, gait problem, joint swelling, myalgias, neck pain and neck stiffness. Skin: Negative for pallor, rash and wound. Neurological: Negative for dizziness, seizures, syncope, weakness, light-headedness, numbness and headaches. Psychiatric/Behavioral: Negative for confusion. Objective BP 122/80 Pulse 92 Temp 37.2 ?C (99 ?F) Resp 16 Wt 106.4 kg (234 lb 9.1 oz) SpO2 98% BMI 32.72 kg/m? Physical Exam Constitutional: Appearance: Normal appearance. He is normal weight. HENT: Head: Normocephalic. Eyes: Conjunctiva/sclera: Conjunctivae normal. Cardiovascular: Rate and Rhythm: Normal rate. Pulmonary: Effort: Pulmonary effort is normal. Musculoskeletal: Hands: Cervical back: Normal range of motion. Comments: Edema erythema with fluctuant pustule cuticle fold noted. No joint pain with palpation Area cleansed with alcohol prep. 18-gauge needle used to evacuate pustulant fluid dressing applied. Tolerated well Skin: Findings: No rash. Neurological: General: No focal deficit present. Mental Status: He is alert and oriented to person, place, and time. Mental status is at baseline. {ASSESSMENT/PLAN: 1. Paronychia of finger of left hand - ICD9: 681.02, ICD10: L03.012 Diagnosed with paronychia. Fluid easily evacuated. Dressing applied. Warm soaks and mupirocin as instructed. Patient was educated on supportive therapies. Patient will follow up with primary care provider as needed. Patient was instructed to immediately proceed to emergency room for any new, worsening, or symptoms lasting longer than anticipated. The patient's clinical presentation is otherwise unremarkable at this time. Based on exam and clinical finding, the patient is stable for discharge. Plan of care was discussed with patient. Patient verbalizes understanding and agrees to plan of care. This note was generated using [employer] software. It may contain errors in wording, punctuation, or spelling. Brandon Gill APRN.COMPLIANCE SPECIALIST History and Record Review Clinical information obtained from an independent historian. History obtained from or confirmed by: parent. External record(s) reviewed: prior outpatient record. Disposition The patient was discharged. OTC Medications were advised: Procedures [facility] 08-02-2025 History of Present illness Narrative Images from the original note were not included. URGENT CARE TANJA Baumann is a 54 year old male. Patient presents with: Derm Problem: left hand middle finger, redness and swelling x 1 week HPI Nontoxic-appearing 54-year-old male presents urgent care chief complaint left long finger pain and swelling. Patient states he pulled a hangnail a few days prior to this finger becoming painful and swollen. Presents today for evaluation. OTC medications none. No trauma. No numbness or tingling. No fevers. No joint pain. Past medical history prescription medications allergies reviewed. Review of Systems Constitutional: Negative for activity change, diaphoresis, fatigue and fever. Musculoskeletal: Negative for arthralgias, back pain, gait problem, joint swelling, myalgias, neck pain and neck stiffness. Skin: Negative for pallor, rash and wound. Neurological: Negative for dizziness, seizures, syncope, weakness, light-headedness, numbness and headaches. Psychiatric/Behavioral: Negative for confusion. Objective BP 122/80 Pulse 92 Temp 37.2 C (99 F) Resp 16 Wt 106.4 kg (234 lb 9.1 oz) SpO2 98% BMI 32.72 kg/m Physical Exam Constitutional: Appearance: Normal appearance. He is normal weight. HENT: Head: Normocephalic. Eyes: Conjunctiva/sclera: Conjunctivae normal. Cardiovascular: Rate and Rhythm: Normal rate. Pulmonary: Effort: Pulmonary effort is normal. Musculoskeletal: Hands: Cervical back: Normal range of motion. Comments: Edema erythema with fluctuant pustule cuticle fold noted. No joint pain with palpation Area cleansed with alcohol prep. 18-gauge needle used to evacuate pustulant fluid dressing applied. Tolerated well Skin: Findings: No rash. Neurological: General: No focal deficit present. Mental Status: He is alert and oriented to person, place, and time. Mental status is at baseline. {ASSESSMENT/PLAN: 1. Paronychia of finger of left hand - ICD9: 681.02, ICD10: L03.012 Diagnosed with paronychia. Fluid easily evacuated. Dressing applied. Warm soaks and mupirocin as instructed. Patient was educated on supportive therapies. Patient will follow up with primary care provider as needed. Patient was instructed to immediately proceed to emergency room for any new, worsening, or symptoms lasting longer than anticipated. The patient's clinical presentation is otherwise unremarkable at this time. Based on exam and clinical finding, the patient is stable for discharge. Plan of care was discussed with patient. Patient verbalizes understanding and agrees to plan of care. This note was generated using [employer] software. It may contain errors in wording, punctuation, or spelling. Brandon Gill APRN.[facility]O History and Record Review Clinical information obtained from an independent historian. History obtained from or confirmed by: parent. External record(s) reviewed: prior outpatient record. Disposition The patient was discharged. OTC Medications were advised: Procedures documented in this encounter [facility] 06-19-2025 Instructions Ritu Holm APRN.FAUSTO - 06/19/2025 11:05 AM EDT - Take mirtazapine 7.5 mg by mouth at bedtime to help with sleep; do not increase your dose above 7.5 mg (higher doses can worsen sleep). - Look for a call from our oncology social worker to schedule an urgent appointment with the mental health team for a medication review. - Keep your neurologist appointment in [place] at the end of June. - Plan to see your mental health provider in July unless the urgent visit is arranged sooner. documented in this encounter [facility] 06-19-2025 Note HNO ID: [id number] Author: RITU HOLM APRN.CNP Service: ? Author Type: Nurse Practitioner Type: Progress Notes Filed: 06/19/2025 11:07 Note Text: This is a 54 year old male who presents today with: Patient presents with: Insomnia HISTORY OF PRESENT ILLNESS: Elizabeth Baumann is a 54 year old male. Patient presents with: Insomnia Sea Baumann is a 54-year-old male with a history of bipolar disorder, presenting with insomnia. Insomnia: - Difficulty sleeping x1 month. - Unable to sleep after 0200; remains awake until 2200. - Tried melatonin and Tylenol PM without relief. - Mother suggested contacting family doctor for assistance. - Denies headaches, blurred or double vision, chest pain, palpitations, nausea, emesis, dyspnea, cough, or wheezing. Bipolar Disorder: - Managed by Senia at the counseling center; last seen almost 1 year ago. - Next appointment scheduled for July. - Has called and left messages with Senia's nurse without response. - Feels neglected by current mental health provider. - Taking Abilify; neurologist recommended tapering due to tremors. - Follow-up with neurologist in [place] scheduled for late June. - Previously prescribed Xanax by a different doctor, now transferred. - Denies use of lithium or valproic acid. PAST MEDICAL HISTORY: PAST MEDICAL HISTORY Diagnosis Date Bipolar 1 disorder (HCC) 1996 [facility] BPH with obstruction/lower urinary tract symptoms 2010 Calculus of gallbladder without mention of cholecystitis or obstruction 07/23/2013 CKD (chronic kidney disease) stage 2, GFR 60-89 ml/min 01/16/2022 Constipation, chronic 10/13/2021 Depression 1996 Diabetes (HCC) 1996 Drug-induced tremor 01/16/2022 Gastritis and duodenitis 08/16/2013 HTN (hypertension) 2011 Hyperlipidemia 01/16/2022 Nephrolithiasis 02/25/2021 Peripheral neuropathy 2018 Renal cysts, acquired, bilateral 02/25/2021 PAST SURGICAL HISTORY Procedure Laterality Date CONTACT LASER VAPORIZATION PROSTATE ??? EGD 08/16/2013 TRURL ELECTROSURG RESCJ PROSTATE BLEED COMPLETE 08/30/2012 for structure ALLERGIES Patient has no known allergies. MEDICATIONS Current Outpatient Medications Medication Sig pregabalin (LYRICA) 75 mg capsule Take 1 capsule by mouth three times a day for 180 days. alpha lipoic acid 600 mg tab Take by mouth. omeprazole (PRILOSEC) 40 mg capsule Take 1 capsule by mouth once daily. lisinopril (ZESTRIL) 10 mg tablet Take 1 tablet by mouth once daily. famotidine (PEPCID) 40 mg tablet Take 40 mg by mouth once daily. rosuvastatin (CRESTOR) 10 mg tablet Take 1 tablet by mouth daily at bedtime. fluvoxaMINE (LUVOX) 100 mg tablet Take 2 tablets by mouth daily at bedtime. [facility] busPIRone HCl 30 mg tablet Take 1 tablet in am. Take 1/2 tablet at bedtime. [facility]. ARIPiprazole (ABILIFY) 15 mg tablet Take 1 tablet by mouth once daily. [facility]. amantadine HCl (SYMMETREL) 100 mg capsule 200 mg twice daily. amitriptyline (ELAVIL) 50 mg tablet 50 mg once daily. carBAMazepine (TEGRETOL) 200 mg tablet 200 mg twice daily. Cholecalciferol, Vitamin D3, 50 mcg (2,000 unit) cap Take by mouth once daily. bethanechol (URECHOLINE) 25 mg tablet Take 1 tablet by mouth three times daily. No current facility-administered medications for this visit. FAMILY HISTORY Problem Relation Age of Onset Psychiatry Mother Arrhythmia Mother Hypothyroidism Mother Heart Attack Father age 82 Genitourinary () Father urine retention COPD Sister other (covid 19) Sister No Known Problems Brother Heart Maternal Grandmother Heart Maternal Aunt Diabetes Paternal Aunt Social History Tobacco Use Smoking status: Never Smokeless tobacco: Never Substance Use Topics Alcohol use: No Drug use: Never REVIEW OF SYSTEMS Head: (-) headache Eyes: (-) blurred vision, (-) diplopia Cardiovascular: (-) chest pain, (-) palpitations Respiratory: (-) dyspnea, (-) cough, (-) wheezing Gastrointestinal: (-) nausea, (-) vomiting Musculoskeletal: (-) joint pain, (-) joint swelling Psychiatric: (+) insomnia EXAM: BP 132/72 Pulse 76 Wt 106.6 kg (235 lb) SpO2 98% BMI 32.78 kg/m? PHYSICAL EXAM: GENERAL: NAD, alert and oriented SKIN: unremarkable, no rash or skin lesions. HEAD: normocephalic NECK: Supple, no lymphadenopathy, normal thyroid, no carotid bruits. LUNGS: Clear to auscultation bilaterally, no wheezes/rhonchi/rales. HEART: Regular rate and rhythm, no murmurs. No ectopy. EXTREMITIES: Normal, No deformities, No skin discoloration, No edema. NEURO: Awake, alert and oriented x3, cranial nerves II-XII grossly intact, normal gait, no involuntary motions. Restless LABS: ASSESSMENT/PLAN: 1. Bipolar affective disorder, currently manic, moderate (HCC) (F31.12) - Patient experiencing insomnia, likely related to current medication regimen. - Has not (more content not included)... [facility] 06-19-2025 History of Present illness Narrative This is a 54 year old male who presents today with: Patient presents with: Insomnia HISTORY OF PRESENT ILLNESS: Elizabeth Baumann is a 54 year old male. Patient presents with: Insomnia Sea Baumann is a 54-year-old male with a history of bipolar disorder, presenting with insomnia. Insomnia: - Difficulty sleeping x1 month. - Unable to sleep after 0200; remains awake until 2200. - Tried melatonin and Tylenol PM without relief. - Mother suggested contacting family doctor for assistance. - Denies headaches, blurred or double vision, chest pain, palpitations, nausea, emesis, dyspnea, cough, or wheezing. Bipolar Disorder: - [facility]; last seen almost 1 year ago. - Next appointment scheduled for July. - Has called and left messages with Senia's nurse without response. - Feels neglected by current mental health provider. - Taking Abilify; neurologist recommended tapering due to tremors. - Follow-up with neurologist in [place] scheduled for late June. - Previously prescribed Xanax by a different doctor, now transferred. - Denies use of lithium or valproic acid. PAST MEDICAL HISTORY: PAST MEDICAL HISTORY Diagnosis Date Bipolar 1 disorder (HCC) 1996 [facility]. BPH with obstruction/lower urinary tract symptoms 2010 Calculus of gallbladder without mention of cholecystitis or obstruction 07/23/2013 CKD (chronic kidney disease) stage 2, GFR 60-89 ml/min 01/16/2022 Constipation, chronic 10/13/2021 Depression 1996 Diabetes (HCC) 1996 Drug-induced tremor 01/16/2022 Gastritis and duodenitis 08/16/2013 HTN (hypertension) 2011 Hyperlipidemia 01/16/2022 Nephrolithiasis 02/25/2021 Peripheral neuropathy 2017 Renal cysts, acquired, bilateral 02/25/2021 PAST SURGICAL HISTORY Procedure Laterality Date CONTACT LASER VAPORIZATION PROSTATE ??? EGD 08/16/2013 TRURL ELECTROSURG RESCJ PROSTATE BLEED COMPLETE 08/30/2012 for structure ALLERGIES Patient has no known allergies. MEDICATIONS Current Outpatient Medications Medication Sig pregabalin (LYRICA) 75 mg capsule Take 1 capsule by mouth three times a day for 180 days. alpha lipoic acid 600 mg tab Take by mouth. omeprazole (PRILOSEC) 40 mg capsule Take 1 capsule by mouth once daily. lisinopril (ZESTRIL) 10 mg tablet Take 1 tablet by mouth once daily. famotidine (PEPCID) 40 mg tablet Take 40 mg by mouth once daily. rosuvastatin (CRESTOR) 10 mg tablet Take 1 tablet by mouth daily at bedtime. fluvoxaMINE (LUVOX) 100 mg tablet Take 2 tablets by mouth daily at bedtime. [facility] busPIRone HCl 30 mg tablet Take 1 tablet in am. Take 1/2 tablet at bedtime. [facility]. ARIPiprazole (ABILIFY) 15 mg tablet Take 1 tablet by mouth once daily. [facility]. amantadine HCl (SYMMETREL) 100 mg capsule 200 mg twice daily. amitriptyline (ELAVIL) 50 mg tablet 50 mg once daily. carBAMazepine (TEGRETOL) 200 mg tablet 200 mg twice daily. Cholecalciferol, Vitamin D3, 50 mcg (2,000 unit) cap Take by mouth once daily. bethanechol (URECHOLINE) 25 mg tablet Take 1 tablet by mouth three times daily. No current facility-administered medications for this visit. FAMILY HISTORY Problem Relation Age of Onset Psychiatry Mother Arrhythmia Mother Hypothyroidism Mother Heart Attack Father age 82 Genitourinary () Father urine retention COPD Sister other (covid 19) Sister No Known Problems Brother Heart Maternal Grandmother Heart Maternal Aunt Diabetes Paternal Aunt Social History Tobacco Use Smoking status: Never Smokeless tobacco: Never Substance Use Topics Alcohol use: No Drug use: Never REVIEW OF SYSTEMS Head: (-) headache Eyes: (-) blurred vision, (-) diplopia Cardiovascular: (-) chest pain, (-) palpitations Respiratory: (-) dyspnea, (-) cough, (-) wheezing Gastrointestinal: (-) nausea, (-) vomiting Musculoskeletal: (-) joint pain, (-) joint swelling Psychiatric: (+) insomnia EXAM: BP 132/72 Pulse 76 Wt 106.6 kg (235 lb) SpO2 98% BMI 32.78 kg/m PHYSICAL EXAM: GENERAL: NAD, alert and oriented SKIN: unremarkable, no rash or skin lesions. HEAD: normocephalic NECK: Supple, no lymphadenopathy, normal thyroid, no carotid bruits. LUNGS: Clear to auscultation bilaterally, no wheezes/rhonchi/rales. HEART: Regular rate and rhythm, no murmurs. No ectopy. EXTREMITIES: Normal, No deformities, No skin discoloration, No edema. NEURO: Awake, alert and oriented x3, cranial nerves II-XII grossly intact, normal gait, no involuntary motions. Restless LABS: ASSESSMENT/PLAN: 1. Bipolar affective disorder, currently manic, moderate (HCC) (F31.12) - Patient experiencing insomnia, likely related to current medication regimen. - Has not seen mental health provider Senia in almost a year; next appointment scheduled for July. - Neurologist recommended tapering off Abilify due to tremors, but no changes have been made. - Prescribed mirtazapine 7.5 mg for sleep; advised not to exceed this dose as higher doses can have the opposite effect. Use cautiously d/t other medications with seratonin effect - Initiated urgent referral to mental health services for medication management and follow-up. 1. Bipolar affective disorder, currently manic, moderate (HCC) - ICD9: 296.42, ICD10: F31.12 - [facility] - MIRTAZAPINE 7.5 MG TABLET Discussed treatment plan and patient voices understanding. Patient's questions answered appropriately. Medications and potential side effects were discussed and patient voices understanding. Return to the office as scheduled or as needed for worsening/no improvement. Ritu Holm APRN.FAUSTO documented in this encounter [facility] 06-16-2025 Telephone encounter Note Pt reports he is having trouble sleeping for 1 month now. Reports last night he slept from 10 p to 2:30 am, and has been awake since. Is unable to sleep during the day and does not sleep during the day. Reports he has not slept for a month and has bipolar, and the lack of sleep is making his bipolar worse. States he's tried melatonin and tylenol pm and neither of these worked. Reports he has called the counseling center several times and left messages but they will not call him back. Scheduled appt with Soniya on Thursday. [facility] 06-16-2025 Miscellaneous Notes Pt reports he is having trouble sleeping for 1 month now. Reports last night he slept from 10 p to 2:30 am, and has been awake since. Is unable to sleep during the day and does not sleep during the day. Reports he has not slept for a month and has bipolar, and the lack of sleep is making his bipolar worse. States he's tried melatonin and tylenol pm and neither of these worked. Reports he has called the counseling center several times and left messages but they will not call him back. Scheduled appt with Soniya on Thursday. documented in this encounter [facility] 04-07-2025 Note HNO ID: [id number] Author: ?, ?, ? Service: ? Author Type: ? Type: Progress Notes Filed: 04/07/2025 13:12 Note Text: POPULATION HEALTH NAVIGATION OUTREACH Action/ Patient returned mychart message. Patient due for colonoscopy. Requesting home test. Due in 09/2025. Patient has declined a colonoscopy, but is open to FOBT or FIT. Please review if the patient is a good candidate and have the office reach out to coordinate appropriate test. Reason for Outreach Returned Call/MyChart Patient Contacted: Spoke to patient/parent/or legal guardian Patient identified by name and date of : Yes Returned call/MyChart actions taken: Unable to schedule for Location - Routed encounter to office to schedule Navigation Signature: Alpa Richards April 07, 2025 1:06 PM [facility] 04-07-2025 History of Present illness Narrative POPULATION HEALTH NAVIGATION OUTREACH Action/I Patient returned mychart message. Patient due for colonoscopy. Requesting home test. Due in 09/2025. Patient has declined a colonoscopy, but is open to FOBT or FIT. Please review if the patient is a good candidate and have the office reach out to coordinate appropriate test. Reason for Outreach Returned Call/MyChart Patient Contacted: Spoke to patient/parent/or legal guardian Patient identified by name and date of : Yes Returned call/MyChart actions taken: Unable to schedule for Location - Routed encounter to office to schedule Navigation Signature: Alpa Richards April 07, 2025 1:06 PM POPULATION HEALTH NAVIGATION OUTREACH Action/ Patient outreach for HCC gaps; COLO. LVM and sent mychart message to close gaps. Appointment notes updated. Reason for Outreach Care Gap/HCC or Scheduling Wellness Visits Care Gaps due: Colorectal Cancer Screening Patient Contacted: Unable or unnecessary to reach patient: Left message MyChart message sent HCC related Updated appointment notes Navigation Signature: Alpa Richards April 07, 2025 12:18 PM documented in this encounter [facility] 04-07-2025 Note HNO ID: [id number] Author: ?, ?, ? Service: ? Author Type: ? Type: Progress Notes Filed: 04/07/2025 12:22 Note Text: POPULATION HEALTH NAVIGATION OUTREACH Action/FYI Patient outreach for HCC gaps; COLO. LVM and sent mychart message to close gaps. Appointment notes updated. Reason for Outreach Care Gap/HCC or Scheduling Wellness Visits Care Gaps due: Colorectal Cancer Screening Patient Contacted: Unable or unnecessary to reach patient: Left message MyChart message sent HCC related Updated appointment notes Navigation Signature: Alpa Richards April 07, 2025 12:18 PM [facility] 04-07-2025 Note Patient Outreach (NE TNAV) ELIZABETH BAUMANN ([id number]) 1970 Date Time Provider Department 04/07/25 THONY RAZA During your visit today, we recorded the following information about you: Alpa Rowley 04/07/2025 12:22 PM Signed POPULATION HEALTH NAVIGATION OUTREACH Action/I Patient outreach for HCC gaps; COLO. LVM and sent mychart message to close gaps. Appointment notes updated. Reason for Outreach Care Gap/HCC or Scheduling Wellness Visits Care Gaps due: Colorectal Cancer Screening Patient Contacted: Unable or unnecessary to reach patient: Left message MyChart message sent HCC related Updated appointment notes Navigation Signature: Alpa Richards April 07, 2025 12:18 PM Alpa Rowley 04/07/2025 1:12 PM Signed POPULATION HEALTH NAVIGATION OUTREACH Action/FYI Patient returned mychart message. Patient due for colonoscopy. Requesting home test. Due in 09/2025. Patient has declined a colonoscopy, but is open to FOBT or FIT. Please review if the patient is a good candidate and have the office reach out to coordinate appropriate test. Reason for Outreach Returned Call/MyChart Patient Contacted: Spoke to patient/parent/or legal guardian Patient identified by name and date of : Yes Returned call/MyChart actions taken: Unable to schedule for Location - Routed encounter to office to schedule Navigation Signature: Alpa Weiss Pss April 07, 2025 1:06 PM Allergies As of Date: 04/07/2025 (No Known Allergies) Date Reviewed: 03/22/2025 Reviewed by: Soniya Orta APRN.COMPLIANCE SPECIALIST - Fully Assessed Reason for Visit: Population Health Navigation Outreach [3910] Cmt: Jenny Agrawal Prescriptions as of 04/07/2025 - pregabalin (LYRICA) 75 mg capsule Take 1 capsule by mouth three times a day for 180 days. - alpha lipoic acid 600 mg tab Take by mouth. - omeprazole (PRILOSEC) 40 mg capsule Take 1 capsule by mouth once daily. - lisinopril (ZESTRIL) 10 mg tablet Take 1 tablet by mouth once daily. - famotidine (PEPCID) 40 mg tablet Take 40 mg by mouth once daily. - rosuvastatin (CRESTOR) 10 mg tablet Take 1 tablet by mouth daily at bedtime. - fluvoxaMINE (LUVOX) 100 mg tablet Take 2 tablets by mouth daily at bedtime. [facility] - busPIRone HCl 30 mg tablet Take 1 tablet in am. Take 1/2 tablet at bedtime. [facility]. - ARIPiprazole (ABILIFY) 15 mg tablet Take 1 tablet by mouth once daily. [facility]. - amantadine HCl (SYMMETREL) 100 mg capsule 200 mg twice daily. - amitriptyline (ELAVIL) 50 mg tablet 50 mg once daily. - carBAMazepine (TEGRETOL) 200 mg tablet 200 mg twice daily. - Cholecalciferol, Vitamin D3, 50 mcg (2,000 unit) cap Take by mouth once daily. - bethanechol (URECHOLINE) 25 mg tablet Take 1 tablet by mouth three times daily. Problem List As Of Date 04/07/2025 Noted Resolved Calculus of gallbladder without mention of chol*07/23/2013 01/16/2022 Abdominal pain, unspecified site [R10.9] 07/23/2013 01/16/2022 Obesity, Class II, BMI 35-39.9 [E66.812] 01/16/2022 Bipolar 1 disorder (HCC) [F31.9] 01/16/2022 Hyperlipidemia [E78.5] 01/16/2022 Idiopathic peripheral neuropathy [G60.9] 01/16/2022 CKD (chronic kidney disease) stage 2, GFR 60-89*01/16/2022 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] 01/16/2022 Prediabetes [R73.03] 02/13/2022 Primary hypertension [I10] 02/13/2022 AMAYA on CPAP [G47.33] 07/02/2022 Gastroesophageal reflux disease without esophag*10/16/2022 Chronic bilateral low back pain without sciatic*01/20/2023 Obesity, Class I, BMI 30-34.9 [E66.811] 07/20/2023 Encounter Status:Closed by ALPA ROWLEY on 04/07/25 [facility] 03-22-2025 Note HNO ID: [id number] Author: SONIYA ORTA APRN.COMPLIANCE SPECIALIST Service: ? Author Type: Nurse Practitioner Type: Progress Notes Filed: 03/22/2025 15:16 Note Text: CC: Patient presents with: Mass: Behind RT ear HPI Recording using [employer] software for draft documentation of the visit was discussed with the patient/authorized hobbies and crafts sales representative; all questions welcomed and answered. Patient/authorized hobbies and crafts sales representative agreed to proceed Right Ear Lump: - Noticed by his bedspread cutter hand a few weeks ago during an eyeglass adjustment. - Described as a "hard, bony knot." - No change in size since first noticed. - No associated pain, tenderness, or warmth. - Denies known trauma or injury to the area. - No hearing difficulties, ear pain/pressure - No recent illnesses/URI Review of Systems Constitutional: Negative for chills, diaphoresis, fatigue, fever and unexpected weight change. HENT: Negative for ear discharge, ear pain, facial swelling and hearing loss. PAST MEDICAL HISTORY Diagnosis Date Bipolar 1 disorder ([facility]) 1996 Marc Britt, [facility]. BPH with obstruction/lower urinary tract symptoms 2010 Calculus of gallbladder without mention of cholecystitis or obstruction 07/23/2013 CKD (chronic kidney disease) stage 2, GFR 60-89 ml/min 01/16/2022 Constipation, chronic 10/13/2021 Depression 1996 Diabetes (HCC) 1996 Drug-induced tremor 01/16/2022 Gastritis and duodenitis 08/16/2013 HTN (hypertension) 2011 Hyperlipidemia 01/16/2022 Nephrolithiasis 02/25/2021 Peripheral neuropathy 2018 Renal cysts, acquired, bilateral 02/25/2021 PAST SURGICAL HISTORY Procedure Laterality Date CONTACT LASER VAPORIZATION PROSTATE ??? EGD 08/16/2013 TRURL ELECTROSURG RESCJ PROSTATE BLEED COMPLETE 08/30/2012 for structure ALLERGIES Patient has no known allergies. MEDICATIONS pregabalin (LYRICA) 75 mg capsule Take 1 capsule by mouth three times a day for 180 days. alpha lipoic acid 600 mg tab Take by mouth. omeprazole (PRILOSEC) 40 mg capsule Take 1 capsule by mouth once daily. lisinopril (ZESTRIL) 10 mg tablet Take 1 tablet by mouth once daily. famotidine (PEPCID) 40 mg tablet Take 40 mg by mouth once daily. rosuvastatin (CRESTOR) 10 mg tablet Take 1 tablet by mouth daily at bedtime. fluvoxaMINE (LUVOX) 100 mg tablet Take 2 tablets by mouth daily at bedtime. [facility]. busPIRone HCl 30 mg tablet Take 1 tablet in am. Take 1/2 tablet at bedtime. [facility]. ARIPiprazole (ABILIFY) 15 mg tablet Take 1 tablet by mouth once daily. [facility]. amantadine HCl (SYMMETREL) 100 mg capsule 200 mg twice daily. amitriptyline (ELAVIL) 50 mg tablet 50 mg once daily. carBAMazepine (TEGRETOL) 200 mg tablet 200 mg twice daily. Cholecalciferol, Vitamin D3, 50 mcg (2,000 unit) cap Take by mouth once daily. bethanechol (URECHOLINE) 25 mg tablet Take 1 tablet by mouth three times daily. FAMILY HISTORY Problem Relation Age of Onset Psychiatry Mother Arrhythmia Mother Hypothyroidism Mother Heart Attack Father age 82 Genitourinary () Father urine retention COPD Sister other (covid 19) Sister No Known Problems Brother Heart Maternal Grandmother Heart Maternal Aunt Diabetes Paternal Aunt Social History Tobacco Use Smoking status: Never Smokeless tobacco: Never Substance Use Topics Alcohol use: No Drug use: Never BP 132/86 Pulse 82 Resp 14 Wt 107.1 kg (236 lb 1.8 oz) SpO2 98% BMI 32.93 kg/m? Physical Exam Vitals reviewed. Constitutional: Appearance: Normal appearance. HENT: Head: Normocephalic and atraumatic. Comments: Palpable bony prominence behind the right ear, non-tender, slightly larger than the left side. Negative for induration, fluctuance, erythema or increased warmth. Right Ear: Tympanic membrane, ear canal and external ear normal. No mastoid tenderness. Left Ear: Tympanic membrane, ear canal and external ear normal. No mastoid tenderness. Lymphadenopathy: Head: Right side of head: No preauricular, posterior auricular or occipital adenopathy. Left side of head: No preauricular, posterior auricular or occipital adenopathy. Cervical: No cervical adenopathy. Neurological: Mental Status: He is alert. Assessment/Plan 1. Bony abnormality (Q79.9) - Noted a non-tender, firm prominence behind the right ear, larger than the left side but consistent with bony structure; no signs of lymphadenopathy or infection. - Differential diagnosis includes benign anatomical variation. - Advised monitoring for any changes in size, tenderness, or associated symptoms such as otalgia or erythema. - Patient instructed to report any significant changes or concerns immediately. I spent a total of 20 minutes on the date of the service which included preparing to see the patient, [id number] patient care, completing clinical documentation, performing a medically appropriate examination, and couns (more content not included)... [facility] 03-15-2025 Telephone encounter Note Refill for 6 months sent for lyrica 75mg tid. PDMP website checked and validated. All prescriptions have been APPROPRIATELY filled. No suspicious activity was identified. 03/15/2025 by Ema Cooper PA-C [facility] 03-15-2025 Miscellaneous Notes Refill for 6 months sent for lyrica 75mg tid. PDMP website checked and validated. All prescriptions have been APPROPRIATELY filled. No suspicious activity was identified. 03/15/2025 by Ema Cooper PA-C Prescription Refill Information The patient has been identified by name and date of : Yes Caregiver verified no other encounters exist for this prescription request: Yes Caregiver confirmed with patient/requestor that no other refills are due, in the near future, with this provider at this time: Yes The last office visit in the department: 02/08/25 MQ Does the patient have a future office visit with this provider/department: Yes 08/15/25 Requested Prescriptions Pending Prescriptions Disp Refills pregabalin (LYRICA) 75 mg capsule 90 capsule 2 Sig: Take 1 capsule by mouth three times a day for 90 days. Adelaida Morales LPN March 14, 2025 11:51 AM documented in this encounter [facility] 03-14-2025 Telephone encounter Note Prescription Refill Information The patient has been identified by name and date of : Yes Caregiver verified no other encounters exist for this prescription request: Yes Caregiver confirmed with patient/requestor that no other refills are due, in the near future, with this provider at this time: Yes The last office visit in the department: 02/08/25 MQ Does the patient have a future office visit with this provider/department: Yes 08/15/25 Requested Prescriptions Pending Prescriptions Disp Refills pregabalin (LYRICA) 75 mg capsule 90 capsule 2 Sig: Take 1 capsule by mouth three times a day for 90 days. Adelaida Morales LPN March 14, 2025 11:51 AM [facility] 03-13-2025 Note HNO ID: [id number] Author: LEANA LEAL MD Service: ? Author Type: Physician Type: Progress Notes Filed: 03/23/2025 19:28 Note Text: NEW PATIENT EVALUATION Subjective HPI Elizabeth Baumann is a 54 year old right-handed male who presents for evaluation of tremor / parkinsonism. Ema FARIAS is the referring provider. Dr. Thony Raza MD is the PCP. Here with his niece. Tremor present in both hands for 2-3 years. Seems to notice it most when nervous, while driving, or typing on his cell phone. Manual dexterity seems to be fine. Handwriting is messy. Was tried on Ingrezza 40 then 80 mg a month each for the tremor without benefit. On disability for bipolar depression. Has been on Abilify for maybe 10 years. Maybe has been on olanzapine and quetiapine before that. Psychiatrist is Whit Britt CNP. Sense of smell has never been good his whole life. Mild constipation he attributed to amitriptyline. Can have nightmares without amitriptyline, not sure about enactment, lives alone, never fallen out of bed while asleep. - Abilify 10 or 15 mg daily - Amitriptyline 50 mg QHS - Buspirone 30 mg AM 15 mg PM - Carbamazepine 200 mg BID - Luvox 200 mg QHS - Amantadine 200 mg BID (10 years) - Lyrica 75 mg BID for burning pain in legs / feet Medications: Current Outpatient Medications Medication Sig Dispense Refill alpha lipoic acid 600 mg tab Take by mouth. omeprazole (PRILOSEC) 40 mg capsule Take 1 capsule by mouth once daily. 90 capsule 3 lisinopril (ZESTRIL) 10 mg tablet Take 1 tablet by mouth once daily. 90 tablet 3 pregabalin (LYRICA) 75 mg capsule Take 1 capsule by mouth three times a day for 90 days. 90 capsule 2 famotidine (PEPCID) 40 mg tablet Take 40 mg by mouth once daily. rosuvastatin (CRESTOR) 10 mg tablet Take 1 tablet by mouth daily at bedtime. 90 tablet 3 fluvoxaMINE (LUVOX) 100 mg tablet Take 2 tablets by mouth daily at bedtime[facility] busPIRone HCl 30 mg tablet Take 1 tablet in am. Take 1/2 tablet at bedtime. [facility]. ARIPiprazole (ABILIFY) 15 mg tablet Take 1 tablet by mouth once daily. [facility]. (Patient taking differently: Take 10 mg by mouth once daily. [facility].) amantadine HCl (SYMMETREL) 100 mg capsule 200 mg twice daily. amitriptyline (ELAVIL) 50 mg tablet 50 mg once daily. carBAMazepine (TEGRETOL) 200 mg tablet 200 mg twice daily. Cholecalciferol, Vitamin D3, 50 mcg (2,000 unit) cap Take by mouth once daily. bethanechol (URECHOLINE) 25 mg tablet Take 1 tablet by mouth three times daily. No current facility-administered medications for this visit. ROS ROS: His ROS was positive for that mentioned in the HPI. Otherwise a 10-point ROS was completed and was negative. ALLERGIES No Known Allergies Past Medical History: PAST MEDICAL HISTORY Diagnosis Date Bipolar 1 disorder (HCC) 1996 Marc [facility] CNP[facility]. BPH with obstruction/lower urinary tract symptoms 2010 Calculus of gallbladder without mention of cholecystitis or obstruction 07/23/2013 CKD (chronic kidney disease) stage 2, GFR 60-89 ml/min 01/16/2022 Constipation, chronic 10/13/2021 Depression 1996 Diabetes (HCC) 1996 Drug-induced tremor 01/16/2022 Gastritis and duodenitis 08/16/2013 HTN (hypertension) 2011 Hyperlipidemia 01/16/2022 Nephrolithiasis 02/25/2021 Peripheral neuropathy 2018 Renal cysts, acquired, bilateral 02/25/2021 Family History: FAMILY HISTORY Problem Relation Age of Onset Psychiatry Mother Arrhythmia Mother Hypothyroidism Mother Heart Attack Father age 82 Genitourinary () Father urine retention COPD Sister other (covid 19) Sister No Known Problems Brother Heart Maternal Grandmother Heart Maternal Aunt Diabetes Paternal Aunt MGF with dementia Mom noticing some memory difficulty Social History: Social History Tobacco Use Smoking status: Never Smokeless tobacco: Never Substance Use Topics Alcohol use: No Drug use: Never On disability due to bipolar depression Objective 03/13/25 1347 BP: 138/89 BP Site: Right Arm BP Position: Sitting BP Cuff Size: Large Adult Pulse: 81 SpO2: 98% Weight: 106.9 kg (235 lb 10.8 oz) Height: 180.3 cm (5' 11") Physical Examination General Appearance: Well appearing, alert, in no acute distress, well-hydrated, well nourished. Head: Normocephalic Neck: Supple Heart: RRR Peripheral Pulses: Normal Neurologic Examination Mental Status: He is alert. He is fully oriented. Attention is intact. Recent and remote memory is intact. Language shows normal comprehension and fluency. Praxis is normal. Affect is appropriate. Cranial Nerves: Pupils are equal and reactive to light. Extraocular movements show full and smooth pursuits. No nystagmus. Funduscopic exam shows sharp optic discs and normal vasculature. Visual fountain are full to confrontation. Facial sensation is intact. (more content not included)... [facility] 02-08-2025 Instructions Ema Cooper PA-C - 02/08/2025 11:49 AM EDT Lyrica 75mg three times a day Physical therapy for the legs and balance Follow up in 5-6 months documented in this encounter [facility] 02-08-2025 Note HNO ID: [id number] Author: EMA COOPER PA-C Service: ? Author Type: Physician Peeler Operator Type: Progress Notes Filed: 02/08/2025 12:02 Note Text: [facility] Name: Elizabeth Baumann Age: [age] year old Gender: male Primary Care Provider: Thony Raza MD Assessment/Plan: 02/08/2025 - General Neurology, Ema Cooper PA-C ASSESSMENT ASSESSMENT/PLAN: 1. Neuropathy - ICD9: 355.9, ICD10: G62.9 (primary diagnosis) Patient originally presenting with stocking glove distribution of sensory changes concerning for neuropathy. History of prediabetes, EMG obtained at [facility] last year did not show any obvious evidence of polyneuropathy. However, due to symptoms did continue to treat with Lyrica. Increase Lyrica 75mg to 3 times a day at last appointment and notes significant improvement. Notes he is almost pain-free throughout the whole day and like to continue this regimen. No significant side effects or fatigue throughout the day. Will continue with current dosage at this time. 2. 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 Parkinsonism, unspecified Parkinsonism type (HCC) - ICD9: 332.0, ICD10: G20.C Patient with some rigidity and fine tremor on exam. On multiple antipsychotics including Abilify. Discussed possibility of drug-induced tremor, would like to see a specialist and is scheduled with Dr. Leal on 13 March. 4. Spinal stenosis of lumbar region without neurogenic claudication - ICD9: 724.02, ICD10: M48.061 5. Weakness of left lower extremity - ICD9: 729.89, ICD10: R29.898 Patient with some new appreciable weakness of the left lower extremity on exam. Reporting chronic history of lumbar issues, recent x-ray of the lumbar spine obtained last year did show diffuse degenerative changes. Primarily seeing chiropractor for treatment but has not seen them for some time. No falls or signs or symptoms of cord compression. However, reflexes are decreased and again does have some weakness on exam. No facial weakness or weakness of the left upper extremity. Discussed trying physical therapy for further improvement of the weakness and gait, patient agreeable to this. Discussed should this not improve his weakness may consider imaging of the lumbar spine with an MRI and patient is amenable. Discussed red flag signs symptoms that would warrant going to the emergency department. Patient is agreeable to treatment plan of care at this time, all questions were answered. Patient to follow-up in 6 months. Ema Cooper PA-C Encounter Diagnosis ICD-10-CM 1. Neuropathy G62.9 2. Drug-induced tremor G25.1 3. Parkinsonism, unspecified Parkinsonism type (HCC) G20.C 4. Spinal stenosis of lumbar region without neurogenic claudication M48.061 CONSULT TO PHYSICAL THERAPY 5. Weakness of left lower extremity R29.898 CONSULT TO PHYSICAL THERAPY Return in about 6 months (around 08/11/2025). Chart, labs,and relevant images reviewed. Chief Complaint:Patient presents with: Established Patient: Parkinson's, Neuropathy Chart Review: Last Filed Values Date of Most Recent Assessment and Plan 08/02/24 Specialty General Neurology Assessment ASSESSMENT/PLAN: 1. Neuropathy - ICD9: 355.9, ICD10: G62.9 (primary diagnosis) 2. Numbness and tingling of both lower extremities - ICD9: 782.0, ICD10: R20.0, R20.2 Patient with chronic neuropathy, switching providers today. Has been on Lyrica 75 mg twice daily for quite some time and feels that its never been fully effective for him. Notes that he has constant numbness and tingling below the knee bilaterally, started at the great toe many years ago slowly ascended. Denies any significant weakness or falls, does get occasional lightheadedness. Recent EMG is actually negative for neuropathy but patient does have significant findings of both small and large fiber involvement on exam. Patient does have a history of diabetes in the past but is only prediabetic now. Still working factors but denies any heavy metal exposure, no other neuropathy risk factors. At this time, will continue with Lyrica 75 mg, is also on Elavil 50 mg for mood. Did discuss adding alpha lipoic acid 600 mg and patient is amenable to this. She does not be beneficial, may discuss altering medications in the future versus starting any medication. No need for further workup at this time. Patient agreeable to treatment plan of care at this time, questions were answered. Patient to follow-up in 3 months or sooner should any symptoms change or worsen. Ema Cooper PA-C HPI: Last seen on 11/02/24 for neuropathy and tremor. Lyrica wearing off in the middle of the day, only taking it bid. Sent to movement for tremor. Increased lyrica to tid. Patient presents today for follow-up. Notes after increasing the Lyrica to 3 times a day from 2 times a day he has noticed significant benefit. No breakthrough pa (more content not included)... [facility] 02-08-2025 History of Present illness Narrative Images from the original note were not included. [facility] Name: Elizabeth Baumann Age: [age] year old Gender: male Primary Care Provider: Thony Raza MD Assessment/Plan: 02/08/2025 - General Neurology, Ema Cooper PA-C ASSESSMENT ASSESSMENT/PLAN: 1. Neuropathy - ICD9: 355.9, ICD10: G62.9 (primary diagnosis) Patient originally presenting with stocking glove distribution of sensory changes concerning for neuropathy. History of prediabetes, EMG obtained at [facility] last year did not show any obvious evidence of polyneuropathy. However, due to symptoms did continue to treat with Lyrica. Increase Lyrica 75mg to 3 times a day at last appointment and notes significant improvement. Notes he is almost pain-free throughout the whole day and like to continue this regimen. No significant side effects or fatigue throughout the day. Will continue with current dosage at this time. 2. 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 Parkinsonism, unspecified Parkinsonism type (HCC) - ICD9: 332.0, ICD10: G20.C Patient with some rigidity and fine tremor on exam. On multiple antipsychotics including Abilify. Discussed possibility of drug-induced tremor, would like to see a specialist and is scheduled with Dr. Leal on 13 March. 4. Spinal stenosis of lumbar region without neurogenic claudication - ICD9: 724.02, ICD10: M48.061 5. Weakness of left lower extremity - ICD9: 729.89, ICD10: R29.898 Patient with some new appreciable weakness of the left lower extremity on exam. Reporting chronic history of lumbar issues, recent x-ray of the lumbar spine obtained last year did show diffuse degenerative changes. Primarily seeing chiropractor for treatment but has not seen them for some time. No falls or signs or symptoms of cord compression. However, reflexes are decreased and again does have some weakness on exam. No facial weakness or weakness of the left upper extremity. Discussed trying physical therapy for further improvement of the weakness and gait, patient agreeable to this. Discussed should this not improve his weakness may consider imaging of the lumbar spine with an MRI and patient is amenable. Discussed red flag signs symptoms that would warrant going to the emergency department. Patient is agreeable to treatment plan of care at this time, all questions were answered. Patient to follow-up in 6 months. Ema Cooper PA-C Encounter Diagnosis ICD-10-CM 1. Neuropathy G62.9 2. Drug-induced tremor G25.1 3. Parkinsonism, unspecified Parkinsonism type (HCC) G20.C 4. Spinal stenosis of lumbar region without neurogenic claudication M48.061 CONSULT TO PHYSICAL THERAPY 5. Weakness of left lower extremity R29.898 CONSULT TO PHYSICAL THERAPY Return in about 6 months (around 08/11/2025). Chart, labs,and relevant images reviewed. Chief Complaint:Patient presents with: Established Patient: Parkinson's, Neuropathy Chart Review: Last Filed Values Date of Most Recent Assessment and Plan 08/02/24 Specialty General Neurology Assessment ASSESSMENT/PLAN: 1. Neuropathy - ICD9: 355.9, ICD10: G62.9 (primary diagnosis) 2. Numbness and tingling of both lower extremities - ICD9: 782.0, ICD10: R20.0, R20.2 Patient with chronic neuropathy, switching providers today. Has been on Lyrica 75 mg twice daily for quite some time and feels that its never been fully effective for him. Notes that he has constant numbness and tingling below the knee bilaterally, started at the great toe many years ago slowly ascended. Denies any significant weakness or falls, does get occasional lightheadedness. Recent EMG is actually negative for neuropathy but patient does have significant findings of both small and large fiber involvement on exam. Patient does have a history of diabetes in the past but is only prediabetic now. Still working factors but denies any heavy metal exposure, no other neuropathy risk factors. At this time, will continue with Lyrica 75 mg, is also on Elavil 50 mg for mood. Did discuss adding alpha lipoic acid 600 mg and patient is amenable to this. She does not be beneficial, may discuss altering medications in the future versus starting any medication. No need for further workup at this time. Patient agreeable to treatment plan of care at this time, questions were answered. Patient to follow-up in 3 months or sooner should any symptoms change or worsen. Ema Cooper PA-C HPI: Last seen on 11/02/24 for neuropathy and tremor. Lyrica wearing off in the middle of the day, only taking it bid. Sent to movement for tremor. Increased lyrica to tid. Patient presents today for follow-up. Notes after increasing the Lyrica to 3 times a day from 2 times a day he has noticed significant benefit. No breakthrough pain throughout the day, feels like at times he is a 1/10 pain but this is very tolerable for him. No falls, occasional lightheadedness but no presyncope. Does occasionally have some balance issues if he gets up too fast, leaning towards more of the right side. Does note that recently his right leg gave out on him at the knee but this is infrequent. No falls or injuries. Does report maybe some weakness in the lower extremities as well. Has history of chronic back pain sees chiropractor but has not seen them for some time. No bowel bladder incontinence, saddle anesthesia. No significant back pain at this time. Lyrica increase did not help with the tremor. Prior meds: Lyrica Elavil Tegretol Review of Systems ACTIVE PROBLEM LIST Obesity, Class II, Bmi 35-39.9 Bipolar 1 Disorder (Hcc) Hyperlipidemia Idiopathic Peripheral Neuropathy Ckd (Chronic Kidney Disease) Stage 2, Gfr 60-89 Ml/Min Drug-Induced Tremor Prediabetes Primary Hypertension Amaya On Cpap Gastroesophageal Reflux Disease Without Esophagitis Chronic Bilateral Low Back Pain Without Sciatica Obesity, Class I, Bmi 30-34.9 PAST MEDICAL HISTORY Diagnosis Date Bipolar 1 disorder ([facility]) 1996 Marc [facility] CNP[facility]. BPH with obstruction/lower urinary tract symptoms 2010 Calculus of gallbladder without mention of cholecystitis or obstruction 07/23/2013 CKD (chronic kidney disease) stage 2, GFR 60-89 ml/min 01/16/2022 Constipation, chronic 10/13/2021 Depression 1996 Diabetes ([facility]) 1996 Drug-induced tremor 01/16/2022 Gastritis and duodenitis 08/16/2013 HTN (hypertension) 2011 Hyperlipidemia 01/16/2022 Nephrolithiasis 02/25/2021 Peripheral neuropathy 2018 Renal cysts, acquired, bilateral 02/25/2021 Medications: Reviewed omeprazole (PRILOSEC) 40 mg capsule Take 1 capsule by mouth once daily. lisinopril (ZESTRIL) 10 mg tablet Take 1 tablet by mouth once daily. alpha lipoic acid 600 mg tab Take 600 mg by mouth once daily. pregabalin (LYRICA) 75 mg capsule Take 1 capsule by mouth three times a day for 90 days. famotidine (PEPCID) 40 mg tablet Take 40 mg by mouth once daily. rosuvastatin (CRESTOR) 10 mg tablet Take 1 tablet by mouth daily at bedtime. fluvoxaMINE (LUVOX) 100 mg tablet Take 2 tablets by mouth daily at bedtime. [facility]. busPIRone HCl 30 mg tablet Take 1 tablet in am. Take 1/2 tablet at bedtime. [facility]. ARIPiprazole (ABILIFY) 15 mg tablet Take 1 tablet by mouth once daily. [facility]. amantadine HCl (SYMMETREL) 100 mg capsule 200 mg twice daily. amitriptyline (ELAVIL) 50 mg tablet 50 mg once daily. carBAMazepine (TEGRETOL) 200 mg tablet 200 mg twice daily. Cholecalciferol, Vitamin D3, 50 mcg (2,000 unit) cap Take by mouth once daily. bethanechol (URECHOLINE) 25 mg tablet Take 1 tablet by mouth three times daily. ALLERGIES No Known Allergies FAMILY HISTORY Problem Relation Age of Onset Psychiatry Mother Arrhythmia Mother Hypothyroidism Mother Heart Attack Father age 82 Genitourinary () Father urine retention COPD Sister other (covid 19) Sister No Known Problems Brother Heart Maternal Grandmother Heart Maternal Aunt Diabetes Paternal Aunt PAST SURGICAL HISTORY Procedure Laterality Date CONTACT LASER VAPORIZATION PROSTATE ??? EGD 08/16/2013 TRURL ELECTROSURG RESCJ PROSTATE BLEED COMPLETE 08/30/2012 for structure Social Hx: @Alcohol Use: Not At Risk (07/27/2024) AUDIT-C Frequency of Alcohol Consumption: Never Average Number of Drinks: Patient does not drink Frequency of Binge Drinking: Never Tobacco Use: Low Risk (02/01/2025) Patient History Smoking Tobacco Use: Never Smokeless Tobacco Use: Never Passive Exposure: Not on file 02/08/25 1123 BP: 108/74 Pulse: 75 Skin: Multiple small abrasions and cuts to the forearms, patient notes he has a new 4-month-old puppy. No obvious evidence of tunneling. Neurologic Exam Cognitive and Language: Alert and answered questions appropriately. Language was fluent. Cranial Nerves: Extraocular movements were full with no diplopia or nystagmus. Facial strength was symmetric. Motor: 4/5 strength with hip flexion on the left. Full strength in the upper extremities bilaterally and in the right lower extremity. Sensory: Decrease in vibration in the lower extremities, slightly worse on the left lower extremity. Negative extinction to double simultaneous stimulation Reflexes: 1/4 to the Achilles and patella on the left lower extremity, 2/4 to the right patella and 1/4 to the right Achilles. Normal reflexes of the upper extremities. Coordination: Normal finger to nose and heel to diehl testing bilaterally. Normal gait, no shuffling. No resting tremor appreciated Labs: Lab Results Component Value Date WBC 7.95 06/07/2024 HCT 49.1 06/07/2024 MCV 91.1 06/07/2024 PLT 223 06/07/2024 Lab Results Component Value Date HBA1C 5.5 06/07/2024 HBA1C 5.6 07/22/2023 HBA1C 5.7 01/13/2023 HBA1C 5.9 01/20/2022 Cholesterol, Total Date Value Ref Range Status 09/08/2024 166 <200 mg/dL Final Comment: <200 mg/dL, Desirable 200-239 mg/dL, Borderline high >239 mg/dL, High HDL Cholesterol Date Value Ref Range Status 09/08/2024 44 >39 mg/dL Final Comment: 40-59 mg/dL, Acceptable >59 mg/dL, High: Negative risk factor for coronary heart disease <40 mg/dL, Low: Positive risk factor for coronary heart disease LDL Cholesterol Date Value Ref Range Status 09/08/2024 110 (H) <100 mg/dL Final Comment: <100 mg/dL, Optimal 100-129 mg/dL, Near optimal/above optimal 130-159 mg/dL, Borderline high 160-189 mg/dL, High >189 mg/dL, Very high Secondary prevention optimal LDL Cholesterol levels are recommended to be < 70 mg/dL Triglyceride Date Value Ref Range Status 09/08/2024 59 <150 mg/dL Final Comment: <150 mg/dL, Normal 150-199 mg/dL, Borderline high 200-499 mg/dL, High >499 mg/dL, Very high Results for orders placed or performed in visit on 01/02/25 COVID & INFLUENZA A/B & RSV PCR, ROUTINE Specimen: Nasopharynx; Swab Result Value Ref Range SARS-CoV-2 (Agent of COVID-19) RNA Not detected See comment Influenza A RNA Detected (A) Not Detected Influenza B RNA Not detected Not Detected Respiratory syncytial virus (RSV) RNA Not detected Not Detected Radiology: MRI Head/Brain - Last 2 Impressions No resulted procedures found. and MRI Spine - Last 2 Impressions No resulted procedures found. This note was dictated using [employer] speech recognition software and may contain some errors that were a result of the program not accurately transcribing what was dictated, despite efforts to make corrections. Note that unless urgent, test and MRI results will be discussed at next follow-up visit. PROMIS (Patient-Reported Outcomes Measurement Information System) is a set of person-centered measures that evaluates and monitors physical, social, and emotional health. It can be used with the general population and with individuals living with chronic conditions. PROMIS 10: PHYSICAL AND MENTAL HEALTH: 11/01/2024 PHQ-9 PHQ-2 Score 2 2 PHQ-9 Score 6 6 Medical Decision Making: Medical Decision Making Level: 1 - N/A I spent a total of 30 minutes on the date of the service which included preparing to see the patient, [id number] patient care, completing clinical documentation, obtaining and/or reviewing separately obtained history, performing a medically appropriate examination, counseling and educating the patient/family/caregiver, and ordering medications, tests, or procedures. documented in this encounter [facility] 02-01-2025 Note HNO ID: [id number] Author: SONIYA ORTA APRN.FAUSTO Service: ? Author Type: Nurse Practitioner Type: Progress Notes Filed: 02/14/2025 10:59 Note Text: CC: Patient presents with: Follow Up: 6 months HPI Elizabeth Baumann is a 54 year old male who presents today for above HTN-Medication changes:No Taking all medications as prescribed: yes Side effects: No Home BP's: No Denies: headache, chest pain, palpitations, dyspnea, and peripheral edema. Last 3 Encounter BP Readings: Date: BP: 02/01/2025 124/84 01/02/2025 118/60 11/03/2024 143/84 AMAYA: Is compliant with CPAP. No changes in settings. Denies issues with mask. Denies snoring, un-refreshed sleep, insomnia, excessive daytime drowsiness. Bipolar disorder: medications managed by psychiatry Whit Britt APRN. Patient is currently taking Abilify, Luvox, Buspar, Symmetrel, Elavil and Tegretol Feels medication is working well: yes Persistent/bothersome symptoms: no Side effects: None Review of Systems See HPI PAST MEDICAL HISTORY Diagnosis Date Bipolar 1 disorder (HCC) 1996 Marc [facility] CNP, [facility]. BPH with obstruction/lower urinary tract symptoms 2010 Calculus of gallbladder without mention of cholecystitis or obstruction 07/23/2013 CKD (chronic kidney disease) stage 2, GFR 60-89 ml/min 01/16/2022 Constipation, chronic 10/13/2021 Depression 1996 Diabetes (HCC) 1996 Drug-induced tremor 01/16/2022 Gastritis and duodenitis 08/16/2013 HTN (hypertension) 2011 Hyperlipidemia 01/16/2022 Nephrolithiasis 02/25/2021 Peripheral neuropathy 2018 Renal cysts, acquired, bilateral 02/25/2021 PAST SURGICAL HISTORY Procedure Laterality Date CONTACT LASER VAPORIZATION PROSTATE ??? EGD 08/16/2013 TRURL ELECTROSURG RESCJ PROSTATE BLEED COMPLETE 08/30/2012 for structure ALLERGIES Patient has no known allergies. MEDICATIONS omeprazole (PRILOSEC) 40 mg capsule Take 1 capsule by mouth once daily. alpha lipoic acid 600 mg tab Take 600 mg by mouth once daily. famotidine (PEPCID) 40 mg tablet Take 40 mg by mouth once daily. rosuvastatin (CRESTOR) 10 mg tablet Take 1 tablet by mouth daily at bedtime. fluvoxaMINE (LUVOX) 100 mg tablet Take 2 tablets by mouth daily at bedtime. [facility]. busPIRone HCl 30 mg tablet Take 1 tablet in am. Take 1/2 tablet at bedtime. [facility]. ARIPiprazole (ABILIFY) 15 mg tablet Take 1 tablet by mouth once daily. [facility]. lisinopril (ZESTRIL) 10 mg tablet Take 1 tablet by mouth once daily. amantadine HCl (SYMMETREL) 100 mg capsule 200 mg twice daily. amitriptyline (ELAVIL) 50 mg tablet 50 mg once daily. carBAMazepine (TEGRETOL) 200 mg tablet 200 mg twice daily. Cholecalciferol, Vitamin D3, 50 mcg (2,000 unit) cap Take by mouth once daily. bethanechol (URECHOLINE) 25 mg tablet Take 1 tablet by mouth three times daily. Benzonatate 200 mg capsule Take 1 capsule by mouth three times a day as needed. pregabalin (LYRICA) 75 mg capsule Take 1 capsule by mouth three times a day for 90 days. FAMILY HISTORY Problem Relation Age of Onset Psychiatry Mother Arrhythmia Mother Hypothyroidism Mother Heart Attack Father age 82 Genitourinary () Father urine retention COPD Sister other (covid 19) Sister No Known Problems Brother Heart Maternal Grandmother Heart Maternal Aunt Diabetes Paternal Aunt Social History Tobacco Use Smoking status: Never Smokeless tobacco: Never Substance Use Topics Alcohol use: No Drug use: Never BP 124/84 Pulse (!) 54 Resp 14 Wt 107.4 kg (236 lb 12.4 oz) SpO2 97% BMI 33.02 kg/m? Physical Exam Vitals reviewed. Constitutional: Appearance: Normal appearance. Cardiovascular: Rate and Rhythm: Normal rate and regular rhythm. Heart sounds: Normal heart sounds. No murmur heard. Pulmonary: Effort: Pulmonary effort is normal. Breath sounds: Normal breath sounds. No wheezing, rhonchi or rales. Neurological: Mental Status: He is alert. Psychiatric: Mood and Affect: Mood normal. Health maintenance reviewed with patient: BP Controlled (<130/80) Never done Influenza Vaccine(1) due on 05/29/2025 Serum Creatinine due on 06/07/2025 Depression Screening due on 07/27/2025 Anxiety Screening due on 07/27/2025 Colorectal Cancer Screening due on 10/17/2025 Annual PCP Team Chronic Disease Visit due on 02/01/2026 Diabetes Screening due on 06/07/2027 Lipid Screening due on 09/08/2029 DTaP,Tdap,Td Vaccine(2 - Td or Tdap) due on 11/09/2033 Hepatitis B Vaccine Completed Hepatitis C Screening Completed HIV Screening Completed Shingrix Vaccine Completed Covid-19 Vaccine Completed Pneumococcal Vaccine: 50+ Completed DATA REVIEWED: Most recent labs ASSESSMENT/PLAN: 1. Primary hypertension - ICD9: 401.9, ICD10: I10 (primary diagnosis) - Controlled - Continue current medications - Recommend home blood pressure monitoring, to bring results to next visit - (more content not included)... [facility] 02-01-2025 History of Present illness Narrative CC: Patient presents with: Follow Up: 6 months HPI Elizabeth Baumann is a 54 year old male who presents today for above HTN-Medication changes:No Taking all medications as prescribed: yes Side effects: No Home BP's: No Denies: headache, chest pain, palpitations, dyspnea, and peripheral edema. Last 3 Encounter BP Readings: Date: BP: 02/01/2025 124/84 01/02/2025 118/60 11/03/2024 143/84 AMAYA: Is compliant with CPAP. No changes in settings. Denies issues with mask. Denies snoring, un-refreshed sleep, insomnia, excessive daytime drowsiness. Bipolar disorder: medications managed by psychiatry hWit Britt APRN. Patient is currently taking Abilify, Luvox, Buspar, Symmetrel, Elavil and Tegretol Feels medication is working well: yes Persistent/bothersome symptoms: no Side effects: None Review of Systems See HPI PAST MEDICAL HISTORY Diagnosis Date Bipolar 1 disorder (HCC) 1996 Marc Britt, [facility]. BPH with obstruction/lower urinary tract symptoms 2010 Calculus of gallbladder without mention of cholecystitis or obstruction 07/23/2013 CKD (chronic kidney disease) stage 2, GFR 60-89 ml/min 01/16/2022 Constipation, chronic 10/13/2021 Depression 1996 Diabetes (HCC) 1996 Drug-induced tremor 01/16/2022 Gastritis and duodenitis 08/16/2013 HTN (hypertension) 2011 Hyperlipidemia 01/16/2022 Nephrolithiasis 02/25/2021 Peripheral neuropathy 2017 Renal cysts, acquired, bilateral 02/25/2021 PAST SURGICAL HISTORY Procedure Laterality Date CONTACT LASER VAPORIZATION PROSTATE ??? EGD 08/16/2013 TRURL ELECTROSURG RESCJ PROSTATE BLEED COMPLETE 08/30/2012 for structure ALLERGIES Patient has no known allergies. MEDICATIONS omeprazole (PRILOSEC) 40 mg capsule Take 1 capsule by mouth once daily. alpha lipoic acid 600 mg tab Take 600 mg by mouth once daily. famotidine (PEPCID) 40 mg tablet Take 40 mg by mouth once daily. rosuvastatin (CRESTOR) 10 mg tablet Take 1 tablet by mouth daily at bedtime. fluvoxaMINE (LUVOX) 100 mg tablet Take 2 tablets by mouth daily at bedtime. [facility] busPIRone HCl 30 mg tablet Take 1 tablet in am. Take 1/2 tablet at bedtime. [facility]. ARIPiprazole (ABILIFY) 15 mg tablet Take 1 tablet by mouth once daily. [facility]. lisinopril (ZESTRIL) 10 mg tablet Take 1 tablet by mouth once daily. amantadine HCl (SYMMETREL) 100 mg capsule 200 mg twice daily. amitriptyline (ELAVIL) 50 mg tablet 50 mg once daily. carBAMazepine (TEGRETOL) 200 mg tablet 200 mg twice daily. Cholecalciferol, Vitamin D3, 50 mcg (2,000 unit) cap Take by mouth once daily. bethanechol (URECHOLINE) 25 mg tablet Take 1 tablet by mouth three times daily. Benzonatate 200 mg capsule Take 1 capsule by mouth three times a day as needed. pregabalin (LYRICA) 75 mg capsule Take 1 capsule by mouth three times a day for 90 days. FAMILY HISTORY Problem Relation Age of Onset Psychiatry Mother Arrhythmia Mother Hypothyroidism Mother Heart Attack Father age 82 Genitourinary () Father urine retention COPD Sister other (covid 19) Sister No Known Problems Brother Heart Maternal Grandmother Heart Maternal Aunt Diabetes Paternal Aunt Social History Tobacco Use Smoking status: Never Smokeless tobacco: Never Substance Use Topics Alcohol use: No Drug use: Never BP 124/84 Pulse (!) 54 Resp 14 Wt 107.4 kg (236 lb 12.4 oz) SpO2 97% BMI 33.02 kg/m Physical Exam Vitals reviewed. Constitutional: Appearance: Normal appearance. Cardiovascular: Rate and Rhythm: Normal rate and regular rhythm. Heart sounds: Normal heart sounds. No murmur heard. Pulmonary: Effort: Pulmonary effort is normal. Breath sounds: Normal breath sounds. No wheezing, rhonchi or rales. Neurological: Mental Status: He is alert. Psychiatric: Mood and Affect: Mood normal. Health maintenance reviewed with patient: BP Controlled (<130/80) Never done Influenza Vaccine(1) due on 05/29/2025 Serum Creatinine due on 06/07/2025 Depression Screening due on 07/27/2025 Anxiety Screening due on 07/27/2025 Colorectal Cancer Screening due on 10/17/2025 Annual PCP Team Chronic Disease Visit due on 02/01/2026 Diabetes Screening due on 06/07/2027 Lipid Screening due on 09/08/2029 DTaP,Tdap,Td Vaccine(2 - Td or Tdap) due on 11/09/2033 Hepatitis B Vaccine Completed Hepatitis C Screening Completed HIV Screening Completed Shingrix Vaccine Completed Covid-19 Vaccine Completed Pneumococcal Vaccine: 50+ Completed DATA REVIEWED: Most recent labs ASSESSMENT/PLAN: 1. Primary hypertension - ICD9: 401.9, ICD10: I10 (primary diagnosis) - Controlled - Continue current medications - Recommend home blood pressure monitoring, to bring results to next visit - Encouraged sodium restriction, DASH or Mediterranean diet - LISINOPRIL 10 MG TABLET - COMPLETE BLOOD COUNT - COMPREHENSIVE METABOLIC PANEL 2. AMAYA on CPAP - ICD9: 327.23, ICD10: G47.33 Compliant with and benefiting from CPAP 3. Hyperlipidemia, unspecified hyperlipidemia type - ICD9: 272.4, ICD10: E78.5 - Controlled - Continue current medications - LIPID PANEL BASIC 4. Prediabetes - ICD9: 790.29, ICD10: R73.03 Recheck in 6 months - HEMOGLOBIN A1C 5. Encounter for immunization - ICD9: V03.89, ICD10: Z23 - PFIZER-[employer]IONTE[employer] COVID-19 VACCINE AGE 12+ YR (COMIRNATY) - PNEUMOCOCCAL VACCINE, 20 VALENT (PREVNAR 20) Prescription instructions reviewed with patient as applicable. Potential red flag symptoms discussed with the patient. Reviewed appropriate action plan to take if red flag symptoms occur. Patient agreeable to treatment plan. Soniya Orta APRN.CNP Medical Decision Making: Problems: Moderate: 2+ stable chronic illnesses Data: Unique test result(s) reviewed: 1 Unique test(s) ordered: 1 Risk: Low: Low risk from testing/treatment Moderate: Drug management Medical Decision Making Level: 4 - Moderate documented in this encounter [facility] 01-26-2025 Note HNO ID: [id number] Author: ?, ?, ? Service: ? Author Type: ? Type: Progress Notes Filed: 01/26/2025 12:12 Note Text: Elizabeth Baumann is identified through a medication adherence outreach initiative based on pharmacy claims data from [employer] (insurer) for DMITRI medication(s) and Statin medication(s). Patient is reviewed 01/26/25 due to medication adherence concerns with the following medications (name, strength, sig): Rosuvastatin 10mg 1 tab daily, Lisinopril 10mg 1 tab daily . Per data/report, last fill date and days supply: Rosuvastatin due 12/26/24 , Lisinopril due 09/01/24 Per reconcile dispense, last fill date and days supply: Rosuvastatin 10/28/24 for 30 ds , Lisinopril 07/29/24 for 35 ds Per call to pharmacy, last picked up date and days supply: Rosuvastatin 01/26/25 for 30 ds, Lisinopril 07/29/24 for 30 35 ds Contacted patient: Spoke to patient Outcome of review/outreach: (choose outcome source and status) - Spoke to pt and state he going to call the pharmacy for a refill for the Lisinopril. If he don't have any refill left he going to call me back to request a refill. Rosuvastatin was filled at pharmacy 01/26/25 for 30 ds . Diane Reyna Batch Analyst [facility] 01-26-2025 History of Present illness Narrative Elizabeth Baumann is identified through a medication adherence outreach initiative based on pharmacy claims data from [employer] (insurer) for DMITRI medication(s) and Statin medication(s). Patient is reviewed 01/26/25 due to medication adherence concerns with the following medications (name, strength, sig): Rosuvastatin 10mg 1 tab daily, Lisinopril 10mg 1 tab daily . Per data/report, last fill date and days supply: Rosuvastatin due 12/26/24 , Lisinopril due 09/01/24 Per reconcile dispense, last fill date and days supply: Rosuvastatin 10/28/24 for 30 ds , Lisinopril 07/29/24 for 35 ds Per call to pharmacy, last picked up date and days supply: Rosuvastatin 01/26/25 for 30 ds, Lisinopril 07/29/24 for 30 35 ds Contacted patient: Spoke to patient Outcome of review/outreach: (choose outcome source and status) - Spoke to pt and state he going to call the pharmacy for a refill for the Lisinopril. If he don't have any refill left he going to call me back to request a refill. Rosuvastatin was filled at pharmacy 01/26/25 for 30 ds . Diane Reyna Batch Analyst documented in this encounter [facility] 01-26-2025 Note Patient Outreach (PH POHE) ELIZABETH BAUMANN ([id number]) 1970 M Date Time Provider Department 01/26/25 THONY RAZA During your visit today, we recorded the following information about you: Diane Reyna 01/26/2025 12:12 PM Signed Elizabeth B Baumann is identified through a medication adherence outreach initiative based on pharmacy claims data from [employer] (insurer) for DMITRI medication(s) and Statin medication(s). Patient is reviewed 01/26/25 due to medication adherence concerns with the following medications (name, strength, sig): Rosuvastatin 10mg 1 tab daily, Lisinopril 10mg 1 tab daily . Per data/report, last fill date and days supply: Rosuvastatin due 12/26/24 , Lisinopril due 09/01/24 Per reconcile dispense, last fill date and days supply: Rosuvastatin 10/28/24 for 30 ds , Lisinopril 07/29/24 for 35 ds Per call to pharmacy, last picked up date and days supply: Rosuvastatin 01/26/25 for 30 ds, Lisinopril 07/29/24 for 30 35 ds Contacted patient: Spoke to patient Outcome of review/outreach: (choose outcome source and status) - Spoke to pt and state he going to call the pharmacy for a refill for the Lisinopril. If he don't have any refill left he going to call me back to request a refill. Rosuvastatin was filled at pharmacy 01/26/25 for 30 ds . Diane Jeyson Batch Analyst Allergies As of Date: 01/26/2025 (No Known Allergies) Date Reviewed: 01/02/2025 Reviewed by: Soniya Orta, LUZMARIA.COMPLIANCE SPECIALIST - Fully Assessed Reason for Visit: Allied Health Visit [5] Cmt: Medication Adherence Outreach Prescriptions as of 01/26/2025 - valbenazine (INGREZZA) 80 mg capsule Take 1 capsule by mouth once daily. - Benzonatate 200 mg capsule Take 1 capsule by mouth three times a day as needed. - omeprazole (PRILOSEC) 40 mg capsule Take 1 capsule by mouth once daily. - alpha lipoic acid 600 mg tab Take 600 mg by mouth once daily. - pregabalin (LYRICA) 75 mg capsule Take 1 capsule by mouth three times a day for 90 days. - famotidine (PEPCID) 40 mg tablet Take 40 mg by mouth once daily. - rosuvastatin (CRESTOR) 10 mg tablet Take 1 tablet by mouth daily at bedtime. - fluvoxaMINE (LUVOX) 100 mg tablet Take 2 tablets by mouth daily at bedtime. [facility]. - busPIRone HCl 30 mg tablet Take 1 tablet in am. Take 1/2 tablet at bedtime. [facility]. - ARIPiprazole (ABILIFY) 15 mg tablet Take 1 tablet by mouth once daily. [facility]. - lisinopril (ZESTRIL) 10 mg tablet Take 1 tablet by mouth once daily. - amantadine HCl (SYMMETREL) 100 mg capsule 200 mg twice daily. - amitriptyline (ELAVIL) 50 mg tablet 50 mg once daily. - carBAMazepine (TEGRETOL) 200 mg tablet 200 mg twice daily. - Cholecalciferol, Vitamin D3, 50 mcg (2,000 unit) cap Take by mouth once daily. - bethanechol (URECHOLINE) 25 mg tablet Take 1 tablet by mouth three times daily. Problem List As Of Date 01/26/2025 Noted Resolved Calculus of gallbladder without mention of chol*07/23/2013 01/16/2022 Abdominal pain, unspecified site [R10.9] 07/23/2013 01/16/2022 Obesity, Class II, BMI 35-39.9 [E66.812] 01/16/2022 Bipolar 1 disorder (HCC) [F31.9] 01/16/2022 Hyperlipidemia [E78.5] 01/16/2022 Idiopathic peripheral neuropathy [G60.9] 01/16/2022 CKD (chronic kidney disease) stage 2, GFR 60-89*01/16/2022 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] 01/16/2022 Prediabetes [R73.03] 02/13/2022 Primary hypertension [I10] 02/13/2022 AMAYA on CPAP [G47.33] 07/02/2022 Gastroesophageal reflux disease without esophag*10/16/2022 Chronic bilateral low back pain without sciatic*01/20/2023 Obesity, Class I, BMI 30-34.9 [E66.811] 07/20/2023 Encounter Status:Closed by DIANE REYNA on 01/26/25 [facility] 01-02-2025 Note HNO ID: [id number] Author: SONIYA ORTA APRN.COMPLIANCE SPECIALIST Service: ? Author Type: Nurse Practitioner Type: Progress Notes Filed: 01/02/2025 14:14 Note Text: CC: Patient presents with: Cough: Nasal congestion, body aches/chills x 1 day HPI: Elizabeth Baumann is a 54 year old male who presents to the office with above complaint Symptoms began yesterday morning and include: Temperature elevation: Yes Chills: Yes Cough: Yes non-productive Shortness of breath: No Fatigue: Yes Muscle aches: Yes Headache: Yes New loss of smell or taste: No Sore throat: No Nasal congestion: Yes Rhinorrhea: No Nausea and/or vomiting: No Diarrhea: No Other Associated symptoms: decreased appetite. PMH: Non-contributory OTC meds/remedies that patient has tried: none. Exposures: Sick contacts? Yes, brother in law had influenza A Family or close contacts with confirmed/probable COVID-19 in last 14 days? No Home COVID test: no Review of Systems See HPI PAST MEDICAL HISTORY Diagnosis Date Bipolar 1 disorder (HCC) 1996 Marc Britt CNP, [facility]. BPH with obstruction/lower urinary tract symptoms 2010 Calculus of gallbladder without mention of cholecystitis or obstruction 07/23/2013 CKD (chronic kidney disease) stage 2, GFR 60-89 ml/min 01/16/2022 Constipation, chronic 10/13/2021 Depression 1996 Diabetes (HCC) 1996 Drug-induced tremor 01/16/2022 Gastritis and duodenitis 08/16/2013 HTN (hypertension) 2011 Hyperlipidemia 01/16/2022 Nephrolithiasis 02/25/2021 Peripheral neuropathy 2018 Renal cysts, acquired, bilateral 02/25/2021 PAST SURGICAL HISTORY Procedure Laterality Date CONTACT LASER VAPORIZATION PROSTATE ??? EGD 08/16/2013 TRURL ELECTROSURG RESCJ PROSTATE BLEED COMPLETE 08/30/2012 for structure ALLERGIES Patient has no known allergies. MEDICATIONS omeprazole (PRILOSEC) 40 mg capsule Take 1 capsule by mouth once daily. alpha lipoic acid 600 mg tab Take 600 mg by mouth once daily. pregabalin (LYRICA) 75 mg capsule Take 1 capsule by mouth three times a day for 90 days. famotidine (PEPCID) 40 mg tablet Take 40 mg by mouth once daily. rosuvastatin (CRESTOR) 10 mg tablet Take 1 tablet by mouth daily at bedtime. fluvoxaMINE (LUVOX) 100 mg tablet Take 2 tablets by mouth daily at bedtime. [facility] busPIRone HCl 30 mg tablet Take 1 tablet in am. Take 1/2 tablet at bedtime. [facility]. ARIPiprazole (ABILIFY) 15 mg tablet Take 1 tablet by mouth once daily. [facility]. lisinopril (ZESTRIL) 10 mg tablet Take 1 tablet by mouth once daily. amantadine HCl (SYMMETREL) 100 mg capsule 200 mg twice daily. amitriptyline (ELAVIL) 50 mg tablet 50 mg once daily. carBAMazepine (TEGRETOL) 200 mg tablet 200 mg twice daily. Cholecalciferol, Vitamin D3, 50 mcg (2,000 unit) cap Take by mouth once daily. bethanechol (URECHOLINE) 25 mg tablet Take 1 tablet by mouth three times daily. valbenazine (INGREZZA) 80 mg capsule Take 1 capsule by mouth once daily. FAMILY HISTORY Problem Relation Age of Onset Psychiatry Mother Arrhythmia Mother Hypothyroidism Mother Heart Attack Father age 82 Genitourinary () Father urine retention COPD Sister other (covid 19) Sister No Known Problems Brother Heart Maternal Grandmother Heart Maternal Aunt Diabetes Paternal Aunt Social History Tobacco Use Smoking status: Never Smokeless tobacco: Never Substance Use Topics Alcohol use: No Drug use: Never BP 118/60 Pulse 85 Temp (!) 38.3 ?C (100.9 ?F) (Temporal) Resp 14 Wt 109.1 kg (240 lb 8.4 oz) SpO2 95% BMI 33.55 kg/m? Physical Exam Vitals reviewed. Constitutional: General: He is not in acute distress. Appearance: He is ill-appearing. He is not toxic-appearing. HENT: Head: Normocephalic and atraumatic. Right Ear: Tympanic membrane normal. Left Ear: Tympanic membrane normal. Mouth/Throat: Lips: [place]. Mouth: Mucous membranes are moist. Pharynx: Oropharynx is clear. Eyes: Conjunctiva/sclera: Conjunctivae normal. Cardiovascular: Rate and Rhythm: Normal rate and regular rhythm. Heart sounds: Normal heart sounds. No murmur heard. Pulmonary: Effort: Pulmonary effort is normal. Breath sounds: Normal breath sounds. No wheezing, rhonchi or rales. Lymphadenopathy: Cervical: No cervical adenopathy. Skin: General: Skin is warm and dry. Neurological: Mental Status: He is alert. Psychiatric: Mood and Affect: Mood normal. ASSESSMENT/PLAN: 1. Flu-like symptoms - ICD9: 780.99, ICD10: R68.89 Known exposure to influenza A - Discussed viral etiology and rationale for treatment. - Symptomatic treatment with prn analgesia. The patient may also use Tessalon Perles as needed for cough. Supportive care with fluids and rest. - Follow up in 7 to 10 days if symptoms persist or sooner if worsening of symptoms - COVID AND INFLUENZA A/B AND RSV PCR, ROUTINE Prescription instructions reviewed (more content not included)... [facility] 01-02-2025 History of Present illness Narrative CC: Patient presents with: Cough: Nasal congestion, body aches/chills x 1 day HPI: Elizabeth Baumann is a 54 year old male who presents to the office with above complaint Symptoms began yesterday morning and include: Temperature elevation: Yes Chills: Yes Cough: Yes non-productive Shortness of breath: No Fatigue: Yes Muscle aches: Yes Headache: Yes New loss of smell or taste: No Sore throat: No Nasal congestion: Yes Rhinorrhea: No Nausea and/or vomiting: No Diarrhea: No Other Associated symptoms: decreased appetite. PMH: Non-contributory OTC meds/remedies that patient has tried: none. Exposures: Sick contacts? Yes, brother in law had influenza A Family or close contacts with confirmed/probable COVID-19 in last 14 days? No Home COVID test: no Review of Systems See HPI PAST MEDICAL HISTORY Diagnosis Date Bipolar 1 disorder (HCC) 1996 Marc Britt CNP[facility]. BPH with obstruction/lower urinary tract symptoms 2010 Calculus of gallbladder without mention of cholecystitis or obstruction 07/23/2013 CKD (chronic kidney disease) stage 2, GFR 60-89 ml/min 01/16/2022 Constipation, chronic 10/13/2021 Depression 1996 Diabetes (HCC) 1996 Drug-induced tremor 01/16/2022 Gastritis and duodenitis 08/16/2013 HTN (hypertension) 2011 Hyperlipidemia 01/16/2022 Nephrolithiasis 02/25/2021 Peripheral neuropathy 2018 Renal cysts, acquired, bilateral 02/25/2021 PAST SURGICAL HISTORY Procedure Laterality Date CONTACT LASER VAPORIZATION PROSTATE ??? EGD 08/16/2013 TRURL ELECTROSURG RESCJ PROSTATE BLEED COMPLETE 08/30/2012 for structure ALLERGIES Patient has no known allergies. MEDICATIONS omeprazole (PRILOSEC) 40 mg capsule Take 1 capsule by mouth once daily. alpha lipoic acid 600 mg tab Take 600 mg by mouth once daily. pregabalin (LYRICA) 75 mg capsule Take 1 capsule by mouth three times a day for 90 days. famotidine (PEPCID) 40 mg tablet Take 40 mg by mouth once daily. rosuvastatin (CRESTOR) 10 mg tablet Take 1 tablet by mouth daily at bedtime. fluvoxaMINE (LUVOX) 100 mg tablet Take 2 tablets by mouth daily at bedtime. [facility]. busPIRone HCl 30 mg tablet Take 1 tablet in am. Take 1/2 tablet at bedtime. [facility]. ARIPiprazole (ABILIFY) 15 mg tablet Take 1 tablet by mouth once daily. [facility]. lisinopril (ZESTRIL) 10 mg tablet Take 1 tablet by mouth once daily. amantadine HCl (SYMMETREL) 100 mg capsule 200 mg twice daily. amitriptyline (ELAVIL) 50 mg tablet 50 mg once daily. carBAMazepine (TEGRETOL) 200 mg tablet 200 mg twice daily. Cholecalciferol, Vitamin D3, 50 mcg (2,000 unit) cap Take by mouth once daily. bethanechol (URECHOLINE) 25 mg tablet Take 1 tablet by mouth three times daily. valbenazine (INGREZZA) 80 mg capsule Take 1 capsule by mouth once daily. FAMILY HISTORY Problem Relation Age of Onset Psychiatry Mother Arrhythmia Mother Hypothyroidism Mother Heart Attack Father age 82 Genitourinary () Father urine retention COPD Sister other (covid 19) Sister No Known Problems Brother Heart Maternal Grandmother Heart Maternal Aunt Diabetes Paternal Aunt Social History Tobacco Use Smoking status: Never Smokeless tobacco: Never Substance Use Topics Alcohol use: No Drug use: Never BP 118/60 Pulse 85 Temp (!) 38.3 C (100.9 F) (Temporal) Resp 14 Wt 109.1 kg (240 lb 8.4 oz) SpO2 95% BMI 33.55 kg/m Physical Exam Vitals reviewed. Constitutional: General: He is not in acute distress. Appearance: He is ill-appearing. He is not toxic-appearing. HENT: Head: Normocephalic and atraumatic. Right Ear: Tympanic membrane normal. Left Ear: Tympanic membrane normal. Mouth/Throat: Lips: [place]. Mouth: Mucous membranes are moist. Pharynx: Oropharynx is clear. Eyes: Conjunctiva/sclera: Conjunctivae normal. Cardiovascular: Rate and Rhythm: Normal rate and regular rhythm. Heart sounds: Normal heart sounds. No murmur heard. Pulmonary: Effort: Pulmonary effort is normal. Breath sounds: Normal breath sounds. No wheezing, rhonchi or rales. Lymphadenopathy: Cervical: No cervical adenopathy. Skin: General: Skin is warm and dry. Neurological: Mental Status: He is alert. Psychiatric: Mood and Affect: Mood normal. ASSESSMENT/PLAN: 1. Flu-like symptoms - ICD9: 780.99, ICD10: R68.89 Known exposure to influenza A - Discussed viral etiology and rationale for treatment. - Symptomatic treatment with prn analgesia. The patient may also use Tessalon Perles as needed for cough. Supportive care with fluids and rest. - Follow up in 7 to 10 days if symptoms persist or sooner if worsening of symptoms - COVID & INFLUENZA A/B & RSV PCR, ROUTINE Prescription instructions reviewed with patient as applicable. Potential red flag symptoms discussed with the patient. Reviewed appropriate action plan to take if red flag symptoms occur. Patient agreeable to treatment plan. Soniya Orta APRN.COMPLIANCE SPECIALIST documented in this encounter [facility] 01-02-2025 Telephone encounter Note Pt called in and reports he has had a nps cough, runny nose, and chills since yesterday. Pt reports he has no appetite. Pt scheduled with Soniya Orta HEALTH SERVICES INFORMATION SPECIALIST today at 200 pm. Pt was asked to wear a mask to appointment. [facility] 01-02-2025 Miscellaneous Notes Pt called in and reports he has had a nps cough, runny nose, and chills since yesterday. Pt reports he has no appetite. Pt scheduled with Soinya Orta HEALTH SERVICES INFORMATION SPECIALIST today at 200 pm. Pt was asked to wear a mask to appointment. documented in this encounter [facility] 12-30-2024 Telephone encounter Note Prescription Refill Information The patient has been identified by name and date of : Yes Caregiver verified no other encounters exist for this prescription request: Yes Caregiver confirmed with patient/requestor that no other refills are due, in the near future, with this provider at this time: Yes The last office visit in the department: 07/27/24 Does the patient have a future office visit with this provider/department: Yes 02/01/25 Requested Prescriptions Pending Prescriptions Disp Refills omeprazole (PRILOSEC) 40 mg capsule 30 capsule 2 Sig: Take 1 capsule by mouth once daily. Brigid Aguilera LPN December 30, 2024 12:02 PM [facility] 12-30-2024 Miscellaneous Notes Prescription Refill Information The patient has been identified by name and date of : Yes Caregiver verified no other encounters exist for this prescription request: Yes Caregiver confirmed with patient/requestor that no other refills are due, in the near future, with this provider at this time: Yes The last office visit in the department: 07/27/24 Does the patient have a future office visit with this provider/department: Yes 02/01/25 Requested Prescriptions Pending Prescriptions Disp Refills omeprazole (PRILOSEC) 40 mg capsule 30 capsule 2 Sig: Take 1 capsule by mouth once daily. Brigid Aguilera LPN December 30, 2024 12:02 PM documented in this encounter [facility] 12-30-2024 Note HNO ID: [id number] Author: ?, ?, ? Service: ? Author Type: ? Type: Progress Notes Filed: 12/30/2024 10:04 Note Text: Elizabeth Baumann is identified through a medication adherence outreach initiative based on pharmacy claims data from [employer] (insurer) for DMITRI medication(s). Patient is reviewed 12/30/24 due to medication adherence concerns with the following medications (name, strength, sig): lisinopril 10mg, take 1 tablet daily Per data/report, last fill date and days supply: due 09/01/24 Per reconcile dispense, last fill date and days supply: filled 07/29/24 for 35 days Per call to pharmacy, last picked up date and days supply: n/a Contacted patient: No answer; unable to leave VM Outcome of review/outreach: (choose outcome source and status) No answer, unable to leave message. Sent [employer] message Fan Domínguez [facility] 12-30-2024 History of Present illness Narrative Elizabeth Baumann is identified through a medication adherence outreach initiative based on pharmacy claims data from [employer] (insurer) for DMITRI medication(s). Patient is reviewed 12/30/24 due to medication adherence concerns with the following medications (name, strength, sig): lisinopril 10mg, take 1 tablet daily Per data/report, last fill date and days supply: due 09/01/24 Per reconcile dispense, last fill date and days supply: filled 07/29/24 for 35 days Per call to pharmacy, last picked up date and days supply: n/a Contacted patient: No answer; unable to leave VM Outcome of review/outreach: (choose outcome source and status) No answer, unable to leave message. Sent [employer] message Fan Domínguez documented in this encounter [facility] 12-30-2024 Note Patient Outreach ( POHE) ELIZABETH ABUMANN ([id number]) 1970 M Date Time Provider Department 12/30/24 THONY RAZA During your visit today, we recorded the following information about you: Fan Domínguez 12/30/2024 10:04 AM Signed Elizabeth B Pastor is identified through a medication adherence outreach initiative based on pharmacy claims data from [employer] (insurer) for DMITRI medication(s). Patient is reviewed 12/30/24 due to medication adherence concerns with the following medications (name, strength, sig): lisinopril 10mg, take 1 tablet daily Per data/report, last fill date and days supply: due 09/01/24 Per reconcile dispense, last fill date and days supply: filled 07/29/24 for 35 days Per call to pharmacy, last picked up date and days supply: n/a Contacted patient: No answer; unable to leave VM Outcome of review/outreach: (choose outcome source and status) No answer, unable to leave message. Sent [employer] message Fan Domínguez Allergies As of Date: 12/30/2024 (No Known Allergies) Date Reviewed: 11/03/2024 Reviewed by: Chris Chow APRN.COMPLIANCE SPECIALIST - Fully Assessed Reason for Visit: Allied Health Visit [5] Cmt: Medication Adherence Outreach Prescriptions as of 12/30/2024 - alpha lipoic acid 600 mg tab Take 600 mg by mouth once daily. - pregabalin (LYRICA) 75 mg capsule Take 1 capsule by mouth three times a day for 90 days. - omeprazole (PRILOSEC) 40 mg capsule Take 1 capsule by mouth once daily. - famotidine (PEPCID) 40 mg tablet Take 40 mg by mouth once daily. - rosuvastatin (CRESTOR) 10 mg tablet Take 1 tablet by mouth daily at bedtime. - fluvoxaMINE (LUVOX) 100 mg tablet Take 2 tablets by mouth daily at bedtime. [facility]. - busPIRone HCl 30 mg tablet Take 1 tablet in am. Take 1/2 tablet at bedtime. [facility]. - ARIPiprazole (ABILIFY) 15 mg tablet Take 1 tablet by mouth once daily. [facility]. - lisinopril (ZESTRIL) 10 mg tablet Take 1 tablet by mouth once daily. - amantadine HCl (SYMMETREL) 100 mg capsule 200 mg twice daily. - amitriptyline (ELAVIL) 50 mg tablet 50 mg once daily. - carBAMazepine (TEGRETOL) 200 mg tablet 200 mg twice daily. - Cholecalciferol, Vitamin D3, 50 mcg (2,000 unit) cap Take by mouth once daily. - bethanechol (URECHOLINE) 25 mg tablet Take 1 tablet by mouth three times daily. Problem List As Of Date 12/30/2024 Noted Resolved Calculus of gallbladder without mention of chol*07/23/2013 01/16/2022 Abdominal pain, unspecified site [R10.9] 07/23/2013 01/16/2022 Obesity, Class II, BMI 35-39.9 [E66.812] 01/16/2022 Bipolar 1 disorder (HCC) [F31.9] 01/16/2022 Hyperlipidemia [E78.5] 01/16/2022 Idiopathic peripheral neuropathy [G60.9] 01/16/2022 CKD (chronic kidney disease) stage 2, GFR 60-89*01/16/2022 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] 01/16/2022 Prediabetes [R73.03] 02/13/2022 Primary hypertension [I10] 02/13/2022 AMAYA on CPAP [G47.33] 07/02/2022 Gastroesophageal reflux disease without esophag*10/16/2022 Chronic bilateral low back pain without sciatic*01/20/2023 Obesity, Class I, BMI 30-34.9 [E66.811] 07/20/2023 Encounter Status:Closed by FAN DOMÍNGUEZ on 12/30/24 [facility] 12-13-2024 Telephone encounter Note Milena with the counseling center calls to update provider. Medication needs a PA because of the new year and was declined twice. They have now filed an appeal. Milena attempted to reach patient several times and the number is out of service. The number Milena has is different than the number we have. Current phone number given to Milena. Spoke to patient and notified to expect a call from Mil[facility] with the [facility]. Patient verbalizes understanding. Alka Day, RN [facility] 12-13-2024 Miscellaneous Notes Milena with the counseling center calls to update provider. Medication needs a PA because of the new year and was declined twice. They have now filed an appeal. iMlena attempted to reach patient several times and the number is out of service. The number Milena has is different than the number we have. Current phone number given to Milena. Spoke to patient and notified to expect a call from Milena with the [facility]. Patient verbalizes understanding. Alka Day RN Pts william called and is notified of message we had gotten from the [facility]. She voices understanding and thanks us for getting back to her. She said she isn't sure if her uncle was correct in when he thought he heard that they weren't going to refill the medications, or if something else was said. She said she would let us know if they got a hold of them, and I told her we would call them back if we heard anything. Delores Bradshaw RN Please inform the patient. Sounds like miscommunication. Talked with Ibeth at [facility] and she states they only have one nurse for the whole upstairs, so we could try to call at 8 am and get her on the phone first thing in the morning. She was also going to send an e-mail to Anay Hammonds for us to have her get back to providers office. She said Pt was last seen in August, but he does have the appointment coming up in January. She said they don't like to leave patients without their medications, and she didn't see any notes in the computer about the Pt requesting the medications or why they wouldn't refill them. She said that notes aren't always put in the computer. Will try to call back tomorrow. She did say that she could see that Milena had been in the Pts chart. Please clarify with the [facility] provide what the issue(s) are about refills. Pt and william Molina called in and report the has called [facility] several times about getting his medications refill. Pt sees Anay Hammonds, and they are telling him they will not refill them but not letting him know why. He states he was just there and has an appointment coming up with her in January. He was asking if they can cut him off cold turkey, because he only has enough medication to get him to 12/16/23. Pt states he gets the following medications from them: Carbamazepine 200 mg BID Amantadine 100 mg capsules, take 200 mg BID Fluvoxamine 100 mg, take 200 mg @ HS Abilify 15 mg daily Elavil 50 mg daily Buspirone 30 mg, take 1 tab in the am and 1/2 tab @ HS Cholecalciferol 2000 international unit(s) daily They reports he was started on these medication while he was at a hospital, but she continued him on them. I told them they should still try to get a hold of [facility] to see why they are not refilling them for him, or even go down there in person. The niece states she lives out of town. They were asking if providers office would be able to call and get anywhere with them. The were asking if they won't refill them if provider would take them over until he can find someone to fill them. Please call and advise. documented in this encounter [facility] 12-12-2024 Telephone encounter Note Pts william called and is notified of message we had gotten from the [facility]. She voices understanding and thanks us for getting back to her. She said she isn't sure if her uncle was correct in when he thought he heard that they weren't going to refill the medications, or if something else was said. She said she would let us know if they got a hold of them, and I told her we would call them back if we heard anything. Delores Bradshaw RN [facility] 12-12-2024 Telephone encounter Note Please inform the patient. Sounds like miscommunication. [facility] 12-12-2024 Telephone encounter Note Talked with Ibeth at [facility] and she states they only have one nurse for the whole upstairs, so we could try to call at 8 am and get her on the phone first thing in the morning. She was also going to send an e-mail to Anay Hammonds for us to have her get back to providers office. She said Pt was last seen in August, but he does have the appointment coming up in January. She said they don't like to leave patients without their medications, and she didn't see any notes in the computer about the Pt requesting the medications or why they wouldn't refill them. She said that notes aren't always put in the computer. Will try to call back tomorrow. She did say that she could see that Milena had been in the Pts chart. [facility] 12-12-2024 Telephone encounter Note Please clarify with the [facility] provide what the issue(s) are about refills. [facility] 12-12-2024 Telephone encounter Note Pt and william Molina called in and report the has called [facility] several times about getting his medications refill. Pt sees Anay Hammonds, and they are telling him they will not refill them but not letting him know why. He states he was just there and has an appointment coming up with her in January. He was asking if they can cut him off cold turkey, because he only has enough medication to get him to 12/16/23. Pt states he gets the following medications from them: Carbamazepine 200 mg BID Amantadine 100 mg capsules, take 200 mg BID Fluvoxamine 100 mg, take 200 mg @ HS Abilify 15 mg daily Elavil 50 mg daily Buspirone 30 mg, take 1 tab in the am and 1/2 tab @ HS Cholecalciferol 2000 international unit(s) daily They reports he was started on these medication while he was at a hospital, but she continued him on them. I told them they should still try to get a hold of [facility] to see why they are not refilling them for him, or even go down there in person. The niece states she lives out of town. They were asking if providers office would be able to call and get anywhere with them. The were asking if they won't refill them if provider would take them over until he can find someone to fill them. Please call and advise. [facility] 11-28-2024 Telephone encounter Note Prescription Refill Information The patient has been identified by name and date of : Yes Caregiver verified no other encounters exist for this prescription request: Yes The last office visit in the department: 11/02/24 Assessment and Plan: ASSESSMENT/PLAN: 1. Parkinsonism, unspecified Parkinsonism type (HCC) - ICD9: 332.0, ICD10: G20.C (primary diagnosis) 2. 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 Patient does have a very fine tremor with distraction of the bilateral upper extremities, worsened with intention. Has some rigidity to the bilateral upper extremities, also reporting anosmia, micrographia, intermittent constipation. Voice is very quiet on exam, does have flat affect. Has been on Abilify for many years but is no longer taking it. Due to parkinsonism found in history and physical concern for Parkinson's disease versus drug-induced parkinsonism. Discussed following with movement and patient is agreeable to this, consult was placed. No falls, significant memory loss. 3. Neuropathy - ICD9: 355.9, ICD10: G62.9 Patient reports slight worsening of neuropathy, notes that he feels his morning dose wearing off around 1 to 2 PM during the day, takes Lyrica 75 mg twice daily. No new symptoms, exam is relatively stable from previous. Discussed increasing to 3 times a day and patient is amenable to this. The prescription was filled for Lyrica 75 mg 3 times daily, discussed common side effects. Also tried alpha lipoic acid and feels some benefit with this, will continue this therapy as well. No new symptoms that would warrant additional workup at this time. No falls, lightheadedness, tripping. Patient agreeable to treatment plan of care at this time, questions were answered. Patient to follow-up in 4 to 5 months. PDMP website checked and validated. All prescriptions have been APPROPRIATELY filled. No suspicious activity was identified. 11/02/2024 by CARLOS Guy PA-C Does the patient have a future office visit with this provider/department: Yes 01/06/25 TW Requested Prescriptions Pending Prescriptions Disp Refills alpha lipoic acid 600 mg tab 90 tablet 0 Sig: Take 600 mg by mouth once daily. Anastacia Goff LPN November 28, 2024 8:23 AM [facility] 11-28-2024 Miscellaneous Notes Prescription Refill Information The patient has been identified by name and date of : Yes Caregiver verified no other encounters exist for this prescription request: Yes The last office visit in the department: 11/02/24 Assessment and Plan: ASSESSMENT/PLAN: 1. Parkinsonism, unspecified Parkinsonism type (HCC) - ICD9: 332.0, ICD10: G20.C (primary diagnosis) 2. 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 Patient does have a very fine tremor with distraction of the bilateral upper extremities, worsened with intention. Has some rigidity to the bilateral upper extremities, also reporting anosmia, micrographia, intermittent constipation. Voice is very quiet on exam, does have flat affect. Has been on Abilify for many years but is no longer taking it. Due to parkinsonism found in history and physical concern for Parkinson's disease versus drug-induced parkinsonism. Discussed following with movement and patient is agreeable to this, consult was placed. No falls, significant memory loss. 3. Neuropathy - ICD9: 355.9, ICD10: G62.9 Patient reports slight worsening of neuropathy, notes that he feels his morning dose wearing off around 1 to 2 PM during the day, takes Lyrica 75 mg twice daily. No new symptoms, exam is relatively stable from previous. Discussed increasing to 3 times a day and patient is amenable to this. The prescription was filled for Lyrica 75 mg 3 times daily, discussed common side effects. Also tried alpha lipoic acid and feels some benefit with this, will continue this therapy as well. No new symptoms that would warrant additional workup at this time. No falls, lightheadedness, tripping. Patient agreeable to treatment plan of care at this time, questions were answered. Patient to follow-up in 4 to 5 months. PDMP website checked and validated. All prescriptions have been APPROPRIATELY filled. No suspicious activity was identified. 11/02/2024 by CARLOS Guy PA-C Does the patient have a future office visit with this provider/department: Yes 01/06/25 TW Requested Prescriptions Pending Prescriptions Disp Refills alpha lipoic acid 600 mg tab 90 tablet 0 Sig: Take 600 mg by mouth once daily. Anastacia Goff LPN November 28, 2024 8:23 AM documented in this encounter [facility] 11-03-2024 Instructions Chris Chow APRN.COMPLIANCE SPECIALIST - 11/03/2024 3:47 PM EST Referral to the [place] office of dentist Dr Scot Nguyen for evaluation for oral appliance therapy for obstructive sleep apnea and CPAP intolerance documented in this encounter [facility] 11-03-2024 History of Present illness Narrative Images from the original note were not included. [facility] New Patient Evaluation PATIENT NAME: Elizabeth Baumann DATE OF SERVICE: November 03, 2024 CONSULTING PROVIDER: Soniya Orta [address] [facility] [id number] REASON FOR CONSULT: Soniya Orta sends the patient for an opinion about AMAYA. My findings and recommendations will be transmitted electronically via shared medical record to the consulting provider. HPI: Elizabeth Baumann is a 53 year old male. Sleep-related history: AMAYA diagnosed in 2021, he didn't tolerate CPAP. SLEEP-WAKE SCHEDULE Bedtime: 830-9 PM. He has a hard time falling asleep. Time to fall asleep: takes 45 min as long as he takes amitriptyline 50 mg Wake time: 5 AM, without an alarm. After falling asleep: he wakes up 2-3 time(s) per night, because of dog. Can be hard to fall back asleep, can be up for one hour. On weekends, he maintains the same sleep schedule. Average total sleep time (in a 24 hour period): 6 hours. SLEEP-RELATED DETAILS Preferred sleep position: back Breathing disturbances and other behaviors during sleep: snoring. Bruxism: Yes he had a mouth guard, getting a new one made. No dental issues but has some gum disease being treated at [facility]. No TMJ pain, gets some popping. GERD or aspiration: Yes Waking up with heart pounding or racing: No Anxiety or rumination: No (only when out with his dog in the night) He does not report having an urge to move the legs in the evening (when resting) that is accompanied or caused by uncomfortable and/or unpleasant sensations in the legs. He does sometimes kick in his sleep. He denies any history of parasomnias. Nightmares if he doesn't take amitriptyline. Excessive daytime sleepiness / fatigue is a problem. Excessive Daytime sleepiness/fatigue has been a problem for many years, worse since 2012. There is no history of a viral illness or significant head injury prior to the start of daytime sleepiness. He does not report sleep paralysis but has had sleep-related hallucinations (spider) WAKE-RELATED DETAILS He does not work. He does not have difficulty with memory or concentration. He denies falling asleep or dozing off when driving. He does take naps. Unintentionally in the recliner. Might be for an hour. He does drink max 1 caffeinated beverages per day. He has lost 20 pounds since 2 yrs. Patient Questionnaires Sleep Scores 11/01/2024 Sleep Questions Reason for visit: Sleep apnea On average, hours of sleep in 24 hours: 6 11/01/2024 [place] Sleepiness Scale Score 6 (No clinically significant daytime sleepiness) 11/01/2024 PROMIS CAT Sleep Disturbance PROMIS Sleep Disturbance T-Score 53 (within normal limits) PROMIS Sleep Disturbance Percentile 38 11/01/2024 PHQ-9 Score 6 6 Multiple values from one day are sorted in reverse-chronological order 11/01/2024 PROMIS Global Health - (T-Scores - the mean of general population = 50. Five points is a clinically meaningful difference.) Physical T-Score 37.4 37.4 Mental T-Score 36.3 36.3 Multiple values from one day are sorted in reverse-chronological order PAST TREATMENTS: CPAP--he didn't tolerate it, felt claustrophobic with FFM, also couldn't tolerate nasal pillows although they were better than the FFM PRIOR SLEEP STUDIES: A Home Sleep Test (HST) performed on 06/24/22 revealed an AHI of 17.6; supine index of 23.5; and a minimum oxygen saturation of 83%. PAST MEDICAL HISTORY Diagnosis Date Bipolar 1 disorder (HCC) 1996 Marc Britt CNP[facility]. BPH with obstruction/lower urinary tract symptoms 2010 Calculus of gallbladder without mention of cholecystitis or obstruction 07/23/2013 CKD (chronic kidney disease) stage 2, GFR 60-89 ml/min 01/16/2022 Constipation, chronic 10/13/2021 Depression 1996 Diabetes (HCC) 1996 Drug-induced tremor 01/16/2022 Gastritis and duodenitis 08/16/2013 HTN (hypertension) 2011 Hyperlipidemia 01/16/2022 Nephrolithiasis 02/25/2021 Peripheral neuropathy 2018 Renal cysts, acquired, bilateral 02/25/2021 PAST SURGICAL HISTORY Procedure Laterality Date CONTACT LASER VAPORIZATION PROSTATE ??? EGD 08/16/2013 TRURL ELECTROSURG RESCJ PROSTATE BLEED COMPLETE 08/30/2012 for structure ACTIVE PROBLEM LIST Obesity, Class II, Bmi 35-39.9 Bipolar 1 Disorder (Hcc) Hyperlipidemia Idiopathic Peripheral Neuropathy Ckd (Chronic Kidney Disease) Stage 2, Gfr 60-89 Ml/Min Drug-Induced Tremor Prediabetes Primary Hypertension Amaya On Cpap Gastroesophageal Reflux Disease Without Esophagitis Chronic Bilateral Low Back Pain Without Sciatica Obesity, Class I, Bmi 30-34.9 Allergies As of Date: 11/03/2024 (No Known Allergies) Fully Assessed 11/03/2024 CURRENT MEDICATIONS: pregabalin (LYRICA) 75 mg capsule Take 1 capsule by mouth three times a day for 90 days. omeprazole (PRILOSEC) 40 mg capsule Take 1 capsule by mouth once daily. alpha lipoic acid 600 mg tab Take 600 mg by mouth once daily. famotidine (PEPCID) 40 mg tablet Take 40 mg by mouth once daily. rosuvastatin (CRESTOR) 10 mg tablet Take 1 tablet by mouth daily at bedtime. fluvoxaMINE (LUVOX) 100 mg tablet Take 2 tablets by mouth daily at bedtime. [facility] busPIRone HCl 30 mg tablet Take 1 tablet in am. Take 1/2 tablet at bedtime. [facility]. ARIPiprazole (ABILIFY) 15 mg tablet Take 1 tablet by mouth once daily. [facility]. lisinopril (ZESTRIL) 10 mg tablet Take 1 tablet by mouth once daily. amantadine HCl (SYMMETREL) 100 mg capsule 200 mg twice daily. amitriptyline (ELAVIL) 50 mg tablet 50 mg once daily. carBAMazepine (TEGRETOL) 200 mg tablet 200 mg twice daily. Cholecalciferol, Vitamin D3, 50 mcg (2,000 unit) cap Take by mouth once daily. bethanechol (URECHOLINE) 25 mg tablet Take 1 tablet by mouth three times daily. Review of Systems Constitutional: Positive for fatigue. Negative for recent unintentional weight change. HENT: Negative for congestion (just intermittent). Cardiovascular: Negative for palpitations. Gastrointestinal: Positive for heartburn. Genitourinary: Negative for nocturia. Neurological: Negative for memory loss. SOCIAL HISTORY: Social History Tobacco Use Smoking status: Never Smokeless tobacco: Never Substance Use Topics Alcohol use: No Drug use: Never FAMILY HISTORY: FAMILY HISTORY Problem Relation Age of Onset Psychiatry Mother Arrhythmia Mother Hypothyroidism Mother Heart Attack Father age 82 Genitourinary () Father urine retention COPD Sister other (covid 19) Sister No Known Problems Brother Heart Maternal Grandmother Heart Maternal Aunt Diabetes Paternal Aunt There is a family history of: Sleep apnea. Relative: sister PHYSICAL EXAMINATION: Vital Signs: BP 143/84 (BP Site: Left Arm, BP Position: Sitting) Pulse 75 Wt 110 kg (242 lb 6.4 oz) SpO2 100% BMI 33.81 kg/m PHYSICAL EXAM: General appearance: pleasant, NAD Mental status: alert and oriented, able to provide own history Constitutional: obese Skin: No visible rashes on exposed skin Neuro: No focal deficits observed, no tremors ENT : Posterior airspace: Bhatt tongue position 4. Tongue scalloping/ridging present. IMPRESSION/PLAN: G47.33 Obstructive sleep apnea (primary encounter diagnosis) Z78.9 Intolerance of continuous positive airway pressure (CPAP) ventilation G47.19 Excessive daytime sleepiness Elizabeth Baumann is a delightful 53 year old male with PMH of at least moderate AMAYA per HSAT, CPAP intolerance, frequent awakenings (due to his dog Aline), excessive daytime sleepiness, HTN, HLD, neuropathy, GERD, CKD, bipolar 1 disorder, obesity, prediabetes. We reviewed his HSAT result. His apnea is at least moderate overall but his off-supine AHI is <5. Discussed AMAYA, risks of untreated AMAYA including but not limited to HTN, OR, afib, CVA, HF, dementia. We discussed positional therapy. We also discussed oral appliance therapy, he is interested in this. Refer to [place] office of Dr Scot Nguyen for eval for oral appliance therapy. If he proceeds with OAT then we would get HSAT while wearing appliance. Chris Chow APRN.CNP I spent a total of 47 minutes on the date of the service which included preparing to see the patient, [id number] patient care, completing clinical documentation, performing a medically appropriate examination, and counseling and educating the patient/family/caregiver. documented in this encounter [facility] 11-03-2024 Note HNO ID: [id number] Author: CHRIS CHOW APRN.FAUSTO Service: ? Author Type: Nurse Practitioner Type: Progress Notes Filed: 11/03/2024 17:01 Note Text: [facility] New Patient Evaluation PATIENT NAME: Elizabeth Baumann DATE OF SERVICE: November 03, 2024 CONSULTING PROVIDER: Soniya Orta [address] [facility] [id number] REASON FOR CONSULT: Soniya Orta sends the patient for an opinion about AMAYA. My findings and recommendations will be transmitted electronically via shared medical record to the consulting provider. HPI: Elizabeth Baumann is a 53 year old male. Sleep-related history: AMAYA diagnosed in 2021, he didn't tolerate CPAP. SLEEP-WAKE SCHEDULE Bedtime: 830-9 PM. He has a hard time falling asleep. Time to fall asleep: takes 45 min as long as he takes amitriptyline 50 mg Wake time: 5 AM, without an alarm. After falling asleep: he wakes up 2-3 time(s) per night, because of dog. Can be hard to fall back asleep, can be up for one hour. On weekends, he maintains the same sleep schedule. Average total sleep time (in a 24 hour period): 6 hours. SLEEP-RELATED DETAILS Preferred sleep position: back Breathing disturbances and other behaviors during sleep: snoring. Bruxism: Yes he had a mouth guard, getting a new one made. No dental issues but has some gum disease being treated at [facility]. No TMJ pain, gets some popping. GERD or aspiration: Yes Waking up with heart pounding or racing: No Anxiety or rumination: No (only when out with his dog in the night) He does not report having an urge to move the legs in the evening (when resting) that is accompanied or caused by uncomfortable and/or unpleasant sensations in the legs. He does sometimes kick in his sleep. He denies any history of parasomnias. Nightmares if he doesn't take amitriptyline. Excessive daytime sleepiness / fatigue is a problem. Excessive Daytime sleepiness/fatigue has been a problem for many years, worse since 2013. There is no history of a viral illness or significant head injury prior to the start of daytime sleepiness. He does not report sleep paralysis but has had sleep-related hallucinations (spider) WAKE-RELATED DETAILS He does not work. He does not have difficulty with memory or concentration. He denies falling asleep or dozing off when driving. He does take naps. Unintentionally in the recliner. Might be for an hour. He does drink max 1 caffeinated beverages per day. He has lost 20 pounds since 2 yrs. Patient Questionnaires Sleep Scores 11/01/2024 Sleep Questions Reason for visit: Sleep apnea On average, hours of sleep in 24 hours: 6 11/01/2024 [place] Sleepiness Scale Score 6 (No clinically significant daytime sleepiness) 11/01/2024 PROMIS CAT Sleep Disturbance PROMIS Sleep Disturbance T-Score 53 (within normal limits) PROMIS Sleep Disturbance Percentile 38 11/01/2024 PHQ-9 Score 6 6 Multiple values from one day are sorted in reverse-chronological order 11/01/2024 PROMIS Global Health - (T-Scores - the mean of general population = 50. Five points is a clinically meaningful difference.) Physical T-Score 37.4 37.4 Mental T-Score 36.3 36.3 Multiple values from one day are sorted in reverse-chronological order PAST TREATMENTS: CPAP--he didn't tolerate it, felt claustrophobic with FFM, also couldn't tolerate nasal pillows although they were better than the FFM PRIOR SLEEP STUDIES: A Home Sleep Test (HST) performed on 06/24/22 revealed an AHI of 17.6; supine index of 23.5; and a minimum oxygen saturation of 83%. PAST MEDICAL HISTORY Diagnosis Date Bipolar 1 disorder (HCC) 1996 [facility] CNP[facility]. BPH with obstruction/lower urinary tract symptoms 2010 Calculus of gallbladder without mention of cholecystitis or obstruction 07/23/2013 CKD (chronic kidney disease) stage 2, GFR 60-89 ml/min 01/16/2022 Constipation, chronic 10/13/2021 Depression 1996 Diabetes (HCC) 1996 Drug-induced tremor 01/16/2022 Gastritis and duodenitis 08/16/2013 HTN (hypertension) 2011 Hyperlipidemia 01/16/2022 Nephrolithiasis 02/25/2021 Peripheral neuropathy 2018 Renal cysts, acquired, bilateral 02/25/2021 PAST SURGICAL HISTORY Procedure Laterality Date CONTACT LASER VAPORIZATION PROSTATE ??? EGD 08/16/2013 TRURL ELECTROSURG RESCJ PROSTATE BLEED COMPLETE 08/30/2012 for structure ACTIVE PROBLEM LIST Obesity, Class II, Bmi 35-39.9 Bipolar 1 Disorder (Hcc) Hyperlipidemia Idiopathic Peripheral Neuropathy Ckd (Chronic Kidney Disease) Stage 2, Gfr 60-89 Ml/Min Drug-Induced Tremor Prediabetes Primary Hypertension Amaya On Cpap Gastroesophageal Reflux Disease Without Esophagitis Chronic Bilateral Low Back Pain Without Sciatica Obesity, Class I, Bmi 30-34.9 Allergies As of Date: 11/03/2024 (No Known Allergies) Fully Assessed 11/03/2024 CURRENT MEDICATIONS: pregabalin (LYRICA) 75 mg capsule Ta (more content not included)... [facility] 11-02-2024 Instructions Ema Cooper PA-C - 11/02/2024 4:51 PM EST Increase lyrica 75mg to three times a day Consult to movement Follow up in 4-5 months documented in this encounter [facility] 11-02-2024 Note HNO ID: [id number] Author: EMA COOPER PA-C Service: ? Author Type: Physician Peeler Operator Type: Progress Notes Filed: 11/02/2024 17:13 Note Text: ESTABLISHED PATIENT VISIT Last visit: 08/02/24 ASSESSMENT/PLAN: 1. Neuropathy - ICD9: 355.9, ICD10: G62.9 (primary diagnosis) 2. Numbness and tingling of both lower extremities - ICD9: 782.0, ICD10: R20.0, R20.2 Patient with chronic neuropathy, switching providers today. Has been on Lyrica 75 mg twice daily for quite some time and feels that its never been fully effective for him. Notes that he has constant numbness and tingling below the knee bilaterally, started at the great toe many years ago slowly ascended. Denies any significant weakness or falls, does get occasional lightheadedness. Recent EMG is actually negative for neuropathy but patient does have significant findings of both small and large fiber involvement on exam. Patient does have a history of diabetes in the past but is only prediabetic now. Still working factors but denies any heavy metal exposure, no other neuropathy risk factors. At this time, will continue with Lyrica 75 mg, is also on Elavil 50 mg for mood. Did discuss adding alpha lipoic acid 600 mg and patient is amenable to this. She does not be beneficial, may discuss altering medications in the future versus starting any medication. No need for further workup at this time. Patient agreeable to treatment plan of care at this time, questions were answered. Patient to follow-up in 3 months or sooner should any symptoms change or worsen. Ema Cooper PA-C CHIEF COMPLAINT: follow up HISTORY OF PRESENT ILLNESS: Elizabeth Baumann is a 53 year old male, There were no vitals taken for this visit. with a PMH significant for Neuropathy, tremor, hyperlipidemia, hypertension, AMAYA on CPAP, GERD, CKD stage II, bipolar 1, obesity, prediabetes. Sxs below the knee bilaterally, toes will be ice cold. Last seen on 08/02/24, switching providers. On lyrica 75mg bid, hx DM. Started alpha lipoic acid as well. Patient presents today for follow-up appointment for neuropathy. Notes that he is feeling the Lyrica wear off in the middle of the day, only taking it twice a day. Otherwise symptoms are unchanged, no tripping, no falling. Occasionally will feel some weakness in his calfs and lower legs specifically when he stands up, but no falls. No lightheadedness, reports minimal exercise. Did start alpha lipoic acid and feels it is helpful. Does note that his tremor to his hands is slightly worse, notes that Ingrezza is no longer covered by his insurance. Notes that this was minimally helpful. Of note, was on Abilify for many years. Does report some anosmia, intermittent constipation, micrographia. Denies any change in voice but does have a quiet voice. Denies any REM sleep disturbance but does note that he has severe nightmares if he does not take his amitriptyline. REVIEW OF SYSTEMS GENERAL:No weight loss, malaise or fevers. HEENT:Negative for frequent or significant headaches, No changes in hearing or vision, no nose bleeds or other nasal problems NECK:Negative for lumps, goiter, pain and significant neck swelling RESPIRATORY: Negative for cough, wheezing or shortness of breath. CARDIOVASCULAR: Negative for chest pain, leg swelling or palpitations. GASTROINTESTINAL: Negative for abdominal discomfort, blood in stools or black stools or change in bowel habits GENITOURINARY: No history of dysuria, frequency or incontinence MUSCULOSKELETAL: Negative for joint pain or swelling, back pain or muscle pain. NEUROLOGIC:Negative for focal numbness or weakness, headaches and dizziness or syncope, vision changes, speech/languag changes - EXCEPT that as per HPI above. SKIN:Negative for lesions, rash, and itching. PSYCHIATRIC: Negative for sleep disturbance, mood disorder and recent psychosocial stressors. HEMATOLOGIC/LYMPHATIC/IMMUNOLOGIC :Negative for prolonged bleeding, bruising easily or swollen nodes. ENDOCRINE: Negative for cold or heat intolerance, polyuria, polydipsia and goiter. The remainder of the ROS was reviewed and is negative. LAB/IMAGING: Those performed since patient's last visit have been reviewed. MEDICATIONS: omeprazole (PRILOSEC) 40 mg capsule Take 1 capsule by mouth once daily. alpha lipoic acid 600 mg tab Take 600 mg by mouth once daily. famotidine (PEPCID) 40 mg tablet Take 40 mg by mouth once daily. rosuvastatin (CRESTOR) 10 mg tablet Take 1 tablet by mouth daily at bedtime. fluvoxaMINE (LUVOX) 100 mg tablet Take 2 tablets by mouth daily at bedtime. [facility]. busPIRone HCl 30 mg tablet Take 1 tablet in am. Take 1/2 tablet at bedtime. [facility]. ARIPiprazole (ABILIFY) 15 mg tablet Take 1 tablet by mouth once daily. [facility]. lisinopril (ZESTRIL) 10 mg tablet Take 1 tablet by mouth once daily. amantadine HCl (SYMMETREL) 100 mg capsule 200 mg twice daily. (more content not included)... [facility] 11-02-2024 History of Present illness Narrative ESTABLISHED PATIENT VISIT Last visit: 08/02/24 ASSESSMENT/PLAN: 1. Neuropathy - ICD9: 355.9, ICD10: G62.9 (primary diagnosis) 2. Numbness and tingling of both lower extremities - ICD9: 782.0, ICD10: R20.0, R20.2 Patient with chronic neuropathy, switching providers today. Has been on Lyrica 75 mg twice daily for quite some time and feels that its never been fully effective for him. Notes that he has constant numbness and tingling below the knee bilaterally, started at the great toe many years ago slowly ascended. Denies any significant weakness or falls, does get occasional lightheadedness. Recent EMG is actually negative for neuropathy but patient does have significant findings of both small and large fiber involvement on exam. Patient does have a history of diabetes in the past but is only prediabetic now. Still working factors but denies any heavy metal exposure, no other neuropathy risk factors. At this time, will continue with Lyrica 75 mg, is also on Elavil 50 mg for mood. Did discuss adding alpha lipoic acid 600 mg and patient is amenable to this. She does not be beneficial, may discuss altering medications in the future versus starting any medication. No need for further workup at this time. Patient agreeable to treatment plan of care at this time, questions were answered. Patient to follow-up in 3 months or sooner should any symptoms change or worsen. Ema Cooper PA-C CHIEF COMPLAINT: follow up HISTORY OF PRESENT ILLNESS: Elizabeth Baumann is a 53 year old male, There were no vitals taken for this visit. with a PMH significant for Neuropathy, tremor, hyperlipidemia, hypertension, AMAYA on CPAP, GERD, CKD stage II, bipolar 1, obesity, prediabetes. Sxs below the knee bilaterally, toes will be ice cold. Last seen on 08/02/24, switching providers. On lyrica 75mg bid, hx DM. Started alpha lipoic acid as well. Patient presents today for follow-up appointment for neuropathy. Notes that he is feeling the Lyrica wear off in the middle of the day, only taking it twice a day. Otherwise symptoms are unchanged, no tripping, no falling. Occasionally will feel some weakness in his calfs and lower legs specifically when he stands up, but no falls. No lightheadedness, reports minimal exercise. Did start alpha lipoic acid and feels it is helpful. Does note that his tremor to his hands is slightly worse, notes that Ingrezza is no longer covered by his insurance. Notes that this was minimally helpful. Of note, was on Abilify for many years. Does report some anosmia, intermittent constipation, micrographia. Denies any change in voice but does have a quiet voice. Denies any REM sleep disturbance but does note that he has severe nightmares if he does not take his amitriptyline. REVIEW OF SYSTEMS GENERAL:No weight loss, malaise or fevers. HEENT:Negative for frequent or significant headaches, No changes in hearing or vision, no nose bleeds or other nasal problems NECK:Negative for lumps, goiter, pain and significant neck swelling RESPIRATORY: Negative for cough, wheezing or shortness of breath. CARDIOVASCULAR: Negative for chest pain, leg swelling or palpitations. GASTROINTESTINAL: Negative for abdominal discomfort, blood in stools or black stools or change in bowel habits GENITOURINARY: No history of dysuria, frequency or incontinence MUSCULOSKELETAL: Negative for joint pain or swelling, back pain or muscle pain. NEUROLOGIC:Negative for focal numbness or weakness, headaches and dizziness or syncope, vision changes, speech/languag changes - EXCEPT that as per HPI above. SKIN:Negative for lesions, rash, and itching. PSYCHIATRIC: Negative for sleep disturbance, mood disorder and recent psychosocial stressors. HEMATOLOGIC/LYMPHATIC/IMMUNOLOGIC :Negative for prolonged bleeding, bruising easily or swollen nodes. ENDOCRINE: Negative for cold or heat intolerance, polyuria, polydipsia and goiter. The remainder of the ROS was reviewed and is negative. LAB/IMAGING: Those performed since patient's last visit have been reviewed. MEDICATIONS: omeprazole (PRILOSEC) 40 mg capsule Take 1 capsule by mouth once daily. alpha lipoic acid 600 mg tab Take 600 mg by mouth once daily. famotidine (PEPCID) 40 mg tablet Take 40 mg by mouth once daily. rosuvastatin (CRESTOR) 10 mg tablet Take 1 tablet by mouth daily at bedtime. fluvoxaMINE (LUVOX) 100 mg tablet Take 2 tablets by mouth daily at bedtime. [facility]. busPIRone HCl 30 mg tablet Take 1 tablet in am. Take 1/2 tablet at bedtime. [facility]. ARIPiprazole (ABILIFY) 15 mg tablet Take 1 tablet by mouth once daily. [facility]. lisinopril (ZESTRIL) 10 mg tablet Take 1 tablet by mouth once daily. amantadine HCl (SYMMETREL) 100 mg capsule 200 mg twice daily. amitriptyline (ELAVIL) 50 mg tablet 50 mg once daily. carBAMazepine (TEGRETOL) 200 mg tablet 200 mg twice daily. Cholecalciferol, Vitamin D3, 50 mcg (2,000 unit) cap Take by mouth once daily. bethanechol (URECHOLINE) 25 mg tablet Take 1 tablet by mouth three times daily. pregabalin (LYRICA) 75 mg capsule Take 1 capsule by mouth three times a day for 90 days. HISTORIES PAST MEDICAL HISTORY Diagnosis Date Bipolar 1 disorder (HCC) 1996 Marc Britt, [facility], [facility]. BPH with obstruction/lower urinary tract symptoms 2010 Calculus of gallbladder without mention of cholecystitis or obstruction 07/23/2013 CKD (chronic kidney disease) stage 2, GFR 60-89 ml/min 01/16/2022 Constipation, chronic 10/13/2021 Depression 1996 Diabetes (HCC) 1996 Drug-induced tremor 01/16/2022 Gastritis and duodenitis 08/16/2013 HTN (hypertension) 2011 Hyperlipidemia 01/16/2022 Nephrolithiasis 02/25/2021 Peripheral neuropathy 2018 Renal cysts, acquired, bilateral 02/25/2021 FAMILY HISTORY Problem Relation Age of Onset Psychiatry Mother Arrhythmia Mother Hypothyroidism Mother Heart Attack Father age 82 Genitourinary () Father urine retention COPD Sister other (covid 19) Sister No Known Problems Brother Heart Maternal Grandmother Heart Maternal Aunt Diabetes Paternal Aunt SOCIAL HISTORY Social History Tobacco Use Smoking status: Never Smokeless tobacco: Never Substance Use Topics Alcohol use: No Drug use: Never PHYSICAL EXAMINATION BP 136/84 Pulse 67 Wt 111.6 kg (246 lb) SpO2 99% BMI 34.31 kg/m GENERAL EXAM: General appearance: NAD, pleasant. HEENT: NC/AT, nasal congestion absent, no oral lesions, membranes moist. NECK: No masses, supple. Lungs: Breathing comfortably Extr: Moves all extremities without difficulty Skin: Cool to touch. No rash. NEUROLOGICAL EXAM: General: Awake, alert, oriented x3 (person,place,time), speech fluent, no dysarthria; comprehension, naming, repetition intact. Short and termite inspector memory intact. CN: PERRL, EOMI and without nystagmus, VFF to confrontation, facial sensation and strength are normal and symmetric, hearing is intact to finger rub bilaterally, palate and tongue movements are intact and symmetric. SCM and trapezius strength normal. Motor: Increased tone to the bilateral upper extremities. Normal bulk and strength (5/5) bilaterally (throughout extremities x4). Reflexes: 1/4 reflex to the Achilles, otherwise 2/4. Coordination: FNF intact. Mild fine resting tremor to the bilateral hands, worse with outstretched hands or with intention. No pill-rolling. Sensation: Absent sensation to vibration to the left great toe, minimal at the right great toe. Decreased throughout the lower extremities. Decreased sensation to temperature in the lower extremities compared to the hands. Slight decrease in vibration to the DIP and PIP of the upper extremities bilaterally. No evidence of neglect. Gait: Slowed gait, did not appreciate a significant shuffle. Assessment and Plan: ASSESSMENT/PLAN: 1. Parkinsonism, unspecified Parkinsonism type (HCC) - ICD9: 332.0, ICD10: G20.C (primary diagnosis) 2. 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 Patient does have a very fine tremor with distraction of the bilateral upper extremities, worsened with intention. Has some rigidity to the bilateral upper extremities, also reporting anosmia, micrographia, intermittent constipation. Voice is very quiet on exam, does have flat affect. Has been on Abilify for many years but is no longer taking it. Due to parkinsonism found in history and physical concern for Parkinson's disease versus drug-induced parkinsonism. Discussed following with movement and patient is agreeable to this, consult was placed. No falls, significant memory loss. 3. Neuropathy - ICD9: 355.9, ICD10: G62.9 Patient reports slight worsening of neuropathy, notes that he feels his morning dose wearing off around 1 to 2 PM during the day, takes Lyrica 75 mg twice daily. No new symptoms, exam is relatively stable from previous. Discussed increasing to 3 times a day and patient is amenable to this. The prescription was filled for Lyrica 75 mg 3 times daily, discussed common side effects. Also tried alpha lipoic acid and feels some benefit with this, will continue this therapy as well. No new symptoms that would warrant additional workup at this time. No falls, lightheadedness, tripping. Patient agreeable to treatment plan of care at this time, questions were answered. Patient to follow-up in 4 to 5 months. [facility] website checked and validated. All prescriptions have been APPROPRIATELY filled. No suspicious activity was identified. 11/02/2024 by CARLOS Guy PA-C I spent a total of 30 minutes on the date of the service which included preparing to see the patient, [id number]-es-wtfh patient care, completing clinical documentation, obtaining and/or reviewing separately obtained history, performing a medically appropriate examination, counseling and educating the patient/family/caregiver, and ordering medications, tests, or procedures. This document has been created with the use of voice recognition technology. It may contain inaccuracies: (e.g. misspellings, inaccurate syntax or word sense) that have escaped review. 11/01/2024 PROMIS Global Health Physical Health Summary Physical health: Fair Everyday physical activity, ability: Moderately Fatigue: Moderate Pain level: 4 General health: Fair Social activities/roles, ability: Fair Physical Health T-Score 37.4 (Fair) Physical Health Percentile 10 PROMIS Global [facility] Mental Health Summary Quality of life: Fair Mental health (mood,thinking): Fair Social satisfaction: Fair Emotional problems (anxious,depressed): Sometimes Mental Health T-Score 36.3 (Fair) Mental Health Percentile 9 PHQ-9 Score: 6(Mild Depression) PHQ-9 Self-Harm: Not at all CLAIRE-7 Score: 14(Moderate Anxiety) NEURO-QOL Cognitive Function T-Score 46(Within Normal Limits) Neuro-Qol Cognitive Function Percentile 34 PROMIS Physical Function T-Score 44(Mild Dysfunction) PROMIS Physical Function Percentile 27 PROMIS Pain Interference T-Score 62(Moderate) PROMIS Pain Interference Percentile 12 Percentiles provide an indication of how a patient's score ranks in relation to the [place] general population. > 31st percentile is within normal limits or better *< 31st percentile is at least SD worse than population, which may be clinically relevant < 16th percentile is at least 1 SD worse than population and warrants attention 11/01/2024 Sleep Apnea Probability Snores loudly: Tired, fatigued or sleepy in daytime: Yes Stops breathing or choking/gasping during sleep: No High blood pressure: Yes Sleep Apnea Probability Score: 50 (Recommend sleep study) documented in this encounter [facility] 10-10-2024 Telephone encounter Note Patient is asking that this be sent to a different pharmacy. Prescription Refill Information The patient has been identified by name and date of : Yes Caregiver verified no other encounters exist for this prescription request: Yes Caregiver confirmed with patient/requestor that no other refills are due, in the near future, with this provider at this time: Yes The last office visit in the department: 07/27/24 Does the patient have a future office visit with this provider/department: Yes 01/27/25 Requested Prescriptions Pending Prescriptions Disp Refills pregabalin (LYRICA) 75 mg capsule 180 capsule 1 Sig: Take 1 capsule by mouth two times a day for 180 days. Brigid Aguilera LPN October 10, 2024 11:57 AM [facility] 10-10-2024 Miscellaneous Notes Patient is asking that this be sent to a different pharmacy. Prescription Refill Information The patient has been identified by name and date of : Yes Caregiver verified no other encounters exist for this prescription request: Yes Caregiver confirmed with patient/requestor that no other refills are due, in the near future, with this provider at this time: Yes The last office visit in the department: 07/27/24 Does the patient have a future office visit with this provider/department: Yes 01/27/25 Requested Prescriptions Pending Prescriptions Disp Refills pregabalin (LYRICA) 75 mg capsule 180 capsule 1 Sig: Take 1 capsule by mouth two times a day for 180 days. Brigid Aguilera LPN October 10, 2024 11:57 AM documented in this encounter [facility] 09-26-2024 Telephone encounter Note Prescription Refill Information The patient has been identified by name and date of : Yes Caregiver verified no other encounters exist for this prescription request: Yes Caregiver confirmed with patient/requestor that no other refills are due, in the near future, with this provider at this time: Yes The last office visit in the department: 07/27/2024 Does the patient have a future office visit with this provider/department: Yes Requested Prescriptions Pending Prescriptions Disp Refills omeprazole (PRILOSEC) 40 mg capsule 30 capsule 1 Sig: Take 1 capsule by mouth once daily. Angel Baker MA September 26, 2024 9:49 AM [facility] 09-26-2024 Miscellaneous Notes Prescription Refill Information The patient has been identified by name and date of : Yes Caregiver verified no other encounters exist for this prescription request: Yes Caregiver confirmed with patient/requestor that no other refills are due, in the near future, with this provider at this time: Yes The last office visit in the department: 07/27/2024 Does the patient have a future office visit with this provider/department: Yes Requested Prescriptions Pending Prescriptions Disp Refills omeprazole (PRILOSEC) 40 mg capsule 30 capsule 1 Sig: Take 1 capsule by mouth once daily. Angel Baker MA September 26, 2024 9:49 AM documented in this encounter [facility] 09-15-2024 Telephone encounter Note I believe he means the alpha lipoic acid. I will send this to his pharmacy. Ema Cooper PA-C [facility] 09-15-2024 Miscellaneous Notes I believe he means the alpha lipoic acid. I will send this to his pharmacy. Ema Cooper PA-C documented in this encounter [facility] 09-15-2024 Telephone encounter Note Prescription Refill Information The patient has been identified by name and date of : Yes Caregiver verified no other encounters exist for this prescription request: Yes Caregiver confirmed with patient/requestor that no other refills are due, in the near future, with this provider at this time: Yes The last office visit in the department: 07/27/2024 Does the patient have a future office visit with this provider/department: Yes Requested Prescriptions Pending Prescriptions Disp Refills pregabalin (LYRICA) 75 mg capsule 180 capsule 1 Sig: Take 1 capsule by mouth two times a day for 180 days. Angel Baker MA September 15, 2024 7:17 AM [facility] 09-15-2024 Miscellaneous Notes Prescription Refill Information The patient has been identified by name and date of : Yes Caregiver verified no other encounters exist for this prescription request: Yes Caregiver confirmed with patient/requestor that no other refills are due, in the near future, with this provider at this time: Yes The last office visit in the department: 07/27/2024 Does the patient have a future office visit with this provider/department: Yes Requested Prescriptions Pending Prescriptions Disp Refills pregabalin (LYRICA) 75 mg capsule 180 capsule 1 Sig: Take 1 capsule by mouth two times a day for 180 days. Angel Baker MA September 15, 2024 7:17 AM documented in this encounter [facility] 08-02-2024 Instructions Ema Cooper PA-C - 08/02/2024 2:09 PM EDT Continue with Lyrica 75mg twice daily Will add alpha lipoic acid 600mg daily Follow up in 3 months documented in this encounter [facility] 08-02-2024 History of Present illness Narrative Images from the original note were not included. [facility] Name: Elizabeth Baumann Age: [age] year old Gender: male Primary Care Provider: Thony Raza MD Consult requested for paresthesias by Soniya Orta. Recommendations will be communicated via shared medical record or US mail. Chief Complaint:New Patient (Numbness and tingling of both lower extremities) 08/02/2024 - General Neurology, Ema Cooper PA-C ASSESSMENT ASSESSMENT/PLAN: 1. Neuropathy - ICD9: 355.9, ICD10: G62.9 (primary diagnosis) 2. Numbness and tingling of both lower extremities - ICD9: 782.0, ICD10: R20.0, R20.2 Patient with chronic neuropathy, switching providers today. Has been on Lyrica 75 mg twice daily for quite some time and feels that its never been fully effective for him. Notes that he has constant numbness and tingling below the knee bilaterally, started at the great toe many years ago slowly ascended. Denies any significant weakness or falls, does get occasional lightheadedness. Recent EMG is actually negative for neuropathy but patient does have significant findings of both small and large fiber involvement on exam. Patient does have a history of diabetes in the past but is only prediabetic now. Still working factors but denies any heavy metal exposure, no other neuropathy risk factors. At this time, will continue with Lyrica 75 mg, is also on Elavil 50 mg for mood. Did discuss adding alpha lipoic acid 600 mg and patient is amenable to this. She does not be beneficial, may discuss altering medications in the future versus starting any medication. No need for further workup at this time. Patient agreeable to treatment plan of care at this time, questions were answered. Patient to follow-up in 3 months or sooner should any symptoms change or worsen. Ema Cooper PA-C Encounter Diagnosis ICD-10-CM 1. Neuropathy G62.9 alpha lipoic acid 600 mg tab 2. Numbness and tingling of both lower extremities R20.0 R20.2 Return in about 3 months (around 11/01/2024). Chart, labs,and relevant images reviewed. HPI: Saw PCP on 07/27/24 for neuropathy. "He has idiopathic neuropathy with numbness and tingling BLE. Symptoms were worsening and he was sent for EMG that was unremarkable. He is scheduled next week neurology. Actually feeling better with improvement in symptoms now. Taking Lyrica as prescribed. Denies any new or worsening symptoms. " Recent EMG normal. This is a 53 year old male with hx of neuropathy, tremor, HLD, HTN, amaya, CKD, bipolar 1, obesity presenting with paresthesias. Patient with chronic neuropathy in his feet, previously followed by other provider who had . Has been on Lyrica for some time, managing his neuropathy. Recently had an EMG of his lower extremities which did not show evidence of large fiber neuropathy. Patient reports history of diabetes mellitus, but recently with weight loss has gotten his A1c under control. Has also been on multiple mood medications for bipolar disorder. 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 No family history of neuropathy, no diet restrictions or bariatric surgery. Does not take any supplements other than vitamin D. Patient reporting chronic numbness and tingling, started many years ago with the great toe and slowly ascended and is now just below the knee bilaterally. Notes a constant tingling sensation that worsens if he sits in a certain position for long period of time, will become burning pain at that time. Has only tried Lyrica in the past, has not tried any other medications. Is currently on 75 mg twice daily, did try going up on this but had swelling in his feet when this happened. Is also on Elavil 50 mg. Does report some weakness in his legs when he stands, but no falling or tripping. No symptoms in his hands bilaterally. No bowel or bladder incontinence, no surgeries below the knee. No recent changes to any of his symptoms, notes that the Lyrica has never been fully effective and he still gets daily symptoms. Numbness in feet: yes, Numbness in hands: no Burning pain in feet: yes, Burning pain in hands: no Abnormal temperature sensation in limbs:no Falls: no Balance issues: sometimes when he gets up he loses balance\\. sometimes lightheaded. Worse at night?: no Neuropathy risk factors: Diabetes Review of Systems ACTIVE PROBLEM LIST Obesity, Class II, Bmi 35-39.9 Bipolar 1 Disorder (Hcc) Hyperlipidemia Idiopathic Peripheral Neuropathy Ckd (Chronic Kidney Disease) Stage 2, Gfr 60-89 Ml/Min Drug-Induced Tremor Prediabetes Primary Hypertension Amaya On Cpap Gastroesophageal Reflux Disease Without Esophagitis Chronic Bilateral Low Back Pain Without Sciatica Obesity, Class I, Bmi 30-34.9 PAST MEDICAL HISTORY 1996: Bipolar 1 disorder (HCC) Comment: Marc Britt CNP[facility] 2011: BPH with obstruction/lower urinary tract symptoms 07/23/2013: Calculus of gallbladder without mention of cholecystitis or obstruction 01/16/2022: CKD (chronic kidney disease) stage 2, GFR 60-89 ml/min 10/13/2021: Constipation, chronic 1996: Depression 1997: Diabetes (HCC) 01/16/2022: Drug-induced tremor 08/16/2013: Gastritis and duodenitis 2012: HTN (hypertension) 01/16/2022: Hyperlipidemia 02/25/2021: Nephrolithiasis 2018: Peripheral neuropathy 02/25/2021: Renal cysts, acquired, bilateral Medications: Reviewed famotidine (PEPCID) 40 mg tablet Take 40 mg by mouth once daily. omeprazole (PRILOSEC) 40 mg capsule Take 1 capsule by mouth once daily. rosuvastatin (CRESTOR) 10 mg tablet Take 1 tablet by mouth daily at bedtime. fluvoxaMINE (LUVOX) 100 mg tablet Take 2 tablets by mouth daily at bedtime. [facility]. busPIRone HCl 30 mg tablet Take 1 tablet in am. Take 1/2 tablet at bedtime. [facility]. lisinopril (ZESTRIL) 10 mg tablet Take 1 tablet by mouth once daily. pregabalin (LYRICA) 75 mg capsule Take 1 capsule by mouth two times a day for 180 days. amantadine HCl (SYMMETREL) 100 mg capsule 200 mg twice daily. amitriptyline (ELAVIL) 50 mg tablet 50 mg once daily. carBAMazepine (TEGRETOL) 200 mg tablet 200 mg twice daily. Cholecalciferol, Vitamin D3, 50 mcg (2,000 unit) cap Take by mouth once daily. bethanechol (URECHOLINE) 25 mg tablet Take 1 tablet by mouth three times daily. alpha lipoic acid 600 mg tab Take 600 mg by mouth once daily. ARIPiprazole (ABILIFY) 15 mg tablet Take 1 tablet by mouth once daily. [facility]. ALLERGIES No Known Allergies FAMILY HISTORY Problem Relation Age of Onset Psychiatry Mother Arrhythmia Mother Hypothyroidism Mother Heart Attack Father age 82 Genitourinary () Father urine retention COPD Sister other (covid 19) Sister No Known Problems Brother Heart Maternal Grandmother Heart Maternal Aunt Diabetes Paternal Aunt PAST SURGICAL HISTORY No date: CONTACT LASER VAPORIZATION PROSTATE Comment: ??? 08/16/2013: EGD 08/30/2012: TRURL ELECTROSURG RESCJ PROSTATE BLEED COMPLETE Comment: for structure SOCIAL HISTORY No social history on file. Tobacco Use: Low Risk (08/02/2024) Patient History Smoking Tobacco Use: Never Smokeless Tobacco Use: Never Passive Exposure: Not on file PHYSICAL EXAM 08/02/24 1343 BP: 125/84 Pulse: 76 Neurological Exam Cognitive and Language: Alert and answered questions appropriately. Language was fluent. Followed simple and complex commands. Cranial Nerves: Visual fountain were full tested binocularly to finger counting in all 4 quadrants with no visual extinction. Pupils were equal and both reactive to light. Extraocular movements were full with no diplopia or nystagmus. Facial sensation was normal to light touch in V1 to V3. Facial strength was symmetric. Normal hearing grossly bilaterally. Palatal raise was symmetric. Shoulder shrug was symmetric. Tongue protrusion was symmetric with no fasciculations. Right Left Shoulder Abduction: 5 5 Elbow Extension 5 5 Elbow Flexion 5 5 Wrist Extension 5 5 Finger Extension 5 5 Finger Abduction 5 5 Right Left Hip Flexion 5 5 Knee Extension 5 5 Knee Flexion 5 5 Dorsiflexion 5 5 Plantar Flexion 5 5 Rest tremor: Resting tremor present in the bilateral upper extremities Tone: Normal in all four limbs Reflexes: Absent reflexes to the lower extremities, 2/4 in the upper extremities bilaterally. Negative Hilda, negative Babinski. Sensory: abnormal, absent sensation to vibration at the great toe, poor proprioception on Romberg testing. Decree sensation to temperature in the lower extremities compared to the hands. Coordination: Normal finger to nose and heel to diehl testing bilaterally. Negative romberg. Normal gait. Labs: Lab Results Component Value Date WBC 7.95 06/07/2024 HCT 49.1 06/07/2024 MCV 91.1 06/07/2024 PLT 223 06/07/2024 Lab Results Component Value Date HBA1C 5.5 06/07/2024 HBA1C 5.6 07/22/2023 HBA1C 5.7 01/13/2023 HBA1C 5.9 01/20/2022 Cholesterol, Total Date Value Ref Range Status 06/07/2024 262 (H) <200 mg/dL Final Comment: <200 mg/dL, Desirable 200-239 mg/dL, Borderline high >239 mg/dL, High HDL Cholesterol Date Value Ref Range Status 06/07/2024 49 >39 mg/dL Final Comment: 40-59 mg/dL, Acceptable >59 mg/dL, High: Negative risk factor for coronary heart disease <40 mg/dL, Low: Positive risk factor for coronary heart disease LDL Cholesterol Date Value Ref Range Status 06/07/2024 195 (H) <100 mg/dL Final Comment: <100 mg/dL, Optimal 100-129 mg/dL, Near optimal/above optimal 130-159 mg/dL, Borderline high 160-189 mg/dL, High >189 mg/dL, Very high Secondary prevention optimal LDL Cholesterol levels are recommended to be < 70 mg/dL Triglyceride Date Value Ref Range Status 06/07/2024 91 <150 mg/dL Final Comment: <150 mg/dL, Normal 150-199 mg/dL, Borderline high 200-499 mg/dL, High >499 mg/dL, Very high Lab Results Component Value Date B12 560 01/20/2022 No components found for: "SPEP" Radiology: Lumbar xr 06/06/24 FINDINGS: There are five lzb-lrn-vvfndol lumbar vertebrae. No fracture or subluxations are noted. Questionable mild L5-S1 disc space narrowing. There is mild to moderate osteophyte formation. There is no significant osteophyte formation. EMG/NCS: 07/06/24 Skin Biopsy: This note was dictated using [employer] speech recognition software and may contain some errors that were a result of the program not accurately transcribing what was dictated, despite efforts to make corrections. Note that unless urgent, test and MRI results will be discussed at next follow-up visit. PROMIS (Patient-Reported Outcomes Measurement Information System) is a set of person-centered measures that evaluates and monitors physical, social, and emotional health. It can be used with the general population and with individuals living with chronic conditions. PROMIS 10: PHYSICAL AND MENTAL HEALTH: 07/27/2024 PHQ-9 PHQ-2 Score 0 Medical Decision Making: Medical Decision Making Level: 1 - N/A I spent a total of 45 minutes on the date of the service which included preparing to see the patient, [id number] patient care, completing clinical documentation, obtaining and/or reviewing separately obtained history, performing a medically appropriate examination, counseling and educating the patient/family/caregiver, and ordering medications, tests, or procedures. documented in this encounter [facility] 07-27-2024 Instructions Soniya Orta, CORPORATE SAFETY MANAGER.COMPLIANCE SPECIALIST - 07/27/2024 5:07 PM EDT To treat gastroesophageal reflux: 1. start omeprazole. Take once a day in the morning on an empty stomach and wait at least 30 minutes before eating. Stop Pepcid. Okay to continue with TUMS 2. Eat 6 small meals a day instead of 2 or 3 big ones. This is to keep some food in your stomach so the acid has something to work on. Eat slowly. Don't lie down for 2 to 3 hours after eating. Avoid eating or drinking anything right before going to bed. 3. Elevate head of bed on blocks approximately 4-6 inches. It is not sufficient to just use a wedge pillow. Bending at waist increases intra-abdominal pressure, which will increase reflux. 4. Minimize/eliminate chocolate, coffee, peppermint, fruit juices, tomatoes, greasy and spicy foods. All of these either stimulate stomach acid production, or are acidic themselves. 5. Weight loss is always beneficial. Abdominal weight increases intra-abdominal pressure, which increases gastroesophageal reflux symptoms. 7. Follow-up in 4 week(s) if symptoms do not improve, evaluation by a Top Stop Attacher (esophagus and stomach specialist) may be in order WHAT YOU CAN DO TO PREVENT FALLS Many falls can be prevented. By making some changes, you can lower your chances of falling. Four things YOU can do to prevent falls for you* and your caregiver 1. Begin a regular exercise program Exercise is one of the most important ways to lower your chances of falling. It makes you stronger and helps you feel better. Exercises that improve balance and coordination (like Chi Chi) are the most helpful. Lack of exercise leads to weakness and increases your chances of falling. Ask your doctor or health care provider about the best type of exercise program for you. 2. Have your health care provider review your medicines Have your doctor or pharmacist review all the medicines you take, even tpei-kxl-rofgsuu medicines. As you get older, the way medicines work in your body can change. Some medicines, or combinations of medicines, can make you sleepy or dizzy and can cause you to fall. 3. Have your vision checked Have your eyes checked by an eye doctor at least once a year. You may be wearing the wrong glasses or have a condition like glaucoma or cataracts that limits your vision. Poor vision can increase your chances of falling. 4. Make your home safer About half of all falls happen at home. To make your home safer: Remove things you can trip over (like papers, books, clothes, and shoes) from stairs and places where you walk. Remove small throw rugs or use double-sided tape to keep the rugs from slipping. Keep items you use often in cabinets you can reach easily without using a step stool. Have grab bars put in next to your toilet and in the tub or shower. Use non-slip mats in the bathtub and on shower floors. Improve the lighting in your home. As you get older, you need brighter lights to see well. Hang light-weight curtains or shades to reduce glare. Have handrails and lights put in on all staircases. Wear shoes both inside and outside the house. Avoid going barefoot or wearing slippers. For more information, contact: Centers for Disease Control and Prevention www.cdc.gov/injury * This information may not apply if you have certain medical conditions. documented in this encounter [facility] 07-27-2024 History of Present illness Narrative Images from the original note were not included. Elizabeth Baumann is a 53 year old male here for a Medicare wellness visit. Medicare Health Risk Assessment General Health Very good Exercise: Minutes/Day 30 min Exercise: Days/Week 7 days Alcohol: Daily Use Never Alcohol: Drinks/Day Patient does not drink Alcohol: 6 or more drinks Never Feel off balance No Concerns: Teeth/Dentures No Concerns: Sexual function No Troubled by feelings None of the above Frequency: Eating healthy diet Several days ADLs requiring help None of the above Safety precautions in home/vehicle No Smoke, vape, chews tobacco No Difficulty hearing No Difficulty seeing No Current Providers Specialists: I have reviewed specialist-related care of the patient in the medical record. Current care team: Patient Care Team: Thony Raza MD as PCP - General (Internal Medicine) Outside specialists seen: Psychiatrist-[facility] (Whit Britt APRN) Medical/Family history review Reviewed and updated problem list, medical/surgical/family/social history, medications, and allergies. Opioid use review Opioid Medications (last 90 days) No data to display Anxiety/Depression screening PHQ-2 Score: 0 (Lower risk for depression) CLAIRE-2 Score: 0 (Lower risk for anxiety) Recommendation: continuing current treatment plan Cognitive screening Patient declined Mini-Cog test. Functional Observation Was the patient's Timed Up & Go test unsteady or ? 12 seconds? No Advance Care Planning Patient did not wish or was not able to name a surrogate decision maker or provide an advance care plan Measurements BP 116/72 (BP Site: Left Arm, BP Position: Sitting, BP Cuff Size: Large Adult) Pulse 78 Resp 14 Ht 180.3 cm (5' 11") Wt 112.5 kg (248 lb 0.3 oz) SpO2 100% BMI 34.59 kg/m Vision Screening: Follows with optometry/ophthalmology Assessment/Plan Medicare annual wellness visit, subsequent (Z00.00) - Counseled on healthy diet and regular exercise - Fall avoidance information provided - Personalized prevention plan provided - Discussed need for and benefit of weight loss. BMI 34.59 kg/(m^2) Additional Concerns The following concerns were also discussed with the patient: He has idiopathic neuropathy with numbness and tingling BLE. Symptoms were worsening and he was sent for EMG that was unremarkable. He is scheduled next week neurology. Actually feeling better with improvement in symptoms now. Taking Lyrica as prescribed. Denies any new or worsening symptoms. AMAYA: He is intolerant to CPAP. Home sleep study in 2021 indicating moderate sleep apnea. Denies snoring, un-refreshed sleep, insomnia, excessive daytime drowsiness. GERD- Symptoms include heartburn, burning in epigastrum, and choking when he drinks water or eats ice cream. Has trouble with larger pills as well. Denies dysphagia with solid foods or any other types of liquids. Symptoms are precipitated with spicy foods Alleviated with taking antacids. Denies epigastric abdominal pain, chest pain, cough, wheezing, weight loss, black/bloody stools, hematemesis, diarrhea, constipation, decreased appetite, early satiety. Alcohol, tobacco, significant amounts of caffeine or NSAIDS: No Previous studies include: EGD 2012 PMH: GERD. Takes Pepcid once a day Bipolar disorder: medications managed by psychiatry. Patient is currently taking Ability, Buspar, Luvox, Symmetrel, Elavil and Tegretol. Feels medication is working well: yes, no dose changes. Has follow-up in August. Persistent/bothersome symptoms: none Side effects: None Denies suicidal thoughts or plan. HTN-Medication changes:No Taking all medications as prescribed: Yes Side effects: No Home BP's: No Denies: headache, chest pain, palpitations, dyspnea, and peripheral edema. Last 3 Encounter BP Readings: Date: BP: 07/27/2024 116/72 06/06/2024 138/86 04/11/2024 128/83 PHYSICAL EXAM BP 116/72 (BP Site: Left Arm, BP Position: Sitting, BP Cuff Size: Large Adult) Pulse 78 Resp 14 Ht 180.3 cm (5' 11") Wt 112.5 kg (248 lb 0.3 oz) SpO2 100% BMI 34.59 kg/m GENERAL: well appearing, alert, in no acute distress CARDIOVASCULAR: regular rate and rhythm. No murmur, rubs or gallops. PULMONARY: clear to auscultation, no wheezing, rhonchi, or crackles ABDOMEN: soft, non-tender, non-distended, no masses or organomegaly but difficult exam due to body habitus ASSESSMENT/PLAN: 1. Medicare annual wellness visit, subsequent - ICD9: V70.0, ICD10: Z00.00 (primary diagnosis) See medicare wellness plan 2. Gastroesophageal reflux disease without esophagitis - ICD9: 530.81, ICD10: K21.9 Heartburn and choking when he drinks water and eats ice cream, no issues with solid foods - Discussed lifestyle modifications including losing weight, limiting caffeine, no meals three hours before sleep, and head of bed elevation - Begin treatment with Prilosec 40 mg daily - stop Pepcid, okay to continue with TUMS - Follow up in 1 month or sooner if symptoms worsen 3. Obstructive sleep apnea - ICD9: 327.23, ICD10: G47.33 Intolerant to CPAP. Recommend referral to sleep medicine to discuss treatment options - CONSULT TO SLEEP MEDICINE - ADULT 4. Idiopathic peripheral neuropathy - ICD9: 356.9, ICD10: G60.9 Symptoms stable. Follow-up with neurology as scheduled 5. Primary hypertension - ICD9: 401.9, ICD10: I10 - Controlled - Continue current medications - Recommend home blood pressure monitoring, to bring results to next visit - Encouraged sodium restriction, DASH or Mediterranean diet 6. Bipolar 1 disorder (HCC) - ICD9: 296.7, ICD10: F31.9 Stable 7. Screening for depression - ICD9: V79.0, ICD10: Z13.31 - DEPRESSION SCREENING 8. Encounter for screening examination for other mental health and behavioral disorders - ICD9: V79.8, ICD10: Z13.39 - ANXIETY SCREENING Soniya Orta APRN.FAUSTO documented in this encounter [facility] 07-06-2024 Telephone encounter Note Patient called back and scheduled a neurology appt for 08/02/24, he confirmed this date and time. Antonette Phillip Pss [facility] 07-06-2024 Miscellaneous Notes Patient called back and scheduled a neurology appt for 08/02/24, he confirmed this date and time. Antonette Phillip Pss Phoned patient left detailed message with results, notes from Soniya Orta NP on voicemail. Gave phone number [phone] and ask for central scheduler to get Neurology appt scheduled. Please let the patient know the nerve conduction tests were normal. Recommend referral to neurology for further evaluation of symptoms Soniya Orta APRN.COMPLIANCE SPECIALIST documented in this encounter [facility] 07-06-2024 Telephone encounter Note Phoned patient left detailed message with results, notes from Soniya Orta NP on voicemail. Gave phone number [phone] and ask for central scheduler to get Neurology appt scheduled. [facility] 07-06-2024 Telephone encounter Note Please let the patient know the nerve conduction tests were normal. Recommend referral to neurology for further evaluation of symptoms Soniya Orta APRN.COMPLIANCE SPECIALIST [facility] 06-10-2024 Telephone encounter Note Faxed as requested. [facility] 06-10-2024 Miscellaneous Notes Faxed as requested. Please fax orders for EMG from appointment on 06/06 to [facility] Soniya Orta APRN.COMPLIANCE SPECIALIST documented in this encounter [facility] 06-08-2024 Telephone encounter Note Please fax orders for EMG from appointment on 06/06 to [facility] Soniya Orta APRN.COMPLIANCE SPECIALIST [facility] 06-06-2024 History of Present illness Narrative Radiology Service Progress Note PATIENT NAME: Elizabeth Baumann DATE OF SERVICE: June 06, 2024 TIME: 11:53 AM PATIENT IDENTITY VERIFICATION COMPLETED USING TWO (2) IDENTIFIERS: Name and Date of confirmed by patient verbally. FALL SCREENING: Has the patient had 2 falls in the last year or 1 fall with injury or currently using an Ambulatory Assistive Device (Walker, Cane, Wheelchair, Crutches, etc.)? No PATIENT GENDER DATA: Male PATIENT RELEVANT IMPLANT DATA REVIEWED: Yes PATIENT PRESENTS WITH AN IMPLANTABLE OR ATTACHED BRIDGE MAINTENANCE WORKER: No RADIOLOGY DEPARTMENT: General X-ray: Exam(s) Completed: Spine X-Ray(s): Lumbar AP / LAT / L5-S1 PERIPHERAL IV DATA: Not applicable SIGNED BY: RT Irma(R) June 06, 2024 11:53 AM documented in this encounter [facility] 06-06-2024 History of Present illness Narrative CC: Patient presents with: pain and burning in both legs HPI Elizabeth Baumann is a 53 year old male who presents today for above. He has a history of idiopathic neuropathy BLE. Pain has been gradually worsening. Described as burning and pins and needles. Aggravated by sitting and prolonged standing. Alleviated by laying down. Associated with weakness in the legs. Denies bowel/bladder dysfunction, saddle anesthesia, foot drop or gait abnormality. He has been treated with Lyrica for a few years. Unable to tolerate higher doses due to edema, does not work as well at lower doses. He was supposed to have a nerve conduction study a couple years ago but never scheduled. He has chronic low back pain that is well controlled with chiropractic treatments every few months. Pain in low back is not any worse than usual. Review of Systems See HPI PAST MEDICAL HISTORY Diagnosis Date Bipolar 1 disorder (HCC) 1996 Marc [facility] CNP[facility]. BPH with obstruction/lower urinary tract symptoms 2010 Calculus of gallbladder without mention of cholecystitis or obstruction 07/23/2013 CKD (chronic kidney disease) stage 2, GFR 60-89 ml/min 01/16/2022 Constipation, chronic 10/13/2021 Depression 1996 Diabetes (HCC) 1996 Drug-induced tremor 01/16/2022 Gastritis and duodenitis 08/16/2013 HTN (hypertension) 2011 Hyperlipidemia 01/16/2022 Nephrolithiasis 02/25/2021 Peripheral neuropathy 2018 Renal cysts, acquired, bilateral 02/25/2021 PAST SURGICAL HISTORY Procedure Laterality Date CONTACT LASER VAPORIZATION PROSTATE ??? EGD 08/16/2013 TRURL ELECTROSURG RESCJ PROSTATE BLEED COMPLETE 08/30/2012 for structure ALLERGIES Patient has no known allergies. MEDICATIONS fluvoxaMINE (LUVOX) 100 mg tablet Take 2 tablets by mouth daily at bedtime. [facility]. busPIRone HCl 30 mg tablet Take 1 tablet in am. Take 1/2 tablet at bedtime. [facility]. ARIPiprazole (ABILIFY) 15 mg tablet Take 1 tablet by mouth once daily. [facility]. famotidine (PEPCID) 40 mg tablet Take 1 tablet by mouth once daily. lisinopril (ZESTRIL) 10 mg tablet Take 1 tablet by mouth once daily. pregabalin (LYRICA) 75 mg capsule Take 1 capsule by mouth two times a day for 180 days. amantadine HCl (SYMMETREL) 100 mg capsule 200 mg twice daily. amitriptyline (ELAVIL) 50 mg tablet 50 mg once daily. carBAMazepine (TEGRETOL) 200 mg tablet 200 mg twice daily. Cholecalciferol, Vitamin D3, 50 mcg (2,000 unit) cap Take by mouth once daily. bethanechol (URECHOLINE) 25 mg tablet Take 1 tablet by mouth three times daily. FAMILY HISTORY Problem Relation Age of Onset Psychiatry Mother Arrhythmia Mother Hypothyroidism Mother Heart Attack Father age 82 Genitourinary () Father urine retention COPD Sister other (covid 19) Sister No Known Problems Brother Heart Maternal Grandmother Heart Maternal Aunt Diabetes Paternal Aunt Social History Tobacco Use Smoking status: Never Smokeless tobacco: Never Substance Use Topics Alcohol use: No Drug use: Never BP 147/90 Pulse 86 Resp 16 Wt 113.9 kg (251 lb) BMI 34.42 kg/m Physical Exam Vitals reviewed. Constitutional: Appearance: Normal appearance. Musculoskeletal: Lumbar back: No tenderness. Normal range of motion. Negative right straight leg raise test and negative left straight leg raise test. Right lower leg: No swelling or tenderness. Left lower leg: No swelling or tenderness. Comments: Leg pain increases when ambulating on tip toes and heels Skin: General: Skin is warm and dry. Neurological: Mental Status: He is alert. Sensory: Sensation is intact. Motor: Weakness (muscle strength 4/5 bilaterally) present. No atrophy or abnormal muscle tone. Gait: Gait is intact. Deep Tendon Reflexes: Reflex Scores: Patellar reflexes are 2+ on the right side and 2+ on the left side. Achilles reflexes are 1+ on the right side and 1+ on the left side. DATA REVIEWED: Most recent labs ASSESSMENT/PLAN: 1. Numbness and tingling of both lower extremities - ICD9: 782.0, ICD10: R20.0, R20.2 (primary diagnosis) Suspect idiopathic neuropathy vs lumbar radiculopathy Evaluate further with: - EMG(NEURO/NI) - HEMOGLOBIN A1C - COMPREHENSIVE METABOLIC PANEL - COMPLETE BLOOD COUNT Follow-up and further recommendations pending results See plan below 2. Chronic bilateral low back pain without sciatica - ICD9: 724.2, 338.29, ICD10: M54.50, G89.29 Chronic low back pain, no acute flare ups and pain is very manageable. No worsening. - XR LUMBAR GENERAL 3V AP/LAT/L5-S1 3. Pain in both lower extremities - ICD9: 729.5, ICD10: M79.604, M79.605 As above - EMG(NEURO/NI) 4. Prediabetes - ICD9: 790.29, ICD10: R73.03 Recheck - HEMOGLOBIN A1C 5. Hyperlipidemia, unspecified hyperlipidemia type - ICD9: 272.4, ICD10: E78.5 - Control undetermined, due for labs - LIPID PANEL BASIC Prescription instructions reviewed with patient as applicable. Potential red flag symptoms discussed with the patient. Reviewed appropriate action plan to take if red flag symptoms occur. Patient agreeable to treatment plan. Soniya Orta APRN.COMPLIANCE SPECIALIST documented in this encounter [facility] 06-06-2024 History of Present illness Narrative Patient presents for Hepatitis B vaccine. Tolerated injection well. Codi Schreiber LPN documented in this encounter [facility] 04-20-2024 Telephone encounter Note Patient has been identified by name and date of : Yes, Provider Dr. Rzaa Date 04-20-24 Time 2:12p Pharmacy phones for refill(s): Requested Prescriptions Pending Prescriptions Disp Refills pregabalin (LYRICA) 75 mg capsule 180 capsule 1 Sig: Take 1 capsule by mouth two times a day for 180 days. famotidine (PEPCID) 40 mg tablet 90 tablet 1 Sig: Take 1 tablet by mouth once daily. Date of last office visit in primary care: 04/11/2024 Date of next office visit in primary care: 07/22/2024 Pharmacy is also requesting: atorvastatin (LIPITOR) 20 mg tablet (Discontinued) 90 tablet 1 11/02/2023 12/30/2023 Sig: Take 1 tablet by mouth daily at bedtime. Sent to pharmacy as: atorvastatin (LIPITOR) 20 mg tablet Class: Normal Route: ORAL Reason for Discontinue: Side Effects Please verify with patient if still taking. Please advise. Thank you. Alpa Richards. [facility] 04-20-2024 Miscellaneous Notes Patient has been identified by name and date of : Yes, Provider Dr. Raza Date 04-20-24 Time 2:12p Pharmacy phones for refill(s): Requested Prescriptions Pending Prescriptions Disp Refills pregabalin (LYRICA) 75 mg capsule 180 capsule 1 Sig: Take 1 capsule by mouth two times a day for 180 days. famotidine (PEPCID) 40 mg tablet 90 tablet 1 Sig: Take 1 tablet by mouth once daily. Date of last office visit in primary care: 04/11/2024 Date of next office visit in primary care: 07/22/2024 Pharmacy is also requesting: atorvastatin (LIPITOR) 20 mg tablet (Discontinued) 90 tablet 1 11/02/2023 12/30/2023 Sig: Take 1 tablet by mouth daily at bedtime. Sent to pharmacy as: atorvastatin (LIPITOR) 20 mg tablet Class: Normal Route: ORAL Reason for Discontinue: Side Effects Please verify with patient if still taking. Please advise. Thank you. Alpa Richards. documented in this encounter [facility] 04-11-2024 History of Present illness Narrative This note was created using NoteWriter. Subjective Patient presents with: ER F/U Elizabethheather Baumann is a 53 year old male. He developed acute nausea, vomiting, and diarrhea last week, and was evaluated in the ER. IV fluids helped. His labs were consistent with dehydration and he was discharged on ondansetron. His symptoms resolved. He had no specific triggers, and his medications from mental health were essentially unchanged. He ran out of Lyrica and did not refill a few months. His neuropathy was stable for a time, but was now worsening again. He requested to resume pregabalin. Review of Systems Constitutional: Negative for appetite change and fever. HENT: Negative. Respiratory: Negative. Cardiovascular: Negative. Gastrointestinal: Negative. Genitourinary: Negative. ACTIVE PROBLEM LIST Obesity, Class II, Bmi 35-39.9 Bipolar 1 Disorder (Hcc) Hyperlipidemia Idiopathic Peripheral Neuropathy Ckd (Chronic Kidney Disease) Stage 2, Gfr 60-89 Ml/Min Drug-Induced Tremor Prediabetes Primary Hypertension Amaya On Cpap Gastroesophageal Reflux Disease Without Esophagitis Chronic Bilateral Low Back Pain Without Sciatica Obesity, Class I, Bmi 30-34.9 Social History Tobacco Use Smoking status: Never Smokeless tobacco: Never Substance Use Topics Alcohol use: No Drug use: Never Current Outpatient Medications Medication Sig amantadine HCl (SYMMETREL) 100 mg capsule 200 mg twice daily. amitriptyline (ELAVIL) 50 mg tablet 50 mg once daily. carBAMazepine (TEGRETOL) 200 mg tablet 200 mg twice daily. Cholecalciferol, Vitamin D3, 50 mcg (2,000 unit) cap Take by mouth once daily. bethanechol (URECHOLINE) 25 mg tablet Take 1 tablet by mouth three times daily. fluvoxaMINE (LUVOX) 100 mg tablet Take 2 tablets by mouth daily at bedtime. [facility]. busPIRone HCl 30 mg tablet Take 1 tablet in am. Take 1/2 tablet at bedtime. [facility]. ARIPiprazole (ABILIFY) 15 mg tablet Take 1 tablet by mouth once daily. [facility]. famotidine (PEPCID) 40 mg tablet Take 1 tablet by mouth once daily. lisinopril (ZESTRIL) 10 mg tablet Take 1 tablet by mouth once daily. pregabalin (LYRICA) 75 mg capsule Take 1 capsule by mouth two times a day for 180 days. No current facility-administered medications for this visit. Objective BP 128/83 (BP Site: Left Arm, BP Position: Sitting, BP Cuff Size: Large Adult) Pulse 70 Temp 36.8 C (98.2 F) (Temporal) Wt 111.1 kg (245 lb) BMI 33.60 kg/m Physical Exam Constitutional: Appearance: Normal appearance. HENT: Mouth/Throat: Mouth: Mucous membranes are moist. Pharynx: Oropharynx is clear. Eyes: General: No scleral icterus. Cardiovascular: Heart sounds: Normal heart sounds. Pulmonary: Breath sounds: Normal breath sounds. Abdominal: General: Bowel sounds are normal. Palpations: Abdomen is soft. There is no mass. Tenderness: There is no abdominal tenderness. Neurological: General: No focal deficit present. Psychiatric: Behavior: Behavior normal. Assessment and Plan 1. Gastroenteritis - ICD9: 558.9, ICD10: K52.9 (primary diagnosis) Resolved. 2. Gastroesophageal reflux disease without esophagitis - ICD9: 530.81, ICD10: K21.9 Controlled. - FAMOTIDINE 40 MG TABLET 3. Primary hypertension - ICD9: 401.9, ICD10: I10 - Controlled - Continue current medications - LISINOPRIL 10 MG TABLET 4. Idiopathic peripheral neuropathy - ICD9: 356.9, ICD10: G60.9 Resume medication. - PREGABALIN 75 MG CAPSULE 5. Need for COVID-19 vaccine - ICD9: V04.89, ICD10: Z23 - [employer] COVID-19 VACCINE (2022- [place]) AGE 12+ YR Thony Raza MD documented in this encounter [facility] 04-05-2024 Telephone encounter Note Patient call in for diarrhea/vomiting since 2 am this morning. Unable to keep anything down. Patient states that his mouth is dry, he feels weak, and has dizziness when standing. Nurse Triage assessment completed with protocol recommending for disposition of Go to ED now. Care advice reviewed with patient, patient stated understanding. Reason for Disposition [1] Drinking very little AND [2] dehydration suspected (e.g., no urine > 12 hours, very dry mouth, very lightheaded) Answer Assessment - Initial Assessment Questions 1. DIARRHEA SEVERITY: Started at 2 am this morning; Patient states that he has had diarrhea 3 times. 2. ONSET: 2 am this morning 3. BM CONSISTENCY: Loose; Like a "puddle" 4. VOMITING: Patient has vomited twice this morning. 5. ABDOMEN PAIN: Denies abdominal pain 6. ABDOMEN PAIN SEVERITY: Denies Pain 7. ORAL INTAKE: Had a glass of OJ and vomited; Had a glass of water and vomited. 8. HYDRATION: Dry mouth; feels a little weak; dizziness when standing. 9. EXPOSURE: Denies 10. ANTIBIOTIC USE: Denies 11. OTHER SYMPTOMS: Slight fever Protocols used: [id number] [facility] 04-05-2024 Miscellaneous Notes Patient call in for diarrhea/vomiting since 2 am this morning. Unable to keep anything down. Patient states that his mouth is dry, he feels weak, and has dizziness when standing. Nurse Triage assessment completed with protocol recommending for disposition of Go to ED now. Care advice reviewed with patient, patient stated understanding. Reason for Disposition [1] Drinking very little AND [2] dehydration suspected (e.g., no urine > 12 hours, very dry mouth, very lightheaded) Answer Assessment - Initial Assessment Questions 1. DIARRHEA SEVERITY: Started at 2 am this morning; Patient states that he has had diarrhea 3 times. 2. ONSET: 2 am this morning 3. BM CONSISTENCY: Loose; Like a "puddle" 4. VOMITING: Patient has vomited twice this morning. 5. ABDOMEN PAIN: Denies abdominal pain 6. ABDOMEN PAIN SEVERITY: Denies Pain 7. ORAL INTAKE: Had a glass of OJ and vomited; Had a glass of water and vomited. 8. HYDRATION: Dry mouth; feels a little weak; dizziness when standing. 9. EXPOSURE: Denies 10. ANTIBIOTIC USE: Denies 11. OTHER SYMPTOMS: Slight fever Protocols used: [id number] documented in this encounter [facility] 02-01-2024 Miscellaneous Notes Sea our office did get your refill request for Famotidine (Pepcid) and Pregabalin (Lyrica) however new prescription were sent to [email or web address] on 11/02/2023 for 90 tablets, 1 refill. It is to early for a refill, you will need a refill in late March, early April. Catalina Hooks LPN documented in this encounter [facility] 01-06-2024 History of Present illness Narrative Patient presents for Hepatitis B vaccine. Denies any problems at this time. Tolerated injection well. Codi Schreiber LPN documented in this encounter [facility] 11-10-2023 Miscellaneous Notes Form signed and faxed. Juana Godfrey Ma Type of letter/form/fax request - Medical Necessity-Oxygen Form received from fax on 1 floor and placed on MD desk () for completion. Completed form needs to be faxed to Medical Service [phone]. Pt follows with Pulmonary but PCP willing to sign. Route to [place] when form completed for processing documented in this encounter [facility] 11-02-2023 Miscellaneous Notes MARISOL: 07/20/2023 NOV: 07/22/2024 documented in this encounter [facility] 11-02-2023 Miscellaneous Notes MARISOL: 07/20/2023 NOV: 07/22/2024 documented in this encounter [facility] 08-17-2023 Miscellaneous Notes Sea our office did receive your refill request for Lisinopril, however a new prescription was done 06/16/2023 for 90 tablets, 1 refill sent to [facility] mail order pharmacy. Please check with your pharmacy. documented in this encounter [facility] 07-20-2023 Instructions Thony Raza MD - 07/20/2023 1:43 PM EDT VACCINES NEEDED: HEPATITIS B(1 of 3 - 3-dose series) Never done DTAP,TDAP,TD(1 - Tdap) Never done SHINGRIX VACCINE(1 of 2) Never done documented in this encounter [facility] 07-20-2023 History of Present illness Narrative This note was created using [employer]. Subjective Elizabeth Baumann is a 52 year old male. He felt well in general. He has been feeling somewhat manic the past few weeks but did not feel this was severe. He is scheduled to see his mental health provider in 2 months. His hypertension was controlled. Prediabetes and lipids needed rechecked, and he did not do his labs. Review of Systems Constitutional: Negative for fatigue and unexpected weight change. Respiratory: Negative for cough and shortness of breath. Cardiovascular: Negative for chest pain and leg swelling. Gastrointestinal: Negative. Genitourinary: Negative. Negative for difficulty urinating. Psychiatric/Behavioral: Positive for sleep disturbance. ACTIVE PROBLEM LIST Obesity, Class II, Bmi 35-39.9 Bipolar 1 Disorder (Hcc) Hyperlipidemia Idiopathic Peripheral Neuropathy Ckd (Chronic Kidney Disease) Stage 2, Gfr 60-89 Ml/Min Drug-Induced Tremor Prediabetes Primary Hypertension Amaya On Cpap Gastroesophageal Reflux Disease Without Esophagitis Chronic Bilateral Low Back Pain Without Sciatica Obesity, Class I, Bmi 30-34.9 Current Outpatient Medications Medication Sig pregabalin (LYRICA) 75 mg capsule Take 1 capsule by mouth twice daily for 180 days. atorvastatin (LIPITOR) 20 mg tablet Take 1 tablet by mouth daily at bedtime. lisinopril (ZESTRIL) 10 mg tablet Take 1 tablet by mouth once daily. famotidine (PEPCID) 40 mg tablet Take 1 tablet by mouth once daily. amantadine HCl (SYMMETREL) 100 mg capsule 200 mg twice daily. amitriptyline (ELAVIL) 50 mg tablet 50 mg once daily. ARIPiprazole (ABILIFY) 20 mg tablet 20 mg once daily. carBAMazepine (TEGRETOL) 200 mg tablet 200 mg twice daily. fluvoxaMINE (LUVOX) 100 mg tablet 100 mg daily at bedtime. busPIRone HCl 30 mg tablet 30 mg once daily. Take 1 tablet in am, 1 1/2 tablet at bedtime. Cholecalciferol, Vitamin D3, 50 mcg (2,000 unit) cap Take by mouth once daily. bethanechol (URECHOLINE) 25 mg tablet Take 1 tablet by mouth three times daily. No current facility-administered medications for this visit. Objective BP 126/80 (BP Site: Left Arm, BP Position: Sitting, BP Cuff Size: Large Adult) Pulse 76 Resp 16 Wt 115.7 kg (255 lb) BMI 34.97 kg/m Physical Exam Constitutional: Appearance: He is not ill-appearing. HENT: Head: Normocephalic. Eyes: Extraocular Movements: Extraocular movements intact. Conjunctiva/sclera: Conjunctivae normal. Cardiovascular: Rate and Rhythm: Normal rate and regular rhythm. Heart sounds: No murmur heard. No gallop. Pulmonary: Effort: No respiratory distress. Breath sounds: Normal breath sounds. Musculoskeletal: Right lower leg: No edema. Left lower leg: No edema. Neurological: General: No focal deficit present. Mental Status: He is alert. Psychiatric: Mood and Affect: Mood normal. Behavior: Behavior normal. Assessment and Plan 1. Obesity, Class I, BMI 30-34.9 - ICD9: 278.00, ICD10: E66.9 (primary diagnosis) Weight decreasing - Behavioral intervention 2. Primary hypertension - ICD9: 401.9, ICD10: I10 - Controlled - Continue current medications - Recommend regular aerobic exercise 3. Hyperlipidemia, unspecified hyperlipidemia type - ICD9: 272.4, ICD10: E78.5 - Control undetermined, due for labs 4. CKD (chronic kidney disease) stage 2, GFR 60-89 ml/min - ICD9: 585.2, ICD10: N18.2 Labs TBD. - Counseled on avoiding NSAIDs, adequate hydration See printed instructions or information. Thony Raza MD documented in this encounter [facility] 06-15-2023 Miscellaneous Notes MARISOL: 01/20/2023 Last refill: 11/19/2022 QTY: 90 Refills: 1 documented in this encounter [facility] 06-06-2023 Miscellaneous Notes Patient has been identified by name and date of : Yes Patient phones for refill(s): Requested Prescriptions Pending Prescriptions Disp Refills famotidine (PEPCID) 40 mg tablet 90 tablet 1 Sig: Take 1 tablet by mouth once daily. Date of last office visit in primary care: 01/20/23 Last 2 Encounter Wt Readings: Date: Wt: 01/20/2023 118.8 kg (262 lb) 10/16/2022 121.1 kg (267 lb) Previous labs/tests for medication: Not applicable Please advise. Thank you. Poly Mayo LPN documented in this encounter [facility] 01-20-2023 History of Present illness Narrative This note was created using NoteWriter. Subjective Patient presents with: Physical Elizabeth Baumann is a 52 year old male here for above. His hypertension and lipids were controlled. Labs were concerning for diabetes. He did not tolerate a facial mask for CPAP so he was not using his machine at this time. He noted a spot on his dorsal nose that was growing the past few months. 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 Most of his medicines were from [employer]. Other providers: Marc Britt, [facility]. Dr. Luli Campbell for nephrology. Dr. Chowdhury, urology. Dr. Jewell, chiropractor for his chronic low back pain. Review of Systems Constitutional: Negative. HENT: Negative. Eyes: Negative. Respiratory: Negative. Cardiovascular: Negative. Gastrointestinal: Negative. Genitourinary: Negative. Musculoskeletal: Negative. Skin: See HPI. Neurological: Negative. PAST MEDICAL HISTORY Diagnosis Date Bipolar 1 disorder (HCC) 1996 [facility] BPH with obstruction/lower urinary tract symptoms 2010 Calculus of gallbladder without mention of cholecystitis or obstruction 07/23/2013 CKD (chronic kidney disease) stage 2, GFR 60-89 ml/min 01/16/2022 Constipation, chronic 10/13/2021 Depression 1996 Diabetes (HCC) 1996 Drug-induced tremor 01/16/2022 Gastritis and duodenitis 08/16/2013 HTN (hypertension) 2011 Hyperlipidemia 01/16/2022 Nephrolithiasis 02/25/2021 Peripheral neuropathy 2018 Renal cysts, acquired, bilateral 02/25/2021 PAST SURGICAL HISTORY Procedure Laterality Date CONTACT LASER VAPORIZATION PROSTATE ??? EGD 08/16/2013 TRURL ELECTROSURG RESCJ PROSTATE BLEED COMPLETE 08/30/2012 for structure FAMILY HISTORY Problem Relation Age of Onset Psychiatry Mother Arrhythmia Mother Hypothyroidism Mother Heart Attack Father age 82 Genitourinary () Father urine retention COPD Sister other (covid 19) Sister No Known Problems Brother Heart Maternal Grandmother Heart Maternal Aunt Diabetes Paternal Aunt Social History Tobacco Use Smoking status: Never Smokeless tobacco: Never Substance Use Topics Alcohol use: No Drug use: Never Immunization History Administered Date(s) Administered COVID-19 booster vaccine, age 12+ yr, bivalent ([employer]) 01/20/2023 COVID-19 original vaccine, full dose, monovalent (MODERNA) 03/12/2021 04/09/2021 12/05/2021 Influenza Seasonal Inj Quad Age 6 Mo - 64 Yrs 10/16/2022 Influenza Seasonal Inj Quad Age 6 Mo-64 Yrs Pres Free 07/24/2021 ALLERGIES No Known Allergies Current Outpatient Medications Medication Sig lisinopril (ZESTRIL, PRINIVIL) 10 mg tablet Take 1 tablet by mouth once daily. famotidine (PEPCID) 40 mg tablet Take 1 tablet by mouth once daily. amantadine HCl (SYMMETREL) 100 mg capsule 200 mg twice daily. amitriptyline (ELAVIL) 50 mg tablet 50 mg once daily. ARIPiprazole (ABILIFY) 20 mg tablet 20 mg once daily. carBAMazepine (TEGRETOL) 200 mg tablet 200 mg twice daily. fluvoxaMINE (LUVOX) 100 mg tablet 100 mg daily at bedtime. busPIRone HCl 30 mg tablet 30 mg once daily. Take 1 tablet in am, 1 1/2 tablet at bedtime. Cholecalciferol, Vitamin D3, 50 mcg (2,000 unit) cap Take by mouth once daily. bethanechol (URECHOLINE) 25 mg tablet Take 1 tablet by mouth three times daily. atorvastatin (LIPITOR) 20 mg tablet Take 1 tablet by mouth daily at bedtime. pregabalin (LYRICA) 75 mg capsule Take 1 capsule by mouth twice daily for 180 days. No current facility-administered medications for this visit. Objective BP 126/76 (BP Site: Left Arm, BP Position: Sitting, BP Cuff Size: Large Adult) Pulse 72 Temp 36.2 C (97.1 F) (Temporal) Ht 181.9 cm (5' 11.6") Wt 118.8 kg (262 lb) BMI 35.93 kg/m Physical Exam Constitutional: Appearance: He is obese. He is not ill-appearing. HENT: Head: Normocephalic. Eyes: General: No scleral icterus. Extraocular Movements: Extraocular movements intact. Conjunctiva/sclera: Conjunctivae normal. Neck: Vascular: No carotid bruit. Cardiovascular: Rate and Rhythm: Normal rate and regular rhythm. Heart sounds: No murmur heard. No gallop. Pulmonary: Effort: Pulmonary effort is normal. Breath sounds: Normal breath sounds. Abdominal: Palpations: Abdomen is soft. There is no mass. Tenderness: There is no abdominal tenderness. Musculoskeletal: Cervical back: Neck supple. Right lower leg: No edema. Left lower leg: No edema. Lymphadenopathy: Cervical: No cervical adenopathy. Skin: Comments: 5 mm diameter, raised nodule of the right nasal bridge. Component Latest Ref Rng & Units 01/13/2023 Protein, Total 6.3 - 8.0 g/dL 7.6 Albumin 3.9 - 4.9 g/dL 4.8 Calcium 8.5 - 10.2 mg/dL 9.3 Bilirubin, Total 0.2 - 1.3 mg/dL 0.6 Alkaline Phosphatase 38 - 113 U/L 164 (H) AST 14 - 40 U/L 22 ALT 10 - 54 U/L 16 Glucose 74 - 99 mg/dL 130 (H) BUN 9 - 24 mg/dL 19 Creatinine 0.73 - 1.22 mg/dL 1.18 Sodium 136 - 144 mmol/L 141 Potassium 3.7 - 5.1 mmol/L 4.5 Chloride 97 - 105 mmol/L 102 CO2 22 - 30 mmol/L 26 Anion Gap 9 - 18 mmol/L 13 eGFR >=60 mL/min/1.73m 75 WBC 3.70 - 11.00 k/uL 5.60 RBC 4.20 - 6.00 m/uL 5.65 Hemoglobin 13.0 - 17.0 g/dL 16.7 Hematocrit 39.0 - 51.0 % 51.4 (H) MCV 80.0 - 100.0 fL 91.0 MCH 26.0 - 34.0 pg 29.6 MCHC 30.5 - 36.0 g/dL 32.5 RDW-CV 11.5 - 15.0 % 12.6 Platelet Count 150 - 400 k/uL 176 MPV 9.0 - 12.7 fL 10.5 Absolute nRBC <0.01 k/uL <0.01 Cholesterol, Total <200 mg/dL 179 Triglyceride <150 mg/dL 59 HDL Cholesterol >39 mg/dL 39 (L) Non HDL Cholesterol <130 mg/dL 140 (H) Fasting Time hrs 12 VLDL Cholesterol <30 mg/dL 12 TC:HDL Ratio <5.10 4.59 LDL Cholesterol <100 mg/dL 128 (H) LDL:HDL Ratio <2.54 3.28 (H) Hemoglobin A1C 4.3 - 5.6 % 5.7 (H) Estimated Average Glucose mg/dL 117 Assessment and Plan 1. Routine medical exam - ICD9: V70.0, ICD10: Z00.00 (primary diagnosis) - Counseled on healthy diet and regular exercise - Discussed need for and benefit of weight loss. BMI 35.93 kg/(m^2) - Counseled on limiting alcohol intake to 2 drinks per day - Depression screening tool completed and reviewed with patient. Based on score and interview, patient is already diagnosed with depression and recommended continuing current plan of care. - Patient was counseled [id number] by myself (the billing provider) for the following immunizations and vaccine components, including side effects: COVID-19. Patient consents for immunization and understands risks and benefits. A VIS sheet on each immunization was given to the patient. 2. Hyperlipidemia, unspecified hyperlipidemia type - ICD9: 272.4, ICD10: E78.5 - good control - Continue current medication. - ATORVASTATIN 20 MG TABLET - LIPID PANEL BASIC 3. Idiopathic peripheral neuropathy - ICD9: 356.9, ICD10: G60.9 Controlled. - PREGABALIN 75 MG CAPSULE 4. Bipolar 1 disorder (HCC) - ICD9: 296.7, ICD10: F31.9 Per counseling center. 5. Chronic bilateral low back pain without sciatica - ICD9: 724.2, 338.29, ICD10: M54.50, G89.29 History noted. 6. Obesity, Class II, BMI 35-39.9 - ICD9: 278.00, ICD10: E66.9 Weight increasing - Behavioral intervention 7. CKD (chronic kidney disease) stage 2, GFR 60-89 ml/min - ICD9: 585.2, ICD10: N18.2 - eGFR: Stable - Counseled on avoiding regular use of NSAIDs, adequate hydration, potential risk of IV dye 8. Primary hypertension - ICD9: 401.9, ICD10: I10 - good control - Continue current medication(s) - Encouraged dietary sodium restriction/DASH diet - Recommended regular aerobic exercise. - Recommend home blood pressure monitoring, to bring results in on next visit - Goal of BP <130/80 9. AMAYA on CPAP - ICD9: 327.23, V46.8, ICD10: G47.33, Z99.89 Nasal mask. - CPAP DEVICE, WITH HUMIDIFIER 10. Prediabetes - ICD9: 790.29, ICD10: R73.03 At risk for diabetes mellitus. I stressed low carb diet. - BASIC METABOLIC PNL - HGB A1C 11. Need for COVID-19 vaccine - ICD9: V04.89, ICD10: Z23 - PFI[employer]ER-BION[employer] COVID-19 BIVALENT BOOSTER VACCINE, AGE 12+ YR 12. Lesion of skin of nose - ICD9: 709.9, ICD10: L98.9 Rule out skin cancer. - CONSULT TO DERMATOLOGY Thony Raza MD documented in this encounter [facility] 11-19-2022 Miscellaneous Notes Patient has been identified by name and date of : Yes Patient phones for refill(s): Requested Prescriptions Pending Prescriptions Disp Refills lisinopril (ZESTRIL, PRINIVIL) 10 mg tablet 90 tablet 1 Sig: Take 1 tablet by mouth once daily. Date of last office visit in primary care: 10/16/2022 Annual: 01/16/2022 Last 2 Encounter Wt Readings: Date: Wt: 10/16/2022 121.1 kg (267 lb) 06/18/2022 117 kg (258 lb) Previous labs/tests for medication: Blood Pressure: BUN (mg/dL) Date Value 03/06/2022 20 01/20/2022 18 Sodium (mmol/L) Date Value 03/06/2022 140 01/20/2022 141 Last 1 Encounter BP Readings: Date: BP: 10/16/2022 137/87[bp average[ Please advise. Thank you. Catalina Hooks LPN documented in this encounter [facility] 07-24-2022 Miscellaneous Notes Addended by: OLIVE GORDON on: 07/24/2022 10:20 AM Modules accepted: Orders documented in this encounter [facility] 07-24-2022 History of Present illness Narrative POPULATION HEALTH NAVIGATION OUTREACH Action/FYI Patient responds via [facility] message sent to patient Pt identified by name and : YES, via M87 Outreach Outcome/Action M87 message sent Did you use a PCP flex slot to schedule this appointment? N/A Message Sent to Practice: Yes Navigation Signature: Olive Baxter Population Health Navigator July 24, 2022 10:18 AM POPULATION HEALTH NAVIGATION OUTREACH Action/FYI Patient due for CRCS - Cologuard ordered Call placed to patient - left message on machine to return call MyChart message sent to patient Pt identified by name and : NO Outreach Outcome/Action Unable to reach patient: Left message MyChart message sent Did you use a PCP flex slot to schedule this appointment? N/A Reason for Outreach Care Gap or Scheduling/Wellness visits Payer: Payor: [employer] MEDICARE / Plan: [employer] / Product Type: HMO / Care Gap Reviewed:: Colorectal Cancer Screening Reminder: Reminder note to check Health Maintenance for items below Health Maintenance items due: HEPATITIS B(1 of 3 - 3-dose series) Never done DTAP,TDAP,TD(1 - Tdap) Never done COLORECTAL CANCER SCREENING Never done SHINGRIX VACCINE(1 of 2) Never done COVID-19 VACCINE(4 - Booster for Moderna series) due on 04/04/2022 Message Sent to Practice: No Navigation Signature: Olive Baxter Population Health Navigator July 24, 2022 8:46 AM documented in this encounter [facility] 07-02-2022 Miscellaneous Notes Done. Angel Baker Ma Please fax to [employer]. Soniya Woodruff APRN.CNP documented in this encounter [facility] 06-26-2022 History of Present illness Narrative Sleep Study Check-In Documentation Date: June 26, 2022 Name: Elizabeth Baumann Comments: HST was returned in working order with all sleep questionnaires Mony Oliveros PSS [employer]# [id number] Mail out date:06/23/22 [employer] Shipping #:[id number] [employer] Return #:[id number] June 23, 2022 Standing PSG Orders signed in the last 90 days None Future PSG Orders signed in the last 90 days Ordered Auth. provider HOME SLEEP APNEA TEST (HSAT) [[id number]] 06/18/22 Soniya Woodruff APRN.COMPLIANCE SPECIALIST Assoc. diagnoses: Primary hypertension [I10], Daytime sleepiness [R40.0], Obesity, Class II, BMI 35-39.9 [E66.9] Q: Indications: A: Obstructive sleep apnea Q: STOP-BANG conditions - Select All That Apply: A: GENDER = male A2: BMI > 35 kg/m2 A3: high blood PRESSURE A4: TIREDNESS, fatigue or sleepiness during the day Q: Current use of supplemental oxygen during sleep period?: A: No All Prior Sleep Studies (past 365 days) Some values may be hidden. Unless noted otherwise, only the newest values recorded on each date are displayed. Sleep Studies HOME SLEEP APNEA TEST (HSAT) Future Expected: Expires: 06/18/23 BMI Readings from Last 2 Encounters: 06/18/22 : 36.50 kg/m 02/13/22 : 36.78 kg/m PAST MEDICAL HISTORY Diagnosis Date Bipolar 1 disorder (HCC) 1996 [facility] BPH with obstruction/lower urinary tract symptoms 2010 Calculus of gallbladder without mention of cholecystitis or obstruction 07/23/2013 CKD (chronic kidney disease) stage 2, GFR 60-89 ml/min 01/16/2022 Constipation, chronic 10/13/2021 Depression 1996 Diabetes (HCC) 1996 Drug-induced tremor 01/16/2022 Gastritis and duodenitis 08/16/2013 HTN (hypertension) 2011 Hyperlipidemia 01/16/2022 Nephrolithiasis 02/25/2021 Peripheral neuropathy 2018 Renal cysts, acquired, bilateral 02/25/2021 The medical record was reviewed to determine if the proposed sleep study conforms to the [facility] Practice Parameters for the Indications for Polysomnography and Related Procedures, or if the sleep study is indicated for other reasons. Indications for study: AMAYA suspected without comorbid medical or sleep disorders Sleep study to be performed: Home Sleep Apnea Test (HSAT) Special instructions: None-follow laboratory protocol Mohinder Sanchez [facility] Staff Note: I have read the above protocol, edited as needed, and agree to the plan. Sammy Orozco III, PhD 12:26 PM, 06/23/2022 June 23, 2022 An order has been received for Home Sleep Apnea Test (HSAT) from dmitry Costello. [facility] Staff. Visit prep complete. Comments :No The sleep study is scheduled for . Insurance: Payor: [employer]NA MEDICARE / Plan: [employer] / Product Type: HMO / Payor/Plan Subscr Sex Relation Sub. Ins. ID Effective Group Num 1. [employer] MEDICA* ELIZABETH BAUMANN 1970 Male Self [id number] [birth year] [address] [address] 2. MEDICAID [place] -* ELIZABETH BAUMANN 1970 Male Self [id number] [birth year] [address] Leslie Leger documented in this encounter [facility] 06-21-2022 Miscellaneous Notes . documented in this encounter [facility] 06-18-2022 Instructions Soniya Woodruff APRN.CNP - 06/18/2022 6:24 PM EDT Recombinant shingles vaccine (Shingrix) is recommended; 2 doses 2-6 months apart. Please read information, check with your insurance, and schedule vaccination at your local pharmacy. A prescription is not required. If you are certain you have coverage to receive this vaccine in the office, we can schedule this for you. documented in this encounter [facility] 06-18-2022 History of Present illness Narrative CC Patient presents with: 4 month follow up HPI Elizabeth Baumann is a 51 year old male who presents to the office for blood pressure. His visit today is for follow-up. Patient was last seen for this approximately 4 months ago. Diagnosed with hypertension at that visit and started on Lisinopril 10 mg daily. Taking all medications as prescribed: Yes Side effects: No Home BP's: No Denies: headache, chest pain, palpitations, dyspnea and peripheral edema. Last 4 Encounter BP Readings: Date: BP: 06/18/2022 106/74 03/06/2022 112/78 02/13/2022 143/94[average[ 01/16/2022 152/95[average[ Last 3 Encounter Wt Readings: Date: Wt: 06/18/2022 117 kg (258 lb) 02/13/2022 117.9 kg (260 lb) 01/16/2022 119.3 kg (263 lb) Exercise: likes to exercise by walking his dog every day. Diet: Watches diet for salt (salty snacks, added salt, processed frozen/canned foods), sugary/sweet snacks, unhealthy fats: most of the time Patient reports feeling very tired every afternoon, usually has to take a nap or falls asleep easily. Reports insomnia. Denies snoring, witnessed apnea, un-refreshed sleep. He is on numerous psychiatric medications for years but fatigue started recently. REVIEW OF SYSTEMS See HPI PAST MEDICAL HISTORY Diagnosis Date Bipolar 1 disorder (HCC) 1996 [facility]. BPH with obstruction/lower urinary tract symptoms 2010 Calculus of gallbladder without mention of cholecystitis or obstruction 07/23/2013 CKD (chronic kidney disease) stage 2, GFR 60-89 ml/min 01/16/2022 Constipation, chronic 10/13/2021 Depression 1996 Diabetes (HCC) 1996 Drug-induced tremor 01/16/2022 Gastritis and duodenitis 08/16/2013 HTN (hypertension) 2012 Hyperlipidemia 01/16/2022 Nephrolithiasis 02/25/2021 Peripheral neuropathy 2018 Renal cysts, acquired, bilateral 02/25/2021 PAST SURGICAL HISTORY Procedure Laterality Date CONTACT LASER VAPORIZATION PROSTATE ??? EGD 08/16/2013 TRURL ELECTROSURG RESCJ PROSTATE BLEED COMPLETE 08/30/2012 for structure ALLERGIES Patient has no known allergies. MEDICATIONS lisinopril (ZESTRIL, PRINIVIL) 10 mg tablet Take 1 tablet by mouth once daily. amantadine HCl (SYMMETREL) 100 mg capsule 200 mg twice daily. amitriptyline (ELAVIL) 50 mg tablet 50 mg once daily. ARIPiprazole (ABILIFY) 20 mg tablet 20 mg once daily. carBAMazepine (TEGRETOL) 200 mg tablet 200 mg twice daily. fluvoxaMINE (LUVOX) 100 mg tablet 100 mg daily at bedtime. busPIRone HCl 30 mg tablet 30 mg once daily. Cholecalciferol, Vitamin D3, (VITAMIN D-3) 50 mcg (2,000 unit) cap Take by mouth once daily. atorvastatin (LIPITOR) 20 mg tablet Take 1 tablet by mouth daily at bedtime. bethanechol (URECHOLINE) 25 mg tablet Take 1 tablet by mouth three times daily. pregabalin (LYRICA) 75 mg capsule Take 1 capsule by mouth twice daily for 180 days. FAMILY HISTORY Problem Relation Age of Onset Psychiatry Mother Heart Attack Father age 82 Genitourinary () Father urine retention COPD Sister other (covid 19) Sister No Known Problems Brother Heart Maternal Grandmother Heart Maternal Aunt Diabetes Paternal Aunt Social History Tobacco Use Smoking status: Never Smoker Smokeless tobacco: Never Used Substance Use Topics Alcohol use: No Drug use: Never PHYSICAL EXAM BP 106/74 Pulse 76 Resp 14 Wt 117 kg (258 lb) BMI 36.50 kg/m General Appearance: well appearing, in no acute distress, alert Lungs: Lungs clear to auscultation. No wheezing, rhonchi, rales. Heart: RRR without murmur, gallop, or rubs. No ectopy DATA REVIEWED: Most recent labs ASSESSMENT/PLAN: 1. Primary hypertension - ICD9: 401.9, ICD10: I10 (primary diagnosis) - good control - Continue current medication(s) - Recommended regular aerobic exercise. - Recommend home blood pressure monitoring, to bring results in on next visit - Goal of BP <130/80 - LISINOPRIL 10 MG TABLET - HOME SLEEP APNEA TEST (HSAT) 2. Daytime sleepiness - ICD9: 780.54, ICD10: R40.0 Concerning for sleep apnea, patient high risk - HOME SLEEP APNEA TEST (HSAT) 3. Obesity, Class II, BMI 35-39.9 - ICD9: 278.00, ICD10: E66.9 As above - HOME SLEEP APNEA TEST (HSAT) 4. Hyperlipidemia, unspecified hyperlipidemia type - ICD9: 272.4, ICD10: E78.5 - ATORVASTATIN 20 MG TABLET refilled 5. Idiopathic peripheral neuropathy - ICD9: 356.9, ICD10: G60.9 PDMP website checked and validated. All prescriptions have been APPROPRIATELY filled. No suspicious activity was identified. 06/18/2022 by Soniya Woodruff APRN.COMPLIANCE SPECIALIST - PREGABALIN 75 MG CAPSULE Prescription instructions reviewed with patient as applicable. Potential red flag symptoms discussed with the patient. Reviewed appropriate action plan to take if red flag symptoms occur. Patient agreeable to treatment plan Soniya Woodruff APRN.FAUSTO documented in this encounter [facility] 03-06-2022 Miscellaneous Notes Okay. Manual Readin/78 Pulse: 72 Reason for blood pressure check - Last BP elevated and Medication adjustment Patient is: Taking medication as prescribed Yes Took medication today Yes If no, date medication last taken N/A Experiencing side effects No BP was elevated at last appt 02/13/22. Was started Lisinopril 10mg daily. Tolerating medication well. Does report some intermittent fatigue; will have to take a nap at times d/t it. Denies any chest pain, shortness of breath, dizziness, or headaches. Daily caffeine use. No personal history of tobacco use; no current exposure. Alert and oriented. Pt has been identified by name and birthdate: Yes Allergies reviewed: Yes Latex allergy: no. Medication - prescribed and OTC reviewed and updated: Yes Do you need any prescription refills prior to your next visit: No Health Maintenance: Reviewed and not up to date and provider notified Patient advised to continue with current medications and would be contacted if any further instructions after review by PCP. Codi Schreiber LPN documented in this encounter [facility] 03-06-2022 History of Present illness Narrative Manual Readin/78 Pulse: 72 Reason for blood pressure check - Last BP elevated and Medication adjustment Patient is: Taking medication as prescribed Yes Took medication today Yes If no, date medication last taken N/A Experiencing side effects No BP was elevated at last appt 02/13/22. Was started Lisinopril 10mg daily. Tolerating medication well. Does report some intermittent fatigue; will have to take a nap at times d/t it. Denies any chest pain, shortness of breath, dizziness, or headaches. Daily caffeine use. No personal history of tobacco use; no current exposure. Alert and oriented. Pt has been identified by name and birthdate: Yes Allergies reviewed: Yes Latex allergy: no. Medication - prescribed and OTC reviewed and updated: Yes Do you need any prescription refills prior to your next visit: No Health Maintenance: Reviewed and not up to date and provider notified Patient advised to continue with current medications and would be contacted if any further instructions after review by PCP. Codi Schreiber LPN documented in this encounter [facility] 07-23-2013 History of Past i llness Narrative Problem Noted Date Resolved Date Calculus of gallbladder with out mention of cholecystitis or obstruction 07/23/2013 01/16/2022 Abdominal pain, unspecified site 07/23/2013 01/16/2022 documented as of this encounter (statuses as of 03/06/2022) [facility]08-[facility]2013 History of Past illness Narrative* Problem Noted Date Resolved Date Calculus of gallbladder with out mention of cholecystitis or obstruction 07/23/2013 01/16/2022 Abdominal pain, unspecified site 07/23/2013 01/16/2022 documented as of this encounter (statuses as of 03/06/2022) [facility] History of Past illness Narrative* Problem Noted Date Resolved Date Calculus of gallbladder with out mention of cholecystitis or obstruction 07/23/2013 01/16/2022 Abdominal pain, unspecified site 07/23/2013 01/16/2022 documented as of this encounter (statuses as of 06/18/2022) [facility] History of Past illness Narrative* Problem Noted Date Resolved Date Calculus of gallbladder with out mention of cholecystitis or obstruction 07/23/2013 01/16/2022 Abdominal pain, unspecified site 07/23/2013 01/16/2022 documented as of this encounter (statuses as of 06/23/2022) [address]24-2013 History of Past illness Narrative* Problem Noted Date Resolved Date Calculus of gallbladder with out mention of cholecystitis or obstruction 07/23/2013 01/16/2022 Abdominal pain, unspecified site 07/23/2013 01/16/2022 documented as of this encounter (statuses as of 06/26/2022) [address]24-2013 History of Past illness Narrative* Problem Noted Date Resolved Date Calculus of gallbladder with out mention of cholecystitis or obstruction 07/23/2013 01/16/2022 Abdominal pain, unspecified site 07/23/2013 01/16/2022 documented as of this encounter (statuses as of 07/04/2022) [facility] History of Past illness Narrative* Problem Noted Date Resolved Date Calculus of gallbladder with out mention of cholecystitis or obstruction 07/23/2013 01/16/2022 Abdominal pain, unspecified site 07/23/2013 01/16/2022 documented as of this encounter (statuses as of 07/24/2022) [facility] History of Past illness Narrative* Problem Noted Date Resolved Date Calculus of gallbladder with out mention of cholecystitis or obstruction 07/23/2013 01/16/2022 Abdominal pain, unspecified site 07/23/2013 01/16/2022 documented as of this encounter (statuses as of 11/19/2022) [address]24-2013 History of Past illness Narrative* Problem Noted Date Resolved Date Calculus of gallbladder with out mention of cholecystitis or obstruction 07/23/2013 01/16/2022 Abdominal pain, unspecified site 07/23/2013 01/16/2022 documented as of this encounter (statuses as of 01/20/2023) [address]24-2013 History of Past illness Narrative* Problem Noted Date Diagnosed Date Resolved Date Calculus of gallbladder with out mention of cholecystitis or obstruction 07/23/2013 01/16/2022 Abdominal pain, unspecified site 07/23/2013 01/16/2022 documented as of this encounter (statuses as of 06/06/2023) [facility] History of Past illness Narrative* Problem Noted Date Diagnosed Date Resolved Date Calculus of gallbladder with out mention of cholecystitis or obstruction 07/23/2013 01/16/2022 Abdominal pain, unspecified site 07/23/2013 01/16/2022 documented as of this encounter (statuses as of 06/16/2023) [facility] History of Past illness Narrative* Problem Noted Date Diagnosed Date Resolved Date Calculus of gallbladder with out mention of cholecystitis or obstruction 07/23/2013 01/16/2022 Abdominal pain, unspecified site 07/23/2013 01/16/2022 documented as of this encounter (statuses as of 07/20/2023) [facility] History of Past illness Narrative* Problem Noted Date Diagnosed Date Resolved Date Calculus of gallbladder with out mention of cholecystitis or obstruction 07/23/2013 01/16/2022 Abdominal pain, unspecified site 07/23/2013 01/16/2022 documented as of this encounter (statuses as of 08/18/2023) [facility] History of Past illness Narrative* Problem Noted Date Diagnosed Date Resolved Date Calculus of gallbladder with out mention of cholecystitis or obstruction 07/23/2013 01/16/2022 Abdominal pain, unspecified site 07/23/2013 01/16/2022 documented as of this encounter (statuses as of 11/02/2023) [facility] History of Past illness Narrative* Problem Noted Date Diagnosed Date Resolved Date Calculus of gallbladder with out mention of cholecystitis or obstruction 07/23/2013 01/16/2022 Abdominal pain, unspecified site 07/23/2013 01/16/2022 documented as of this encounter (statuses as of 11/11/2023) [facility] History of Past illness Narrative* Problem Noted Date Diagnosed Date Resolved Date Calculus of gallbladder with out mention of cholecystitis or obstruction 07/23/2013 01/16/2022 Abdominal pain, unspecified site 07/23/2013 01/16/2022 documented as of this encounter (statuses as of 01/06/2024) [facility] History of Past illness Narrative* Problem Noted Date Diagnosed Date Resolved Date Calculus of gallbladder with out mention of cholecystitis or obstruction 07/23/2013 01/16/2022 Abdominal pain, unspecified site 07/23/2013 01/16/2022 documented as of this encounter (statuses as of 02/01/2024) [facility] note* Diagnosis Primary hypertension- Primary Unspecified essential hypertension [facility] [place] noteNo assessment information availableWSelect [facility] Work Phone: Evaluation note* Diagnosis Primary hypertension- Primary Unspecified essential hypertension Daytime sleepiness Obesity, Class II, BMI 35-39.9 Obesity, unspecified Hyperlipidemia, unspecified hyperlipidemia type Idiopathic peripheral neuropathy Unspecified hereditary and idiopathic peripheral neuropathy documented in this encounter [facility] note* Diagnosis Obstructive sleep apnea- Primary Obstructive sleep apnea (adult) (pediatric) documented in this encounter [facility] note* Diagnosis Special screening for malignant neoplasms, colon- Primary documented in this encounter [facility] note* Diagnosis Primary hypertension Unspecified essential hypertension documented in this encounter [facility] note* Diagnosis Routine medical exam- Primary Routine general medical examination at a health care facility Hyperlipidemia, unspecified hyperlipidemia type Idiopathic peripheral neuropathy Unspecified hereditary and idiopathic peripheral neuropathy Bipolar 1 disorder (HCC) Bipolar I disorder, most recent episode (or current) unspecified Chronic bilateral low back pain without sciatica Obesity, Class II, BMI 35-39.9 Obesity, unspecified CKD (chronic kidney disease) stage 2, GFR 60-89 ml/min Chronic kidney disease, Stage II (mild) Primary hypertension Unspecified essential hypertension AMAYA on CPAP Obstructive sleep apnea (adult) (pediatric) Prediabetes Other abnormal glucose Need for COVID-19 vaccine Lesion of skin of nose documented in this encounter [facility] note* Diagnosis Gastroesophageal reflux disease without esophagitis Esophageal reflux documented in this encounter [facility] note* Diagnosis Primary hypertension Unspecified essential hypertension documented in this encounter [facility] note* Diagnosis Obesity, Class I, BMI 30-34.9- Primary Obesity, unspecified Primary hypertension Unspecified essential hypertension Hyperlipidemia, unspecified hyperlipidemia type CKD (chronic kidney disease) stage 2, GFR 60-89 ml/min Chronic kidney disease, Stage II (mild) [facility] [place] [facility]* Diagnosis Primary hypertension Unspecified essential hypertension [facility] [place] [facility]* Diagnosis Primary hypertension Unspecified essential hypertension Idiopathic peripheral neuropathy Unspecified hereditary and idiopathic peripheral neuropathy [facility] [place] [facility]* Diagnosis Gastroesophageal reflux disease without esophagitis Esophageal reflux Hyperlipidemia, unspecified hyperlipidemia type documented [facility] [place] [facility]* Diagnosis Encounter for immunization- Primary Need for other specified prophylactic vaccination against single bacterial disease [facility] [place] [facility] Diagnosis Gastroesophageal reflux disease without esophagitis Esophageal reflux Idiopathic peripheral neuropathy Unspecified hereditary and idiopathic peripheral neuropathy [facility] [place] [facility]* Diagnosis Gastroenteritis- Primary Other and unspecified noninfectious gastroenteritis and colitis Gastroesophageal reflux disease without esophagitis Esophageal reflux Primary hypertension Unspecified essential hypertension Idiopathic peripheral neuropathy Unspecified hereditary and idiopathic peripheral neuropathy Need for COVID-19 vaccine [facility] [place] [facility]* Diagnosis Idiopathic peripheral neuropathy Unspecified hereditary and idiopathic peripheral neuropathy Gastroesophageal reflux disease without esophagitis Esophageal reflux [facility] [place] [facility] Diagnosis Need for vaccination- Primary Need for prophylactic vaccination and inoculation against unspecified single disease [facility] [place] [facility]* Diagnosis Numbness and tingling of both lower extremities- Primary Chronic bilateral low back pain without sciatica Pain in both lower extremities Prediabetes Other abnormal glucose Hyperlipidemia, unspecified hyperlipidemia type documented [facility] [place] [facility]* Diagnosis Hyperlipidemia, unspecified hyperlipidemia type- Primary documented [facility] [place] [facility]* Diagnosis Numbness and tingling of both lower extremities- Primary Pain in both lower extremities [facility] [place] [facility]* Diagnosis Numbness and tingling of both lower extremities- Primary [facility] [place] [facility]* Diagnosis Medicare annual wellness visit, subsequent- Primary Routine general medical examination at a health care facility Gastroesophageal reflux disease without esophagitis Esophageal reflux Obstructive sleep apnea Obstructive sleep apnea (adult) (pediatric) Idiopathic peripheral neuropathy Unspecified hereditary and idiopathic peripheral neuropathy Primary hypertension Unspecified essential hypertension Bipolar 1 disorder (HCC) Bipolar I disorder, most recent episode (or current) unspecified Screening for depression Encounter for screening examination for other mental health and behavioral disorders [facility] Diagnosis Neuropathy- Primary Mononeuritis of unspecified site Numbness and tingling of both lower extremities [facility] Diagnosis Chronic bilateral low back pain without sciatica [facility] [place] [facility]* Diagnosis Idiopathic peripheral neuropathy Unspecified hereditary and idiopathic peripheral neuropathy [facility] [place] [facility]* Diagnosis Neuropathy Mononeuritis of unspecified site [facility] [place] [facility]* Diagnosis Neuropathy- Primary Mononeuritis of unspecified site Parkinsonism, unspecified Parkinsonism type (HCC) Drug-induced tremor Abnormal involuntary movements [facility] [place] [facility]* Diagnosis Obstructive sleep apnea- Primary Obstructive sleep apnea (adult) (pediatric) Intolerance of continuous positive airway pressure (CPAP) ventilation Excessive daytime sleepiness [facility] [place] [facility]* Diagnosis Neuropathy Mononeuritis of unspecified site [facility] [place] [facility]* Diagnosis Flu-like symptoms- Primary Other general symptoms [facility] [place] [facility]* Diagnosis Primary hypertension- Primary Unspecified essential hypertension AMAYA on CPAP Obstructive sleep apnea (adult) (pediatric) Hyperlipidemia, unspecified hyperlipidemia type Prediabetes Other abnormal glucose Encounter for immunization Need for other specified prophylactic vaccination against single bacterial disease [facility] [place] [facility]* Diagnosis Neuropathy- Primary Mononeuritis of unspecified site Drug-induced tremor Abnormal involuntary movements Parkinsonism, unspecified Parkinsonism type (HCC) Spinal stenosis of lumbar region without neurogenic claudication Spinal stenosis, lumbar region, without neurogenic claudication Weakness of left lower extremity [facility] [place] [facility]* Diagnosis Neuropathy Mononeuritis of unspecified site [facility]* Diagnosis Bipolar affective disorder, currently manic, moderate (HCC)- Primary Bipolar I disorder, most recent episode (or current) manic, moderate [facility] [place] [facility]* Diagnosis Paronychia of finger of left hand- Primary [facility]* Diagnosis Medicare annual wellness visit, subsequent- Primary Routine general medical examination at a health care facility Vitamin D deficiency Unspecified vitamin D deficiency Bipolar 1 disorder (HCC) Bipolar I disorder, most recent episode (or current) unspecified Drug-induced tremor Abnormal involuntary movements Primary hypertension Unspecified essential hypertension AMAYA did not tolerate CPAP Obstructive sleep apnea (adult) (pediatric) Prediabetes Other abnormal glucose Hyperlipidemia, unspecified hyperlipidemia type Need for influenza vaccination Need for prophylactic vaccination and inoculation against influenza Screening for colon cancer Special screening for malignant neoplasms, colon [facility]* Diagnosis Neuropathy- Primary Mononeuritis of unspecified site Drug-induced tremor Abnormal involuntary movements Parkinsonism, unspecified Parkinsonism type (HCC) Spinal stenosis of lumbar region without neurogenic claudication Spinal stenosis, lumbar region, without neurogenic claudication Numbness and tingling of both lower extremities documented in this encounter [facility] for referral (narrative)* Diagnostic Procedure Only (Routine) - Pending Review Specialty Diagnoses / Procedures Referred By Shanika velez Referred To Contact [facility] Diagnoses Primary hypertension Daytime sleepiness Obesity, Class II, BMI 35-39.9 Procedures HOME SLEEP APNEA TEST (HSAT) SLEEP STD AIRFLOW HRT RATE&O2 SAT EFFORT JYOTSNATT Soniya Woodruff APRN.COMPLIANCE SPECIALIST [address] [place] [address] [facility] [place] [address] [place] [address] Referral ID Status Reason Start Date Expiration Date Visits Requested Visits Authorized [id number] Pending Review Auto-Generat ed Referral 06/18/2022 06/18/2023 1 1 [facility] for referral (narrative)* Diagnostic Procedure Only (Routine) - Closed Specialty Diagnoses / Procedures Referred By Shanika velez Referred To Contact XR IMAGING Diagnoses Chronic bilateral low back pain without sciatica Procedures XR LUMBAR GENERAL 3V AP/LAT/L5-S1 RADEX SPINE LUMBOSACRAL 2/3 VIEWS Soniya Orta APRN.COMPLIANCE SPECIALIST [address] [place] [address] [place] [address] Referral ID Status Reason Start Date Expiration Date V isits Requested Visits Authorized [id number] Closed Auto-Generate d Referral 06/06/2024 07/06/2025 1 1 * Outpatient Procedure (Routine) - Pending Review Specialty Diagnoses / Procedures Referred By Contac t Referred To Contact [facility] Diagnoses Numbness and tingling of both lower extremities Pain in both lower extremities Procedures EMG(NEURO/NI) NERVE CONDUCTION STUDIES 9-10 STUDIES Soniya Orta APRN.CNP [address] [place] [address] [facility] [place] [address] [place] [id number] Referral ID Status Reason Start Date Expiration Date Visits Requested Visits Authorized [id number] Pending Review Auto-Generat ed Referral 06/06/2024 06/06/2025 1 1 [facility] for referral (narrative)* Diagnostic Procedure Only (Routine) - Closed Specialty Diagnoses / Procedures Referred By Contac t Referred To Contact XR IMAGING Diagnoses Chronic bilateral low back pain without sciatica Procedures XR LUMBAR GENERAL 3V AP/LAT/L5-S1 RADEX SPINE LUMBOSACRAL 2/3 VIEWS Soniya Orta APRN.COMPLIANCE SPECIALIST [address] [place] [address] Xr Imaging [id number] Referral ID Status Reason Start Date Expiration Date V isits Requested Visits Authorized [id number] Closed Auto-Generate d Referral 06/06/2024 07/06/2025 1 1 [facility] for referral (narrative)No reason for referral information availableWSelect Medical [facility] Work Phone: Reason for visit Narrative* Diagnostic Procedure Only (Routine) - Closed Specialty Diagnoses / Procedures Referred By Contac t Referred To Contact XR IMAGING Diagnoses Chronic bilateral low back pain without sciatica Procedures XR LUMBAR GENERAL 3V AP/LAT/L5-S1 RADEX SPINE LUMBOSACRAL 2/3 VIEWS Soniya Orta APRN.COMPLIANCE SPECIALIST [address] [place] [address] [facility] [address] Referral ID Status Reason Start Date Expiration Date V isits Requested Visits Authorized [id number] Closed Auto-Generate d Referral 06/06/2024 07/06/2025 1 1 [facility] Advance Directives No Advanced Directives Records Found Advance Directive Response Recorded Date/ Time Advance Directives No March 12 9:48am Living Will No March 12, 2016 9:48am Power of Shuttle Inspector No March 12 9:48am Advance Directive Response Recorded Date/ Time Advance Directives No March 12 8:48am Living Will No March 12, 2016 8:48am Power of Shuttle Inspector No March 12 8:48am Advance Directive Response Recorded Date/ Time Name of Medical Power of Shuttle Inspector mother April 05, 2024 11:35am Advance Directives No March 12 9:48am Living Will Yes April 05, 2024 11 :35am Power of Shuttle Inspector Yes April 05, 2024 11:35am Advance Directive Response Recorded Date/ Time Living Will Yes January 04 9:33am Do you have a Healthcare Power of Shuttle Inspector? Yes January 04, 2025 9:33am Name of Medical Power of Shuttle Inspector Tracy Contreras January 04, 2025 9:33am Advance Directives No March 12 9:48am Reason for Referral Specialty Diagnoses / Procedures Referred By Contac t Referred To Contact Dermatology Diagnoses Lesion of skin of nose Procedures CONSULT TO DERMATOLOGY Thony Raza MD [address] [place] [address] Referral ID Status Reason Start Date Expiration Date Visits Requested Visits Authorized [id number] Ref Not Required PCP Requested Referral 01/20/2023 01/20/2024 1 1 Specialty Diagnoses / Procedures Referred By Contac t Referred To Contact Neurology Diagnoses Numbness and tingling of both lower extremities Procedures CONSULT TO NEUROLOGY OFFICE/OUTPATIENT [facility] 60 MINUTES Soniya Orta, CORPORATE SAFETY MANAGER.COMPLIANCE SPECIALIST [address] [place] [address] Referral ID Status Reason Start Date Expiration Date Visits Requested Visits Authorized [id number] Authorized PCP Requested Referral 07/06/2024 07/06/2025 1 1 Specialty Diagnoses / Procedures Referred By Contac t Referred To Contact Diagnoses Obstructive sleep apnea Procedures CONSULT TO SLEEP MEDICINE - ADULT OFFICE/OUTPATIENT [facility] 60 MINUTES Soniya Orta, CORPORATE SAFETY MANAGER.COMPLIANCE SPECIALIST [address] [place] [address] Referral ID Status Reason Start Date Expiration Date Visits Requested Visits Authorized [id number] Authorized PCP Requested Referral 07/27/2024 07/27/2025 1 1 Specialty Diagnoses / Procedures Referred By Contac t Referred To Contact Neurology Diagnoses Parkinsonism, unspecified Parkinsonism type (HCC) Drug-induced tremor Procedures CONSULT TO NEUROLOGY OFFICE/OUTPATIENT [facility] 60 MINUTES Ema Cooper PA-C [address] [place] [address] Referral ID Status Reason Start Date Expiration Date Visits Requested Visits Authorized [id number] Authorized PCP Requested Referral 11/02/2024 11/02/2025 1 1 Specialty Diagnoses / Procedures Referred By Contac t Referred To Contact Dentistry Diagnoses Obstructive sleep apnea Intolerance of continuous positive airway pressure (CPAP) ventilation Procedures CONSULT TO DENTISTRY OFFICE/OUTPATIENT [facility] 60 MINUTES Chris Chow, CORPORATE SAFETY MANAGER.COMPLIANCE SPECIALIST [address] [place] [address] Referral ID Status Reason Start Date Expiration Date Visits Requested Visits Authorized [id number] New Request PCP Requested Referral 11/03/2024 11/03/2025 1 1 Chief Complaint and Reason for Visit Chief Complaint DIZZY Chief Complaint Admit Date general illness January 04, 2025 8 :10am PSA February 16, 2025 10: 59am Summary Purpose Family History No Family History Records FoundNo Family History Records Found Additional Source Comments Source Comments (unrecognize d section and content) In the event this informatio n is protected by the Federal Confidentiality of Alcohol and Drug Abuse Patient Records regulations: The Federal rules restrict any use of the information to criminally investigate or prosecute any alcohol or drug abuse patient.[facility] the event this information is protected by the Federal Confidentiality of Alcohol and Drug Abuse Patient Records regulations: The Federal rules restrict any use of the information to criminally investigate or prosecute any alcohol or drug abuse patient.[facility] the event this information is protected by the Federal Confidentiality of Alcohol and Drug Abuse Patient Records regulations: The Federal rules restrict any use of the information to criminally investigate or prosecute any alcohol or drug abuse patient.[facility]ighIn the event this information is protected by the Federal Confidentiality of Alcohol and Drug Abuse Patient Records regulations: The Federal rules restrict any use of the information to criminally investigate or prosecute any alcohol or drug abuse patient.[facility]ighIn the event this information is protected by the Federal Confidentiality of Alcohol and Drug Abuse Patient Records regulations: The Federal rules restrict any use of the information to criminally investigate or prosecute any alcohol or drug abuse patient.[facility]ighIn the event this information is protected by the Federal Confidentiality of Alcohol and Drug Abuse Patient Records regulations: The Federal rules restrict any use of the information to criminally investigate or prosecute any alcohol or drug abuse patient.[facility]ighIn the event this information is protected by the Federal Confidentiality of Alcohol and Drug Abuse Patient Records regulations: The Federal rules restrict any use of the information to criminally investigate or prosecute any alcohol or drug abuse patient.[facility]ighIn the event this information is protected by the Federal Confidentiality of Alcohol and Drug Abuse Patient Records regulations: The Federal rules restrict any use of the information to criminally investigate or prosecute any alcohol or drug abuse patient.[facility]ighIn the event this information is protected by the Federal Confidentiality of Alcohol and Drug Abuse Patient Records regulations: The Federal rules restrict any use of the information to criminally investigate or prosecute any alcohol or drug abuse patient.[facility]ighIn the event this information is protected by the Federal Confidentiality of Alcohol and Drug Abuse Patient Records regulations: The Federal rules restrict any use of the information to criminally investigate or prosecute any alcohol or drug abuse patient.[facility]ighIn the event this information is protected by the Federal Confidentiality of Alcohol and Drug Abuse Patient Records regulations: The Federal rules restrict any use of the information to criminally investigate or prosecute any alcohol or drug abuse patient.[facility]ighIn the event this information is protected by the Federal Confidentiality of Alcohol and Drug Abuse Patient Records regulations: The Federal rules restrict any use of the information to criminally investigate or prosecute any alcohol or drug abuse patient.[facility]ighIn the event this information is protected by the Federal Confidentiality of Alcohol and Drug Abuse Patient Records regulations: The Federal rules restrict any use of the information to criminally investigate or prosecute any alcohol or drug abuse patient.[facility]ighIn the event this information is protected by the Federal Confidentiality of Alcohol and Drug Abuse Patient Records regulations: The Federal rules restrict any use of the information to criminally investigate or prosecute any alcohol or drug abuse patient.[facility]ighIn the event this information is protected by the Federal Confidentiality of Alcohol and Drug Abuse Patient Records regulations: The Federal rules restrict any use of the information to criminally investigate or prosecute any alcohol or drug abuse patient.[facility]ighIn the event this information is protected by the Federal Confidentiality of Alcohol and Drug Abuse Patient Records regulations: The Federal rules restrict any use of the information to criminally investigate or prosecute any alcohol or drug abuse patient.[facility]ighIn the event this information is protected by the Federal Confidentiality of Alcohol and Drug Abuse Patient Records regulations: The Federal rules restrict any use of the information to criminally investigate or prosecute any alcohol or drug abuse patient.[facility]ighIn the event this information is protected by the Federal Confidentiality of Alcohol and Drug Abuse Patient Records regulations: The Federal rules restrict any use of the information to criminally investigate or prosecute any alcohol or drug abuse patient.[facility]ighIn the event this information is protected by the Federal Confidentiality of Alcohol and Drug Abuse Patient Records regulations: The Federal rules restrict any use of the information to criminally investigate or prosecute any alcohol or drug abuse patient.[facility]ighIn the event this information is protected by the Federal Confidentiality of Alcohol and Drug Abuse Patient Records regulations: The Federal rules restrict any use of the information to criminally investigate or prosecute any alcohol or drug abuse patient.[facility]ighIn the event this information is protected by the Federal Confidentiality of Alcohol and Drug Abuse Patient Records regulations: The Federal rules restrict any use of the information to criminally investigate or prosecute any alcohol or drug abuse patient.[facility]ighIn the event this information is protected by the Federal Confidentiality of Alcohol and Drug Abuse Patient Records regulations: The Federal rules restrict any use of the information to criminally investigate or prosecute any alcohol or drug abuse patient.[facility]ighIn the event this information is protected by the Federal Confidentiality of Alcohol and Drug Abuse Patient Records regulations: The Federal rules restrict any use of the information to criminally investigate or prosecute any alcohol or drug abuse patient.[facility]ighIn the event this information is protected by the Federal Confidentiality of Alcohol and Drug Abuse Patient Records regulations: The Federal rules restrict any use of the information to criminally investigate or prosecute any alcohol or drug abuse patient.[facility]ighIn the event this information is protected by the Federal Confidentiality of Alcohol and Drug Abuse Patient Records regulations: The Federal rules restrict any use of the information to criminally investigate or prosecute any alcohol or drug abuse patient.[facility]ighIn the event this information is protected by the Federal Confidentiality of Alcohol and Drug Abuse Patient Records regulations: The Federal rules restrict any use of the information to criminally investigate or prosecute any alcohol or drug abuse patient.[facility]ighIn the event this information is protected by the Federal Confidentiality of Alcohol and Drug Abuse Patient Records regulations: The Federal rules restrict any use of the information to criminally investigate or prosecute any alcohol or drug abuse patient.[facility]ighIn the event this information is protected by the Federal Confidentiality of Alcohol and Drug Abuse Patient Records regulations: The Federal rules restrict any use of the information to criminally investigate or prosecute any alcohol or drug abuse patient.[facility]ighIn the event this information is protected by the Federal Confidentiality of Alcohol and Drug Abuse Patient Records regulations: The Federal rules restrict any use of the information to criminally investigate or prosecute any alcohol or drug abuse patient.[facility]ighIn the event this information is protected by the Federal Confidentiality of Alcohol and Drug Abuse Patient Records regulations: The Federal rules restrict any use of the information to criminally investigate or prosecute any alcohol or drug abuse patient.[facility]ighIn the event this information is protected by the Federal Confidentiality of Alcohol and Drug Abuse Patient Records regulations: The Federal rules restrict any use of the information to criminally investigate or prosecute any alcohol or drug abuse patient.[facility]ighIn the event this information is protected by the Federal Confidentiality of Alcohol and Drug Abuse Patient Records regulations: The Federal rules restrict any use of the information to criminally investigate or prosecute any alcohol or drug abuse patient.[facility]ighIn the event this information is protected by the Federal Confidentiality of Alcohol and Drug Abuse Patient Records regulations: The Federal rules restrict any use of the information to criminally investigate or prosecute any alcohol or drug abuse patient.[facility]ighIn the event this information is protected by the Federal Confidentiality of Alcohol and Drug Abuse Patient Records regulations: The Federal rules restrict any use of the information to criminally investigate or prosecute any alcohol or drug abuse patient.[facility]ighIn the event this information is protected by the Federal Confidentiality of Alcohol and Drug Abuse Patient Records regulations: The Federal rules restrict any use of the information to criminally investigate or prosecute any alcohol or drug abuse patient.[facility]ighIn the event this information is protected by the Federal Confidentiality of Alcohol and Drug Abuse Patient Records regulations: The Federal rules restrict any use of the information to criminally investigate or prosecute any alcohol or drug abuse patient.[facility]ighIn the event this information is protected by the Federal Confidentiality of Alcohol and Drug Abuse Patient Records regulations: The Federal rules restrict any use of the information to criminally investigate or prosecute any alcohol or drug abuse patient.[facility]ighIn the event this information is protected by the Federal Confidentiality of Alcohol and Drug Abuse Patient Records regulations: The Federal rules restrict any use of the information to criminally investigate or prosecute any alcohol or drug abuse patient.[facility]ighIn the event this information is protected by the Federal Confidentiality of Alcohol and Drug Abuse Patient Records regulations: The Federal rules restrict any use of the information to criminally investigate or prosecute any alcohol or drug abuse patient.[facility]ighIn the event this information is protected by the Federal Confidentiality of Alcohol and Drug Abuse Patient Records regulations: The Federal rules restrict any use of the information to criminally investigate or prosecute any alcohol or drug abuse patient.[facility]ighIn the event this information is protected by the Federal Confidentiality of Alcohol and Drug Abuse Patient Records regulations: The Federal rules restrict any use of the information to criminally investigate or prosecute any alcohol or drug abuse patient.[facility]ighIn the event this information is protected by the Federal Confidentiality of Alcohol and Drug Abuse Patient Records regulations: The Federal rules restrict any use of the information to criminally investigate or prosecute any alcohol or drug abuse patient.[facility]ighIn the event this information is protected by the Federal Confidentiality of Alcohol and Drug Abuse Patient Records regulations: The Federal rules restrict any use of the information to criminally investigate or prosecute any alcohol or drug abuse patient.[facility]ighIn the event this information is protected by the Federal Confidentiality of Alcohol and Drug Abuse Patient Records regulations: The Federal rules restrict any use of the information to criminally investigate or prosecute any alcohol or drug abuse patient.[facility]ighIn the event this information is protected by the Federal Confidentiality of Alcohol and Drug Abuse Patient Records regulations: The Federal rules restrict any use of the information to criminally investigate or prosecute any alcohol or drug abuse patient.[facility]ighIn the event this information is protected by the Federal Confidentiality of Alcohol and Drug Abuse Patient Records regulations: The Federal rules restrict any use of the information to criminally investigate or prosecute any alcohol or drug abuse patient.[facility]ighIn the event this information is protected by the Federal Confidentiality of Alcohol and Drug Abuse Patient Records regulations: The Federal rules restrict any use of the information to criminally investigate or prosecute any alcohol or drug abuse patient.[facility]ighIn the event this information is protected by the Federal Confidentiality of Alcohol and Drug Abuse Patient Records regulations: The Federal rules restrict any use of the information to criminally investigate or prosecute any alcohol or drug abuse patient.[facility]ighIn the event this information is protected by the Federal Confidentiality of Alcohol and Drug Abuse Patient Records regulations: The Federal rules restrict any use of the information to criminally investigate or prosecute any alcohol or drug abuse patient.[facility]ighIn the event this information is protected by the Federal Confidentiality of Alcohol and Drug Abuse Patient Records regulations: The Federal rules restrict any use of the information to criminally investigate or prosecute any alcohol or drug abuse patient.[facility]ighIn the event this information is protected by the Federal Confidentiality of Alcohol and Drug Abuse Patient Records regulations: The Federal rules restrict any use of the information to criminally investigate or prosecute any alcohol or drug abuse patient.[facility]ighIn the event this information is protected by the Federal Confidentiality of Alcohol and Drug Abuse Patient Records regulations: The Federal rules restrict any use of the information to criminally investigate or prosecute any alcohol or drug abuse patient.[facility] Reason for Visit (unrecogniz ed section and content) Reason Onset Date Comments Refill Request 09/09/2013 Reason Comments Blood Pressure Check Reason Comments 4 month follow up Reason Comments HSAT Check In (Adult) Reason Onset Date Comments Population Health Navigation Outreach 07/24/2022 [employer] Care Gaps Reason Onset Date Comments Refill Request 11/18/2022 Reason Comments Physical Reason Onset Date Comments Refill Request 06/05/2023 Reason Onset Date Comments Refill Request 06/14/2023 Reason Comments F/U 6 months Reason Onset Date Comments Refill Request 08/17/2023 Reason Onset Date Comments Refill Request 10/31/2023 Reason Comments Forms Medical Service-med necessity for oxygen Reason Comments Imm/Inj Reason Onset Date Comments Refill Request 01/31/2024 Reason Comments Diarrhea Reason Comments ER F/U Reason Onset Date Comments Refill Request 04/20/2024 Reason Comments pain and burning in both legs Reason Comments Results Reason Comments Medicare Wellness Exam Reason Comments New Patient Numbness and tinglin g of both lower extremities Specialty Diagnoses / Procedures Referred By Shanika t Referred To Contact Neurology Diagnoses Numbness and tingling of both lower extremities Procedures CONSULT TO NEUROLOGY OFFICE/OUTPATIENT NEW HIGH MDM 60 MINUTES Soniya Orta M, CORPORATE SAFETY MANAGER.COMPLIANCE SPECIALIST [address] [place] [address] Referral ID Status Reason Start Date Expiration Date V isits Requested Visits Authorized [id number] Closed PCP Requested Referral 07/06/2024 07/06/2025 1 1 Reason Onset Date Comments Refill Request 09/14/2024 Reason Onset Date Comments Refill Request 09/25/2024 Reason Onset Date Comments Refill Request 10/10/2024 Reason Comments Recheck 3 months neuropathy Reason Comments New Patient AMAYA, intolerate to p ap, tried different mask Specialty Diagnoses / Procedures Referred By Contac t Referred To Contact Diagnoses Obstructive sleep apnea Procedures CONSULT TO SLEEP MEDICINE - ADULT OFFICE/OUTPATIENT NEW HIGH MDM 60 MINUTES Soniya Orta, CORPORATE SAFETY MANAGER.COMPLIANCE SPECIALIST [address] [place] [address] Referral ID Status Reason Start Date Expiration Date V isits Requested Visits Authorized [id number] Closed PCP Requested Referral 07/27/2024 07/27/2025 1 1 Reason Onset Date Comments Refill Request 11/26/2024 Reason Comments Medication Problem Patient Update Patient Question Reason Onset Date Comments Allied Health Visit 12/30/2024 Medication A dherence Outreach Reason Onset Date Comments Refill Request 12/30/2024 Reason Comments Patient Update Appointment Reason Comments Cough Nasal congestion, cheyanne dy aches/chills x 1 day Reason Onset Date Comments Allied Health Visit 01/26/2025 Medication A dherence Outreach Reason Comments Follow Up 6 months Reason Comments Established Patient Parkinson's, Neuropa thy Reason Onset Date Comments Refill Request 03/14/2025 Reason Onset Date Comments Population Health Navigation Outreach [facility]07[facility]2025 [facility] Reason Comments Sleep Problem Reason Comments Insomnia Reason Comments Derm Problem left hand middle fin doris, redness and swelling x 1 week Reason Onset Date Comments Medicare Wellness Exam Immunizations 08/04/2025 Flu vaccination Reason Comments Follow Up Drug-induced andrea onism-patient continues Abilify despite Dr Leal's recommendations as patient reports he has not seen his mental health provider d/t and he reports she is leaving [facility]. He reported despite the recommendations sent to [facility] he never heard from them.Insomnia- patient given prn Seroquel 50 mg 0.5-3 tabs po QHS as needed for sleep on 08/04/25- already taking 3 tabs and reporting 2.5-3 hrs of sleep on a daily basis. Care Teams (unrecognized sec tion and content) Winderman Relationship Specialty Start Date End Date Thony Raza MD [address] [facility] [place] [address] PCP - General Internal Medicine 01/16/22 Winderman Relationship Specialty Start Date End Date Thony Raza MD [address] [facility] [place] [address] PCP - General Internal Medicine 01/16/22 Winderman Relationship Specialty Start Date End Date Thony Raza MD [address] [facility] [place] [address] PCP - General Internal Medicine 01/16/22 Winderman Relationship Specialty Start Date End Date Thony Raza MD [address] [facility] [place] [address] PCP - General Internal Medicine 01/16/22 Winderman Relationship Specialty Start Date End Date Thony Raza MD [address] [facility] [place] [address] PCP - General Internal Medicine 01/16/22 Winderman Relationship Specialty Start Date End Date Thony Raza MD [address] [facility] [place] [address] PCP - General Internal Medicine 01/16/22 Winderman Relationship Specialty Start Date End Date Thony Raza MD [address] [facility] [place] [address] PCP - General Internal Medicine 01/16/22 Team Status: Active Member Role Status Dates Dr. Marvin Malone DO Family Provider Active Dr. Thony Raza MD Primary Care Provider Active Team Status: Inactive Member Role Status Dates Dr. Thony Raza MD Primary Care Provider Active Whit Britt HEALTH SERVICES INFORMATION SPECIALIST, HEALTH SERVICES INFORMATION SPECIALIST-C Attending Provider Active Winderman Relationship Specialty Start Date End Date Thony Raza MD [address] [facility] [place] [address] PCP - General Internal Medicine 01/16/22 Team Status: Inactive Member Role Status Dates Dr. Thony Raza MD Primary Care Provider Active Lorena Alcala , HEALTH SERVICES INFORMATION SPECIALIST-C Attending Provider, Referrin arslan Provider Active Team Status: Inactive Member Role Status Dates Dr. Thony Raza MD Primary Care Provider Active Dr. Kerry Campbell DO Attending Provider, Referring Corwin holman Active Winderman Relationship Specialty Start Date End Date Thony Raza MD [address] [facility] [place] [address] PCP - General Internal Medicine 01/16/22 Winderman Relationship Specialty Start Date End Date Thony Raza MD [address] [facility] [place] [address] PCP - General Internal Medicine 01/16/22 Winderman Relationship Specialty Start Date End Date Thony Raza MD [address] [facility] [place] [address] PCP - General Internal Medicine 01/16/22 Winderman Relationship Specialty Start Date End Date Thony Raza MD [address] [facility] [place] [address] PCP - General Internal Medicine 01/16/22 Winderman Relationship Specialty Start Date End Date Thony Raza MD [address] [facility] [place] [address] PCP - General Internal Medicine 01/16/22 Team Status: Inactive Member Role Status Dates Dr. Thony Raza MD Primary Care Provider Active Dr. Sigifredo Chowdhury MD Attending Provider, Referr ing Provider Active Team Status: Inactive Member Role Status Dates Dr. Thony Raza MD Primary Care Provider Active Dr. Jude Pennington , DO Emergency Provider Active Winderman Relationship Specialty Start Date End Date Thony Raza MD [address] [facility] [place] [address] PCP - General Internal Medicine 01/16/22 Winderman Relationship Specialty Start Date End Date Thony Raza MD [address] [facility] [place] [address] PCP - General Internal Medicine 01/16/22 Winderman Relationship Specialty Start Date End Date Thony Raza MD [address] [facility] [place] [address] PCP - General Internal Medicine 01/16/22 Winderman Relationship Specialty Start Date End Date Thony Raza MD [address] [facility] [place] [address] PCP - General Internal Medicine 01/16/22 Winderman Relationship Specialty Start Date End Date Thony Raza MD [address] [place] [address] PCP - General Internal Medicine 01/16/22 Winderman Relationship Specialty Start Date End Date Thony Raza MD [address] [facility] [place] [address] PCP - General Internal Medicine 01/16/22 Winderman Relationship Specialty Start Date End Date Thony Raza MD [address] [facility] [place] [address] PCP - General Internal Medicine 01/16/22 Winderman Relationship Specialty Start Date End Date Thony Raza MD [address] [place] [address] PCP - General Internal Medicine 01/16/22 Winderman Relationship Specialty Start Date End Date Thony Raza MD [address] [place] [address] PCP - General Internal Medicine 01/16/22 Winderman Relationship Specialty Start Date End Date Thony Raza MD [address] [place] [address] PCP - General Internal Medicine 01/16/22 Winderman Relationship Specialty Start Date End Date Thony Raza MD [address] [place] [address] PCP - General Internal Medicine 01/16/22 Winderman Relationship Specialty Start Date End Date Thony Raza MD [address] [facility] [place] [address] PCP - General Internal Medicine 01/16/22 Soniya Orta, CORPORATE SAFETY MANAGER.COMPLIANCE SPECIALIST [address] [place] [address] Academic Advisor Internal Medicine 11/07/24 Winderman Relationship Specialty Start Date End Date Thony Raza MD [address] [place] [address] PCP - General Internal Medicine 01/16/22 Soniya Orta, CORPORATE SAFETY MANAGER.COMPLIANCE SPECIALIST [address] [facility] [place] [address] Academic Advisor Internal Medicine 11/07/24 Winderman Relationship Specialty Start Date End Date Thony Raza MD [address] [facility] [place] [address] PCP - General Internal Medicine 01/16/22 Soniya Orta, CORPORATE SAFETY MANAGER.COMPLIANCE SPECIALIST [address] [facility] [place] [address] Academic Advisor Internal Medicine 11/07/24 Winderman Relationship Specialty Start Date End Date Thony Raza MD [address] [facility] [place] [address] PCP - General Internal Medicine 01/16/22 Soniya Orta, CORPORATE SAFETY MANAGER.COMPLIANCE SPECIALIST [address] [facility] [place] [address] Academic Advisor Internal Medicine 11/07/24 [place] Relationship Specialty Start Date End Date Thony Raza MD [address] [facility] [place] [address] PCP - General Internal Medicine 01/16/22 Soniya Orta, CORPORATE SAFETY MANAGER.COMPLIANCE SPECIALIST [address] [facility] [place] [address] Academic Advisor Internal Medicine 11/07/24 [place] Relationship Specialty Start Date End Date Thony Raza MD [address] [facility] [place] [address] PCP - General Internal Medicine 01/16/22 Soniya Orta, CORPORATE SAFETY MANAGER.COMPLIANCE SPECIALIST [address] [facility] [place] [address] Academic Advisor Internal Medicine 11/07/24 [place] Relationship Specialty Start Date End Date Thony Raza MD [address] [facility] [place], [place] [address] PCP - General Internal Medicine 01/16/22 Soniya Orta, CORPORATE SAFETY MANAGER.COMPLIANCE SPECIALIST [address] [facility] [place], [place] [address] Academic Advisor Internal Medicine 11/07/24 Team Status: Active Member Role Status Dates Dr. Thony Raza MD Primary Care Provider Active Team Status: Inactive Member Role Status Dates Dr. Thony Raza MD Primary Care Provider Active Start: January 04, 2025 End: January 04, 2025 Dr. Evin Hall DO Attending Provider Active Start : January 04, 2025 End: January 04, 2025 Dr. Evin Hall DO Emergency Provider Active Start : January 04, 2025 End: January 04, 2025 Team Status: Inactive Member Role Status Dates Dr. Thony Raza MD Primary Care Provider Active Start: February 16, 2025 End: February 16, 2025 Antionette Ider Attending Provider Active Start : February 16, 2025 End: February 16, 2025 Antionette Ider Referring Provider Active Start : February 16, 2025 End: February 16, 2025 [place] Relationship Specialty Start Date End Date Thony Raza MD [address] [facility] [place], [place] [address] PCP - General Internal Medicine 01/16/22 Soniya Orta, CORPORATE SAFETY MANAGER.COMPLIANCE SPECIALIST [address] [facility] [place], [place] [address] [facility] Internal Medicine 11/07/24 [place] Relationship Specialty Start Date End Date Thony Raza MD [address] [facility] [place], [place] [address] PCP - General Internal Medicine 01/16/22 Soniya Orta, CORPORATE SAFETY MANAGER.COMPLIANCE SPECIALIST [address] [place], [place] [id number] Academic Advisor Internal Medicine 11/07/24 [place] Relationship Specialty Start Date End Date Thony Raza MD [address] [place], [place] [address] PCP - General Internal Medicine 01/16/22 Soniya Orta, CORPORATE SAFETY MANAGER.COMPLIANCE SPECIALIST [address] [place] [address] Academic Advisor Internal Medicine 11/07/24 [place] Relationship Specialty Start Date End Date Thony Raza MD [address] [place], [place] [id number] PCP - General Internal Medicine 01/16/22 Soniya Orta, CORPORATE SAFETY MANAGER.COMPLIANCE SPECIALIST [address] [place] [address] [facility] Internal Medicine 11/07/24 [place] Relationship Specialty Start Date End Date Thony Raza MD [address] [place] [address] PCP - General Internal Medicine 01/16/22 Soniya Orta, CORPORATE SAFETY MANAGER.COMPLIANCE SPECIALIST [address] [place], [place] [address] [facility] Internal Medicine 11/07/24 Goals (unrecognized section and content) Goals may be documented in a n alternate sectionGoals may be documented in an alternate sectionGoals may be documented in an alternate sectionGoals may be documented in an alternate sectionGoals may be documented in an alternate sectionGoals may be documented in an alternate sectionGoals may be documented in an alternate sectionGoals may be documented in an alternate section (unrecognized sect ion and content) No Status Records FoundNo Status Records Found INFORMATION SOURCE (unrecogn ized section and content) DATE CREATED AUTHOR 09/26/2025 [facility] DATE CREATED AUTHOR MONIQUE BORREGO 10/03/2025 [facility] FOR RECORDS PERTAINING TO PATIENTS WHO ARE OR HAVE BEEN ENROLLED IN A CHEMICAL DEPENDENCY/SUBSTANCEABUSE PROGRAM, SOME INFORMATION MAY BE OMITTED. This clinical summary was aggregated from multiple sources. Caution should be exercised in using it in the provision of clinical care. This summary normalizes information from multiple sources, and as a consequence, information in this document may materially change the coding, format and clinical context of patient data. In addition, data may be omitted in some cases. CLINICAL DECISIONS SHOULD BE BASED ON THE PRIMARY CLINICAL RECORDS. [employer] provides no warranty or guarantee of the accuracy or completeness of information in this document.
[2025-10-22 13:12] VITALS: BP 167/99; PULSE 89; RESP 18; TEMP 36.1; O2SAT 100
== END 2025-10-22 13:13 | disposition home or self-care (01) ==
PROVIDERS: Emergency Provider Emergency Medicine; PCP Physician Assistant; Visit Provider Emergency Medicine
DX: Z76.0 Encounter for issue of repeat prescription (principal); F31.9 Bipolar disorder, unspecified; I10 Essential (primary) hypertension; E78.5 Hyperlipidemia, unspecified; Z79.899 Other long term (current) drug therapy
CPT/HCPCS: 99283